=== PATIENT | female | born 1945 | race Caucasian/White ===

== ENCOUNTER 2016-11-19 08:27 | Observation (INO) | payer OTHER ==
[~2016-11-19] VITALS: Ht 160 cm; Wt 80.0 kg
[~2016-11-19 08:27] MED LIST: ASPI81TA28 PO; ATOR10TA88 PO; CEFAZOLIN 2000 MG/60 ML D5W 60 ML IV SCH; CHOL100010 PO; CLB200 PO; CLTP PO; CMD5 PO; CRD200 PO; FLUO20CA35 PO; FRRG PO; HYDR-5688 PO; LACTATED RINGER'S 1000ML 1,000 ML IV SCH; LCTX PO; LPR25 PO; MULT-506 PO; PRLSR20 PO
[2016-11-19] MEDS ORDERED: PATIENT'S HEIGHT AND/OR WEIGHT NEEDED SCH (09:45)
[2016-11-19] MEDS ORDERED: AMIO200T4 PO (09:46)
[2016-11-19] MEDS ORDERED: METO25TA56 PO (09:50)
[2016-11-19] MEDS ORDERED: LEVO50TA6 PO (09:51)
[2016-11-19 09:56] VITALS: BP 109/47; PULSE 57; TEMP 36.6; O2SAT 97; BMI 36.0
[2016-11-19] MEDS ORDERED: MIDAZOLAM HCL 5 MG/ML 1 ML VIAL ONE (10:01)
[2016-11-19] MEDS ORDERED: FENTANYL CITRATE INJ 50 MCG/1 ML 2 ML VIAL ONE ×2 (10:02→11:36)
[2016-11-19] MEDS ORDERED: LIDOCAINE HCL 1% 20 ML VIAL ONE (10:02)
[2016-11-19] MEDS ORDERED: BACITRACIN 50000 UNIT VIAL ONE (10:02)
[2016-11-19] MEDS ORDERED: BUPIVACAINE 0.5 % 5 MG/1 ML MPF 30ML VIAL ONE (10:03)
--- NOTE | 2016-11-19 10:08 | History & Physical Bridge Note ---
H&P Re-Evaluation Bridge Note: I have examined the patient, reviewed the History & Physical and in the interval since the performance of the History & Physical I have noted the following changes of clinical significance: No changes noted
--- NOTE | 2016-11-19 10:08 | Procedure Note ---
Pre-Mod Sedation Assessment General Date of Moderate Sedation: Nov 19, 2016. Review Cardiovascular: regular rate, rhythm Abdomen: soft Lungs: lungs clear Airway Class: II Pre-Sedation Airway Assessment Oral Cavity: Dentures Able to Visualize Vocal Cords: No Short Thick Neck: No Hx of Sleep Apnea: No Smoking Status: Former Smoker Mallampati Classification: Class II ASA Classification: Class II Procedure Planning Contraindications-for Mod Sed: None Yes Notes The planned sedation has been discussed with the patient and consent obtained. I have identified the patient, determined the appropriateness of sedation and have assessed the patient immediately prior to the procedure. All medicine(s) and interventions are by my order.
[2016-11-19] MEDS ORDERED: MIDAZOLAM HCL 1 MG/ML 2ML VIAL ONE (11:25)
--- NOTE | 2016-11-19 12:00 | Procedure Note ---
Post-Mod Sedation Assessment General Date of Moderate Sedation Nov 19, 2016. Vital Signs: Vital Signs Past 12 Hours Date Time Temp Pulse Resp B/P Pulse Ox O2 Delivery O2 Flow Rate FiO2 11/19/16 09:56 36.6 57 20 109/47 97 Room Air Review - Discharge Criteria Vital Signs Stable: Yes Alert/Oriented/Conversant: Yes Returned to Baseline Mental St: Yes Nausea Absent/Minimal: Yes Pain/Discomfort/Absent/Minimal: Yes Normal/Baseline Respirations: Yes Active Bleeding?: No Pt Received D/C Instructions: N/A Prescriptions Given: None Specific Proced. D/C Criteria Distal Pulses Present (Cardiac: N/A Groin site assessed-Card Cath: N/A Voided Prior To Discharge: N/A Discharged Patients Adult Escort/Transportation: N/A
--- NOTE | 2016-11-19 12:01 | [facility] Post Operative Brief Note ---
Immediate Operative Summary Operative Date Nov 19, 2016. Pre-Operative Diagnosis tbs Post-Operative Diagnosis tbs Procedure(s) Performed dual chamber rate responsive pacemaker with peripheral venogram Surgeon zita shepard Drupal Web Developer Surgeon(s) none Estimated Blood Loss 15cc Findings none Fluids (cc crystalloids) 150cc Specimens none Drains none Anesthesia 7mg versed and 125mcg fentanyl Complication(s) None Disposition PCU
[2016-11-19] MEDS ORDERED: ACETAMINOPHEN 325 MG TAB PO PRN (12:15)
[2016-11-19] MEDS ORDERED: CeleBREX 200 MG CAP PO PRN (12:15)
[2016-11-19 12:44] VITALS: BP 107/65; PULSE 61; TEMP 36.5; O2SAT 96; Ht 160 cm; Wt 80.0 kg
[2016-11-19] MEDS: OXYCODONE/ACETAMINOPHEN 5-325 TAB PO PRN ×2 (13:37→20:58)
[2016-11-19] MEDS ORDERED: IV FLUIDS COMPLETED PRN (14:30)
[2016-11-19 15:57] VITALS: BP 113/63; PULSE 60; TEMP 36.6; O2SAT 94
[2016-11-19 16:00] LABS: INR 1.3 (0.9-1.1)
[2016-11-19 16:09] LABS: PROTHROMBIN TIME (PATIENT) 14.4 SECONDS (9.0-12.0)
[2016-11-19] MEDS ORDERED: WARFARIN SOD 5 MG TAB PO SCH (16:30)
[2016-11-19 19:00] VITALS: BP 109/51; PULSE 60; TEMP 36.5; O2SAT 95
[2016-11-19 20:54] VITALS: BP 117/67; PULSE 61
[2016-11-19] MEDS: METOPROLOL TARTRATE 25 MG TAB PO SCH (20:57)
[2016-11-19] MEDS ORDERED: ATORVASTATIN 10 MG TAB PO SCH (21:00)
[2016-11-20 00:02] VITALS: BP 101/61; PULSE 61; TEMP 36.6; O2SAT 95
[2016-11-20 03:51] VITALS: BP 113/53; PULSE 60; TEMP 36.8; O2SAT 95
[2016-11-20] MEDS: OXYCODONE/ACETAMINOPHEN 5-325 TAB PO PRN (05:56)
[2016-11-20] MEDS ORDERED: LEVOTHYROXINE 50 MCG TAB PO SCH (06:00)
[2016-11-20 07:18] LABS: INR 1.3 (0.9-1.1); PROTHROMBIN TIME (PATIENT) 13.9 SECONDS (9.0-12.0)
--- NOTE | 2016-11-20 07:31 | DIAGNOSTIC IMAGING REPORT ---
CHEST 2 VIEWS ROUTINE HISTORY: EXACT TIME ORDERED Evaluate for pneumothorax and lead placement COMPARISON: Chest 05/21/2015. FINDINGS: There has been interval placement of a left-sided dual-chamber pacemaker. The leads appear intact. No pneumothorax. No pleural effusions. The heart is normal in size. No evidence for pulmonary edema. No focal lung consolidations to suggest pneumonia. Bilateral shoulder arthroplasties are again noted. IMPRESSION: Interval placement left-sided dual-chamber pacemaker. The leads appear intact. No pneumothorax. Electronically signed by: Ranulfo Hunter M.D. 11/20/2016 7:30 AM Dictated Date/Time: 11/20/2016 7:28 AM
[2016-11-20 08:01] VITALS: BP_SYST 97; PULSE 60; TEMP 36.8; O2SAT 90
[2016-11-20] MEDS: METOPROLOL TARTRATE 25 MG TAB PO SCH ×2 (08:21→09:00)
[2016-11-20 08:46] VITALS: BP 139/46
[2016-11-20] MEDS ORDERED: MULTIVITAMIN TAB PO SCH (09:00)
[2016-11-20] MEDS ORDERED: CALCIUM 600MG + VIT D 400 IU TAB PO SCH (09:00)
[2016-11-20] MEDS ORDERED: FERROUS GLUCONATE 324 MG TAB PO SCH (09:00)
[2016-11-20] MEDS ORDERED: FLUOXETINE HCL 20 MG CAP PO SCH (09:00)
[2016-11-20] MEDS ORDERED: CHOLECALCIFEROL 1000 INTER.UNIT TAB PO SCH (09:00)
[2016-11-20] MEDS ORDERED: AMIODARONE 200 MG TAB PO SCH (09:00)
[2016-11-20] MEDS ORDERED: ASPIRIN 81 MG ECTAB PO SCH (09:00)
[2016-11-20] MEDS ORDERED: PANTOprazole SOD 40 MG TAB PO SCH (09:00)
[2016-11-20 11:03] VITALS: BP 105/63; PULSE 63; TEMP 36.8; O2SAT 95
--- NOTE | 2016-11-20 11:38 | Discharge Instructions ---
Discharge Instructions Admission Reason for Admission: Sick Sinus Syndrome; Tachy-Napoleon Syndrome Discharge Discharge Diagnosis / Problem: sss Discharge Goals Goal(s): Improve function Activity Recommendations Activity Limitations: as noted below (do not lift the left elbow over the left shoulder for 1 month; do not lift more than 10 pounds with the left arm for 2 weeks) Shower/Bathe: tomorrow Driving or Machine Use: resume 1 day after discharge . Current Hospital Diet Patient's current hospital diet: AHA Diet (Heart Healthy) Discharge Diet Recommended Diet: AHA Diet (Heart Healthy) Procedures Procedures Performed: dual chamber rate responsive pacemaker with peripheral venogram Pending Studies Studies pending at discharge: no Medical Emergencies . Who to Call and When: Medical Emergencies: If at any time you feel your situation is an emergency, please call 911 immediately. . Non-Emergent Contact Non-Emergency issues call your: Tank Truck Loader . . "Provider Documentation" section prepared by Marium Burkett. VTE Core Measure Inpt VTE Proph given/why not?: Warfarin (Coumadin)
--- NOTE | 2016-11-20 11:40 | Discharge Summary ---
Discharge Summary Admission Date: Nov 19, 2016 at 12:05 Discharge Date: Nov 20, 2016 Discharge Disposition: Home Principal Diagnosis: sss Secondary Diagnoses/Problems: pAF on coumadin and amiodarone cad non-obstructive by cath in 2011 mary non-compliant with CPAP HLD Hypothyroidism Procedures: dual chamber permanent pacemaker rate responsive with peripheral venogram Medication Reconciliation Continued Medications: Amiodarone Hcl (Cordarone) 200 Mg Tab 100 MG PO DAILY, TAB Aspirin (Aspirin Ec) 81 Mg Tab 81 MG PO QAM Atorvastatin (Lipitor) 10 Mg Tab 10 MG PO HS, TAB Calcium/Vitamin D (Caltrate 600 Plus *) Tab 1 TAB PO DAILY, 0 Refills Celecoxib (Celebrex) 200 Mg Cap 200 MG PO BID PRN for Pain Cholecalciferol (Vitamin D) 1,000 Inter.unit Tab 1000 INTER.UNIT PO QAM, 0 Refills Ferrous Gluconate (Ferrous Gluconate) 324 Mg Tab 1 TAB PO QD, #30 Fluoxetine (Prozac) 20 Mg Cap 20 MG PO QAM Levothyroxine Sodium (Levothyroxine Sodium) 50 Mcg Tab 1 TAB PO DAILY for 30 Days, #30 TAB 5 Refills Multivitamin (Multivitamin) Tab 1 TAB PO QAM, TAB Omeprazole (Prilosec) 20 Mg Capcr 20 MG PO QAM Warfarin Sod (Coumadin) 5 Mg Tab 5 MG PO DAILY@16, #30 TAB Discontinued Medications: Metoprolol Tartrate (Lopressor) (Lopressor) 25 Mg Tab 12.5 MG PO BID, TAB Hospital Course pt admitted for elective permanent pacemaker due to SSS; pt underwent procedure no complications. Monitored overnight and discharged home in stable condition. Total time spent on discharge = This includes examination of the patient, discharge planning, medication reconciliation, and communication with other providers. Discharge Instructions ACTIVITY RECOMMENDATIONS: * Do not raise affected arm over head for 4 weeks. SPECIAL CARE INSTRUCTIONS: * If bleeding occurs, apply direct pressure to area for 5 minutes. * Call your doctor if you have severe pain, fever, drainage or bleeding at site. * Keep dry for 48 hours. * Keep any scheduled doctor's appointment. * Implant Card - hand held device with website information given. SKIN IRRITATION: * You may experience some redness and/or swelling in the area where radiation was administered. If any skin irritation occurs, please contact your family physician. FOLLOW UP VISIT: Keep any scheduled doctor appointments.
[2016-11-20 11:47] VITALS: BP 105/63; PULSE 63; TEMP 36.8; O2SAT 95
--- NOTE | 2016-11-20 11:52 | Cardiology Follow-Up ---
Subjective Subjective Date of Service: Nov 20, 2016. Pt evaluation today including: conversation w/ patient, conversation w/ family , physical exam, chart review, review of studies Pain: minimal discomfort at incision site Review of Systems Constitutional: No fatigue, No fever, No weakness Respiratory: No shortness of breath Cardiac: No chest pain, No edema, No palpitations Abdomen: No nausea, No vomiting Endo: No fatigue Objective Vital Signs Last Vital Signs Documentation Date Time Temp Pulse Resp B/P Pulse Ox O2 Delivery O2 Flow Rate FiO2 11/20/16 11:03 36.8 63 18 105/63 95 11/20/16 08:00 Room Air Physical Exam: General Appearance: WD/WN, no apparent distress, + obese Eyes: bilateral eyes EOMI, bilateral eyes PERRL Neck: supple, no JVD Respiratory/Chest: lungs clear, normal breath sounds Cardiovascular: regular rate, rhythm, no edema, no JVD, no murmur Abdomen: non tender, soft Extremities: no pedal edema Neurologic/Psychiatric: alert, normal mood/affect, oriented x 3 Skin: normal color (left pectoral incision intact; no hematoma; mild ecchymosis ), warm/dry, no rash Assessment and Plan Impression: 1. SSS s/p permanent pacemaker 11/19/2016 2. pAF on coumadin and amiodarone 3. CAD non-obstructive by cath in 2011 4. HLD 5. Hypotension 6. ROBERT, non-compliant with CPAP 7. Hypothyroidism Plan: -Ok to discharge home -Will hold metoprolol due to hypotension -pt not allowed to lift the left elbow over the left shoulder for 1 month; do not lift more than 10 pounds with the left arm for 2 weeks -F/u in [facility] device clinic in 7-10 days Medications: Medications Administered Medications (Trade) Dose Ordered Sig/Jalen Route Start Time Stop Time Status Last Admin Dose Admin Cefazolin Sodium (Ancef 2000mg/60 ml D5W) 60 ml @ 100 mls/hr PREOP IV 11/19/16 06:00 11/19/16 23:59 DC 11/19/16 10:00 100 MLS/HR Midazolam HCl (Versed Inj) 5 mg STK-MED ONCE .ROUTE 11/19/16 10:01 11/19/16 10:03 DC 11/19/16 10:01 5 MG Fentanyl Citrate 100 mcg 100 mcg STK-MED ONCE .ROUTE 11/19/16 10:02 11/19/16 10:03 DC 11/19/16 10:02 100 MCG Lactated Ringer's (Lr 1000ml) 1,000 ml @ 15 mls/hr Q24H IV 11/19/16 06:00 11/19/16 13:10 DC 11/19/16 10:14 15 MLS/HR Midazolam HCl (Versed Inj) 2 mg STK-MED ONCE .ROUTE 11/19/16 11:25 11/19/16 11:26 DC 11/19/16 11:25 2 MG Fentanyl Citrate (Fentanyl Inj) 100 mcg STK-MED ONCE .ROUTE 11/19/16 11:36 11/19/16 11:37 DC 11/19/16 11:36 25 MCG Oxycodone/ Acetaminophen (Percocet 5-325mg Tab) 1 tab for pain scale 4-6 2 t... Q6H PRN PO 11/19/16 12:15 12/03/16 12:14 11/20/16 05:56 1 TAB Amiodarone HCl (Cordarone Tab) 100 mg DAILY PO 11/20/16 09:00 12/20/16 08:59 11/20/16 08:19 100 MG Aspirin (Ecotrin Tab) 81 mg QAM PO 11/20/16 09:00 12/20/16 08:59 11/20/16 08:18 81 MG Atorvastatin Calcium (Lipitor Tab) 10 mg HS PO 11/19/16 21:00 12/19/16 20:59 11/19/16 20:56 10 MG Calcium/Vitamin D (Caltrate Plus Tab) 1 tab DAILY PO 11/20/16 09:00 12/20/16 08:59 11/20/16 08:20 1 TAB Cholecalciferol (Vitamin D Tab) 1,000 inter.unit QAM PO 11/20/16 09:00 12/20/16 08:59 11/20/16 08:19 1,000 INTER.UNIT Ferrous Gluconate (Ferrous Gluconate Tab) 324 mg DAILY PO 11/20/16 09:00 12/20/16 08:59 11/20/16 08:20 324 MG Fluoxetine HCl (Prozac Cap) 20 mg QAM PO 11/20/16 09:00 12/20/16 08:59 11/20/16 08:20 20 MG Levothyroxine Sodium (Synthroid Tab) 50 mcg DAILYBB PO 11/20/16 06:00 12/20/16 05:59 11/20/16 06:37 50 MCG Metoprolol Tartrate (Lopressor Tab) 12.5 mg BID PO 11/19/16 21:00 12/19/16 20:59 11/19/16 20:57 12.5 MG Multivitamins (Multivitamin Tab) 1 tab QAM PO 11/20/16 09:00 12/20/16 08:59 11/20/16 08:20 1 TAB Warfarin Sodium (Coumadin Tab) 5 mg DAILY@16 PO 11/19/16 16:30 12/19/16 16:29 11/19/16 16:45 5 MG Pantoprazole Sodium (Protonix Tab) 40 mg QAM PO 11/20/16 09:00 12/20/16 08:59 11/20/16 08:19 40 MG Lab Results: CXR: Less slack on the RV lead and the pacemaker generator has dropped slightly in the pocket No PTX ECG: SR 62bpm Pacemaker Interrogation Today: the R wave sensing is down implant but unipolar sensing is good-threshold stable since implant RA testing stable from implant Last 24 Hours Test 11/19/16 15:31 11/20/16 06:30 Prothrombin Time 14.4 SECONDS 13.9 SECONDS Prothromb Time International Ratio 1.3 1.3
--- NOTE | 2016-11-20 16:20 | OPERATIVE REPORT ---
DATE OF OPERATION: 11/19/2016 PREOPERATIVE DIAGNOSIS: Sick sinus syndrome. POSTOPERATIVE DIAGNOSIS: Same. PROCEDURE: Dual chamber responsive permanent pacemaker under fluoroscopic guidance along with peripheral venogram. SURGEON: Dr. Marium Burkett. CURRICULUM AND INSTRUCTION DIRECTOR: None. ANESTHESIA: Monitored conscious sedation, total of 7 mg of Versed, 125 mcg of fentanyl start time 10:36 with stop time 11:55. BLOOD LOSS: Less than 20 mL. COMPLICATIONS: None. CONDITION: Stable. URINE OUTPUT: Not applicable. SPECIMENS: None. SPECIMENS: None. DRAINS: None. INTRAVENOUS FLUIDS: 150 mL. INTRAVENOUS CONTRAST: 10 mL. INDICATIONS FOR PROCEDURE: This is a 71-year-old female who has a past medical history of paroxysmal atrial fibrillation diagnosed initially in April 2015 at the time of a CVA. She is on amiodarone and Coumadin, coronary artery disease, nonobstructive CAD based on the cath in 2011, obstructive sleep apnea and noncompliant with her CPAP, hypothyroidism, and hyperlipidemia. She has been having evidence of sick sinus syndrome and was recommended permanent pacemaker, so we can continue her medicines for her AFib. CONSENT: Consent was obtained prior to the patient going into the electrophysiology lab. The patient was explained risks, benefits and alternatives of the risks include but not limited to sudden cardiac ; cardiac arrhythmias; cerebrovascular accident; myocardial infarction; injury to blood vessels, chamber of the heart, lungs, bleeding and infection. The patient understood these risks and agreed to go to the procedure as planned. Informed consent was obtained. DESCRIPTION OF THE PROCEDURE: The patient was brought into the electrophysiology lab in a fasting state. She was connected to continuous cardiac monitoring. A time-out was performed to ensure patient's identity and procedure correctly. The patient was prepped and draped over the left infraclavicular space in a normal surgical standard fashion. The patient received prophylactic antibiotics prior to incision. Moderate conscious sedation was given throughout the procedure for patient's comfort level. Parlier precautions were maintained throughout the procedure. A 10 mL of 1% lidocaine, bupivacaine mixture were given in the left deltoid groove. Incision was made in the deltopectoral groove. Due to her having prior shoulder replacement, we did not even look for cephalic vein. We performed a peripheral venogram with 10 mL of IV contrast diluted in 10 mL of saline and followed by 20 mL flushed to identify the axillary vein. Venous access was obtained with an axillary vein puncture. A guidewire was inserted without any resistance. An 8-Burkinan sheath was then inserted over the guidewire without any resistance. The dilator was removed and a second 8-Burkinan sheath was inserted over the guidewire without any resistance and a second guidewire was inserted through the 8-Burkinan sheath to allow for retained venous access. The 8-Burkinan sheath was removed, flushed, dilator reinserted and then 8-Burkinan sheath was then inserted over one of the guidewires. The guidewire and dilator were removed. Right ventricular pacing lead was advanced through the sheath into the right ventricle and positioned into the ventricular apex under fluoroscopic guidance. There was adequate pacing and sensing thresholds and there was no diaphragmatic stimulation at high output pacing. The 8-Burkinan sheath was peeled away and lead was fixated to pectoralis muscle using 0 silk suture. A second 8-Burkinan sheath was inserted over the retained guidewire without any resistance. The guidewire and dilator were removed. The right atrial lead was positioned into the right atrial appendage under fluoroscopic guidance and adequate pacing and sensing thresholds were obtained. There was no diaphragmatic stimulation with high output pacing. The 8-Burkinan sheath was peeled away and the lead was fixated to the pectoralis muscle using 0 silk suture. Additional 10 mL of 1% lidocaine, bupivacaine mixture were given in the pectoralis fascia. Using blunt dissection over the pectoralis muscle within the fascia, a pacemaker pocket was created. The pocket was flushed with copious amounts of bacitracin saline wash and inspected for hemostasis. The pulse generator was then attached to the leads making sure that the pins were in appropriate position passed the set screws and the set screws were all tightened. The pulse generator was then placed in the pocket making sure that the leads were lying flat beneath the device. A stay stitch using 0 silk suture was used to secure the device to the pectoralis muscle. The incision was then closed in a 3-layer fashion using a 2-0 Vicryl suture, followed by 3-0 Vicryl suture, followed by a 4-0 Monocryl running stitch and Dermabond was applied. Of note, before we closed the incision, we did use Aristat the patient is on Coumadin to prevent any significant further oozing. EQUIPMENT: 1. Pulse generator is a Orthogemkrystle Gordon [id number], serial #[id number]. 2. Right atrial lead Medtronic 5076-52 cm, serial #[id number]. 3. Right ventricular lead, Medtronic 5076-58 cm, serial #[id number]. INTRAOPERATIVE TESTIN. Right atrial lead: P-wave 5.7 millivolts, impedance 683 ohms, threshold 1 volt at 1.7 milliamps. 2. Right ventricular lead: R-wave 21 millivolts, impedance 1158 ohms, threshold 0.8 volts at 0.8 milliamps. FINAL MEASUREMENTS THROUGH THE DEVICE: 1. Right atrial lead: P-wave 3.5 millivolts, impedance 475 ohms, threshold 1 volt at 0.4 milliseconds. 2. Right ventricular lead: R-wave waves 19 millivolts, impedance 627 ohms, threshold 1.25 volts at 0.4 milliseconds. FINAL PARAMETERS: MVP-R 60/130. The right atrial amplitude 3.5 volts, pulse width 0.4 milliseconds, sensitivity 0.3 millivolts. Right ventricular amplitude 3.5 volts, pulse width 0.4 milliseconds, sensitivity 0.9 millivolts. IMPRESSION: Successful implantation of a dual chamber rate responsive permanent pacemaker under fluoroscopic guidance along with peripheral venogram secondary to sick sinus syndrome. PLAN: Monitor patient overnight, 12-lead ECG, chest x-ray. She is not allowed to lift left elbow or left shoulder for 1 month. She cannot lift more than 10 pounds with the left arm for 2 weeks. She should follow up in our [facility] office in 7-10 days for device and wound check. She can continue her home medications and shower in 2 days. I attest to the content of the Intraoperative Record and any orders documented therein. Any exceptions are noted below. VAN
== END 2016-11-20 13:43 | disposition home or self-care (01) ==
LOC: C.ACU 08:27 → C.2E 12:05
PROVIDERS: ADMIT Internal Medicine; ATTEND Internal Medicine
DX: I49.5 Sick sinus syndrome (principal); I25.10 Atherosclerotic heart disease of native coronary artery without angina pectoris; G47.33 Obstructive sleep apnea (adult) (pediatric); E03.9 Hypothyroidism, unspecified; E78.5 Hyperlipidemia, unspecified; I48.0 Paroxysmal atrial fibrillation; Z95.0 Presence of cardiac pacemaker; Z79.01 Long term (current) use of anticoagulants; Z91.19 Patient's noncompliance with other medical treatment and regimen

== ENCOUNTER → 2018-05-27 | Day surgery (SDC) | payer OTHER ==
[2018-05-13 11:53] VITALS: BMI 36.0
[~2018-05-27] VITALS: Ht 160 cm; Wt 92.4 kg
[~2018-05-27] MED LIST changes: +AMIO200T4 PO; +ATOR10TA82 PO; -ATOR10TA88 PO; +ATROPINE SULFATE 0.1 MG/ML 5ML SYR IV PRN; -CEFAZOLIN 2000 MG/60 ML D5W 60 ML IV SCH; +CEFAZOLIN SOD 1 GM VIAL ONE; +CHOL1000 PO; -CHOL100010 PO; -CLB200 PO; -CLTP PO; -CMD5 PO; -CRD200 PO; +DEXAMETHASONE SOD INJ 4 MG/ML VIAL ONE; +EpHEDrine SULFATE INJ 50 MG/ML AMP IV PRN; +FENTANYL CITRATE INJ 50 MCG/1 ML 2 ML VIAL IV PRN; +FENTANYL CITRATE INJ 50 MCG/1 ML 2 ML VIAL ONE; -FRRG PO; +GLYCOPYRROLATE INJ 0.2 MG/ML VIAL ONE; -HYDR-5688 PO; +HYDROmorphone INJ 0.5 MG/0.5 ML SYR IV PRN; +LABETALOL HCL IV 5 MG/ML 20ML IV PRN; -LCTX PO; +LEVO75TA5 PO; +LIDOCAINE HCL 2% 2 ML VIAL (20MG/ML) ONE; -LPR25 PO; +MEPERIDINE HCL 25 MG/ML CARP IV PRN; +METO25TA3 PO; +MIDAZOLAM HCL 1 MG/ML 2ML VIAL ONE; +NEOSTIGMINE METHYLSULFATE 5 MG/5 ML SYR ONE; +ONDANSETRON INJ 2 MG/ML 2 ML VIAL IV PRN; +ONDANSETRON INJ 2 MG/ML 2 ML VIAL ONE; +PHENYLEPHRINE 100MCG/ML 5ML SYR ONE; +PHENYLEPHRINE HCL INJ 10 MG/ML VIAL ONE; +PROPOFOL IV EMULSION 10 MG/ML 20 ML VIAL ONE; +ROCURONIUM BROMIDE 10 MG/ML 5 ML VIAL ONE; +WARF2.5T8 PO; +WARF5TAB7 PO
[2018-05-27 09:55] LABS: PTT PATIENT 28.2 SECONDS (21.0-31.0)
[2018-05-27 10:00] VITALS: BP 123/62; PULSE 68; TEMP 36.8; O2SAT 94; Ht 160 cm; Wt 92.4 kg
== END | disposition home or self-care (01) ==
LOC: C.ACU 09:10
PROVIDERS: ATTEND Surgery
DX: R91.8 Other nonspecific abnormal finding of lung field (principal); Z53.9 Procedure and treatment not carried out, unspecified reason

== ENCOUNTER 2018-05-28 05:27 | Inpatient (IN) | payer OTHER ==
[2018-05-28] VITALS (10 sets, daily range): BP systolic 110–144; BP diastolic 58–84; PULSE 62–76; TEMP 36.4–36.7; O2SAT 92–100; Ht 160 cm; Wt 92.3 kg
[~2018-05-28] VITALS: Ht 160 cm; Wt 92.3 kg
[~2018-05-28 05:27] MED LIST changes: -ATROPINE SULFATE 0.1 MG/ML 5ML SYR IV PRN; -CEFAZOLIN SOD 1 GM VIAL ONE; -DEXAMETHASONE SOD INJ 4 MG/ML VIAL ONE; -EpHEDrine SULFATE INJ 50 MG/ML AMP IV PRN; -FENTANYL CITRATE INJ 50 MCG/1 ML 2 ML VIAL IV PRN; -FENTANYL CITRATE INJ 50 MCG/1 ML 2 ML VIAL ONE; -GLYCOPYRROLATE INJ 0.2 MG/ML VIAL ONE; -HYDROmorphone INJ 0.5 MG/0.5 ML SYR IV PRN; -LABETALOL HCL IV 5 MG/ML 20ML IV PRN; -LACTATED RINGER'S 1000ML 1,000 ML IV SCH; -LIDOCAINE HCL 2% 2 ML VIAL (20MG/ML) ONE; -MEPERIDINE HCL 25 MG/ML CARP IV PRN; -MIDAZOLAM HCL 1 MG/ML 2ML VIAL ONE; -NEOSTIGMINE METHYLSULFATE 5 MG/5 ML SYR ONE; -ONDANSETRON INJ 2 MG/ML 2 ML VIAL IV PRN; -ONDANSETRON INJ 2 MG/ML 2 ML VIAL ONE; -PHENYLEPHRINE 100MCG/ML 5ML SYR ONE; -PHENYLEPHRINE HCL INJ 10 MG/ML VIAL ONE; -PROPOFOL IV EMULSION 10 MG/ML 20 ML VIAL ONE; -ROCURONIUM BROMIDE 10 MG/ML 5 ML VIAL ONE
[2018-05-28] MEDS ORDERED: SODIUM CHLORIDE 0.9% PF 50 ML VIAL ONE (07:13)
[2018-05-28] MEDS ORDERED: BUPIVACAINE 0.5 % 5 MG/1 ML PF 10ML VIAL ONE (07:14)
[2018-05-28] MEDS ORDERED: BUPIVACAINE LIPOSOME 1/3% 266 MG/20 ML VIAL ONE (07:14)
[2018-05-28] MEDS ORDERED: EpHEDrine SULFATE INJ 50 MG/ML AMP IV PRN (08:45)
[2018-05-28] MEDS ORDERED: PHENYLEPHRINE 100MCG/ML 5ML SYR IV PRN (08:45)
[2018-05-28] MEDS ORDERED: ONDANSETRON INJ 2 MG/ML 2 ML VIAL IV PRN ×2 (08:45→12:15)
[2018-05-28] MEDS ORDERED: ATROPINE SULFATE 0.1 MG/ML 5ML SYR IV PRN (08:45)
[2018-05-28] MEDS ORDERED: HYDROmorphone INJ 1 MG/ML SYR IV PRN (08:45)
[2018-05-28] MEDS ORDERED: CEFAZOLIN SOD 1 GM VIAL IV ONE (09:18)
--- NOTE | 2018-05-28 11:52 | [facility] Post Operative Brief Note ---
Immediate Operative Summary Operative Date May 28, 2018. Pre-Operative Diagnosis 1. Left lower lobe mass. Post-Operative Diagnosis Same as Preop Procedure(s) Performed Left Video Assisted Thoracoscopy with Left Lower Lobectomy and Mediastinal Lymphadenectomy Robot Assist Surgeon Dr. Carlin Pang Screen Printing Inspector Surgeon(s) Ori Harris PA-C Estimated Blood Loss 150 ml Findings Consistent with Post-Op Diagnosis Specimens Permanent: A. L9 LYMPH NODE B. L12 LYMPH NODE X4 C. L10 LYMPH NODE D. L11 LYMPH NODE E. Level 5 F. Level 7 G. Level 8 Frozen 1. Left Lower Lobe for Bronchial Margins left room at 1136 Anesthesia Type General
[2018-05-28] MEDS ORDERED: METOCLOPRAMIDE HCL INJ 5 MG/ML 2 ML VIAL IV. STA (12:07)
[2018-05-28] MEDS ORDERED: MoRPHine SULFATE 2 MG/ML CARP IV PRN (12:15)
--- NOTE | 2018-05-28 12:43 | DIAGNOSTIC IMAGING REPORT ---
CHEST ONE VIEW PORTABLE CLINICAL HISTORY: Left lower lobectomy. COMPARISON STUDY: Chest radiograph April 24, 2018. FINDINGS: Incidental note is made of bilateral shoulder arthroplasties and a dual-lead left subclavian pacemaker as well as cholecystectomy clips. A left apical chest tube is in place. There is mild left hemithorax volume loss as expected. No pneumothorax is visualized. Diffuse interstitial thickening is noted. There are trace bilateral pleural effusions. IMPRESSION: 1. Left apical chest tube in place. No pneumothorax. 2. Reticulonodular interstitial thickening. Pulmonary edema is favored although an infectious process could appear similar. 3. Trace bilateral pleural effusions. Electronically signed by: Dirk Beaver M.D. 05/28/2018 12:41 PM Dictated Date/Time: 05/28/2018 12:39 PM
[2018-05-28] MEDS: FENTANYL CITRATE INJ 50 MCG/1 ML 2 ML VIAL IV PRN ×4 (12:46→13:03)
--- NOTE | 2018-05-28 13:29 | Anesthesiology Progress Note ---
Anesthesia Post Op Note Date & Time May 28, 2018 at 13:28 Vital Signs Pain Intensity: 4 Vital Signs Past 12 Hours Date Time Temp Pulse Resp B/P (MAP) Pulse Ox O2 Delivery O2 Flow Rate FiO2 05/28/18 13:20 36.0 75 16 105/71 94 Nasal Cannula 4 05/28/18 13:10 75 16 98/53 94 Nasal Cannula 4 05/28/18 13:00 75 16 86/52 95 Oxymask 10 05/28/18 12:50 75 16 90/61 95 Oxymask 10 05/28/18 12:40 75 16 111/60 98 Oxymask 10 05/28/18 12:30 75 16 111/64 98 Oxymask 10 05/28/18 12:23 36.2 75 16 104/82 98 Oxymask 10 05/28/18 05:50 36.7 76 22 144/70 (94) 93 Room Air Notes Mental Status: alert / awake / arousable, participated in evaluation Pt Amnestic to Procedure: Yes Nausea / Vomiting: adequately controlled Pain: adequately controlled Airway Patency, RR, SpO2: stable & adequate BP & HR: stable & adequate Hydration State: stable & adequate Anesthetic Complications: no major complications apparent Pt doing well without complaints. VSS. Medtronic rep for her PM has been notified to reprogram her PM.
[2018-05-28] MEDS: ACETAMINOPHEN IV 1,000 MG in EMPTY BAG 0 ML IV SCH ×2 (15:32→23:29)
[2018-05-28] MEDS: KETOROLAC TROMETHAMINE 15 MG/ML VIAL IV. SCH ×2 (16:10→23:29)
[2018-05-28] MEDS: METOCLOPRAMIDE HCL INJ 5 MG/ML 2 ML VIAL IV. SCH ×2 (16:10→23:29)
--- NOTE | 2018-05-28 16:36 | OPERATIVE REPORT ---
DATE OF OPERATION: 05/28/2018 PREOPERATIVE DIAGNOSIS: Enlarging hypermetabolic mass left lower lobe. POSTOPERATIVE DIAGNOSIS: Squamous cell carcinoma, left lower lobe. PROCEDURE: Robot-assisted thoracoscopic left lower lobectomy with mediastinal lymph node dissection. SURGEON: Carlin Pang MD GENERAL MANAGER: CHERIE Whiting. (Mr. Harris was present for the entire case and was at the patient's bedside while I was at the console. He also closed the skin incisions at the conclusion of the case). ANESTHESIA: General anesthesia, endotracheal intubation with a double lumen tube. SPECIFICS OF PROCEDURE AND FINDINGS: This is a 73-year-old female that has an enlarging mass in her left lower lobe. She also has what appears to be involvement of the airways. I did a bronchoscopy including endobronchial ultrasound and navigational bronchoscopy and we did not get any answer; however, given the fact that it has grown, I was concerned. I had a long talk with the patient and her family. I am concerned because she is elderly and her lung function is poor; however, we were not going to be able to do a wedge resection of this mass. My feeling is that we were dealing with a carcinoma. After multiple discussions, the family and the patient agreed that we would proceed with surgery. Today on 05/28/2018, the patient underwent an uncomplicated left lower lobectomy. This was done with a robot thoracoscopically. The mass was large. Frozen section showed it to be a squamous cell carcinoma. Our bronchial margins were negative. Grossly the cancer was fairly close. We biopsied several different mediastinal lymph nodes including 5, 7, 8, 9, 10, 11 and 12. She tolerated it well, was extubated in the room. DETAILS OF PROCEDURE: The patient was brought to operating room and laid in supine position. General anesthesia was induced and endotracheal intubation was performed with a double lumen tube. The patient was placed in the right lateral decubitus position and the left chest was prepped and draped in the usual sterile fashion. After appropriate timeout had been called and antibiotics given, an incision was made in the midaxillary line. A 5 mm port was placed and a 5 mm 30-degree scope was placed and we could see we were in the pleural cavity and carbon dioxide was insufflated. The lung collapsed very nicely. She had no adhesions in the lower lobe. The upper lobe was stuck to the apex and we noted that. We then put a 5 mm port in posteriorly and about the eighth interspace 3 cm from the spinous processes. We then put an 8 mm port in the eighth interspace between the camera port and the midaxillary line and the posterior port. We also put an 8 mm port anteriorly at about the seventh interspace. We had good visualization of the lower lung and with the use of an assistance port which was 15 mm port placed anteriorly and just above the diaphragm under thoracoscopic guidance we were able to get good retraction, I took down the inferior pulmonary ligament. There was a small level 9 node which was biopsied. Also, a small level 8 node. We then cleaned off the posterior aspect of the inferior pulmonary vein. Dissection was continued upward. There was a small level 7 node after we retracted the esophagus anteriorly and the aorta posteriorly. We then went up and biopsied a level 10 node as little as a large level 5 node. These all looked reactive. We then were able to develop the fissure posteriorly and the branch of the superior segment was noted. Endo-SOFÍA stapler was fired across this. This went very nicely and we were able to carry our dissection down. I identified the lingual artery. We then came up just distal to this and fired another Endo-SOFÍA stapler. Patient had some edema and had oozing from multiple sites. We had the edema within the tissues itself. We completed the fissure anteriorly by firing Endo-SOFÍA stapler. We then had the vein draining the lower lobe was encircled with a vessel loop, however, we did not divide it yet as we were not in a good position. We then freed up the bronchus all the way up to the takeoff of the lingual branch and we fired the Endo-SOFÍA just distal to this. We then were in good position to fire an Endo-SOFÍA stapler across the vein. We then biopsied from level 10 nodes anteriorly and really did not find a level 6 node. We used an Aquamantys to achieve hemostasis of our port sites and we noted bleeding from thoracoscopically. It should be noted that we used Exparel, 266 mg were mixed with 250 mL of normal saline and 30 mL of 0.25% Marcaine. With this mixture, we injected each of our port sites prior to opening the chest. We then used the solution to perform an intercostal block from the 2nd-11th rib. We then used a large Endobag and placed the specimen into this. After we had completely placed the left lower lobe into the bag, we then undocked the robot. We were able to slightly open the assistance port site and we were able to get the left lower lobe out. This was sent to the lab for frozen section. We then placed a 24-Estonian chest tube and directed towards the apex to a separate stab wound below the camera port. This was sutured in place with heavy silk suture. 0-Vicryl was used to close the muscle layers in the assistance port as well as the camera port. 4-0 Biosyn was then used in running subcuticular fashion to close all of the wounds. She really did not have an air leak at the conclusion of the case. She was extubated in the room. She really did not have air leak. She looked quite good upon her transfer back to the postanesthesia care unit. I attest to the content of the Intraoperative Record and any orders documented therein. Any exception s are noted below.
[2018-05-28] MEDS: D5W AND 1/2NSS 1,000 ML IV SCH (20:42)
[2018-05-28] MEDS: METOPROLOL SUCC 25MG EXT REL TAB PO SCH (20:57)
[2018-05-28] MEDS: ATORVASTATIN 10 MG TAB PO SCH (20:57)
[2018-05-28] MEDS: DOCUSATE SODIUM 100 MG CAP PO SCH (20:57)
[2018-05-29] VITALS (8 sets, daily range): BP systolic 91–126; BP diastolic 50–72; PULSE 62–72; TEMP 36.5–37; O2SAT 92–97
[2018-05-29] MEDS: LEVOTHYROXINE 75 MCG TAB PO SCH (05:47)
[2018-05-29] MEDS: D5W AND 1/2NSS 1,000 ML IV SCH (05:49)
[2018-05-29] MEDS: ACETAMINOPHEN IV 1,000 MG in EMPTY BAG 0 ML IV SCH (06:44)
[2018-05-29 07:08] LABS: HEMATOCRIT 34.7 % (37-47); HEMOGLOBIN 11.1 g/dL (12.0-16.0); IG# 0.04 K/uL (0.00-0.02); LYMPH % 4.9 %; LYMPH ABS # 0.64 K/uL (1.2-3.4); MEAN CELL VOLUME 86.8 fL (80-100); MEAN CORPUSCULAR HEMOGLOBIN 27.8 pg (25-34); MEAN PLATELET VOLUME 10.2 fL (7.4-10.4); MONO % 10.2 %; MONO ABS # 1.34 K/uL (0.11-0.59); NEUT % 84.6 %; NEUT ABS # 11.06 K/uL (1.4-6.5); PLATELET COUNT 226 K/uL (130-400); RED CELL DISTRIBUTION WIDTH CV 14.9 % (11.5-14.5); RED CELL DISTRIBUTION WIDTH SD 47.3 fL (36.4-46.3); WHITE BLOOD COUNT 13.08 K/uL (4.8-10.8)
--- NOTE | 2018-05-29 07:11 | DIAGNOSTIC IMAGING REPORT ---
CHEST ONE VIEW PORTABLE CLINICAL HISTORY: LLL pain COMPARISON STUDY: 05/28/2018 FINDINGS: Mild stable cardia megaly. Permanent bipolar cardiac pacemaker. Improved bronchovascular markings compared to the prior study. Left-sided chest tube in good position. No significant pneumothorax. IMPRESSION: No significant pneumothorax. Improving bronchovascular prominence The above report was generated using voice recognition software. It may contain grammatical, syntax or spelling errors. Electronically signed by: Logan Wagner M.D. 05/29/2018 7:10 AM Dictated Date/Time: 05/29/2018 7:09 AM
[2018-05-29 07:32] LABS: CALCIUM 7.7 mg/dl (8.5-10.1); CREATININE 0.62 mg/dl (0.60-1.20); POTASSIUM 3.8 mmol/L (3.5-5.1)
[2018-05-29] MEDS: KETOROLAC TROMETHAMINE 15 MG/ML VIAL IV. SCH ×2 (08:00→16:25)
[2018-05-29] MEDS: METOCLOPRAMIDE HCL INJ 5 MG/ML 2 ML VIAL IV. SCH ×2 (08:00→16:25)
--- NOTE | 2018-05-29 08:34 | Anesthesiology Progress Note ---
Anesthesia Post Op Note Date & Time May 29, 2018 at 08:33 Vital Signs Vital Signs Past 12 Hours Date Time Temp Pulse Resp B/P (MAP) Pulse Ox O2 Delivery O2 Flow Rate FiO2 05/29/18 07:43 36.8 72 18 112/68 (83) 96 Nasal Cannula 2.0 05/29/18 05:45 36.6 68 18 106/68 (81) 94 Nasal Cannula 2.0 05/29/18 01:45 36.9 71 20 126/57 (80) 95 Nasal Cannula 4.0 05/29/18 00:00 Nasal Cannula 3.0 05/28/18 23:45 36.7 70 18 126/84 (98) 96 Nasal Cannula 4.0 05/28/18 20:54 66 118/73 (88) Notes Mental Status: alert / awake / arousable, participated in evaluation Pt Amnestic to Procedure: Yes Nausea / Vomiting: adequately controlled Pain: adequately controlled Airway Patency, RR, SpO2: stable & adequate BP & HR: stable & adequate Hydration State: stable & adequate Anesthetic Complications: no major complications apparent
[2018-05-29] MEDS: FLUOXETINE HCL 20 MG CAP PO SCH (09:00)
[2018-05-29] MEDS: ASPIRIN 81 MG ECTAB PO SCH (09:00)
[2018-05-29] MEDS: DOCUSATE SODIUM 100 MG CAP PO SCH ×2 (09:00→21:54)
[2018-05-29] MEDS: METOPROLOL SUCC 25MG EXT REL TAB PO SCH ×2 (09:00→21:54)
[2018-05-29] MEDS: AMIODARONE 200 MG TAB PO SCH (09:00)
[2018-05-29] MEDS: MULTIVITAMIN TAB PO SCH (09:00)
[2018-05-29] MEDS: PANTOprazole SOD 40 MG TAB PO SCH (09:00)
[2018-05-29] MEDS: CHOLECALCIFEROL 1000 INTER.UNIT TAB PO SCH (09:00)
--- NOTE | 2018-05-29 09:09 | SURGERY PROGRESS NOTE ---
DATE: 05/29/2018 Ms. Allan is seen today on 05/29/18. She is 1 day status post a robot-assisted thoracoscopic left lower lobectomy with mediastinal lymph node dissection for squamous cell carcinoma. She has done remarkably well. She has been ambulating. She is on room air with saturations about 90-92% at rest; however, she does drop with exertion, which is not surprising. Her chest x-ray looks very good. She really does not have much of an air leak and has complete expansion of her lung with no evidence of effusion, infiltrate or pneumothorax. In reviewing her labs, her hemoglobin is stable at 11.1. Her BUN and creatinine are 9 and 0.62. Her sodium is 138. I am going to stop her IV and get her up ambulating more. My hope is that we get her chest tube out in the next day or two and get her home.
[2018-05-29] MEDS: ENOXAPARIN 40 MG/0.4 ML SYR SQ SCH (09:52)
[2018-05-29] MEDS: ATORVASTATIN 10 MG TAB PO SCH (21:54)
[2018-05-29] MEDS: OXYCODONE HCL IR 5 MG TAB (IMMEDIATE RELEASE) PO PRN (22:38)
[2018-05-30] MEDS: METOCLOPRAMIDE HCL INJ 5 MG/ML 2 ML VIAL IV. SCH ×2 (00:47→07:37)
[2018-05-30] MEDS: KETOROLAC TROMETHAMINE 15 MG/ML VIAL IV. SCH ×2 (00:47→07:37)
[2018-05-30 01:50] VITALS: BP 100/64; PULSE 68; TEMP 36.8; O2SAT 91
[2018-05-30] MEDS: LEVOTHYROXINE 75 MCG TAB PO SCH (06:00)
[2018-05-30] MEDS: OXYCODONE HCL IR 5 MG TAB (IMMEDIATE RELEASE) PO PRN ×3 (06:00→18:46)
--- NOTE | 2018-05-30 07:47 | SURGERY PROGRESS NOTE ---
DATE: 05/30/2018 Ms. Allan was seen today. I removed her chest tube. Her x-ray looked quite good after I removed it. The patient had some anxiety and is still requiring a bit of oxygen, which is not surprising. Her support system in home was fairly fragile. I am afraid to send this patient home today. Her oxygen status is tenuous. We are going to get her up and have her walk and give her MiraLax to see if we can get her move her bowels. Again, I am afraid this patient is going to return to the Emergency Room if we try to send her home with her support system in her current respiratory status. Hopefully, she will improve by tomorrow when we will be able to get her ready.
[2018-05-30 07:52] VITALS: BP 130/90; PULSE 65; TEMP 36.3; O2SAT 96
[2018-05-30] MEDS: DOCUSATE SODIUM 100 MG CAP PO SCH ×2 (08:35→20:33)
[2018-05-30] MEDS: CHOLECALCIFEROL 1000 INTER.UNIT TAB PO SCH (08:35)
[2018-05-30] MEDS: FLUOXETINE HCL 20 MG CAP PO SCH (08:35)
[2018-05-30] MEDS: ENOXAPARIN 40 MG/0.4 ML SYR SQ SCH (08:36)
[2018-05-30] MEDS: METOPROLOL SUCC 25MG EXT REL TAB PO SCH ×2 (08:37→20:33)
[2018-05-30] MEDS: MULTIVITAMIN TAB PO SCH (08:37)
[2018-05-30] MEDS: ASPIRIN 81 MG ECTAB PO SCH (08:38)
[2018-05-30] MEDS: AMIODARONE 200 MG TAB PO SCH (08:38)
--- NOTE | 2018-05-30 08:43 | DIAGNOSTIC IMAGING REPORT ---
SINGLE VIEW CHEST CLINICAL HISTORY: Chest tube removal. FINDINGS: An AP, portable, upright chest radiograph is compared to study dated 05/29/2018 and correlated with chest CT dated 04/23/2018. The examination is degraded by portable technique and patient rotation. A 2-lead cardiac pacemaker is unchanged in position. The heart is enlarged and there is atherosclerotic calcification of the thoracic aorta. Mild pulmonary vascular congestion persists. Calcified mediastinal nodes are noted. There are small pleural effusions with bibasilar consolidation. A left-sided chest tube has been removed. There is a trace left apical pneumothorax. The skeletal structures are osteopenic. The bony thorax is grossly intact. Bilateral shoulder arthroplasties are in place. Cholecystectomy clips are identified in the right upper quadrant. IMPRESSION: 1. A left-sided chest tube has been removed. There is a trace left apical pneumothorax. 2. Cardiomegaly and cardiac pacemaker. Mild pulmonary vascular congestion persists. 3. There are trace pleural effusions with bibasilar consolidation. This likely represents atelectasis. Clinical correlation will be required Electronically signed by: Gume Pond M.D. 05/30/2018 8:42 AM Dictated Date/Time: 05/30/2018 8:39 AM
[2018-05-30] MEDS: POLYETHYLENE (MIRALAX) 17 GM PACK PO SCH (09:34)
[2018-05-30] MEDS: PANTOprazole SOD 40 MG TAB PO SCH (09:34)
[2018-05-30 11:43] VITALS: BP 112/78; PULSE 64; TEMP 36.8; O2SAT 95
[2018-05-30 14:55] VITALS: BP 130/90; PULSE 68; TEMP 36.8; O2SAT 95
[2018-05-30] MEDS ORDERED: NURSING VERBAL MED ORDER ONE (15:45)
[2018-05-30 20:27] VITALS: BP 118/79; PULSE 79; O2SAT 93
[2018-05-30] MEDS: ATORVASTATIN 10 MG TAB PO SCH (20:33)
[2018-05-30 23:05] VITALS: BP 127/75; PULSE 85; TEMP 37.6; O2SAT 93
[2018-05-31] MEDS: OXYCODONE HCL IR 5 MG TAB (IMMEDIATE RELEASE) PO PRN ×2 (03:33→20:37)
[2018-05-31] MEDS: LEVOTHYROXINE 75 MCG TAB PO SCH (06:08)
[2018-05-31 07:02] LABS: BASO % 0.2 %; BASO ABS # 0.03 K/uL (0-0.2); EOS % 1.7 %; EOS ABS # 0.24 K/uL (0-0.5); HEMATOCRIT 34.2 % (37-47); IG# 0.13 K/uL (0.00-0.02); LYMPH % 9.4 %; MEAN CELL VOLUME 87.2 fL (80-100); MEAN CORPUSCULAR HEMOGLOBIN 28.1 pg (25-34); MEAN CORPUSCULAR HGB CONC 32.2 g/dl (32-36); MEAN PLATELET VOLUME 10.3 fL (7.4-10.4); MONO % 12.3 %; NEUT % 75.5 %; NEUT ABS # 10.46 K/uL (1.4-6.5); PLATELET COUNT 262 K/uL (130-400); RED CELL DISTRIBUTION WIDTH CV 15.4 % (11.5-14.5); RED CELL DISTRIBUTION WIDTH SD 49.5 fL (36.4-46.3); WHITE BLOOD COUNT 13.86 K/uL (4.8-10.8)
--- NOTE | 2018-05-31 07:02 | DIAGNOSTIC IMAGING REPORT ---
CHEST ONE VIEW PORTABLE CLINICAL HISTORY: Lobectomy. COMPARISON STUDY: Chest radiograph May 30, 2018. FINDINGS: Incidental note is made of bilateral shoulder arthroplasties and dual lead left subclavian pacemaker. A small left pneumothorax is similar to exam. Left basilar opacity is slightly increased. There is a small left pleural effusion. Mild interstitial thickening and patchy bilateral airspace opacities persist. Cardiomegaly is unchanged. IMPRESSION: 1. No significant change in a small left pneumothorax. 2. Slight increase in left basilar opacity which may reflect atelectasis or consolidation. 3. No change in mild interstitial thickening and patchy bilateral opacities. Electronically signed by: Dirk Beaver M.D. 05/31/2018 7:00 AM Dictated Date/Time: 05/31/2018 6:58 AM
[2018-05-31 07:47] VITALS: BP 117/60; PULSE 74; TEMP 36.7; O2SAT 95
[2018-05-31] MEDS: DOCUSATE SODIUM 100 MG CAP PO SCH ×2 (09:07→20:34)
[2018-05-31] MEDS: FLUOXETINE HCL 20 MG CAP PO SCH (09:07)
[2018-05-31] MEDS: ASPIRIN 81 MG ECTAB PO SCH (09:07)
[2018-05-31] MEDS: CHOLECALCIFEROL 1000 INTER.UNIT TAB PO SCH (09:07)
[2018-05-31] MEDS: MULTIVITAMIN TAB PO SCH (09:07)
[2018-05-31] MEDS: METOPROLOL SUCC 25MG EXT REL TAB PO SCH ×2 (09:07→20:35)
[2018-05-31] MEDS: POLYETHYLENE (MIRALAX) 17 GM PACK PO SCH (09:08)
[2018-05-31] MEDS: AMIODARONE 200 MG TAB PO SCH (09:08)
[2018-05-31] MEDS: ENOXAPARIN 40 MG/0.4 ML SYR SQ SCH (09:09)
[2018-05-31] MEDS ORDERED: FUROSEMIDE 20 MG TAB PO STA (10:16)
[2018-05-31] MEDS: PANTOprazole SOD 40 MG TAB PO SCH (10:23)
--- NOTE | 2018-05-31 11:14 | SURGERY PROGRESS NOTE ---
DATE: 05/31/2018 Ms. Allan was seen today. I was going to send her home, but she really has very tenuous oxygen status. On 3 L, she is 90%. Her 2-step showed she dropped her saturations markedly. She appears more tachypneic to me. I discussed this with respiratory therapy. I believe the patient may be somewhat fluid overloaded. Her white count this morning is 13,860. Hemoglobin is stable at 11. I am going to gently diurese her. I am going to also start her on some oral antibiotics. We will continue to ambulate her. I may send her home tomorrow, but I am worried about her in general. I am very worried about her hypoxemia. VAN
[2018-05-31] MEDS: AMOXICILLIN/CLAVULANATE TAB 875 MG TAB PO SCH ×2 (14:26→18:50)
[2018-05-31 15:04] VITALS: BP 138/81; PULSE 76; TEMP 37.4; O2SAT 95
[2018-05-31] MEDS: FUROSEMIDE 20 MG TAB PO SCH (16:55)
[2018-05-31] MEDS: ATORVASTATIN 10 MG TAB PO SCH (20:36)
[2018-05-31 22:55] VITALS: BP 136/76; PULSE 88; TEMP 37; O2SAT 95
[2018-06-01] VITALS (8 sets, daily range): BP systolic 105–113; BP diastolic 63–70; PULSE 69–80; TEMP 36.8–37.4; O2SAT 92–98
[2018-06-01] MEDS: LEVOTHYROXINE 75 MCG TAB PO SCH (04:52)
[2018-06-01] MEDS: OXYCODONE HCL IR 5 MG TAB (IMMEDIATE RELEASE) PO PRN ×2 (04:52→23:16)
--- NOTE | 2018-06-01 07:23 | DIAGNOSTIC IMAGING REPORT ---
CHEST ONE VIEW PORTABLE CLINICAL HISTORY: lobectomy postoperative evaluation COMPARISON STUDY: 05/31/2018 FINDINGS: No significant postprocedural pneumothorax. Unchanging left hilar prominence. Chronic interstitial change left base unaltered. Right lung is clear. IMPRESSION: 1. No significant pneumothorax considered improved from the prior study. 2. Unchanging interstitial pleural reactive changes left base. The above report was generated using voice recognition software. It may contain grammatical, syntax or spelling errors. Electronically signed by: Logan Wagner M.D. 06/01/2018 7:22 AM Dictated Date/Time: 06/01/2018 7:21 AM
[2018-06-01] MEDS: POLYETHYLENE (MIRALAX) 17 GM PACK PO SCH (08:32)
[2018-06-01] MEDS: AMOXICILLIN/CLAVULANATE TAB 875 MG TAB PO SCH ×2 (08:33→17:41)
[2018-06-01] MEDS: FLUOXETINE HCL 20 MG CAP PO SCH (08:34)
[2018-06-01] MEDS: ENOXAPARIN 40 MG/0.4 ML SYR SQ SCH (08:34)
[2018-06-01] MEDS: FUROSEMIDE 20 MG TAB PO SCH ×2 (08:34→17:26)
[2018-06-01] MEDS: PANTOprazole SOD 40 MG TAB PO SCH (08:34)
[2018-06-01] MEDS: METOPROLOL SUCC 25MG EXT REL TAB PO SCH ×2 (08:35→21:13)
[2018-06-01] MEDS: CHOLECALCIFEROL 1000 INTER.UNIT TAB PO SCH (08:35)
[2018-06-01] MEDS: MULTIVITAMIN TAB PO SCH (08:35)
[2018-06-01] MEDS: ASPIRIN 81 MG ECTAB PO SCH (08:36)
[2018-06-01] MEDS: AMIODARONE 200 MG TAB PO SCH (08:36)
[2018-06-01] MEDS: DOCUSATE SODIUM 100 MG CAP PO SCH ×2 (08:36→21:13)
--- NOTE | 2018-06-01 13:42 | SURGERY PROGRESS NOTE ---
DATE: 06/01/2018 Ms. Allan was seen today. I am still concerned about her. She is quite fragile and she is still hypoxic, although improved. She states she feels better. I will have PT and OT evaluate her and I think she would benefit fror a short-term rehabilitation stay. I think she would improve tremendously. She really does not have a support system at home and I am concerned about sending her there. VAN
[2018-06-01] MEDS: ATORVASTATIN 10 MG TAB PO SCH (21:13)
[2018-06-02] VITALS (9 sets, daily range): BP systolic 89–116; BP diastolic 46–68; PULSE 69–74; TEMP 36.6–37; O2SAT 93–96
[2018-06-02] MEDS: LEVOTHYROXINE 75 MCG TAB PO SCH (06:04)
[2018-06-02] MEDS: OXYCODONE HCL IR 5 MG TAB (IMMEDIATE RELEASE) PO PRN ×3 (07:53→23:20)
[2018-06-02] MEDS: CHOLECALCIFEROL 1000 INTER.UNIT TAB PO SCH (08:00)
[2018-06-02] MEDS: AMOXICILLIN/CLAVULANATE TAB 875 MG TAB PO SCH ×2 (08:00→17:43)
[2018-06-02] MEDS: PANTOprazole SOD 40 MG TAB PO SCH (08:01)
[2018-06-02] MEDS: ASPIRIN 81 MG ECTAB PO SCH (08:01)
[2018-06-02] MEDS: MULTIVITAMIN TAB PO SCH (08:01)
[2018-06-02] MEDS: FLUOXETINE HCL 20 MG CAP PO SCH (08:01)
[2018-06-02] MEDS: DOCUSATE SODIUM 100 MG CAP PO SCH ×2 (08:02→20:59)
[2018-06-02] MEDS: FUROSEMIDE 20 MG TAB PO SCH (08:02)
[2018-06-02] MEDS: AMIODARONE 200 MG TAB PO SCH (08:02)
[2018-06-02] MEDS: METOPROLOL SUCC 25MG EXT REL TAB PO SCH ×2 (08:06→20:59)
[2018-06-02] MEDS: ENOXAPARIN 40 MG/0.4 ML SYR SQ SCH (08:07)
[2018-06-02] MEDS: POLYETHYLENE (MIRALAX) 17 GM PACK PO SCH (08:11)
--- NOTE | 2018-06-02 11:36 | SURGERY PROGRESS NOTE ---
DATE: 06/02/2018 Latonia Allan was seen today. I am actually quite happy with her. Her O2 requirements are improving. We have been diuresing her in the last couple of days. Her blood pressure has been stable. She is down to 2 L of O2 now. Her endurance has improved. There has been some discussion about stay for a few days in an extended care facility in the or a rehab center, which I agree with. The patient is getting better, but she is not ready to go home yet and I do not think she needs to be in the acute hospital setting. She still desaturates and I think it is going to be a while before she get over this but quite frankly I think she looks good. The patient has a stage IB squamous cell carcinoma. We will have her see medical oncology after she leaves the hospital and recovers a bit more, but I do not think she would require any further therapy.
[2018-06-02] MEDS ORDERED: NURSING VERBAL MED ORDER ONE (12:15)
[2018-06-02] MEDS: ATORVASTATIN 10 MG TAB PO SCH (20:59)
[2018-06-03] VITALS (10 sets, daily range): BP systolic 101–119; BP diastolic 62–75; PULSE 69–77; TEMP 36.7–36.8; O2SAT 85–96
[2018-06-03] MEDS: LEVOTHYROXINE 75 MCG TAB PO SCH (05:52)
[2018-06-03] MEDS: AMOXICILLIN/CLAVULANATE TAB 875 MG TAB PO SCH ×2 (08:21→17:47)
[2018-06-03] MEDS: OXYCODONE HCL IR 5 MG TAB (IMMEDIATE RELEASE) PO PRN ×3 (08:21→23:56)
[2018-06-03] MEDS: DOCUSATE SODIUM 100 MG CAP PO SCH ×2 (08:22→20:48)
[2018-06-03] MEDS: ASPIRIN 81 MG ECTAB PO SCH (08:22)
[2018-06-03] MEDS: AMIODARONE 200 MG TAB PO SCH (08:23)
[2018-06-03] MEDS: MULTIVITAMIN TAB PO SCH (08:23)
[2018-06-03] MEDS: PANTOprazole SOD 40 MG TAB PO SCH (08:23)
[2018-06-03] MEDS: CHOLECALCIFEROL 1000 INTER.UNIT TAB PO SCH (08:24)
[2018-06-03] MEDS: FLUOXETINE HCL 20 MG CAP PO SCH (08:24)
[2018-06-03] MEDS: ENOXAPARIN 40 MG/0.4 ML SYR SQ SCH (08:24)
[2018-06-03] MEDS: POLYETHYLENE (MIRALAX) 17 GM PACK PO SCH (08:25)
[2018-06-03] MEDS: METOPROLOL SUCC 25MG EXT REL TAB PO SCH ×2 (08:27→20:47)
--- NOTE | 2018-06-03 08:43 | SURGERY PROGRESS NOTE ---
DATE: 06/03/2018 Ms. Allan is improving. She is still on 2 L of O2, although it appears we will be able to wean her down some. She desaturated greatly. Patient is markedly deconditioned. She has been evaluated by physical therapy and by occupational therapy. I would like to go ahead and have the patient discharged today. I do not believe this patient is ready to go home as she has no support system at home. She would be by herself, except for periodic visits by her daughters. I am afraid that she is going to end up back in the hospital. I think she would benefit greatly from a short rehab stay. Otherwise, I think she is improving. VAN
[2018-06-03] MEDS: ATORVASTATIN 10 MG TAB PO SCH (20:48)
[2018-06-04 00:03] VITALS: BP 117/70; PULSE 71; TEMP 36.8; O2SAT 90
[2018-06-04] MEDS: LEVOTHYROXINE 75 MCG TAB PO SCH (05:41)
[2018-06-04 05:58] VITALS: O2SAT 91
[2018-06-04 07:03] VITALS: BP 111/70; PULSE 68; TEMP 36.8; O2SAT 93
[2018-06-04] MEDS ORDERED: RXC5 PO (07:05)
--- NOTE | 2018-06-04 07:08 | Discharge Instructions ---
Discharge Instructions Date of Service Jun 04, 2018. Admission Reason for Admission: Lung Mass Discharge Discharge Diagnosis / Problem: lung cancer Discharge Goals Goal(s): Decrease discomfort (Use pain meds as needed. ), Improve function ( Work hard on breathing exercises.) Activity Recommendations Activity Limitations: as noted below Lifting Limitations: gradually increase as tolerated Exercise/Sports Limitations: as tolerated May Resume Sexual Activity: when tolerated Shower/Bathe: no limitations None. . Instructions / Follow-Up Instructions / Follow-Up We will set up an appointment to see you in two weeks with a chest x-ray. Current Hospital Diet Patient's current hospital diet: Regular Diet Discharge Diet Recommended Diet: Regular Diet Procedures Procedures Performed: Left Video Assisted Thoracoscopy with Left Lower Lobectomy and Mediastinal Lymphadenectomy Robot Assist Pending Studies Studies pending at discharge: no Medical Emergencies . Who to Call and When: Medical Emergencies: If at any time you feel your situation is an emergency, please call 911 immediately. . Non-Emergent Contact Non-Emergency issues call your: Primary Care Provider . "Provider Documentation" section prepared by Carlin Pang. .
[2018-06-04] MEDS: AMOXICILLIN/CLAVULANATE TAB 875 MG TAB PO SCH (08:30)
[2018-06-04] MEDS: DOCUSATE SODIUM 100 MG CAP PO SCH (08:30)
[2018-06-04] MEDS: ASPIRIN 81 MG ECTAB PO SCH (08:31)
[2018-06-04] MEDS: AMIODARONE 200 MG TAB PO SCH (08:31)
[2018-06-04] MEDS: PANTOprazole SOD 40 MG TAB PO SCH (08:32)
[2018-06-04] MEDS: MULTIVITAMIN TAB PO SCH (08:32)
[2018-06-04] MEDS: CHOLECALCIFEROL 1000 INTER.UNIT TAB PO SCH (08:32)
[2018-06-04] MEDS: FLUOXETINE HCL 20 MG CAP PO SCH (08:32)
[2018-06-04] MEDS: METOPROLOL SUCC 25MG EXT REL TAB PO SCH (08:32)
[2018-06-04] MEDS: ENOXAPARIN 40 MG/0.4 ML SYR SQ SCH (08:33)
[2018-06-04] MEDS: POLYETHYLENE (MIRALAX) 17 GM PACK PO SCH (08:34)
--- NOTE | 2018-06-04 09:40 | SURGERY PROGRESS NOTE ---
DATE: 06/04/2018 One week ago, the patient underwent a thoracoscopic left lower lobectomy for squamous cell carcinoma. She has a stage IB. Latonia Allan is fairly frail and lives by herself. She has been slow to ambulate even though we have pushed her consistently. Her x-rays looked good since we removed her chest tube. She is on 1-2 liters of oxygen. The family and the patient are adamant that she cannot go home alone and I would have to agree with that. She has been approved to go to [facility] and I am hopeful that she will be to just a few days before weaning off the oxygen and being able to go home. All of her incisions are clean. She has no dressings. Her x-ray looks good. Overall, she is quite stable. I did give her pain medications, when she goes to [facility] and she may go today. It is unclear whether they have a bed.
[2018-06-04 11:34] VITALS: BP 111/70; PULSE 68; TEMP 36.8; O2SAT 93
--- NOTE | 2018-06-05 18:10 | DISCHARGE SUMMARY ---
DISCHARGE DIAGNOSIS: Nonsmall cell lung carcinoma, left lower lobe. HOSPITAL COURSE: This is a 73-year-old female who is rather frail actually who was found to have a mass in her left lower lobe. On 05/28/2018 I brought the patient to the operating room and did a robot-assisted thoracoscopic left lower lobectomy with mediastinal lymph node dissection. It turns out the patient has a squamous cell carcinoma. Her lymph nodes and margins were negative. She is a stage IB due to a size at 4 cm. We were able to get the patient extubated and put her on the floor, but she was difficult to get off oxygen and she was quite feeble. Her A:A gradient improved. We could not get her off completely. Her disposition was problematic as the patient lives alone and really had very little in the way of a support system. As I stated, she was quite frail, but finally got to the point where we could move her to [facility]. On 06/04/2018 the patient was transferred to [facility]. We will see her back in about 10 days with a chest x-ray. I am quite pleased with her overall. She had fairly poor lung function, but improved. Her incisions were clean. She has no dressings. Was tolerating a regular diet, moving her bowels. She was ambulating in the hallway, although she did require supplemental oxygen.
== END 2018-06-04 13:15 | DRG 165 ==
LOC: C.OR 05:27 → C.MSW 12:11 → ENRESERV 12:48
PROVIDERS: ADMIT Surgery; ATTEND Surgery
PROC: 0BTJ4ZZ Resection of Left Lower Lung Lobe, Percutaneous Endoscopic Approach (ICD-10-PCS; principal; 2018-05-28 07:30)
PROC: 07B74ZX Excision of Thorax Lymphatic, Percutaneous Endoscopic Approach, Diagnostic (ICD-10-PCS; principal; 2018-05-28 07:30)
PROC: 8E0W4CZ Robotic Assisted Procedure of Trunk Region, Percutaneous Endoscopic Approach (ICD-10-PCS; principal; 2018-05-28 07:30)
DX: C34.32 Malignant neoplasm of lower lobe, left bronchus or lung (principal); I48.91 Unspecified atrial fibrillation; E78.5 Hyperlipidemia, unspecified; Z79.01 Long term (current) use of anticoagulants; Z79.82 Long term (current) use of aspirin; Z79.899 Other long term (current) drug therapy; Z87.891 Personal history of nicotine dependence

== ENCOUNTER 2019-02-19 09:32 | Inpatient (IN) ==
[2019-02-19] MEDS ORDERED: SODIUM CHLORIDE 0.9% 1000ML 1,000 ML IV ONE (10:06)
[2019-02-19 10:33] LABS: Hematocrit (blood only) 36.8 % (37-47); Hemoglobin 12.3 g/dL (12.0-16.0); Immature Granulocytes # (auto) 0.02 K/uL (0.00-0.02); Immature Granulocytes % (auto) 0.3 %; Lymphocytes # (auto) 0.15 K/uL (1.2-3.4); Lymphocytes % (auto) 2.5 %; Mean Corpuscular Hgb Conc 33.4 g/dL (32-36); Mean Corpuscular Volume 83.4 fL (80-100); Mean Platelet Volume 10.8 fL (7.4-10.4); Monocytes # (auto) 0.29 K/uL (0.11-0.59); Monocytes % (auto) 4.9 %; Neutrophils # (auto) 5.44 K/uL (1.4-6.5); Neutrophils % (auto) 92.3 %; Platelet Count 176 K/uL (130-400); RDW Coefficient of Variation 15.8 % (11.5-14.5); RDW Standard Deviation 47.7 fL (36.4-46.3); Red Blood Count 4.41 M/uL (4.2-5.4)
[2019-02-19 10:34] LABS: iSTAT Creatinine 0.6 mg/dl (0.6-1.3); iSTAT Hemoglobin 12.6 g/dl (12.0-16.0); iSTAT Ionized Calcium 1.1 mmol/l (1.12-1.32); iSTAT Potassium 3.5 mEq/L (3.3-5.0)
--- NOTE | 2019-02-19 10:39 | XRay Report ---
XR chest 1V portable HISTORY: Atypical Chest Pain COMPARISON: Chest 01/26/2019. FINDINGS: Bilateral total shoulder arthroplasties are again noted. Right subclavian Port-A-Cath termi nates in the SVC. Left-sided dual-chamber pacemaker. No pneumothorax. The heart remains mildly enlarg ed. No evidence for pulmonary edema. No new focal lung consolidations to suggest pneumonia. Stable bl unting of the left lateral costophrenic sulcus. IMPRESSION: No significant change compared to the prior study. No acute process. Electronically signed by: Ranulfo Hunter M.D. 02/19/2019 10:38 AM
[2019-02-19 10:44] LABS: Partial Thromboplastin Ratio 1.7; Partial Thromboplastin Time 44.9 Seconds (21.0-31.0); Prothrombin Time 28.4 Seconds (9.0-12.0)
[2019-02-19 10:50] LABS: Alanine Aminotransferase 50 U/L (12-78); Albumin Level 2.8 gm/dl (3.4-5.0); Aspartate Aminotransferase 36 U/L (15-37); BUN Creatinine Ratio 15.9 (10-20); Blood Urea Nitrogen 12 mg/dl (7-18); Calcium 8.2 mg/dl (8.5-10.1); Carbon Dioxide 25 mmol/L (21-32); Chloride 103 mmol/L (98-107); Creatinine Clr Calc Pharmacy 62.1 ml/min; Est GFR (African American) 90.4; Glucose 171 mg/dl (70-99); Magnesium 1.6 mg/dl (1.8-2.4); Potassium 3.5 mmol/L (3.5-5.1); Sodium 134 mmol/L (136-145)
[2019-02-19 10:55] LABS: Albumin Globulin Ratio 0.8 (0.9-2); Alkaline Phosphatase 93 U/L (45-117); Bilirubin,Total 0.6 mg/dl (0.2-1); Globulin 3.4 gm/dl (2.5-4.0); Total Protein 6.2 gm/dl (6.4-8.2); Troponin I < 0.015 ng/ml (0-0.045)
[2019-02-19] MEDS ORDERED: fentaNYL citrate 100 MCG/2 ML VIAL IV ONE (10:59)
[2019-02-19] MEDS ORDERED: OPTIRAY 320 125ml IV PRN (11:14)
[2019-02-19] MEDS: SODIUM CHLORIDE 0.9% 500 ML IV SCH (11:32)
--- NOTE | 2019-02-19 11:36 | CT Scan Report ---
CT angio chest dissec wo/w con HISTORY: 73 years-old Female chest pain, radiating to back, on coumadin acute mid chest pain with ra diation to the back. COMPARISON: Chest CT 12/15/2018, PET CT 12/21/2018 TECHNIQUE: CTA of the chest was obtained both with and without the use of 120 mL Optiray 320 IV contr ast. All measurements were obtained according to NASCET criteria. 3-D coronal and sagittal MIPS were obtained from the axial data set and were submitted for review. Additional 3-D pattern images were al so submitted from a separate workstation. A dose lowering technique was used consistent with the prin cipals of SAUL. FINDINGS: CTA CHEST: Mild cardiomegaly. Coronary arterial calcifications are noted. Left subclavian pacer is noted with le ads overlying the right atrium and right ventricle. Noncontrast scan demonstrates no intramural hemat jean. Coronary arterial calcifications are noted. No thoracic aortic aneurysm or dissection. Moderate to severe mixed plaque formation about the thoracic aorta and proximal great vessels. There is kinkin g about the mid aspect of the left subclavian artery resulting in approximately 50% luminal narrowing . Mild narrowing about the pulmonary arterial tree about the left hilum. No focal filling defects estella ntified to suggest pulmonary thromboembolic disease. CT CHEST: Thyroid appears normal. Heterogeneous adenopathy about the AP window distribution measures 3.9 x 2.5 cm, previously 3.4 x 2.6 cm. Prominent 9 mm pretracheal lymph node on image 66 series 7 has not signi ficantly changed. No definite new adenopathy. No pneumothorax or pleural effusion. Subsegmental bibas ilar dependent groundglass and consolidative opacities suggest atelectasis/scarring. Moderate emphyse ma. Left paratracheal groundglass densities are new from prior study. There are no pulmonary nodules or masses identified. Central airways appear patent. Small hiatal hernia. Cholecystectomy with moderate intrahepatic and extrahepatic biliary ductal dilat ion. No acute processes of the imaged upper abdomen. The soft tissues are unremarkable. Streak artifa ct from right shoulder arthroplasty. Multiple subacute to remote appearing nondisplaced bilateral rib fractures. IMPRESSION: 1. No thoracic aortic aneurysm or dissection. 2. Cardiomegaly without overt pulmonary edema. 3. Pathologic adenopathy about the AP window appears similar to mildly progressed from comparison. No additional new or progressive adenopathy identified. 4. New groundglass left paramediastinal opacities suggest post radiation changes. 5. Emphysema. The above report was generated using voice recognition software. It may contain grammatical, syntax o r spelling errors. Electronically signed by: Asael Curran M.D. 02/19/2019 11:35 AM
[2019-02-19] MEDS ORDERED: MoRPHine SULFATE 4 MG/ML 1 ML CARP\\VIAL IV STA (12:10)
[2019-02-19] MEDS ORDERED: MAGNESIUM OXIDE 400 MG TAB PO STA (12:10)
[2019-02-19] MEDS ORDERED: CALCIUM CARBONATE 500 MG CHEWABLE TAB PO STA (12:10)
[2019-02-19] MEDS ORDERED: SODIUM CHLORIDE 0.9% 1000ML 500 ML IV ONE (12:52)
--- NOTE | 2019-02-19 13:19 | Emergency Department Note ---
Entered by Leanne Guzman acting as a scribe for History of Present Illness General Chief complaint: Shortness of Breath/Dyspnea Stated complaint: PAIN BETWEEN SHOULDER BLADES,SOB Time Seen by Provider: 02/19/19 09:52 History of Present Illness Maximum Pain Intensity: 7 The patient is a 73 female w/ PMHx hyperlipidemia, lung cancer, atrial fibrillation, DVT, hypothyroidism, GERD, carotid stenosis, anxiety, depression, osteoarthritis, osteoporosis, Tachy-Napoleon syndrome, SSS, pyelonephritis, and diverticulosis who presents to the ED w/ CC of an episode of shortness of breath starting last night. The patient states that she is currently being treated for lung cancer. She state that she had a lobe resection done in December by Dr. Pang and a port placed 3 weeks ago. She states that she gets radiation 5 days a week and chemo once a week. She states that she has had a centralized chest pain with treatments, but last night it radiated into her right shoulder and in between her shoulder blades. She reports that it is an achy pain and kept her up all night. She states that she tried taking an Oxy with no relief. She notes that it usually helps. She reports that she called her doctor and they recommended she come to the ED rule out a PE. The patient complains of intermittent nausea, intermittent nose bleeds, and a cough. She notes that she had it before the lobectomy, but not after until these symptoms started. The patient notes that she is on Coumadin. The patient denies leg swelling, diaphoresis, hematochezia, melena, recent falls, and being worse with exertion. Home Medications Home Medications Medication Instructions Recorded Confirmed Type amiodarone 100 mg PO QAM 12/21/18 02/19/19 History aspirin [Aspir-Low] 81 mg PO QAM 12/21/18 02/19/19 History atorvastatin 10 mg PO HS 12/21/18 02/19/19 History cholecalciferol (vitamin D3) 1,000 unit PO QAM 12/21/18 02/19/19 History [Vitamin D3] fluoxetine 20 mg PO QAM 12/21/18 02/19/19 History levothyroxine 75 mcg PO QAM 12/21/18 02/19/19 History metoprolol succinate 0.5 tab PO BID 12/21/18 02/19/19 History multivitamin 1 tab PO QAM 12/21/18 02/19/19 History omeprazole 20 mg PO QAM 12/21/18 02/19/19 History warfarin 0 mg PO DIRECTED 12/21/18 02/19/19 History calcium carb-vit D3-minerals 600 1 tab PO DAILY tab 01/15/19 02/19/19 History mg calcium-400 unit tablet ondansetron HCl 8 mg tablet 8 mg PO TID PRN 01/15/19 02/19/19 History oxycodone 5 mg capsule 5 mg PO Q8H PRN cap 01/15/19 02/19/19 History prochlorperazine maleate 10 mg 10 mg PO Q6H PRN tab 01/15/19 02/19/19 History tablet dexamethasone 4 mg PO DIRECTED 02/19/19 02/19/19 History Allergies Allergy/AdvReac Type Severity Reaction Status Date / Time adhesive Allergy Mild skin rash Verified 02/19/19 11:05 phenazopyridine Allergy Mild Rash Verified 02/19/19 11:05 Past Med/Surg History Medical History DJD (degenerative joint disease) (Chronic 06/29/14) Atrial fibrillation (Acute) GERD (gastroesophageal reflux disease) (Chronic) Diverticulosis of colon (Chronic) History of colonic polyps (Chronic) Carotid stenosis (Chronic) Lung cancer Pyelonephritis (Acute) SSS (sick sinus syndrome) Tachy-napoleon syndrome Carotid stenosis (Chronic) Depression (Chronic) Osteoporosis (Chronic) Anxiety (Chronic) Atrial fibrillation (Chronic) Paroxysmal, on Coumadin Cancer (Chronic) LUNG CANCER 05/28/18 SKIN CANCER SCC left neck LYMPH NODE + (RECENT BIOPSY) TO START CHEMO AND RADIATION Degenerative disc disease (Chronic) GERD (gastroesophageal reflux disease) (Chronic) Hyperlipidemia (Chronic) Hypothyroidism (Chronic) Osteoarthritis (Chronic) Pacemaker (Chronic) Sinus node dysfunction. [employer]. Last checked 11/02/18 Sleep apnea (Chronic) NO DEVICE USED NOW Deep vein thrombosis (Resolved) MANY YEARS AGO DURING Surgical History Status post hysterectomy (Chronic) Status post appendectomy (Chronic) Status post cholecystectomy (Chronic) H/O cystoscopy (Resolved) H/O wrist surgery (Resolved) Right wrist surgery in past History of lymph node biopsy (Acute) by lung H/O carotid endarterectomy (Resolved) Per carotid US 11/27/18, 50-69% stenosis of JEAN, CEA appears patent, <50% stenosis of LICA. Surgery was on the right side H/O total hysterectomy with bilateral salpingo-oophorectomy (BSO) (Resolved) History of adenoidectomy (Resolved) History of appendectomy (Resolved) History of bronchoscopy (Resolved) History of cardiac cath (Resolved) NO STENTS History of cataract surgery (Resolved) RT/LEFT History of cholecystectomy (Resolved) History of colonoscopy (Resolved) H/O adenomatous polyp, Diverticulosis History of esophagogastroduodenoscopy (EGD) (Resolved) History of lobectomy of lung (Resolved) Robotic assisted thorascopic LOWER LEFT LOBECTOMY with mediastinal lymph node dissection (MAY 28, 2018) Dr. Pang;SCC of the lung History of open reduction and internal fixation (ORIF) procedure (Resolved) LEFT FEMUR REPAIR x 2- metal koby in place History of repair of rotator cuff (Resolved) RT/LEFT History of shoulder surgery (Resolved) LEFT SHOULDER REPLACEMENT History of tonsillectomy (Resolved) History of tooth extraction (Resolved) History of dilatation and curettage Family History Mother , in her 80s Heart disease Father , in his 80s Heart disease Diabetes Hypertension Sister Lung disease Cancer Sister No problems noted. Sister Diabetes Liver disease Brother Heart disease Prostate cancer Daughter No problems noted. Daughter No problems noted. Social History Preferred Language: Tongan Communication Ability: Effective Visual Impairment: No Limitations Hearing Ability: Normal Beliefs That Will Affect Care: None marital status: Current Living Situation: Alone Current Living Situation Comment: Lives a [facility] current occupational status: retired current occupation: [place] [place] [employer] Feels Safe at Home: Yes Smoking Status: Former smoker Tobacco Type: cigarettes Cigarettes Per Day: 20 Second Hand Exposure: No Hx Alcohol Use: Yes Alcohol type: beer, wine and hard liquor Hx Substance Use: No caffeine: Yes (4-5 cups/day) during the past year weight has: decreased > 10 lbs Review of Systems See HPI for pertinent positives & negatives. and A total of 10 systems reviewed and were otherwise negative Physical Exam Vital Signs Vital Signs - 24 hr 02/19/19 09:40 02/19/19 10:03 05/03/19 10:06 Temperature 36.9 C Temperature Source Oral Sepsis Recent Fever Within 48 Hours No Sepsis New/Unexplained Change in Mental Status No Sepsis Action Taken by Nursing No Action Required Pulse Rate 80 Pulse Rate [Apical] Pulse Rhythm [Apical] Respiratory Rate 18 Respiratory Effort / Characteristics Non-Labored Respiratory Depth Normal Respiratory Pattern Regular Blood Pressure 83/57 L Blood Pressure [Right Arm] Blood Pressure Mean 65 Blood Pressure Mean [Right Arm] Blood Pressure Position Sitting Blood Pressure Position [Right Arm] Pulse Oximetry 94 95 95 Oxygen Delivery Method Room Air Room Air Room Air Oxygen Flow Rate 95 02/19/19 10:30 02/19/19 11:23 02/19/19 11:40 Temperature Temperature Source Sepsis Recent Fever Within 48 Hours Sepsis New/Unexplained Change in Mental Status Sepsis Action Taken by Nursing Pulse Rate Pulse Rate [Apical] 70 74 72 Pulse Rhythm [Apical] Regular Respiratory Rate 17 20 18 Respiratory Effort / Characteristics Non-Labored Non-Labored Respiratory Depth Normal Normal Respiratory Pattern Regular Regular Blood Pressure Blood Pressure [Right Arm] 102/61 140/69 162/67 H Blood Pressure Mean Blood Pressure Mean [Right Arm] 74 92 98 Blood Pressure Position Blood Pressure Position [Right Arm] Lying Sitting Pulse Oximetry 95 88 L 100 Oxygen Delivery Method Room Air Room Air Nasal Cannula Oxygen Flow Rate 2 02/19/19 12:21 Temperature Temperature Source Sepsis Recent Fever Within 48 Hours Sepsis New/Unexplained Change in Mental Status Sepsis Action Taken by Nursing Pulse Rate Pulse Rate [Apical] 74 Pulse Rhythm [Apical] Respiratory Rate 18 Respiratory Effort / Characteristics Respiratory Depth Respiratory Pattern Blood Pressure Blood Pressure [Right Arm] 122/77 Blood Pressure Mean Blood Pressure Mean [Right Arm] 92 Blood Pressure Position Blood Pressure Position [Right Arm] Pulse Oximetry 100 Oxygen Delivery Method Nasal Cannula Oxygen Flow Rate GENERAL: Mildly uncomfortable 2/2 pain, well nourished, NAD, non-toxic. Wearing glasses. EYE EXAM: Normal conjunctiva. PERRL, no anisocoria and EOM's grossly intact w/o pain. OROPHARYNX: Moist mucus membranes. Grossly normal dentition. NECK: Supple, no nuchal rigidity, no adenopathy, non-tender. No signs of meningismus. Carotid endarterectomy scar. Well healed. LUNGS: Clear to auscultation. Normal chest wall mechanics. HEART: NSR, no MRG. CHEST: Port right chest. Device left chest. ABDOMEN: Abdomen soft, non-tender, normo-active bowel sounds, no masses, no rebound or guarding. BACK: No CVA TTP. SKIN: No rashes and no bruising. UPPER EXTREMITIES: Upper extremities are grossly normal. LOWER EXTREMITIES: No pitting edema. No calf pain. Negative Criselda's sign. NEURO EXAM: A&O x3, cranial nerves II-XII grossly intact, normal speech, moves all 4 extremities on command w/o issue. Course 0958: The patient was evaluated in room A4B. A complete history and physical exam was performed. 1143: I discussed the patient's case with SONIA Ivan. She will evaluate the patient for further management. 1204: I reevaluated the patient and updated her and her family on her test results. I discussed the treatment plan with them. They verbally agree and understand. Consultations Consultation #1: I discussed the patient's case with SONIA Ivan. She will evaluate the patient for further management. Time: 11:43 Administered Medications Sodium Chloride (Nss) 500 mls @ 30 mls/hr IV .[id number] GERRY Stop: 02/20/19 11:59 Last Infusion: 02/19/19 13:07 Dose: 0 mls/hr Documented by: [id number] Admin: 02/19/19 11:32 Dose: 30 mls/hr Documented by: [id number] Sodium Chloride (Nss 1000ml) 500 mls @ 999 mls/hr IV .Q31M ONE Stop: 02/19/19 13:22 Last Admin: 02/19/19 13:07 Dose: 999 mls/hr Documented by: [id number] Ioversol (Optiray 320 125ml) 120 ml IV ONCE PRN PRN Reason: Interaction Checking Stop: 02/23/19 11:13 Last Admin: 02/19/19 11:14 Dose: 120 ml Documented by: [id number] Discontinued Medications Calcium Carbonate (Tums) 1,500 mg PO NOW STA Stop: 02/19/19 12:11 Last Admin: 02/19/19 12:17 Dose: 1,500 mg Documented by: [id number] Fentanyl Citrate (Fentanyl Citrate) 25 mcg IV NOW ONE Stop: 02/19/19 11:00 Last Admin: 02/19/19 11:21 Dose: 25 mcg Documented by: [id number] Sodium Chloride (Nss 1000ml) 1,000 mls @ 999 mls/hr IV .Q1H1M ONE Stop: 02/19/19 11:06 Last Infusion: 02/19/19 11:31 Dose: 0 mls/hr Documented by: [id number] Admin: 02/19/19 10:30 Dose: 999 mls/hr Documented by: [id number] Magnesium Oxide (Mag-Ox) 800 mg PO NOW STA Stop: 02/19/19 12:11 Last Admin: 02/19/19 12:17 Dose: 800 mg Documented by: [id number] Morphine Sulfate (Morphine Sulfate) 4 mg IV NOW STA Stop: 02/19/19 12:11 Last Admin: 02/19/19 12:19 Dose: 4 mg Documented by: [id number] Medical Decision Making Differential Diagnosis Differential diagnosis: Etiologies such as shingles, musculoskeletal pain, pericarditis, myocarditis, cardiac ischemia, pericardial tamponade, pneumonia, pneumothorax, pleural effusion, hemothorax, pleurisy, aortic pathology, pulmonary embolism, intra- abdominal process, as well as others were considered. Medical Records Attestation: I reviewed the patient's medical records. Home Medications Current Medication List: was personally reviewed by me Laboratory Data Attestation: I reviewed the patient's lab results. Result diagrams: 02/19/19 10:25 02/19/19 10:25 Lab Results 02/19/19 02/19/19 02/19/19 Range/Units 10:21 10:25 10:25 WBC 5.90 (4.8-10.8) K/uL RBC 4.41 (4.2-5.4) M/uL Hgb 12.3 (12.0-16.0) g/dL POC Hgb 12.6 (12.0-16.0) g/dl Hct 36.8 L (37-47) % POC Hct 37 (37-47) % MCV 83.4 (80-100) fL MCH 27.9 (25-34) pg MCHC 33.4 (32-36) g/dL RDW Std Deviation 47.7 H (36.4-46.3) fL RDW Coeff of Elsy 15.8 H (11.5-14.5) % Plt Count 176 (130-400) K/uL MPV 10.8 H (7.4-10.4) fL Immature Gran % (Auto) 0.3 % Neut % (Auto) 92.3 % Lymph % (Auto) 2.5 % Emanuel % (Auto) 4.9 % Eos % (Auto) 0.0 % Baso % (Auto) 0.0 % Immature Gran # (Auto) 0.02 (0.00-0.02) K/uL Neut # (Auto) 5.44 (1.4-6.5) K/uL Lymph # (Auto) 0.15 L (1.2-3.4) K/uL Emanuel # (Auto) 0.29 (0.11-0.59) K/uL Eos # (Auto) 0.00 (0-0.5) K/uL Baso # (Auto) 0.00 (0-0.2) K/uL PT 28.4 H (9.0-12.0) Seconds INR 3.0 H (0.9-1.1) APTT 44.9 H (21.0-31.0) Seconds PTT Ratio 1.7 POC Sodium 135 (135-144) mEq/L Sodium (136-145) mmol/L POC Potassium 3.5 (3.3-5.0) mEq/L Potassium (3.5-5.1) mmol/L POC Chloride 98 L (101-112) mEq/L Chloride (98-107) mmol/L Carbon Dioxide (21-32) mmol/L POC Total CO2 23 L (24-31) mEq/l Anion Gap (3-11) POC Anion Gap 18.0 (16-25) mmol/L POC BUN 11 (7-18) mg/dl BUN (7-18) mg/dl Creatinine (0.6-1.2) mg/dl POC Creatinine 0.6 (0.6-1.3) mg/dl Est Cr Clr Drug Dosing ml/min Est GFR ( Amer) Est GFR (Non-Af Amer) BUN/Creatinine Ratio (10-20) Glucose (70-99) mg/dl POC Glucose (other) 179 H (70-99) mg/dl Calcium (8.5-10.1) mg/dl POC Ioniz Calcium Yvette 1.10 L (1.12-1.32) mmol/l Magnesium (1.8-2.4) mg/dl Total Bilirubin (0.2-1) mg/dl AST (15-37) U/L ALT (12-78) U/L Alkaline Phosphatase (45-117) U/L Troponin I (0-0.045) ng/ml Total Protein (6.4-8.2) gm/dl Albumin (3.4-5.0) gm/dl Globulin (2.5-4.0) gm/dl Albumin/Globulin Ratio (0.9-2) Lipase (73-393) U/L 02/19/19 Range/Units 10:25 WBC (4.8-10.8) K/uL RBC (4.2-5.4) M/uL Hgb (12.0-16.0) g/dL POC Hgb (12.0-16.0) g/dl Hct (37-47) % POC Hct (37-47) % MCV (80-100) fL MCH (25-34) pg MCHC (32-36) g/dL RDW Std Deviation (36.4-46.3) fL RDW Coeff of Elsy (11.5-14.5) % Plt Count (130-400) K/uL MPV (7.4-10.4) fL Immature Gran % (Auto) % Neut % (Auto) % Lymph % (Auto) % Emanuel % (Auto) % Eos % (Auto) % Baso % (Auto) % Immature Gran # (Auto) (0.00-0.02) K/uL Neut # (Auto) (1.4-6.5) K/uL Lymph # (Auto) (1.2-3.4) K/uL Emanuel # (Auto) (0.11-0.59) K/uL Eos # (Auto) (0-0.5) K/uL Baso # (Auto) (0-0.2) K/uL PT (9.0-12.0) Seconds INR (0.9-1.1) APTT (21.0-31.0) Seconds PTT Ratio POC Sodium (135-144) mEq/L Sodium 134 L (136-145) mmol/L POC Potassium (3.3-5.0) mEq/L Potassium 3.5 (3.5-5.1) mmol/L POC Chloride (101-112) mEq/L Chloride 103 (98-107) mmol/L Carbon Dioxide 25 (21-32) mmol/L POC Total CO2 (24-31) mEq/l Anion Gap 6.0 (3-11) POC Anion Gap (16-25) mmol/L POC BUN (7-18) mg/dl BUN 12 (7-18) mg/dl Creatinine 0.75 (0.6-1.2) mg/dl POC Creatinine (0.6-1.3) mg/dl Est Cr Clr Drug Dosing 62.1 ml/min Est GFR ( Amer) 90.4 Est GFR (Non-Af Amer) 78.0 BUN/Creatinine Ratio 15.9 (10-20) Glucose 171 H (70-99) mg/dl POC Glucose (other) (70-99) mg/dl Calcium 8.2 L (8.5-10.1) mg/dl POC Ioniz Calcium Yvette (1.12-1.32) mmol/l Magnesium 1.6 L (1.8-2.4) mg/dl Total Bilirubin 0.6 (0.2-1) mg/dl AST 36 (15-37) U/L ALT 50 (12-78) U/L Alkaline Phosphatase 93 (45-117) U/L Troponin I < 0.015 (0-0.045) ng/ml Total Protein 6.2 L (6.4-8.2) gm/dl Albumin 2.8 L (3.4-5.0) gm/dl Globulin 3.4 (2.5-4.0) gm/dl Albumin/Globulin Ratio 0.8 L (0.9-2) Lipase 121 (73-393) U/L Imaging Data Radiologist's Impression: Radiology results as stated below per my review and the radiologist's interpretation: XR chest 1V portable HISTORY: Atypical Chest Pain COMPARISON: Chest 01/26/2019. FINDINGS: Bilateral total shoulder arthroplasties are again noted. Right subclavian Port-A-Cath terminates in the SVC. Left-sided dual-chamber pacemaker. No pneumothorax. The heart remains mildly enlarged. No evidence for pulmonary edema. No new focal lung consolidations to suggest pneumonia. Stable blunting of the left lateral costophrenic sulcus. IMPRESSION: No significant change compared to the prior study. No acute process. Electronically signed by: Ranulfo Hunter M.D. 02/19/2019 10:[address] angio chest dissec wo/w con HISTORY: 73 years-old Female chest pain, radiating to back, on coumadin acute mid chest pain with radiation to the back. COMPARISON: Chest CT 12/15/2018, PET CT 12/21/2018 TECHNIQUE: CTA of the chest was obtained both with and without the use of 120 mL Optiray 320 IV contrast. All measurements were obtained according to NASCET criteria. 3-D coronal and sagittal MIPS were obtained from the axial data set and were submitted for review. Additional 3-D pattern images were also submitted from a separate workstation. A dose lowering technique was used consistent with the principals of SAUL. FINDINGS: CTA CHEST: Mild cardiomegaly. Coronary arterial calcifications are noted. Left subclavian pacer is noted with leads overlying the right atrium and right ventricle. Noncontrast scan demonstrates no intramural hematoma. Coronary arterial calcifications are noted. No thoracic aortic aneurysm or dissection. Moderate to severe mixed plaque formation about the thoracic aorta and proximal great vessels. There is kinking about the mid aspect of the left subclavian artery resulting in approximately 50% luminal narrowing. Mild narrowing about the pulmonary arterial tree about the left hilum. No focal filling defects identified to suggest pulmonary thromboembolic disease. CT CHEST: Thyroid appears normal. Heterogeneous adenopathy about the AP window distribution measures 3.9 x 2.5 cm, previously 3.4 x 2.6 cm. Prominent 9 mm pretracheal lymph node on image 66 series 7 has not significantly changed. No definite new adenopathy. No pneumothorax or pleural effusion. Subsegmental bibasilar dependent groundglass and consolidative opacities suggest atelectasis/scarring. Moderate emphysema. Left paratracheal groundglass densities are new from prior study. There are no pulmonary nodules or masses identified. Central airways appear patent. Small hiatal hernia. Cholecystectomy with moderate intrahepatic and extrahepatic biliary ductal dilation. No acute processes of the imaged upper abdomen. The soft tissues are unremarkable. Streak artifact from right shoulder arthroplasty. Multiple subacute to remote appearing nondisplaced bilateral rib fractures. IMPRESSION: 1. No thoracic aortic aneurysm or dissection. 2. Cardiomegaly without overt pulmonary edema. 3. Pathologic adenopathy about the AP window appears similar to mildly progressed from comparison. No additional new or progressive adenopathy identified. 4. New groundglass left paramediastinal opacities suggest post radiation changes. 5. Emphysema. The above report was generated using voice recognition software. It may contain grammatical, syntax or spelling errors. Electronically signed by: Asael Curran M.D. 02/19/2019 11:35 AM ECG Data Attestation: I personally reviewed and interpreted this ECG as follows: Indication: chest pain Rate (beats per minute): 75 Rhythm: normal sinus Findings: + other (normal intervals, normal axis) and + Q waves (lead 3 and aVF) Comparison ECG Date: from (04/10/2018) Change: the following changes noted (Q wave is old, slight depression in V2 that has progressed) Blood Pressure Blood Pressure Findings: Normal blood pressure Blood Pressure Disposition: did not require urgent referral MDM Narrative The patient is a 73 female w/ PMHx hyperlipidemia, lung cancer, atrial fibrillation, DVT, hypothyroidism, GERD, carotid stenosis, anxiety, depression, osteoarthritis, osteoporosis, Tachy-Napoleon syndrome, SSS, pyelonephritis, and diverticulosis who presents to the ED w/ CC of an episode of shortness of breath starting last night. Patient was seen and evaluated the bedside. The patient has complained of persistent central chest pain with radiation to the back and associated right shoulder pain. Patient does have a prior history of a recent left lower lobe lobectomy secondary to lung CA. The patient also did have a recent port that was placed. The patient denies infectious symptoms. Patient states she took an Oxyhood last evening which only slightly improved her discomfort. Patient did have a CT angios to rule out dissection the patient was given medications. Patient was feeling mildly improved. The patient did have mildly low blood pressure initially but responded well to fluids. Patient does have a known history of A. fib and is on amiodarone and Coumadin. Patient's INR is ther apeutic. CT angios does not show any evidence of dissection or aneurysm. Borderline enlarged heart without edema. Patient may have some changes secondary to radiation. Patient's EKG did show some very slight may be subtle changes troponin is not elevated. Given the patient's older nature cannot rule out atypical chest pain or ACS. This may be related to her malignancy. Patient's pain was improved. I did speak the hospitalist trend cardiac enzymes and further pain control. Patient was admitted to the medicine service. Impression & Plan Atypical chest pain, History of lung cancer, Hypocalcemia, Hypomagnesemia Discharge Plan Visit Data Chief Complaint: Shortness of Breath/Dyspnea Stated Complaint: PAIN BETWEEN SHOULDER BLADES,SOB ED Provider: Sonu Gorman Discharge Problem: Atypical chest pain, History of lung cancer, Hypocalcemia, Hypomagnesemia Patient Disposition: Being Evaluated by Hospitalist Forms Stand Alone Forms: My [facility] Prescriptions Prescriptions: No Action oxycodone 5 mg capsule 5 mg PO Q8H PRN (Reason: pain) RF: 0 ondansetron HCl [Zofran] 8 mg tablet 8 mg PO TID PRN (Reason: Nausea) RF: 0 prochlorperazine maleate [Compazine] 10 mg tablet 10 mg PO Q6H PRN (Reason: nausea and vomiting) RF: 0 calcium carbonate-vit D3-min 600 mg calcium- 400 unit tablet 1 tab PO DAILY RF: 0 multivitamin Tablet 1 tab PO QAM RF: 0 atorvastatin 10 mg Tablet 10 mg PO HS RF: 0 aspirin [Aspir-Low] 81 mg Tablet,Delayed Release (Dr/Ec) 81 mg PO QAM RF: 0 levothyroxine 75 mcg Tablet 75 mcg PO QAM RF: 0 fluoxetine 20 mg Tablet 20 mg PO QAM RF: 0 warfarin 5 mg Tablet PO DIRECTED RF: 0 omeprazole 20 mg Capsule,Delayed Release(Dr/Ec) 20 mg PO QAM RF: 0 metoprolol succinate 25 mg Tablet Extended Release 24 Hr 0.5 tab PO BID RF: 0 amiodarone 100 mg Tablet 100 mg PO QAM RF: 0 cholecalciferol (vitamin D3) [Vitamin D3] 1,000 unit Tablet 1,000 unit PO QAM RF: 0 dexamethasone 4 mg tablet 4 mg PO DIRECTED RF: 0 Referrals Referrals: Johnathon Foley, DO [Primary Care Provider] - The scribe's documentation has been prepared under my direction and personally reviewed by me in its entirety. I confirm that the note above accurately reflects all work, treatment, procedures, and medical decision making performed by me.
--- NOTE | 2019-02-19 13:44 | History & Physical Report ---
Date of Service February 19, 2019 Assessment & Plan (1) Atypical chest pain: Chest pain is unchanged but interscapular pain is more intense. No obvious ACS with neg EKG and trop. CT revealed no evidence of aortic dissection and no PE. Hypoxia is likely her baseline with more subjective shortness of breath because of the intensity of the pain. She feels these are related, also. She has prior rib fractures which are still visible on imaging but nondiscplaced. Etiology for pain includes but is not limited to side effect of chemo or radiation, rib fractures, lung cancer which is active, hypomagnesemia, ?cardiac chest pain. Will trend troponin and obtain echo to ensure no active cardiac issues. Will consult cardiology. May need input from radiation oncology or hematology is workup is negative and patient is still in pain. Cont morphine and scheduled tylenol/trmadol q8h for now. Re-evaluate pain until consistently controlled. (2) Hypomagnesemia: 1.6, may be related to diarrhea in setting of chemo, replace and repeat in am. (3) Atrial fibrillation: chronic, currently in sinus rhythm, INR therapeutic on coumadin, rate controlled with metoprolol, rhythm control with amio. Cont home meds and daily INR. (4) COPD (chronic obstructive pulmonary disease): no evidence of exacerbation. may have chronic hypoxemia related to this. Baseline O2 needs as above. (5) Hypoxia: as above. Cont oxygen supplementation. Increased SOB thought linked to severe pain, so working on aggressive pain control. (6) CAD (coronary artery disease): nonobstructive CAD per cath in 2011, plan as above. (7) Cardiac pacemaker: (8) Hypothyroidism: Cont Synthroid per home regimen. (9) DVT prophylaxis: therapeutic on warfarin Full Dispo-to home in am or when pain better controlled. Chelsea Parry DO [facility] Hospitalist History of Present Illness Chief Complaint: SOB/shoulder blade pain Primary Care Provider: Johnathon Foley DO 73 yo F presents with chronic but more intense interscapular pain beginning last night and causing insomnia despite oxycodone use in addition to shortness of breath. She has a h/o nonobstructive CAD on cardiac catheterization in 2011, a right CEA for carotid stenosis, tachy-christine syndrome s/p pacemaker placement, atrial fibrillation on coumadin-currently in sinus rhythm, and COPD not on albuterol until just recently. She also has active squamous cell carcinoma of the lung which was diagnosed May 2018. She underwent surgery and was found to have residual lymph nodes affected, so is on chemotherapy and radiation. She reports chronic interscapular pain on a daily basis for the past year. This is triggered by coughing which is intermittent and somewhat worse in the last couple of months. She reports chronic daily anterior chest pain for many months, also, and was recently seen in the Cardiology office for this in December. Her chest pain at that time was attributed to multiple anterior nondisplaced rib fractures after a fall in October. The patient feels she has never fully recovered from that fall and those fractures. Around 10pm last night she had a sudden onset of interscapular pain which typically lasts 1-2 minutes (same as her chest pain), however, this was persistent and was intense. She reports chronic hypoxia, using oxygen at night and with ambulation during the day, and states that she was feeling more short of breath than usual even though she is short of breath at her baseline. She has COPD but was just given albuterol as outpatient. Her granddaughter was at the bedside and takes her to and from appointments; she noticed her gram was having more difficulty breathing with ambulating to the restroom in the ER today as opposed to her effort when walking through the appointments. The patient states that her SOB, chest pain and interscapular pain are all related. She reports some wheezing last night and today after returning from walking to the bathroom. She denies any associated diaphoresis or other symptoms with her pain overnight and today. ROS reveals chronic nausea and diarrhea as well as lightheadedness related to her chemotherapy. She reports having a cough since summer last year which had cleared up until two months ago and is nonproductive. She has ROBERT but is noncompliant with CPAP. She has intermittent headaches, denies fevers or chills, denies any other pain. There is pain to palpation of her chest wall but this doesn't reproduce the pain she is describing. In the ER a CT angiogram ruled out aortic dissection or PE. EKG does not reveal acute ischemia and troponin is negative. Fentanyl didn't help her pain much but morphine 4mg IV did. She is asking for a diet. Allergies Allergy/AdvReac Type Severity Reaction Status Date / Time adhesive Allergy Mild skin rash Verified 02/19/19 11:05 phenazopyridine Allergy Mild Rash Verified 02/19/19 11:05 Home Medications Home Medications Medication Instructions Recorded Confirmed Type amiodarone 100 mg PO QAM 12/21/18 02/19/19 History aspirin [Aspir-Low] 81 mg PO QAM 12/21/18 02/19/19 History atorvastatin 10 mg PO HS 12/21/18 02/19/19 History cholecalciferol (vitamin D3) 1,000 unit PO QAM 12/21/18 02/19/19 History [Vitamin D3] fluoxetine 20 mg PO QAM 12/21/18 02/19/19 History levothyroxine 75 mcg PO QAM 12/21/18 02/19/19 History metoprolol succinate 0.5 tab PO BID 12/21/18 02/19/19 History multivitamin 1 tab PO QAM 12/21/18 02/19/19 History omeprazole 20 mg PO QAM 12/21/18 02/19/19 History warfarin 5 mg PO WOODRUFF@1600 12/21/18 02/19/19 History calcium carb-vit D3-minerals 600 1 tab PO DAILY tab 01/15/19 02/19/19 History mg calcium-400 unit tablet ondansetron HCl 8 mg tablet 8 mg PO TID PRN 01/15/19 02/19/19 History oxycodone 5 mg capsule 5 mg PO Q8H PRN cap 01/15/19 02/19/19 History prochlorperazine maleate 10 mg 10 mg PO Q6H PRN tab 01/15/19 02/19/19 History tablet albuterol sulfate 2 puff INHALATION Q6H PRN 02/19/19 02/19/19 History dexamethasone 4 mg PO DIRECTED 02/19/19 02/19/19 History warfarin 2.5 mg PO MOTUWETHFRSA@1600 02/19/19 02/19/19 History Past Med/Surg History Medical History DJD (degenerative joint disease) (Chronic 06/29/14) Atrial fibrillation (Acute) GERD (gastroesophageal reflux disease) (Chronic) Diverticulosis of colon (Chronic) History of colonic polyps (Chronic) Carotid stenosis (Chronic) Lung cancer Pyelonephritis (Acute) SSS (sick sinus syndrome) Tachy-christine syndrome Carotid stenosis (Chronic) Depression (Chronic) Osteoporosis (Chronic) Anxiety (Chronic) Atrial fibrillation (Chronic) Paroxysmal, on Coumadin Cancer (Chronic) LUNG CANCER 05/28/18 SKIN CANCER SCC left neck LYMPH NODE + (RECENT BIOPSY) TO START CHEMO AND RADIATION Degenerative disc disease (Chronic) GERD (gastroesophageal reflux disease) (Chronic) Hyperlipidemia (Chronic) Hypothyroidism (Chronic) Osteoarthritis (Chronic) Pacemaker (Chronic) Sinus node dysfunction. [employer]. Last checked 11/02/18 Sleep apnea (Chronic) NO DEVICE USED NOW Deep vein thrombosis (Resolved) MANY YEARS AGO DURING Surgical History Status post hysterectomy (Chronic) Status post appendectomy (Chronic) Status post cholecystectomy (Chronic) H/O cystoscopy (Resolved) H/O wrist surgery (Resolved) Right wrist surgery in past History of lymph node biopsy (Acute) by lung H/O carotid endarterectomy (Resolved) Per carotid US 11/27/18, 50-69% stenosis of JEAN, CEA appears patent, <50% stenosis of LICA. Surgery was on the right side H/O total hysterectomy with bilateral salpingo-oophorectomy (BSO) (Resolved) History of adenoidectomy (Resolved) History of appendectomy (Resolved) History of bronchoscopy (Resolved) History of cardiac cath (Resolved) NO STENTS History of cataract surgery (Resolved) RT/LEFT History of cholecystectomy (Resolved) History of colonoscopy (Resolved) H/O adenomatous polyp, Diverticulosis History of esophagogastroduodenoscopy (EGD) (Resolved) History of lobectomy of lung (Resolved) Robotic assisted thorascopic LOWER LEFT LOBECTOMY with mediastinal lymph node dissection (MAY 28, 2018) Dr. Pang;SCC of the lung History of open reduction and internal fixation (ORIF) procedure (Resolved) LEFT FEMUR REPAIR x 2- metal koby in place History of repair of rotator cuff (Resolved) RT/LEFT History of shoulder surgery (Resolved) LEFT SHOULDER REPLACEMENT History of tonsillectomy (Resolved) History of tooth extraction (Resolved) History of dilatation and curettage Family History Mother , in her 80s Heart disease Father , in his 80s Heart disease Diabetes Hypertension Sister Lung disease Cancer Sister No problems noted. Sister Diabetes Liver disease Brother Heart disease Prostate cancer Daughter No problems noted. Daughter No problems noted. 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 Beliefs That Will Affect Care: None marital status: Current Living Situation: Alone Current Living Situation Comment: Lives a [facility] current occupational status: retired current occupation: [place] Other Information That Helps Us Care for You: No Feels Safe at Home: Yes Safety Concerns: Feels Safe At This Time Smoking Status: Former smoker Tobacco Type: cigarettes Cigarettes Per Day: 20 Second Hand Exposure: No Hx Alcohol Use: Yes Alcohol type: beer, wine and hard liquor Hx Substance Use: No caffeine: Yes (4-5 cups/day) during the past year weight has: decreased > 10 lbs Review of Systems Review of Systems: At least ten systems were reviewed and negative except as indicated in HPI above. Physical Exam Physical Exam: CONSTITUTIONAL: WNWD, vitals as above, generally well- appearing, NAD EYES: PERRL, normal conjuctivae, no scleral icterus ENT: external ear and nose normal, oropharynx clear, mucous membranes are dry, no maxillary or ethmoid sinus tenderness RESPIRATORY: clear with good air movement bilaterally, but has some crackles at bases bilaterally. No wheezing. No respiratory distress. CARDIOVASCULAR: regular rate and rhythm, S1 and 2 heard without murmurs, gallops or rubs, no JVD, no peripheral edema CHEST: PM on L chest, Port accessed on R ant chest wall-no surrounding erythema, no skin changes. GASTROINTESTINAL: normal bowel sounds, soft, nontender, nondistended MUSCULOSKELETAL: strength 5/5 throughout, head is normocephalic and atraumatic, some TTP of anterior chest wall in L parasternal and lower anterior chest wall. SKIN: warm and dry, no rashes NEUROLOGIC: No facial palsy, no dysarthria. CN 2-12 grossly intact, no sensory deficit, normal cognition, normal speech PSYCHIATRIC: alert cooperative and oriented to person, place and time. Results & Data Vital Signs (Past 12 Hours) Vital Signs Temp Pulse Pulse Resp BP BP Pulse Ox 02/19/19 13:12 77 20 122/77 100 02/19/19 12:21 74 18 122/77 100 02/19/19 11:40 72 18 162/67 H 100 05/03/19 11:23 74 20 140/69 88 L 02/19/19 10:30 70 17 102/61 95 02/19/19 10:06 95 02/19/19 10:03 95 02/19/19 09:40 36.9 C 80 18 83/57 L 94 Laboratory Results Short CBC 02/19/19 Range/Units 10:25 WBC 5.90 (4.8-10.8) K/uL Hgb 12.3 (12.0-16.0) g/dL Hct 36.8 L (37-47) % Plt Count 176 (130-400) K/uL BMP 02/19/19 10:25 Sodium 134 L Potassium 3.5 Chloride 103 Carbon Dioxide 25 BUN 12 Creatinine 0.75 Glucose 171 H Calcium 8.2 L Cardiac Enzymes 02/19/19 Range/Units 10:25 Troponin I < 0.015 (0-0.045) ng/ml Liver Function 02/19/19 Range/Units 10:25 Total Bilirubin 0.6 (0.2-1) mg/dl AST 36 (15-37) U/L ALT 50 (12-78) U/L Alkaline Phosphatase 93 (45-117) U/L Albumin 2.8 L (3.4-5.0) gm/dl Diagnostic Findings CT angio chest dissec wo/w con HISTORY: 73 years-old Female chest pain, radiating to back, on coumadin acute mid chest pain with radiation to the back. COMPARISON: Chest CT 12/15/2018, PET CT 12/21/2018 TECHNIQUE: CTA of the chest was obtained both with and without the use of 120 mL Optiray 320 IV contrast. All measurements were obtained according to NASCET criteria. 3-D coronal and sagittal MIPS were obtained from the axial data set and were submitted for review. Additional 3-D pattern images were also submitted from a separate workstation. A dose lowering technique was used consistent with the principals of SAUL. FINDINGS: CTA CHEST: Mild cardiomegaly. Coronary arterial calcifications are noted. Left subclavian pacer is noted with leads overlying the right atrium and right ventricle. Noncontrast scan demonstrates no intramural hematoma. Coronary arterial calcifications are noted. No thoracic aortic aneurysm or dissection. Moderate to severe mixed plaque formation about the thoracic aorta and proximal great vessels. There is kinking about the mid aspect of the left subclavian artery resulting in approximately 50% luminal narrowing. Mild narrowing about the pulmonary arterial tree about the left hilum. No focal filling defects ident ified to suggest pulmonary thromboembolic disease. CT CHEST: Thyroid appears normal. Heterogeneous adenopathy about the AP window distribution measures 3.9 x 2.5 cm, previously 3.4 x 2.6 cm. Prominent 9 mm pretracheal lymph node on image 66 series 7 has not significantly changed. No definite new adenopathy. No pneumothorax or pleural effusion. Subsegmental bibasilar dependent groundglass and consolidative opacities suggest atelectasis/scarring. Moderate emphysema. Left paratracheal groundglass densities are new from prior study. There are no pulmonary nodules or masses identified. Central airways appear patent. Small hiatal hernia. Cholecystectomy with moderate intrahepatic and extrahepatic biliary ductal dilation. No acute processes of the imaged upper abdomen. The soft tissues are unremarkable. Streak artifact from right shoulder arthroplasty. Multiple subacute to remote appearing nondisplaced bilateral rib fractures. IMPRESSION: 1. No thoracic aortic aneurysm or dissection. 2. Cardiomegaly without overt pulmonary edema. 3. Pathologic adenopathy about the AP window appears similar to mildly progressed from comparison. No additional new or progressive adenopathy identified. 4. New groundglass left paramediastinal opacities suggest post radiation changes. 5. Emphysema. Medications Administered Ca 1500mg NSS 2L Fentanyl 25mg I Morphine 4mg IV MgOx 800mg PO ECG Additional Comments: SR 75 Code Status & VTE Plan Code Status Full VTE Prophylaxis Plan VTE Prophylaxis will be ordered: Yes Critical Care Time Critical Care Time: No
[2019-02-19] MEDS ORDERED: OXYCODONE HCL IR 5 MG TAB (IMMEDIATE RELEASE) PO PRN (14:15)
[2019-02-19] MEDS ORDERED: ALBUTEROL HFA 8 GM INHALER INH PRN (14:15)
[2019-02-19] MEDS ORDERED: MoRPHine SULFATE 2 MG/ML CARP IV PRN (14:41)
[2019-02-19] MEDS ORDERED: ONDANSETRON INJ 2 MG/ML 2 ML VIAL IV PRN (14:41)
[2019-02-19] MEDS ORDERED: ACETAMINOPHEN 325 MG TAB PO PRN (14:41)
[2019-02-19] MEDS ORDERED: NITROGLYCERIN SL 0.4 MG/TAB TAB SL PRN (14:41)
[2019-02-19] MEDS ORDERED: POLYETHYLENE (MIRALAX) 17 GM PACK PO PRN (14:41)
[2019-02-19] MEDS ORDERED: PERFLUTREN LIPID MICROSPHERE (DEFINITY) IV ONE (15:22)
[2019-02-19] MEDS: MAGNESIUM SULFATE / D5W 1 GM/100 ML BAG IV SCH ×3 (15:38→17:40)
[2019-02-19] MEDS: TRAMADOL HCL 50 MG TABLET PO SCH ×2 (15:51→20:57)
[2019-02-19] MEDS: CHOLECALCIFEROL 1,000 UNITS TAB PO SCH (15:52)
[2019-02-19] MEDS: LEVOTHYROXINE SODIUM 75 MCG TABLET PO SCH (15:53)
[2019-02-19] MEDS: ACETAMINOPHEN 500 MG TAB PO SCH ×2 (15:53→20:57)
[2019-02-19] MEDS: PANTOprazole 40 MG TAB PO SCH (15:54)
[2019-02-19] MEDS: FLUOXETINE HCL 20 MG CAP PO SCH (15:54)
[2019-02-19] MEDS: AMIODARONE 200 MG TAB PO SCH (15:54)
[2019-02-19] MEDS: MULTIVITAMIN TAB PO SCH (15:54)
[2019-02-19] MEDS: ASPIRIN 81 MG ECTAB PO SCH (15:55)
[2019-02-19] MEDS ORDERED: WARFARIN SOD 2.5 MG TAB PO SCH (16:00)
--- NOTE | 2019-02-19 17:17 | Cardiology Consultation ---
Date of Consultation February 19, 2019 Assessment & Plan (1) Atypical chest pain: Patient has a history of paroxysmal atrial fibrillation and pacemaker placement. She has been receiving chemotherapy and radiation therapy for recurrent lung carcinoma. She now presents with debilitating pain in her back between her shoulder blades that radiates to her chest. EKG reveals no ischemic changes, cardiac enzymes have been negative x2, and she had a resting transthoracic echocardiogram today that reveals normal wall motion and normal LVEF. CT angiogram excluded pulmonary embolism and thoracic aortic dissection. I reviewed the images of her CT angiogram with radiology and there are no findings to suggest new rib or vertebral compression fracture. At present I recommend continue observation on telemetry with serial cardiac isoenzymes. Her pain has been persistent for well over 24 hours and is currently improved with analgesics. I think this is angina, she would have declared herself as having a significant elevation in her cardiac enzymes by now. Will follow the patient clinically. History of Present Illness Attending Physician: Jassi Villanueva DO History of Present Illness Latonia Allan is a 73 year old female seen in cardiology consultation per the request of Dr. Parry for the evaluation of pain between her shoulder blades. The patient is well-known to the undersigned with most recent outpatient visit having been on 01/14/2019. Since that visit she has initiated treatment for recurrent left-sided lung carcinoma. She had a right-sided a port placed and has begun chemotherapy and radiation therapy. She presented to the emergency room today with pain between her shoulder blades and in the middle of her back. It is been persistent for over 24 hours. She could not get any sleep because of it last night and has difficulty finding a comfortable position. She also notes that for the last week and a half her blood pressure has been trending lower than her typical with readings of systolic blood pressure less than 100 mmHg. She has a history of nonobstructive CAD as diagnosed by cardiac catheterization in 2011. 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 She also has history of carotid disease with remote right carotid endarterectomy. Her most recent carotid duplex took place in November, with stable 50 to 69% stenosis of the right internal carotid artery. The right internal carotid endarterectomy was noted to be patent. A left internal carotid artery stenosis of less than 50% was noted. Allergies Allergy/AdvReac Type Severity Reaction Status Date / Time adhesive Allergy Mild skin rash Verified 02/19/19 11:05 phenazopyridine Allergy Mild Rash Verified 02/19/19 11:05 Home Medications Home Medications Medication Instructions Recorded Confirmed Type amiodarone 100 mg PO QAM 12/21/18 02/19/19 History aspirin [Aspir-Low] 81 mg PO QAM 12/21/18 02/19/19 History atorvastatin 10 mg PO HS 12/21/18 02/19/19 History cholecalciferol (vitamin D3) 1,000 unit PO QAM 12/21/18 02/19/19 History [Vitamin D3] fluoxetine 20 mg PO QAM 12/21/18 02/19/19 History levothyroxine 75 mcg PO QAM 12/21/18 02/19/19 History metoprolol succinate 0.5 tab PO BID 12/21/18 02/19/19 History multivitamin 1 tab PO QAM 12/21/18 02/19/19 History omeprazole 20 mg PO QAM 12/21/18 02/19/19 History warfarin 5 mg PO WOODRUFF@1600 12/21/18 02/19/19 History calcium carb-vit D3-minerals 600 1 tab PO DAILY tab 01/15/19 02/19/19 History mg calcium-400 unit tablet ondansetron HCl 8 mg tablet 8 mg PO TID PRN 01/15/19 02/19/19 History oxycodone 5 mg capsule 5 mg PO Q8H PRN cap 01/15/19 02/19/19 History prochlorperazine maleate 10 mg 10 mg PO Q6H PRN tab 01/15/19 02/19/19 History tablet albuterol sulfate 2 puff INHALATION Q6H PRN 02/19/19 02/19/19 History dexamethasone 4 mg PO DIRECTED 02/19/19 02/19/19 History warfarin 2.5 mg PO MOTUWETHFRSA@1600 02/19/19 02/19/19 History Patient History Medical History DJD (degenerative joint disease) (Chronic 06/29/14) Atrial fibrillation (Acute) GERD (gastroesophageal reflux disease) (Chronic) Diverticulosis of colon (Chronic) History of colonic polyps (Chronic) Carotid stenosis (Chronic) Lung cancer Pyelonephritis (Acute) SSS (sick sinus syndrome) Tachy-christine syndrome Carotid stenosis (Chronic) Depression (Chronic) Osteoporosis (Chronic) Anxiety (Chronic) Atrial fibrillation (Chronic) Paroxysmal, on Coumadin Cancer (Chronic) LUNG CANCER 05/28/18 SKIN CANCER SCC left neck LYMPH NODE + (RECENT BIOPSY) TO START CHEMO AND RADIATION Degenerative disc disease (Chronic) GERD (gastroesophageal reflux disease) (Chronic) Hyperlipidemia (Chronic) Hypothyroidism (Chronic) Osteoarthritis (Chronic) Pacemaker (Chronic) Sinus node dysfunction. YASSSU. Last checked 11/02/18 Sleep apnea (Chronic) NO DEVICE USED NOW Deep vein thrombosis (Resolved) MANY YEARS AGO DURING Surgical History Status post hysterectomy (Chronic) Status post appendectomy (Chronic) Status post cholecystectomy (Chronic) H/O cystoscopy (Resolved) H/O wrist surgery (Resolved) Right wrist surgery in past History of lymph node biopsy (Acute) by lung H/O carotid endarterectomy (Resolved) Per carotid US 11/27/18, 50-69% stenosis of JEAN, CEA appears patent, <50% stenosis of LICA. Surgery was on the right side H/O total hysterectomy with bilateral salpingo-oophorectomy (BSO) (Resolved) History of adenoidectomy (Resolved) History of appendectomy (Resolved) History of bronchoscopy (Resolved) History of cardiac cath (Resolved) NO STENTS History of cataract surgery (Resolved) RT/LEFT History of cholecystectomy (Resolved) History of colonoscopy (Resolved) H/O adenomatous polyp, Diverticulosis History of esophagogastroduodenoscopy (EGD) (Resolved) History of lobectomy of lung (Resolved) Robotic assisted thorascopic LOWER LEFT LOBECTOMY with mediastinal lymph node dissection (MAY 28, 2018) Dr. Pang;SCC of the lung History of open reduction and internal fixation (ORIF) procedure (Resolved) LEFT FEMUR REPAIR x 2- metal koby in place History of repair of rotator cuff (Resolved) RT/LEFT History of shoulder surgery (Resolved) LEFT SHOULDER REPLACEMENT History of tonsillectomy (Resolved) History of tooth extraction (Resolved) History of dilatation and curettage Family History Mother , in her 80s Heart disease Father , in his 80s Heart disease Diabetes Hypertension Sister Lung disease Cancer Sister No problems noted. Sister Diabetes Liver disease Brother Heart disease Prostate cancer Daughter No problems noted. Daughter No problems noted. 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 [employer] Other Information That Helps Us Care for You: No Feels Safe at Home: Yes Safety Concerns: Feels Safe At This Time Smoking Status: Former smoker Tobacco Type: cigarettes Cigarettes Per Day: 20 Second Hand Exposure: No Hx Alcohol Use: Yes Alcohol type: beer, wine and hard liquor Hx Substance Use: No caffeine: Yes (4-5 cups/day) during the past year weight has: decreased > 10 lbs Physical Exam Constitutional: + ill appearing Respiratory: no respiratory distress and no labored breathing Auscultation: no rales and no wheezes Cardiovascular: Rate/Rhythm: regular rate Heart Sounds: + murmur (I/6 systolic murmur) Vessels: no JVD Extremities: no edema Gastrointestinal (Abdomen): normal bowel sounds, soft, nontender, no hepatosplenomegaly Neurologic: moves all extremities; no focal motor deficits Conversant, no focal deficits Results & Data Vital Signs (Past 12 Hours) Vital Signs Temp Pulse Pulse Resp BP BP Pulse Ox 02/19/19 15:31 36.7 C 75 16 108/67 94 02/19/19 14:43 36.8 C 75 16 115/72 91 02/19/19 14:23 97 02/19/19 14:19 73 18 120/67 97 02/19/19 13:12 77 20 122/77 100 02/19/19 12:21 74 18 122/77 100 02/19/19 11:40 72 18 162/67 H 100 02/19/19 11:23 74 20 140/69 88 L 02/19/19 10:30 70 17 102/61 95 02/19/19 10:06 95 02/19/19 10:03 95 02/19/19 09:40 36.9 C 80 18 83/57 L 94 Laboratory Results Cardiac Enzymes 02/19/19 02/19/19 Range/Units 10:25 16:29 AST 36 (15-37) U/L Troponin I < 0.015 < 0.015 (0-0.045) ng/ml Coagulation 02/19/19 Range/Units 10:25 PT 28.4 H (9.0-12.0) Seconds APTT 44.9 H (21.0-31.0) Seconds CBC 02/19/19 Range/Units 10:25 WBC 5.90 (4.8-10.8) K/uL RBC 4.41 (4.2-5.4) M/uL Hgb 12.3 (12.0-16.0) g/dL Hct 36.8 L (37-47) % Plt Count 176 (130-400) K/uL Neut # (Auto) 5.44 (1.4-6.5) K/uL Lymph # (Auto) 0.15 L (1.2-3.4) K/uL [place] # (Auto) 0.29 (0.11-0.59) K/uL Eos # (Auto) 0.00 (0-0.5) K/uL Baso # (Auto) 0.00 (0-0.2) K/uL Comprehensive Metabolic Panel 02/19/19 Range/Units 10:25 Sodium 134 L (136-145) mmol/L Potassium 3.5 (3.5-5.1) mmol/L Chloride 103 (98-107) mmol/L Carbon Dioxide 25 (21-32) mmol/L BUN 12 (7-18) mg/dl Creatinine 0.75 (0.6-1.2) mg/dl Glucose 171 H (70-99) mg/dl Calcium 8.2 L (8.5-10.1) mg/dl AST 36 (15-37) U/L ALT 50 (12-78) U/L Alkaline Phosphatase 93 (45-117) U/L Total Protein 6.2 L (6.4-8.2) gm/dl Albumin 2.8 L (3.4-5.0) gm/dl Intake and Output 02/19/19 02/19/19 02/19/19 06:59 14:59 22:59 Intake Total 1547.5 / 1647.5 100 / 1647.5 Balance 1547.5 / 1647.5 100 / 1647.5 Intake: IV 1547.5 / 1647.5 100 / 1647.5 MAGNESIUM SULFATE / D5W 1 gm In 100 / 100 100 ml @ 100 mls/hr IV Q1H [facility] Rx#:[id number] Nss 1000ML 500 ml @ 999 mls/hr 1500 / 1500 IV .Q31M [facility] Rx#:[id number] Nss 500 ml @ 30 mls/hr IV . 47.5 / 47.5 [id number] [facility] Rx#:[id number] Other: Weight 80 kg Patient Weight 02/20/19 06:59 Weight 80 kg Diagnostic Findings EKG performed today 02/19/2019 reveals normal sinus rhythm at 75 bpm, age- indeterminate inferior infarct pattern noted, poor R wave progression noted in the precordial leads consistent with age-indeterminate infarction versus lead placement. Compared to the prior dated 04/11/2018, sinus rhythm has replaced atrial paced rhythm, otherwise no significant change.
[2019-02-19] MEDS: METOPROLOL SUCC 25MG EXT REL TAB PO SCH (20:56)
[2019-02-19] MEDS: ATORVASTATIN 10 MG TAB PO SCH (20:57)
[2019-02-20] MEDS ORDERED: HEPARIN 100 UNIT/ML 5ML FLUSH FLUSH PRN (01:08)
[2019-02-20] MEDS: SODIUM CHLORIDE 0.9% 500 ML IV SCH (03:25)
[2019-02-20] MEDS: TRAMADOL HCL 50 MG TABLET PO SCH ×3 (05:48→21:10)
[2019-02-20] MEDS: ACETAMINOPHEN 500 MG TAB PO SCH ×3 (05:48→21:05)
[2019-02-20] MEDS: LEVOTHYROXINE SODIUM 75 MCG TABLET PO SCH (05:49)
[2019-02-20 06:10] LABS: Hemoglobin 11.3 g/dL (12.0-16.0); Mean Corpuscular Hgb Conc 33.2 g/dL (32-36); Mean Corpuscular Volume 83.7 fL (80-100); Mean Platelet Volume 10.4 fL (7.4-10.4); Platelet Count 158 K/uL (130-400); RDW Coefficient of Variation 15.8 % (11.5-14.5); Red Blood Count 4.06 M/uL (4.2-5.4); White Blood Count 3.91 K/uL (4.8-10.8)
[2019-02-20 06:30] LABS: Prothrombin Time 33.3 Seconds (9.0-12.0)
[2019-02-20 06:32] LABS: INR 3.6 (0.9-1.1)
[2019-02-20 06:45] LABS: BUN Creatinine Ratio 14.7 (10-20); Calcium 8.2 mg/dl (8.5-10.1); Creatinine Clr Calc Pharmacy 96.3 ml/min; Est GFR (African American) 110.5; Est GFR (Non-African American) 95.3; Magnesium 2.4 mg/dl (1.8-2.4); Potassium 3.5 mmol/L (3.5-5.1)
[2019-02-20] MEDS: PANTOprazole 40 MG TAB PO SCH (08:07)
[2019-02-20] MEDS: CHOLECALCIFEROL 1,000 UNITS TAB PO SCH (08:08)
[2019-02-20] MEDS: ASPIRIN 81 MG ECTAB PO SCH (08:08)
[2019-02-20] MEDS: FLUOXETINE HCL 20 MG CAP PO SCH (08:08)
[2019-02-20] MEDS: MULTIVITAMIN TAB PO SCH (08:08)
[2019-02-20] MEDS: CALCIUM 600MG + VIT D 400 IU TAB PO SCH (08:08)
[2019-02-20] MEDS: AMIODARONE 200 MG TAB PO SCH (08:08)
[2019-02-20] MEDS: METOPROLOL SUCC 25MG EXT REL TAB PO SCH ×2 (08:08→21:05)
--- NOTE | 2019-02-20 10:29 | Hospitalist Progress Note ---
Date of Service February 20, 2019 Assessment & Plan (1) Atypical chest pain: Chest pain is unchanged but interscapular pain is more intense. No obvious ACS with neg EKG and trop. CT revealed no evidence of aortic dissection and no PE. Hypoxia is likely her baseline with more subjective shortness of breath because of the intensity of the pain. She has prior rib fractures which are still visible on imaging but nondiscplaced. Etiology for pain includes but is not limited to side effect of chemo or radiation, rib fractures, lung cancer which is active, hypomagnesemia, ?cardiac chest pain. Troponins are negative, obtain echo to ensure no active cardiac issues. Cardiology to see. May need input from radiation oncology or hematology is workup is negative and patient is still in pain. Cont morphine and scheduled tylenol/trmadol q8h for now. Re-evaluate pain until consistently controlled. (2) Hypomagnesemia: Monitor (3) Atrial fibrillation: chronic, currently in sinus rhythm, INR therapeutic on coumadin, rate controlled with metoprolol, rhythm control with amio. Cont home meds and daily INR. (4) COPD (chronic obstructive pulmonary disease): no evidence of exacerbation. may have chronic hypoxemia related to this. Baseline O2 needs as above. (5) Hypoxia: as above. Cont oxygen supplementation. (6) CAD (coronary artery disease): nonobstructive CAD per cath in 2011 (7) Cardiac pacemaker: monitor (8) Hypothyroidism: Cont Synthroid (9) DVT prophylaxis: therapeutic on warfarin Full Dispo-to home in am or when pain better controlled. ROS-No Headache, No Visual Changes, No Nausea, No Vomiting, No Fever, No Chills, No Neck Pain or Stiffness, +Back Pain across upper back more intense between shoulder blades, +Chest Pain, No Palpitations, No SOB, No VANEGAS, No Cough, No Sputum, No Wheezing, No Abdominal Pain, No Diarrhea, No Hematemesis, No Hemoptysis, No Unexpected Weight Loss, No Flank pain, No Melena, No Hematochezia, No Frequency, No Urgency, No Burning, No Hematuria, No Rashes, No Diaphoresis. Appetite is Normal Physical Exam Gen-AAO x 3, NAD, Afebrile, Obese Head-NCAT, EOMI, PERRLA, Anicteric Sclera, No Posterior Pharyngeal Erythema Neck-Supple, No JVD, No Thyromegaly, No Masses, No LAD, No Bruits Lungs-Clear to Auscultation Bilaterally, No Rales, No Rhonchi, No Wheezing, No Crepitus Chest-No S4, +S1, +S2, No S3, No Murmurs, No Rubs, No Gallops, No Ectopy Abdomen-Soft, Bowel Sounds Present, Non Tender, Non Distended, No Hepatomegaly, No Splenomegaly, No Palpable Masses, No Rebound, No Rigidity, No Guarding Musculoskeletal-Full Range of Motion Bilaterally, No CVAT Extremities-No Cyanosis, No Clubbing, No Edema Nuero-Cranial Nerves II-XII grossly intact, Motor WNL, DTRs WNL, Strength WNL, Non Focal Psych-Normal Mood Results & Data Vital Signs (Past 12 Hours) Vital Signs Temp Pulse Pulse Resp BP Pulse Ox 02/20/19 07:40 36.6 C 67 18 125/75 100 02/20/19 03:19 36.4 C L 68 20 108/69 98 02/19/19 22:49 36.5 C 67 18 96/65 L 91 Current Diagnoses Hypothyroidism, unspecified (02/19/19) Hypomagnesemia (02/19/19) Atherosclerotic heart disease of [place] coronary artery without angina pectoris (02/19/19) Unspecified atrial fibrillation (02/19/19) Chronic obstructive pulmonary disease, unspecified (02/19/19) Other chest pain (02/19/19) Hypoxemia (02/19/19) Presence of cardiac pacemaker (02/19/19) Allergies adhesive Allergy (Mild, Verified 02/19/19 11:05) skin rash phenazopyridine Allergy (Mild, Verified 02/19/19 11:05) Rash Height/Weight/Isolation Height 5 ft 1 in Weight 82 kg Chemistry 02/19/19 02/20/19 10:25 05:44 Sodium 134 L 138 Potassium 3.5 3.5 Chloride 103 107 Carbon Dioxide 25 28 Anion Gap 6.0 3.0 BUN 12 7 D Creatinine 0.75 0.49 L Glucose 171 H 88
[2019-02-20 11:17] LABS: Appearance Urine Clear (Clear); Bilirubin Urine Negative (Negative); Blood Urine Negative (Negative); Color Urine Yellow; Glucose Urine UA Negative (Negative); Ketones Urine Negative (Negative); Leukocyte Esterase Urine Negative (Negative); Nitrite Urine Negative (Negative); Protein Urine Negative (Negative); Specific Gravity Urine 1.018 (1.000-1.030); Urobilinogen Urine Negative (Negative)
--- NOTE | 2019-02-20 15:35 | Cardiology Progress Note ---
Date of Service February 20, 2019 Assessment & Plan (1) Atypical chest pain: seems to be due to back strain. No fractures on CT. Serial troponin negative. I do not think this is angina. No additional cardiac testing if felt to be indicated at present. Optimize pain control. Possible discharge 02/21/19. Subjective CC: follow up back pain, lightheadedness Subjective: patient feeling better. Back pain has not completely resolved but is better. Still a little lightheaded , however, better. BP better. Review of Systems Review of Systems: All systems reviewed & are unremarkable except as noted in HPI & below Physical Exam Constitutional: no acute distress Respiratory: normal respiratory effort, lungs clear to auscultation Cardiovascular: RRR, no murmur, no edema Extremities: no edema Neurologic: no focal deficits Results & Data Vital Signs (Past 12 Hours) Vital Signs Temp Pulse Resp BP Pulse Ox 02/20/19 10:41 36.6 C 63 18 125/75 96 02/20/19 07:40 36.6 C 67 18 125/75 100 Laboratory Results Cardiac Enzymes 02/19/19 02/20/19 Range/Units 16:29 11:13 Troponin I < 0.015 < 0.015 (0-0.045) ng/ml Coagulation 02/20/19 Range/Units 05:44 PT 33.3 H (9.0-12.0) Seconds CBC 02/20/19 Range/Units 05:44 WBC 3.91 L (4.8-10.8) K/uL RBC 4.06 L (4.2-5.4) M/uL Hgb 11.3 L (12.0-16.0) g/dL Hct 34.0 L (37-47) % Plt Count 158 (130-400) K/uL Comprehensive Metabolic Panel 02/20/19 Range/Units 05:44 Sodium 138 (136-145) mmol/L Potassium 3.5 (3.5-5.1) mmol/L Chloride 107 (98-107) mmol/L Carbon Dioxide 28 (21-32) mmol/L BUN 7 D (7-18) mg/dl Creatinine 0.49 L (0.6-1.2) mg/dl Glucose 88 (70-99) mg/dl Calcium 8.2 L (8.5-10.1) mg/dl Intake and Output 02/20/19 02/20/19 02/20/19 06:59 14:59 22:59 Intake Total 413 / 2492.167 Output Total 1050 / 1500 300 / 300 Balance -637 / 992.167 -300 / -300 Intake: IV 413 / 2257.167 Nss 500 ml @ 30 mls/hr IV . 413 / 460.5 [id number] [id number] Rx#:[id number] Output: Urine 1050 / 1500 300 / 300 Other: Other Intake Source npo Weight 82 kg
[2019-02-20] MEDS: ATORVASTATIN 10 MG TAB PO SCH (21:05)
[2019-02-21] MEDS: ACETAMINOPHEN 500 MG TAB PO SCH (05:45)
[2019-02-21] MEDS: LEVOTHYROXINE SODIUM 75 MCG TABLET PO SCH (05:45)
[2019-02-21] MEDS: TRAMADOL HCL 50 MG TABLET PO SCH (05:45)
[2019-02-21] MEDS: CALCIUM 600MG + VIT D 400 IU TAB PO SCH (08:00)
[2019-02-21] MEDS: AMIODARONE 200 MG TAB PO SCH (08:00)
[2019-02-21] MEDS: CHOLECALCIFEROL 1,000 UNITS TAB PO SCH (08:00)
[2019-02-21] MEDS: ASPIRIN 81 MG ECTAB PO SCH (08:01)
[2019-02-21] MEDS: FLUOXETINE HCL 20 MG CAP PO SCH (08:01)
[2019-02-21] MEDS: METOPROLOL SUCC 25MG EXT REL TAB PO SCH (08:01)
[2019-02-21] MEDS: PANTOprazole 40 MG TAB PO SCH (08:01)
[2019-02-21] MEDS: MULTIVITAMIN TAB PO SCH (08:01)
[2019-02-21 08:59] LABS: Hematocrit (blood only) 37.6 % (37-47); Hemoglobin 12.9 g/dL (12.0-16.0); Mean Corpuscular Hgb Conc 34.3 g/dL (32-36); Mean Corpuscular Volume 84.1 fL (80-100); Mean Platelet Volume 10.7 fL (7.4-10.4); Platelet Count 225 K/uL (130-400); RDW Coefficient of Variation 15.9 % (11.5-14.5); RDW Standard Deviation 48.7 fL (36.4-46.3); Red Blood Count 4.47 M/uL (4.2-5.4); White Blood Count 4.44 K/uL (4.8-10.8)
[2019-02-21 09:17] LABS: INR 2.8 (0.9-1.1); Prothrombin Time 26.7 Seconds (9.0-12.0)
[2019-02-21 09:29] LABS: BUN Creatinine Ratio 16.4 (10-20); Calcium 9.1 mg/dl (8.5-10.1); Creatinine Clr Calc Pharmacy 71.5 ml/min; Est GFR (African American) 100.2; Est GFR (Non-African American) 86.4
--- NOTE | 2019-02-21 10:15 | Discharge Summary ---
Date of Service February 21, 2019 Admission HPI Per Admitting Provider 73 yo F presents with chronic but more intense interscapular pain beginning last night and causing insomnia despite oxycodone use in addition to shortness of breath. She has a h/o nonobstructive CAD on cardiac catheterization in 2011, a right CEA for carotid stenosis, tachy-christine syndrome s/p pacemaker placement, atrial fibrillation on coumadin-currently in sinus rhythm, and COPD not on albuterol until just recently. She also has active squamous cell carcinoma of the lung which was diagnosed May 2018. She underwent surgery and was found to have residual lymph nodes affected, so is on chemotherapy and radiation. She reports chronic interscapular pain on a daily basis for the past year. This is triggered by coughing which is intermittent and somewhat worse in the last couple of months. She reports chronic daily anterior chest pain for many months, also, and was recently seen in the Cardiology office for this in December. Her chest pain at that time was attributed to multiple anterior nondisplaced rib fractures after a fall in October. The patient feels she has never fully recovered from that fall and those fractures. Around 10pm last night she had a sudden onset of interscapular pain which typically lasts 1-2 minutes (same as her chest pain), however, this was persistent and was intense. She reports chronic hypoxia, using oxygen at night and with ambulation during the day, and states that she was feeling more short of breath than usual even though she is short of breath at her baseline. She has COPD but was just given albuterol as outpatient. Her granddaughter was at the bedside and takes her to and from appointments; she noticed her gram was having more difficulty breathing with ambulating to the restroom in the ER today as opposed to her effort when walking through the appointments. The patient states that her SOB, chest pain and interscapular pain are all related. She reports some wheezing last night and today after returning from walking to the bathroom. She denies any associated diaphoresis or other symptoms with her pain overnight and today. ROS reveals chronic nausea and diarrhea as well as lightheadedness related to her chemotherapy. She reports having a cough since summer last year which had cleared up until two months ago and is nonproductive. She has ROBERT but is noncompliant with CPAP. She has intermittent headaches, denies fevers or chills, denies any other pain. There is pain to palpation of her chest wall but this doesn't reproduce the pain she is describing. In the ER a CT angiogram ruled out aortic dissection or PE. EKG does not reveal acute ischemia and troponin is negative. Fentanyl didn't help her pain much but morphine 4mg IV did. She is asking for a diet. Admission Exam Per Admitting Provider CONSTITUTIONAL: WNWD, vitals as above, generally well-appearing, NAD EYES: PERRL, normal conjuctivae, no scleral icterus ENT: external ear and nose normal, oropharynx clear, mucous membranes are dry, no maxillary or ethmoid sinus tenderness RESPIRATORY: clear with good air movement bilaterally, but has some crackles at bases bilaterally. No wheezing. No respiratory distress. CARDIOVASCULAR: regular rate and rhythm, S1 and 2 heard without murmurs, gallops or rubs, no JVD, no peripheral edema CHEST: PM on L chest, Port accessed on R ant chest wall-no surrounding erythema, no skin changes. GASTROINTESTINAL: normal bowel sounds, soft, nontender, nondistended MUSCULOSKELETAL: strength 5/5 throughout, head is normocephalic and atraumatic, some TTP of anterior chest wall in L parasternal and lower anterior chest wall. SKIN: warm and dry, no rashes NEUROLOGIC: No facial palsy, no dysarthria. CN 2-12 grossly intact, no sensory deficit, normal cognition, normal speech PSYCHIATRIC: alert cooperative and oriented to person, place and time. Principal Diagnosis Back Pain Hypothyroid Pacemaker CAD COPD DJD AFIB GERD Carotid Stenosis Discharge Exam ROS-No Headache, No Visual Changes, No Nausea, No Vomiting, No Fever, No Chills, No Neck Pain or Stiffness, No Chest Pain, No Palpitations, No SOB, No VANEGAS, No Cough, No Sputum, No Wheezing, No Abdominal Pain, No Diarrhea, No Hematemesis, No Hemoptysis, No Unexpected Weight Loss, No Flank pain, No Melena, No Hematochezia, No Frequency, No Urgency, No Burning, No Hematuria, No Rashes, No Diaphoresis. Appetite is Normal Physical Exam Gen-AAO x 3, NAD, Afebrile Head-NCAT, EOMI, PERRLA, Anicteric Sclera, No Posterior Pharyngeal Erythema Neck-Supple, No JVD, No Thyromegaly, No Masses, No LAD, No Bruits Lungs-Clear to Auscultation Bilaterally, No Rales, No Rhonchi, No Wheezing, No Crepitus Chest-No S4, +S1, +S2, No S3, No Murmurs, No Rubs, No Gallops, No Ectopy Abdomen-Soft, Bowel Sounds Present, Non Tender, Non Distended, No Hepatomegaly, No Splenomegaly, No Palpable Masses, No Rebound, No Rigidity, No Guarding Musculoskeletal-Full Range of Motion Bilaterally, No CVAT Extremities-No Cyanosis, No Clubbing, No Edema Nuero-Cranial Nerves II-XII grossly intact, Motor WNL, DTRs WNL, Strength WNL, Non Focal Psych-Normal Mood Discharge Data Allergies Allergy/AdvReac Type Severity Reaction Status Date / Time adhesive Allergy Mild skin rash Verified 02/19/19 11:05 phenazopyridine Allergy Mild Rash Verified 02/19/19 11:05 Consultations 02/19/19 11:47 ED Decision to Admit Stat 02/19/19 14:41 Consult Cardiology Routine Consult Case Management - Discharge Planning Routine Ordered Studies 02/19/19 10:06 CT angio chest dissec wo/w con Stat Current Diagnoses Hypothyroidism, unspecified (02/19/19) Hypomagnesemia (02/19/19) Atherosclerotic heart disease of [place] coronary artery without angina pectoris (02/19/19) Unspecified atrial fibrillation (02/19/19) Chronic obstructive pulmonary disease, unspecified (02/19/19) Other chest pain (02/19/19) Hypoxemia (02/19/19) Presence of cardiac pacemaker (02/19/19) Allergies adhesive Allergy (Mild, Verified 02/19/19 11:05) skin rash phenazopyridine Allergy (Mild, Verified 02/19/19 11:05) Rash Height/Weight/Isolation Height 5 ft 1 in Weight 82 kg Chemistry 02/19/19 02/20/19 02/21/19 10:25 05:44 08:25 Sodium 134 L 138 137 Potassium 3.5 3.5 4.0 Chloride 103 107 106 Carbon Dioxide 25 28 25 Anion Gap 6.0 3.0 6.0 BUN 12 7 D 11 D Creatinine 0.75 0.49 L 0.66 Glucose 171 H 88 108 H Urinalysis 02/20/19 11:10 Urine Color Yellow Urine Appearance Clear Urine pH 7.0 Ur Specific [place] 1.018 Urine Protein Negative Urine Glucose (UA) Negative Urine Ketones Negative Urine Blood Negative Urine Nitrite Negative Urine Bilirubin Negative Hospital Course (1) Atypical chest pain: Chest pain is non-cardiac. Negative trops. CT revealed no evidence of aortic dissection and no PE. Hypoxia is likely her baseline with more subjective shortness of breath because of the intensity of the pain. She has prior rib fractures which are still visible on imaging but nondiscplaced. Etiology for pain includes but is not limited to side effect of chemo or radiation, rib fractures, lung cancer which is active, hypomagnesemia (2) Hypomagnesemia: Monitor (3) Atrial fibrillation: chronic, currently in sinus rhythm, INR therapeutic on coumadin, rate controlled with metoprolol, rhythm control with amio. Cont home meds and daily INR. (4) COPD (chronic obstructive pulmonary disease): no evidence of exacerbation. may have chronic hypoxemia related to this. Baseline O2 needs as above. (5) Hypoxia: as above. Cont oxygen supplementation. (6) CAD (coronary artery disease): nonobstructive CAD per cath in 2011 (7) Cardiac pacemaker: monitor (8) Hypothyroidism: Cont Synthroid (9) DVT prophylaxis: therapeutic on warfarin Full Dispo-to home today ROS-No Headache, No Visual Changes, No Nausea, No Vomiting, No Fever, No Chills, No Neck Pain or Stiffness, +Back Pain across upper back more intense between shoulder blades, +Chest Pain, No Palpitations, No SOB, No VANEGAS, No Cough, No Sputum, No Wheezing, No Abdominal Pain, No Diarrhea, No Hematemesis, No Hemoptysis, No Unexpected Weight Loss, No Flank pain, No Melena, No Hematochezia, No Frequency, No Urgency, No Burning, No Hematuria, No Rashes, No Diaphoresis. Appetite is Normal Physical Exam Gen-AAO x 3, NAD, Afebrile, Obese Head-NCAT, EOMI, PERRLA, Anicteric Sclera, No Posterior Pharyngeal Erythema Neck-Supple, No JVD, No Thyromegaly, No Masses, No LAD, No Bruits Lungs-Clear to Auscultation Bilaterally, No Rales, No Rhonchi, No Wheezing, No Crepitus Chest-No S4, +S1, +S2, No S3, No Murmurs, No Rubs, No Gallops, No Ectopy Abdomen-Soft, Bowel Sounds Present, Non Tender, Non Distended, No Hepatomegaly, No Splenomegaly, No Palpable Masses, No Rebound, No Rigidity, No Guarding Musculoskeletal-Full Range of Motion Bilaterally, No CVAT Extremities-No Cyanosis, No Clubbing, No Edema Nuero-Cranial Nerves II-XII grossly intact, Motor WNL, DTRs WNL, Strength WNL, Non Focal Psych-Normal Mood Total Time Total Time Spent Total Time Spent (In Minutes): 45 mins Total Time Includes: Examination of the Patient, Discharge Planning, Medication Reconciliation and Communication With Other Providers Discharge Plan Discharge Items Patient Disposition: Home - Self-Care Reason For Visit: CHEST PAIN Discharge Diagnosis: Back Pain Hypothyroid Pacemaker CAD COPD DJD AFIB GERD Carotid Stenosis Condition: Good Discharge Goals: Improve function Activity: Resume your previous activity Lifting: Gradually increase as tolerated Bathing: No limitations Sexual Activity: When tolerated Driving/Machine Use: No limitations Weightbearing: Left weightbearing and Right weightbearing Non-emergency contact: Primary Care Provider Call non-emergency contact if: you have any medication questions and your symptoms worsen Follow-up/Referrals: Johnathon Foley DO [Primary Care Provider] - Diet: Carb Consistent or DM2 Addtl Provider Instructions: None, will d/w Dr Peralta Prescriptions: New acetaminophen [Tylenol Extra Strength] 500 mg tablet 500 mg PO Q4H Qty: 60 RF: 0 Continued oxycodone 5 mg capsule 5 mg PO Q8H PRN (Reason: pain) RF: 0 ondansetron HCl [Zofran] 8 mg tablet 8 mg PO TID PRN (Reason: Nausea) RF: 0 prochlorperazine maleate [Compazine] 10 mg tablet 10 mg PO Q6H PRN (Reason: nausea and vomiting) RF: 0 calcium carbonate-vit D3-min 600 mg calcium- 400 unit tablet 1 tab PO DAILY RF: 0 multivitamin Tablet 1 tab PO QAM RF: 0 atorvastatin 10 mg Tablet 10 mg PO HS RF: 0 aspirin [Aspir-Low] 81 mg Tablet,Delayed Release (Dr/Ec) 81 mg PO QAM RF: 0 levothyroxine 75 mcg Tablet 75 mcg PO QAM RF: 0 fluoxetine 20 mg Tablet 20 mg PO QAM RF: 0 warfarin 5 mg Tablet 5 mg PO WOODRUFF@1600 RF: 0 omeprazole 20 mg Capsule,Delayed Release(Dr/Ec) 20 mg PO QAM RF: 0 metoprolol succinate 25 mg Tablet Extended Release 24 Hr 0.5 tab PO BID RF: 0 amiodarone 100 mg Tablet 100 mg PO QAM RF: 0 cholecalciferol (vitamin D3) [Vitamin D3] 1,000 unit Tablet 1,000 unit PO QAM RF: 0 warfarin 5 mg tablet 2.5 mg PO MOTUWETHFRSA@1600 RF: 0 albuterol sulfate 90 mcg/actuation HFA aerosol inhaler 2 puff inhalation Q6H PRN (Reason: SOB or wheezing) RF: 0 Discontinued dexamethasone 4 mg tablet 4 mg PO DIRECTED RF: 0 Stand-Alone Forms: [facility]charge Orders: Discharge Order (Routine); Ordered 02/21/19 Ordered By: Jassi Villanueva Admission Data Admit Date/Time: 02/19/19 12:42 Attending Provider: Jassi Villanueva Admit Provider: Chelsea Parry Primary Care Provider: Johnathon Foley Other Providers: Chelsea Parry ; Gerald Appiah ; Jeremy Waldron ; Anderson Virk ; Segundo Thomas ; Og Greene ; Logan Cortez ; Tanya Chance ; Marium Burkett Service: Telemetry
[2019-02-21 10:54] VITALS: BP 123/77; PULSE 68; TEMP 98.4; O2SAT 94
[2019-02-21] MEDS ORDERED: WARFARIN SOD 5 MG TAB PO SCH (16:00)
== END 2019-02-21 11:55 | disposition home or self-care (01) | DRG 948 ==
LOC: ED 09:32 → 2S 12:42

== ENCOUNTER 2019-09-08 14:41 | Inpatient (IN) ==
[2019-09-08] MEDS ORDERED: ALBUT/IPRATROP 3MG/0.5MG NEB 3 ML VIAL NEB STA (14:57)
[2019-09-08] MEDS ORDERED: SODIUM CHLORIDE 0.9% 1000ML 500 ML IV ONE (14:58)
--- NOTE | 2019-09-08 15:14 | XRay Report ---
RIGHT HAND 3 VIEWS CLINICAL HISTORY: Right hand swelling. FINDINGS: 3 views of the right hand are obtained. No prior studies are available for comparison at th e time of dictation. The examination is degraded by the presence of a pulse oximeter on the third fin rubina. The skeletal structures are osteopenic. No fracture is seen. Osteoarthritic change is seen at th e first carpometacarpal and metacarpophalangeal joints. Mild osteoarthritic change is seen involving the interphalangeal joints, distal greater than proximal. There is degenerative narrowing at the radi ocarpal articulation with chondrocalcinosis of the triangular fibrocartilage. Soft tissue swelling is present along the dorsal aspect of the wrist. IMPRESSION: 1. Soft tissue swelling with no acute bony abnormality identified. 2. Osteopenia and degenerative change as above. Electronically signed by: Gume Pond M.D. 09/08/2019 3:13 PM
--- NOTE | 2019-09-08 15:18 | XRay Report ---
SINGLE VIEW CHEST CLINICAL HISTORY: Dyspnea. Weakness. FINDINGS: An AP, portable, upright chest radiograph is compared to study dated 02/19/2019 and correlate d with chest CT dated 04/20/2019. The examination is degraded by portable technique and patient rotatio n. A right subclavian central venous infusion port is unchanged in position, as is a 2-lead cardiac p acemaker. The heart is enlarged noting atherosclerotic calcification of the thoracic aorta. The pulmo nary vasculature is noncongested. There is airspace consolidation identified in the left upper lobe. There is a small left pleural effusion. The right lung appears clear. No pneumothorax is seen. The sk eletal structures are osteopenic. The bony thorax is grossly intact. Bilateral shoulder arthroplastie s are in place. Cholecystectomy clips are seen in the right upper quadrant. IMPRESSION: 1. Cardiomegaly and cardiac pacemaker. There is no radiographic evidence of congestive failure. 2. There is left upper lobe consolidation typical in appearance for pneumonia. Clinical correlation w ill be required and radiographic follow-up to resolution is recommended. 3. Small left pleural effusion. Electronically signed by: Gume Pond M.D. 09/08/2019 3:16 PM
[2019-09-08 15:52] LABS: Basophils # (auto) 0.01 K/uL (0-0.2); Basophils % (auto) 0.1 %; Eosinophils # (auto) 0.02 K/uL (0-0.5); Eosinophils % (auto) 0.2 %; Hematocrit (blood only) 36.8 % (37-47); Hemoglobin 12.2 g/dL (12.0-16.0); Immature Granulocytes # (auto) 0.03 K/uL (0.00-0.02); Immature Granulocytes % (auto) 0.2 %; Lymphocytes # (auto) 0.54 K/uL (1.2-3.4); Lymphocytes % (auto) 4.3 %; Mean Corpuscular Hemoglobin 30.3 pg (25-34); Mean Corpuscular Hgb Conc 33.2 g/dL (32-36); Mean Corpuscular Volume 91.5 fL (80-100); Mean Platelet Volume 10.5 fL (7.4-10.4); Monocytes # (auto) 0.69 K/uL (0.11-0.59); Monocytes % (auto) 5.5 %; Neutrophils # (auto) 11.24 K/uL (1.4-6.5); Neutrophils % (auto) 89.7 %; Platelet Count 227 K/uL (130-400); RDW Standard Deviation 47.1 fL (36.4-46.3); Red Blood Count 4.02 M/uL (4.2-5.4); White Blood Count 12.53 K/uL (4.8-10.8)
[2019-09-08 16:02] LABS: INR 3.5 (0.9-1.1); Prothrombin Time 32.4 Seconds (9.0-12.0)
[2019-09-08] MEDS ORDERED: VANCOMYCIN HCL 1,750 MG in SODIUM CHLORIDE 0.9% 500 ML IV ONE (16:05)
[2019-09-08] MEDS ORDERED: CEFEPIME 2,000 MG/20 ML VIAL IV STA (16:05)
[2019-09-08] MEDS ORDERED: VANCOMYCIN CONSULT ACTIVE PRN (16:05)
[2019-09-08 16:12] LABS: Alanine Aminotransferase 15 U/L (12-78); Albumin Level 2.6 gm/dl (3.4-5.0); Aspartate Aminotransferase 22 U/L (15-37); BUN Creatinine Ratio 24.7 (10-20); Bilirubin Direct 0.3 mg/dl (0-0.2); Blood Urea Nitrogen 15 mg/dl (7-18); Calcium 9.3 mg/dl (8.5-10.1); Carbon Dioxide 24 mmol/L (21-32); Chloride 103 mmol/L (98-107); Est GFR (African American) 103.2; Glucose 112 mg/dl (70-99); Magnesium 1.6 mg/dl (1.8-2.4); Potassium 3.4 mmol/L (3.5-5.1); Sodium 137 mmol/L (136-145)
[2019-09-08 16:17] LABS: Alkaline Phosphatase 129 U/L (45-117); Bilirubin,Total 0.7 mg/dl (0.2-1); Creatine Kinase 31 U/L (26-192); Total Protein 6.7 gm/dl (6.4-8.2); Troponin I < 0.015 ng/ml (0-0.045)
[2019-09-08 16:23] LABS: Base Excess VBG -0.3 mEq/L; Oxygen Saturation VBG 90.5 %; pH VBG 7.5 (7.36-7.41)
--- NOTE | 2019-09-08 17:32 | History & Physical Report ---
Date of Service September 08, 2019 Assessment & Plan (1) Pneumonia: Pt is 74 y/o F with PMH a-fib on Coumadin, sick sinus syndrome s/p pacemaker, nonobstructive CAD on cardiac cath 2011, carotid stenosis s/p right CEA, COPD, squamous cell lung carcinoma s/p right lower lobectomy in 05/2018 s/p radiation 02/2019 and s/p chemo 05/2019, chronic hypoxia on 2 L nasal cannula at bedtime and with activity, hypothyroidism, orthostatic hypotension, depression presented with c/o increased shortness of breath x 1.5 weeks. In ER pt afebrile, P: 64, R: 22, BP: 122/70, 98% on 3L O2 NC. WBC: 12.5, Lactate WNL. CXR: left upper lobe consolidation typical in appearance for pneumonia, Small left pleural effusion. -In ER given 500ml NSS, Cefepime, Vancomycin -Influenza pending -Blood cultures pending -MRSA swab -Zosyn -Gentle IVF -Aspiration precautions -Speech eval -Continue chronic oxygen supplementation -CBC, BMP in am -If no improvement or worsening may need to consider pulmonology consult (2) Acute on chronic respiratory failure with hypoxia: (3) COPD (chronic obstructive pulmonary disease): On chronic 2L oxygen via NC HS and with activity. Pt reports has not been using oxygen with activity. Reported home O2 sat in 70's after activity without oxygen use at home yesterday. Does not use albuterol prn per pt's daughter In ER O2 sats in 90's on 2L oxygen -Continue oxygen supplementation -Xopenex/Atrovent nebs (4) Squamous cell carcinoma of lung: Squamous cell lung carcinoma s/p right lower lobectomy in 05/2018 s/p radiation 02/2019 and chemo 05/2019. Current observation since 05/2019. Follows with Dr Terry. On chronic oxygen 2 L nasal cannula at bedtime and with activity for chronic hypoxia (5) Hand edema: Right hand edema today. Pt thinks slept with R hand malpositioned. Denies known trauma R Hand Xray: Soft tissue swelling with no acute bony abnormality identified. DDX: hematoma vs cellulitis, early abscess -On current antibiotics for pneumonia -Monitor (6) Hypomagnesemia: Magnesium: 1.6 -Replace and monitor -Resume oral supplement tomorrow (7) Hypokalemia: K: 3.4 -Replace and monitor -Resume oral supplement tomorrow (8) Atrial fibrillation: On Coumadin Current sinus rhythm -INR: 3.5 -Hold Coumadin -INR in AM (9) SSS (sick sinus syndrome): S/P pacemaker (10) Orthostatic hypotension: H/O orthostatic hypotension. Recently started on midodrine, Florinef -Continue midodrine, florinef (11) CAD (coronary artery disease): Nonobstructive CAD on cardiac cath 2011 No CP. Negative troponin in ER -Continue aspirin, statin (12) Hypothyroidism: TSH: 4.1 on 07/15/19 -Continue levothyroxine (13) Depression: Stable -Continue fluoxetine DVT Prophylaxis -On Coumadin Full Code as per discussion with pt Follows with Dr Foley for routine care Pt was seen and care coordinated with Dr Cuadra. See addendum History of Present Illness Chief Complaint: Increased SOB Primary Care Provider: Johnathon Foley, DO Pt is 74 y/o F with PMH a-fib on Coumadin, sick sinus syndrome s/p pacemaker, nonobstructive CAD on cardiac cath 2011, carotid stenosis s/p right CEA, COPD, squamous cell lung carcinoma s/p right lower lobectomy in 05/2018 s/p radiation 02/2019 and chemo 05/2019, chronic hypoxia on 2 L nasal cannula at bedtime and with activity, hypothyroidism, orthostatic hypotension, depression presented to ER with complaint of increased shortness of breath x1.5 weeks. Patient reports chronic shortness of breath at baseline however has worsened. She reports has been wearing her oxygen at night however has not been wearing her oxygen with activity. Patient states yesterday and today has been wearing her oxygen continuously secondary to shortness of breath with some relief. She reports she has aides coming in twice a week to help her shower and her oxygen saturations were reported at 70% off of oxygen after a shower which increased with placing oxygen on and resting yesterday. Complains of increased cough which has been nonproductive and denies hemoptysis. Reports been having chills for the past week without any noted fevers. Reports decreased appetite for the past 1-2 weeks. Did not eat or drink today. Reports she has lost 4 pounds in the past week. Patient reports history of 3 falls in July. Denies any falls since. Has been having bilateral leg weakness, and dizziness with standing and has been following with PCP. Is been having home PT twice a week. She also recently has been started on Midodrine and Florinef for orthostatic hypotension. This morning she noticed some swelling to dorsal aspect of right hand and tenderness. Patient states she thinks she slept with her hand in a odd position last night. Denies any known injury or trauma. Denies any open areas or discharge or red streaking. Pt reports has had intermittent sensation of fullness after eating and will have vomiting which relieves this sensation. States last occurred 1-2 weeks ago. Also reports sometimes feels like solid foods are not passing through esophagus easily. this has been occurring since radiation. Reports had flu vaccine this season. Denies ill contacts. Denies diaphoresis, diarrhea, constipation, BUNCH, syncope, vision changes, neck pain, CP, orthopnea, palpitations, sore throat, choking, otalgia, rhinorrhea, abdominal pain, extremity edema, rashes, urinary symptoms. Allergies Allergy/AdvReac Type Severity Reaction Status Date / Time adhesive Allergy Mild skin rash Verified 09/08/19 16:39 phenazopyridine Allergy Mild Rash Verified 09/08/19 16:39 Home Medications Home Medications Medication Instructions Recorded Confirmed Type amiodarone 100 mg PO QAM 12/21/18 09/08/19 History aspirin [Aspir-Low] 81 mg PO QAM 12/21/18 09/08/19 History atorvastatin 10 mg PO HS 12/21/18 09/08/19 History cholecalciferol (vitamin D3) 1,000 unit PO QAM 12/21/18 09/08/19 History [Vitamin D3] fluoxetine 20 mg PO QAM 12/21/18 09/08/19 History levothyroxine 75 mcg PO QAM 12/21/18 09/08/19 History multivitamin 1 tab PO QAM 12/21/18 09/08/19 History omeprazole 20 mg PO QAM 12/21/18 09/08/19 History acetaminophen 500 mg capsule 500 mg PO Q6H PRN 03/17/19 09/08/19 History warfarin 5 mg tablet 2.5 mg PO HS tab 03/17/19 09/08/19 History magnesium oxide 400 mg PO QAM 07/07/19 09/08/19 History potassium chloride 10 meq PO QAM 07/07/19 09/08/19 History albuterol sulfate 2 puff INHALATION Q6H PRN 09/08/19 09/08/19 History fludrocortisone 0.1 mg PO QAM 09/08/19 09/08/19 History midodrine 2.5 mg PO TID 09/08/19 09/08/19 History oxycodone 5 mg PO Q6H PRN 09/08/19 09/08/19 History Past Med/Surg History Medical History (Updated 09/08/19 @ 18:38 by Tiny Epps) Anxiety (Chronic) Atrial fibrillation (Acute) Atrial fibrillation (Chronic) Paroxysmal, on Coumadin CAD (coronary artery disease) Cancer (Chronic) LUNG CANCER 05/28/18 SKIN CANCER SCC left neck LYMPH NODE + (RECENT BIOPSY) TO START CHEMO AND RADIATION Cardiac pacemaker Carotid stenosis (Chronic) Carotid stenosis (Chronic) COPD (chronic obstructive pulmonary disease) Deep vein thrombosis (Resolved) MANY YEARS AGO DURING Degenerative disc disease (Chronic) Depression (Chronic) Depression Diverticulosis of colon (Chronic) DJD (degenerative joint disease) (Chronic 06/29/14) DVT prophylaxis GERD (gastroesophageal reflux disease) (Chronic) GERD (gastroesophageal reflux disease) (Chronic) History of colonic polyps (Chronic) History of lung cancer (Acute) Hyperlipidemia (Chronic) Hypocalcemia (Acute) Hypomagnesemia (Acute) Hypothyroidism (Chronic) Hypothyroidism Hypoxia Lung cancer (Chronic) Orthostatic hypotension Osteoarthritis (Chronic) Osteoporosis (Chronic) Pacemaker (Chronic) Sinus node dysfunction. GageIn. Last checked 11/02/18 Pyelonephritis (Acute) Sleep apnea (Chronic) NO DEVICE USED NOW Squamous cell carcinoma of lung (Acute) SSS (sick sinus syndrome) Tachy-christine syndrome UTI (urinary tract infection) (Acute) Surgical History H/O carotid endarterectomy (Resolved) Per carotid US 11/27/18, 50-69% stenosis of JEAN, CEA appears patent, <50% stenosis of LICA. Surgery was on the right side H/O cystoscopy (Resolved) H/O total hysterectomy with bilateral salpingo-oophorectomy (BSO) (Resolved) H/O wrist surgery (Resolved) Right wrist surgery in past History of adenoidectomy (Resolved) History of appendectomy (Resolved) History of bronchoscopy (Resolved) History of cardiac cath (Resolved) NO STENTS History of cataract surgery (Resolved) RT/LEFT History of cholecystectomy (Resolved) History of colonoscopy (Resolved) H/O adenomatous polyp, Diverticulosis History of dilatation and curettage History of esophagogastroduodenoscopy (EGD) (Resolved) History of lobectomy of lung (Resolved) Robotic assisted thorascopic LOWER LEFT LOBECTOMY with mediastinal lymph node dissection (MAY 28, 2018) Dr. Pang;SCC of the lung History of lymph node biopsy (Acute) by lung History of open reduction and internal fixation (ORIF) procedure (Resolved) LEFT FEMUR REPAIR x 2- metal koby in place History of repair of rotator cuff (Resolved) RT/LEFT History of shoulder surgery (Resolved) LEFT SHOULDER REPLACEMENT History of tonsillectomy (Resolved) History of tooth extraction (Resolved) Status post appendectomy (Chronic) Status post cholecystectomy (Chronic) Status post hysterectomy (Chronic) Family History Mother , in her 80s Heart disease Father , in his 80s Heart disease Diabetes Hypertension Sister Lung disease Cancer Sister No problems noted. Sister Diabetes Liver disease Brother Heart disease Prostate cancer Daughter No problems noted. Daughter No problems noted. 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 Beliefs That Will Affect Care: None marital status: Current Living Situation: Alone Current Living Situation Comment: Lives a [facility] current occupational status: retired current occupation: [place] for [email or web address] Feels Safe at Home: Yes Smoking Status: Former smoker Tobacco Type: cigarettes ; Cigarettes Per Day: 1- 2 PPD x 40 yrs when she smoked; ; Second Hand Exposure: No ; Hx Alcohol Use: Yes Alcohol type: beer, wine and hard liquor Hx Substance Use: No caffeine: Yes (4-5 cups/day) during the past year weight has: decreased > 10 lbs Review of Systems Review of Systems: All systems reviewed & are unremarkable except as noted in HPI & below Physical Exam Physical Exam: General: no acute distress, chronic ill appearing, thin elderly female Head: normocephalic, atraumatic Eyes: PERRL, EOM's intact, conjunctiva non-injected, anicteric ENT: normal inspection external ears, nose, mucous membranes dry Neck: supple, trachea midline Lungs: breath sounds diminished RLL, otherwise clear, no respiratory distress on 2L oxygen via NC with O2 sat 94%, R: 20 CV: RRR, no murmur, no pretibial edema Abd: normal BS, soft, non-tender Ext: no cyanosis, no calf tenderness; R hand: dorsal aspect with firm edema, slight erythema, mild warmth +tenderness to palpation, fingers with ROM intact and non-tender, brisk capillary refill Neuro: A&O x 3, no focal deficits noted, normal affect Skin: warm, dry Results & Data Vital Signs (Past 12 Hours) Vital Signs Temp Pulse Pulse Resp BP Pulse Ox 09/08/19 15:28 78 20 100 09/08/19 14:46 36.6 C 64 22 122/70 98 09/08/19 14:44 88 L Laboratory Results Short CBC 09/08/19 Range/Units 15:42 WBC 12.53 H (4.8-10.8) K/uL Hgb 12.2 (12.0-16.0) g/dL Hct 36.8 L (37-47) % Plt Count 227 (130-400) K/uL BMP 09/08/19 15:42 Sodium 137 Potassium 3.4 L Chloride 103 Carbon Dioxide 24 BUN 15 Creatinine 0.59 L Glucose 112 H Calcium 9.3 Cardiac Enzymes 09/08/19 Range/Units 15:42 Total Creatine Kinase 31 (26-192) U/L Troponin I < 0.015 (0-0.045) ng/ml Liver Function 09/08/19 Range/Units 15:42 Total Bilirubin 0.7 (0.2-1) mg/dl Direct Bilirubin 0.3 H (0-0.2) mg/dl AST 22 (15-37) U/L ALT 15 (12-78) U/L Alkaline Phosphatase 129 H (45-117) U/L Albumin 2.6 L (3.4-5.0) gm/dl Diagnostic Findings CXR: IMPRESSION: 1. Cardiomegaly and cardiac pacemaker. There is no radiographic evidence of congestive failure. 2. There is left upper lobe consolidation typical in appearance for pneumonia. Clinical correlation will be required and radiographic follow-up to resolution is recommended. 3. Small left pleural effusion. R HAND XRAY: IMPRESSION: 1. Soft tissue swelling with no acute bony abnormality identified. 2. Osteopenia and degenerative change as above. ECG Rate (beats per minute): 79 Rhythm: sinus rhythm Additional Comments: poor tracing Supervising Physician Co-Signing Physician Notes Attending addendum: The patient was seen and examined in the emergency room She is 74 years old with the multiple complicated past medical history notably squamous cell carcinoma of the lung status post right lower lobectomy with ongoing chemotherapy, atrial fibrillation on Coumadin and nonobstructive CAD apparently has been complaining of increasing weakness for the last 1 week, associated with cough and occasional chills. She remains weak and lethargy Denies any acute symptoms in the emergency room On examination No apparent distress at rest Afebrile and hemodynamically stable Chest-decreased breath sounds right lower lung Heart-S1-S2, irregular with 1/6 to 2/6 systolic murmur over precordium Abdomen-benign, nontender, bowel sounds present Extremities-trace edema bilateral LEATHER ETCHER-alert awake and oriented x3. generally very weak and lethargy Her admission labs and imaging studies and EKG reviewed Has left upper lobe pneumonia in the setting of CLL with ongoing chemo and atrial fibrillation on Coumadin Agree with assessment plan as outlined above by Beth Coon, KRISTINA Cuadra
[2019-09-08 18:03] LABS: Influenza A virus by PCR Neg for Influ A (Neg); Influenza B virus by PCR Neg for Influ B (Neg)
[2019-09-08] MEDS ORDERED: IPRATROPIUM BROMIDE NEB SOLN 0.02% 2.5 ML VIAL INH PRN (19:08)
[2019-09-08] MEDS ORDERED: SODIUM CHLORIDE 0.9% 1000ML 1,000 ML IV SCH (19:08)
[2019-09-08] MEDS ORDERED: XOPENEX/ATROVENT 0.63mg/0.5MG NEB COMBO NEB PRN (19:08)
[2019-09-08] MEDS ORDERED: LEVALBUTEROL HCL 0.63 MG/3 ML NEB NEB PRN (19:08)
[2019-09-08] MEDS ORDERED: PIPERACILL/TAZOBAC CONSULT ACTIVE PRN (19:14)
[2019-09-08] MEDS ORDERED: OXYCODONE HCL IR 5 MG TAB (IMMEDIATE RELEASE) PO PRN (19:17)
[2019-09-08] MEDS ORDERED: MAGNESIUM SULFATE / D5W 1 GM/100 ML BAG IV ONE (19:30)
[2019-09-08] MEDS ORDERED: POTASSIUM CHLORIDE 20 MEQ TABCR PO ONE (19:45)
[2019-09-08] MEDS ORDERED: PIPERACILLIN/TAZOBACTAM 3.375 GM in DEXTROSE 5% 100 ML IV ONE (20:00)
[2019-09-08] MEDS: ATORVASTATIN 10 MG TAB PO SCH (20:32)
[2019-09-08] MEDS: MIDODRINE HCL 2.5 MG TAB PO SCH (20:33)
[2019-09-08] MEDS: ACETAMINOPHEN 325 MG TAB PO PRN (21:58)
[2019-09-08 22:13] LABS: Appearance Urine Clear (Clear); Bacteria Urine Automated Negative (Negative); Bilirubin Urine Negative (Negative); Blood Urine Negative (Negative); Color Urine Dark Yellow; Epithelial Cell Urine Auto >30 /lpf (0-5); Glucose Urine UA Negative (Negative); Ketones Urine 1+ (Negative); Leukocyte Esterase Urine Negative (Negative); Nitrite Urine Negative (Negative); Protein Urine Trace (Negative); RBC Urine Automated 0-4 /hpf (0-4); Specific Gravity Urine 1.025 (1.000-1.030); Urobilinogen Urine Negative (Negative)
--- NOTE | 2019-09-08 22:22 | Emergency Department Note ---
Entered by Tiny Epps acting as a scribe for George Lees MD ED Provider Note Name: DEWAYNE BARRETT Age: 74 Arrives Via: Walk-In Informant: Patient, family CC: SOB/dyspnea HPI: 74F on Coumadin arrives for evaluation of SOB/dyspnea. The patient reports constant baseline SOB and wears O2 at home at night as well as when she goes out. She states that her O2 levels have been fluctuating lately and her lowest O2 sat this week was in the 70s. Her shortness of breath has been increasing in the past week associated with weakness and trouble ambulating. Additionally she complains of right hand pain and soreness during the night last night as well as erythema and inability to move her hand due to pain. The patient also states that she felt like she was going to pass out a few times this week. She denies fevers, chest pain, dysuria, leg swelling, abdominal pain, back pain, and rash. The patient offers no additional complaints at this time. ROS: See above HPI for pertinent positives & negatives. A total of 10 systems reviewed and were otherwise negative. Past Medical History:metastatic lung cancer on chemo, COPD, cardiac pacemaker, DVT prophylaxis, hypoxia, and other relevant medical problems indicated on [employer]. Past Surgical History:See Below Family History: See Below Social History: See Below Home Medications:See Below Allergies:adhesive, phenazopyridine Vitals:BP 122/70 Pulse 78 Resp 20 Temp 36.6 O2 Sat 100 Delivery Nasal Canula Flow Rate 2 L/min Physical Exam: GENERAL: Patient is chronically unwell appearing, dehydrated EYES: No scleral icterus, unremarkable pupils. ENT: Mucous membranes are dry, no nasal congestion. NECK: No masses appreciated, nomeningismus, trachea is midline. RESPIRATORY: No dyspnea. Clear to auscultation and decreased breath sounds in right lower lobe. No wheeze, no rhonchi. CARDIOVASCULAR: Regular rate and rhythm.No murmurs, rubs, gallops appreciated. GASTROINTESTINAL: Abdomen soft, non-tender, no peritonitis.Bowel sounds positive.No masses appreciated. BACK: No midline tenderness, no CVA tenderness EXTREMITIES: Normal motion all extremities, no cyanosis, no edema. NEUROLOGIC: Alert and oriented, no acute motor or sensory deficits, no focal weakness, cranial nerves grossly intact. SKIN: No rash, no jaundice, no diaphoresis. ED Course: Prior Medical Record, Triage/Nursing Notes, Medications, Allergies reviewed by Me Vital Signs: reviewed and remarkable for Hypoxia 87% on RA, resolved with NC Labs:Reviewed and remarkable for no significant abnormalities Interventions: Saline Lock, Duoneb neb, cefepime 2gm IV, Vanco IV Imaging: SINGLE VIEW CHEST CLINICAL HISTORY: Dyspnea. Weakness. FINDINGS: An AP, portable, upright chest radiograph is compared to study dated 02/19/2019 and correlated with chest CT dated 04/20/2019. The examination is degraded by portable technique and patient rotation. A right subclavian central venous infusion port is unchanged in position, as is a 2-lead cardiac pacemaker. The heart is enlarged noting atherosclerotic calcification of the thoracic a edita. The pulmonary vasculature is noncongested. There is airspace consolidation identified in the left upper lobe. There is a small left pleural effusion. The right lung appears clear. No pneumothorax is seen. The skeletal structures are osteopenic. The bony thorax is grossly intact. Bilateral shoulder arthroplasties are in place. Cholecystectomy clips are seen in the right upper quadrant. IMPRESSION: 1. Cardiomegaly and cardiac pacemaker. There is no radiographic evidence of congestive failure. 2. There is left upper lobe consolidation typical in appearance for pneumonia. Clinical correlation will be required and radiographic follow-up to resolution is recommended. 3. Small left pleural effusion. Electronically signed by: Gume Pond M.D. 09/08/2019 3:16 PM RIGHT HAND 3 VIEWS CLINICAL HISTORY: Right hand swelling. FINDINGS: 3 views of the right hand are obtained. No prior studies are available for comparison at the time of dictation. The examination is degraded by the presence of a pulse oximeter on the third finger. The skeletal structures are osteopenic. No fracture is seen. Osteoarthritic change is seen at the first carpometacarpal and metacarpophalangeal joints. Mild osteoarthritic change is seen involving the interphalangeal joints, distal greater than proximal. There is degenerative narrowing at the radiocarpal articulation with chondrocalcinosis of the triangular fibrocartilage. Soft tissue swelling is present along the dorsal aspect of the wrist. IMPRESSION: 1. Soft tissue swelling with no acute bony abnormality identified. 2. Osteopenia and degenerative change as above. Electronically signed by: Gume Pond M.D. 09/08/2019 3:13 PM Reassessments/Times: * 1608: I reevaluated the patient who notes mild improvement after DuoNeb and agrees to admission. [facility] hospitalist is paged. * 1730: Spoke to SON[facility] who will accept the patient under the care of Dr. Cuadra. Blood pressure:Normal.No Referral necessary Disposition: Hospitalization Differentials:Etiologies such as metabolic, infection, hypo/hyperglycemia, electrolyte abnormalities, cardiac sources, intracerebral event, toxicologic, n eurologic, amongst other pathologies. Medical Decision Makin yr old female on chemotherapy for metastatic lung CA arrives with worsening weakness and shortness of breath over last week. Requiring NC O2 on arrival though not overtly septic appearing nor in severe distress. Septic work-up ordered given history and complaints. NERIS PNA noted on CXR though lungs at this time not too bad. Given age, history and findings will need to come in. [facility] acquired abx ordered and hospitalist consulted for further management. Impression: * Left upper lobe pneumonia * Hypoxia * Immunocompromised state due to chemotherapy The scribe's documentation has been prepared under my direction and personally reviewed by me in its entirety. I confirm that the note above accurately reflects all work, treatment, procedures, and medical decision making performed by me. George Lees MD Impression & Plan Left upper lobe pneumonia, Hypoxia, Immunocompromised state due to drug therapy Past Med/Surg History Medical History (Updated 09/08/19 @ 18:38 by Tiny Epps) Anxiety (Chronic) Atrial fibrillation (Acute) Atrial fibrillation (Chronic) Paroxysmal, on Coumadin CAD (coronary artery disease) Cancer (Chronic) LUNG CANCER 05/28/18 SKIN CANCER SCC left neck LYMPH NODE + (RECENT BIOPSY) TO START CHEMO AND RADIATION Cardiac pacemaker Carotid stenosis (Chronic) Carotid stenosis (Chronic) COPD (chronic obstructive pulmonary disease) Deep vein thrombosis (Resolved) MANY YEARS AGO DURING Degenerative disc disease (Chronic) Depression (Chronic) Depression Diverticulosis of colon (Chronic) DJD (degenerative joint disease) (Chronic 06/29/14) DVT prophylaxis GERD (gastroesophageal reflux disease) (Chronic) GERD (gastroesophageal reflux disease) (Chronic) History of colonic polyps (Chronic) History of lung cancer (Acute) Hyperlipidemia (Chronic) Hypocalcemia (Acute) Hypomagnesemia (Acute) Hypothyroidism (Chronic) Hypothyroidism Hypoxia Lung cancer (Chronic) Orthostatic hypotension Osteoarthritis (Chronic) Osteoporosis (Chronic) Pacemaker (Chronic) Sinus node dysfunction. [employer]. Last checked 11/02/18 Pyelonephritis (Acute) Sleep apnea (Chronic) NO DEVICE USED NOW Squamous cell carcinoma of lung (Acute) SSS (sick sinus syndrome) Tachy-christine syndrome UTI (urinary tract infection) (Acute) Surgical History H/O carotid endarterectomy (Resolved) Per carotid US 11/27/18, 50-69% stenosis of JEAN, CEA appears patent, <50% stenosis of LICA. Surgery was on the right side H/O cystoscopy (Resolved) H/O total hysterectomy with bilateral salpingo-oophorectomy (BSO) (Resolved) H/O wrist surgery (Resolved) Right wrist surgery in past History of adenoidectomy (Resolved) History of appendectomy (Resolved) History of bronchoscopy (Resolved) History of cardiac cath (Resolved) NO STENTS History of cataract surgery (Resolved) RT/LEFT History of cholecystectomy (Resolved) History of colonoscopy (Resolved) H/O adenomatous polyp, Diverticulosis History of dilatation and curettage History of esophagogastroduodenoscopy (EGD) (Resolved) History of lobectomy of lung (Resolved) Robotic assisted thorascopic LOWER LEFT LOBECTOMY with mediastinal lymph node dissection (MAY 28, 2018) Dr. Pang;SCC of the lung History of lymph node biopsy (Acute) by lung History of open reduction and internal fixation (ORIF) procedure (Resolved) LEFT FEMUR REPAIR x 2- metal koby in place History of repair of rotator cuff (Resolved) RT/LEFT History of shoulder surgery (Resolved) LEFT SHOULDER REPLACEMENT History of tonsillectomy (Resolved) History of tooth extraction (Resolved) Status post appendectomy (Chronic) Status post cholecystectomy (Chronic) Status post hysterectomy (Chronic) Family History Mother , in her 80s Heart disease Father , in his 80s Heart disease Diabetes Hypertension Sister Lung disease Cancer Sister No problems noted. Sister Diabetes Liver disease Brother Heart disease Prostate cancer Daughter No problems noted. Daughter No problems noted. 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 [employer] Other Information That Helps Us Care for You: No Feels Safe at Home: Yes Safety Concerns: Feels Safe At This Time Smoking Status: Former smoker Tobacco Type: cigarettes ; Cigarettes Per Day: 1- 2 PPD x 40 yrs when she smoked; ; Second Hand Exposure: No ; Hx Alcohol Use: Yes Alcohol type: beer, wine and hard liquor Hx Substance Use: No caffeine: Yes (4-5 cups/day) during the past year weight has: decreased > 10 lbs Results & Data Vital Signs Vital Signs - 24 hr 09/08/19 14:44 09/08/19 14:46 09/08/19 15:28 Temperature 36.6 C Temperature Source Oral Pulse Rate 64 Pulse Rate [Right Finger] 78 Pulse Rhythm [Right Finger] Pulse Strength [Right Finger] Respiratory Rate 22 20 Respiratory Effort / Characteristics Spontaneous Respiratory Depth Blood Pressure 122/70 Blood Pressure [Left Arm] Blood Pressure Mean 87 Blood Pressure Mean [Left Arm] Blood Pressure Position [Left Arm] Pulse Oximetry 88 L 98 100 Oxygen Delivery Method Room Air Nasal Cannula Nasal Cannula Oxygen Flow Rate 3 2.5 Sepsis Recent Fever Within 48 Hours No Sepsis New/Unexplained Change in Mental Status No Sepsis Action Taken by Nursing No Action Required Oxygen Flow Rate - Titration 2 Pulse Oximetry Post Tiitration 99 09/08/19 15:40 09/08/19 16:44 Temperature Temperature Source Pulse Rate Pulse Rate [Right Finger] 82 Pulse Rhythm [Right Finger] Regular Pulse Strength [Right Finger] Normal Respiratory Rate 23 Respiratory Effort / Characteristics Non-Labored Spontaneous Respiratory Depth Normal Blood Pressure Blood Pressure [Left Arm] 142/80 H Blood Pressure Mean Blood Pressure Mean [Left Arm] 100 Blood Pressure Position [Left Arm] Sitting Pulse Oximetry 100 Oxygen Delivery Method Nasal Cannula Nasal Cannula Oxygen Flow Rate 2 2 Sepsis Recent Fever Within 48 Hours Sepsis New/Unexplained Change in Mental Status Sepsis Action Taken by Nursing Oxygen Flow Rate - Titration Pulse Oximetry Post Tiitration Laboratory Data Result diagrams: 09/08/19 15:42 09/08/19 15:42 Lab Results 09/08/19 09/08/1909/08/19 Range/Units 15:42 15:42 15:42 WBC 12.53 H (4.8-10.8) K/uL RBC 4.02 L (4.2-5.4) M/uL Hgb 12.2 (12.0-16.0) g/dL Hct 36.8 L (37-47) % MCV 91.5 (80-100) fL MCH 30.3 (25-34) pg MCHC 33.2 (32-36) g/dL RDW Std Deviation 47.1 H (36.4-46.3) fL RDW Coeff of Elsy 14.0 (11.5-14.5) % Plt Count 227 (130-400) K/uL MPV 10.5 H (7.4-10.4) fL Immature Gran % (Auto) 0.2 % Neut % (Auto) 89.7 % Lymph % (Auto) 4.3 % Clayton % (Auto) 5.5 % Eos % (Auto) 0.2 % Baso % (Auto) 0.1 % Immature Gran # (Auto) 0.03 H (0.00-0.02) K/uL Neut # (Auto) 11.24 H (1.4-6.5) K/uL Lymph # (Auto) 0.54 L (1.2-3.4) K/uL Clayton # (Auto) 0.69 H (0.11-0.59) K/uL Eos # (Auto) 0.02 (0-0.5) K/uL Baso # (Auto) 0.01 (0-0.2) K/uL PT 32.4 H (9.0-12.0) Seconds INR 3.5 H (0.9-1.1) VBG pH (7.36-7.41) VBG pCO2 (38-50) mmHg VBG pO2 mmHg VBG HCO3 mmol/L VBG O2 Saturation % VBG Base Excess mEq/L Barometric Pressure mm/Hg Sodium 137 (136-145) mmol/L Potassium 3.4 L (3.5-5.1) mmol/L Chloride 103 (98-107) mmol/L Carbon Dioxide 24 (21-32) mmol/L Anion Gap 10.0 (3-11) BUN 15 (7-18) mg/dl Creatinine 0.59 L (0.6-1.2) mg/dl Est Cr Clr Drug Dosing Not Reportable Est GFR ( Amer) 103.2 Est GFR (Non-Af Amer) 89.0 BUN/Creatinine Ratio 24.7 H (10-20) Glucose 112 H (70-99) mg/dl Lactate (0.4-2.0) mmol/L Calcium 9.3 (8.5-10.1) mg/dl Magnesium 1.6 L (1.8-2.4) mg/dl Total Bilirubin 0.7 (0.2-1) mg/dl Direct Bilirubin 0.3 H (0-0.2) mg/dl AST 22 (15-37) U/L ALT 15 (12-78) U/L Alkaline Phosphatase 129 H (45-117) U/L Total Creatine Kinase 31 (26-192) U/L Troponin I < 0.015 (0-0.045) ng/ml Total Protein 6.7 (6.4-8.2) gm/dl Albumin 2.6 L (3.4-5.0) gm/dl 09/08/19 09/08/19 Range/Units 15:42 16:03 WBC (4.8-10.8) K/uL RBC (4.2-5.4) M/uL Hgb (12.0-16.0) g/dL Hct (37-47) % MCV (80-100) fL MCH (25-34) pg MCHC (32-36) g/dL RDW Std Deviation (36.4-46.3) fL RDW Coeff of Elsy (11.5-14.5) % Plt Count (130-400) K/uL MPV (7.4-10.4) fL Immature Gran % (Auto) % Neut % (Auto) % Lymph % (Auto) % Clayton % (Auto) % Eos % (Auto) % Baso % (Auto) % Immature Gran # (Auto) (0.00-0.02) K/uL Neut # (Auto) (1.4-6.5) K/uL Lymph # (Auto) (1.2-3.4) K/uL Clayton # (Auto) (0.11-0.59) K/uL Eos # (Auto) (0-0.5) K/uL Baso # (Auto) (0-0.2) K/uL PT (9.0-12.0) Seconds INR (0.9-1.1) VBG pH 7.50 H (7.36-7.41) VBG pCO2 29 L (38-50) mmHg VBG pO2 71 mmHg VBG HCO3 22 mmol/L VBG O2 Saturation 90.5 % VBG Base Excess -0.3 mEq/L Barometric Pressure 734.9 mm/Hg Sodium (136-145) mmol/L Potassium (3.5-5.1) mmol/L Chloride (98-107) mmol/L Carbon Dioxide (21-32) mmol/L Anion Gap (3-11) BUN (7-18) mg/dl Creatinine (0.6-1.2) mg/dl Est Cr Clr Drug Dosing Est GFR ( Amer) Est GFR (Non-Af Amer) BUN/Creatinine Ratio (10-20) Glucose (70-99) mg/dl Lactate 1.1 (0.4-2.0) mmol/L Calcium (8.5-10.1) mg/dl Magnesium (1.8-2.4) mg/dl Total Bilirubin (0.2-1) mg/dl Direct Bilirubin (0-0.2) mg/dl AST (15-37) U/L ALT (12-78) U/L Alkaline Phosphatase (45-117) U/L Total Creatine Kinase (26-192) U/L Troponin I (0-0.045) ng/ml Total Protein (6.4-8.2) gm/dl Albumin (3.4-5.0) gm/dl Administered Medications Acetaminophen (Tylenol) 650 mg PO Q4H PRN PRN Reason: Pain or Fever Stop: 10/08/19 19:07 Last Admin: 09/08/19 21:58 Dose: 650 mg Documented by: [id number] Atorvastatin Calcium (Lipitor) 10 mg PO HS GERRY Stop: 10/08/19 20:59 Last Admin: 09/08/19 20:32 Dose: 10 mg Documented by: [id number] Sodium Chloride (Nss 1000ml) 1,000 mls @ 80 mls/hr IV .[id number] GERRY Stop: 09/09/19 20:07 Last Admin: 09/08/19 19:27 Dose: 80 mls/hr Documented by: [id number] Midodrine (Proamatine) 2.5 mg PO TID@0700,1200,1700 GERRY Stop: 10/08/19 19:59 Last Admin: 09/08/19 20:33 Dose: 2.5 mg Documented by: [id number] Discontinued Medications Albuterol (Duoneb) 3 ml NEB NOW STA Stop: 09/08/19 14:58 Last Admin: 09/08/19 15:26 Dose: 3 ml Documented by: [id number] Sodium Chloride (Nss 1000ml) 500 mls @ 999 mls/hr IV .[id number] ONE Stop: 09/08/19 15:28 Last Infusion: 09/08/19 16:49 Dose: 0 mls/hr Documented by: [id number] Admin: 09/08/19 16:18 Dose: 999 mls/hr Documented by: [id number] Cefepime HCl (Maxipime) 2,000 mg in 20 mls @ 5 mls/min IV NOW STA Stop: 09/08/19 16:08 Last Admin: 09/08/19 16:18 Dose: 5 mls/min Documented by: [id number] Vancomycin HCl 1,750 mg/ (Sodium Chloride) 535 mls @ 200 mls/hr IV NOW ONE Stop: 09/08/19 18:34 Last Infusion: 09/08/19 20:22 Dose: 0 mls/hr Documented by: [id number] Admin: 09/08/19 16:38 Dose: 200 mls/hr Documented by: [id number] Magnesium Sulfate/Dextrose (Magnesium Sulfate / D5w) 1 gm in 100 mls @ 100 mls/hr IV ONE ONE Stop: 09/08/19 20:29 Last Infusion: 09/08/19 21:34 Dose: 0 mls/hr Documented by: [id number] Admin: 09/08/19 20:32 Dose: 100 mls/hr Documented by: [id number] Piperacillin Sod/Tazobactam (Sod 3.375 gm/ Dextrose) 115 mls @ 230 mls/hr IV NOW ONE; Protocol Stop: 09/08/19 20:29 Last Infusion: 09/08/19 21:11 Dose: 0 mls/hr Documented by: [id number] Admin: 09/08/19 20:32 Dose: 230 mls/hr Documented by: [id number] Potassium Chloride (Klor-Con M20) 20 meq PO NOW ONE Stop: 09/08/19 19:46 Last Admin: 09/08/19 20:32 Dose: 20 meq Documented by: [id number] Discharge Plan Visit Data *Final* Discharge Date/Time: 09/08/19 18:35 Chief Complaint: Shortness of Breath/Dyspnea Stated Complaint: SHORT OF BREATH SENT BY ED Provider: George Lees Discharge Problem: Left upper lobe pneumonia, Hypoxia, Immunocompromised state due to drug therapy Patient Disposition: Admitted As Inpatient Discharge Instructions Interventions: ED Discharge Assessment Last Done: 09/08/19 18:35 Discharge Problem: Left upper lobe pneumonia Qualifiers: Pneumonia type: due to unspecified organism Qualified Code(s): J18.1 - Lobar pneumonia, unspecified organism The scribe's documentation has been prepared under my direction and personally reviewed by me in its entirety. I confirm that the note above accurately reflects all work, treatment, procedures, and medical decision making performed by me.
[2019-09-09] MEDS: PIPERACILLIN/TAZOBACTAM 3.375 GM in DEXTROSE 5% 100 ML IV SCH ×3 (02:17→17:36)
[2019-09-09 04:13] LABS: Basophils # (auto) 0.02 K/uL (0-0.2); Basophils % (auto) 0.2 %; Eosinophils # (auto) 0.14 K/uL (0-0.5); Eosinophils % (auto) 1.3 %; Hematocrit (blood only) 30.8 % (37-47); Hemoglobin 10.2 g/dL (12.0-16.0); Immature Granulocytes # (auto) 0.03 K/uL (0.00-0.02); Immature Granulocytes % (auto) 0.3 %; Lymphocytes # (auto) 0.41 K/uL (1.2-3.4); Lymphocytes % (auto) 3.7 %; Mean Corpuscular Hemoglobin 29.9 pg (25-34); Mean Corpuscular Hgb Conc 33.1 g/dL (32-36); Mean Corpuscular Volume 90.3 fL (80-100); Mean Platelet Volume 9.7 fL (7.4-10.4); Monocytes # (auto) 1.21 K/uL (0.11-0.59); Monocytes % (auto) 10.9 %; Neutrophils % (auto) 83.6 %; Platelet Count 202 K/uL (130-400); RDW Standard Deviation 47.2 fL (36.4-46.3); Red Blood Count 3.41 M/uL (4.2-5.4); White Blood Count 11.11 K/uL (4.8-10.8)
[2019-09-09 04:21] LABS: INR 3.3 (0.9-1.1); Prothrombin Time 31.3 Seconds (9.0-12.0)
[2019-09-09 04:31] LABS: BUN Creatinine Ratio 12.5 (10-20); Calcium 8.4 mg/dl (8.5-10.1); Creatinine Clr Calc Pharmacy 55.1 ml/min; Est GFR (African American) 89.7; Est GFR (Non-African American) 77.4; Magnesium 1.9 mg/dl (1.8-2.4)
[2019-09-09] MEDS: FLUDROCORTISONE ACETATE 0.1 MG TAB PO SCH (05:09)
[2019-09-09] MEDS: LEVOTHYROXINE SODIUM 75 MCG TABLET PO SCH (05:43)
[2019-09-09] MEDS: MIDODRINE HCL 2.5 MG TAB PO SCH ×3 (06:12→17:35)
[2019-09-09] MEDS ORDERED: POTASSIUM CHLORIDE 10 MEQ TABCR PO STA (06:16)
[2019-09-09] MEDS ORDERED: POTASSIUM CHLORIDE 40 MEQ in SODIUM CHLORIDE 0.9% 1000ML 1,000 ML IV STA (06:17)
[2019-09-09] MEDS: ASPIRIN 81 MG ECTAB PO SCH (08:30)
[2019-09-09] MEDS: MULTIVITAMIN TAB PO SCH (08:30)
[2019-09-09] MEDS: PANTOprazole 40 MG TAB PO SCH (08:31)
[2019-09-09] MEDS: POTASSIUM CHLORIDE 10 MEQ TABCR PO SCH (08:31)
[2019-09-09] MEDS: AMIODARONE 200 MG TAB PO SCH (08:31)
[2019-09-09] MEDS: FLUOXETINE HCL 20 MG CAP PO SCH (08:32)
[2019-09-09] MEDS: MAGNESIUM OXIDE 400 MG TAB PO SCH (08:32)
[2019-09-09] MEDS: CHOLECALCIFEROL 1,000 UNITS TAB PO SCH (08:32)
[2019-09-09] MEDS ORDERED: FLUDROCORTISONE ACETATE 0.1 MG TAB PO SCH (09:00)
[2019-09-09] MEDS: DOXYCYCLINE HYCLATE 100 MG CAP PO SCH ×2 (16:16→21:51)
--- NOTE | 2019-09-09 17:31 | Hospitalist Progress Note ---
Date of Service September 09, 2019 Assessment & Plan (1) Pneumonia: (2) Acute on chronic respiratory failure with hypoxia: (3) COPD (chronic obstructive pulmonary disease): Present on admission with worsening SOB and weakness CXR showed left upper lobe consolidation Received Cefepime, Vancomycin in the ER Nasal swab negative for Influenza Blood cultures no growth MRSA swab negative, will discontinue Vanco Will continue IV Zosyn for now Doxycycline oral starting Aspiration precautions On chronic 2L oxygen via NC HS and with activity, but has not been required oxygen with activity Continue Neb treatment Consider 2 step on discharge (4) Squamous cell carcinoma of lung: Squamous cell lung carcinoma s/p right lower lobectomy in 05/2018 s/p radiation 02/2019 and chemo 05/2019. Treatment has been put on hold due to decline in health since starting on chemo Follows with Dr Terry. (5) Hand edema: R Hand Xray showed soft tissue swelling with no acute bony abnormality identified. Possible infectious etiology vs R hand malpositioned during sleep Denies any trauma or fall Erythema and swelling improves Continue current abx (6) Hypomagnesemia: Magnesium 1.6 on admission Mg 1.9 today Stable (7) Hypokalemia: Potassium 3 today K replaced Monitor BMP (8) Atrial fibrillation: On Coumadin Current sinus rhythm with rate control on amiodarone Resume coumadin, INR 3.3 today Monitor PT/INR (9) SSS (sick sinus syndrome): S/P pacemaker Stable (10) Orthostatic hypotension: H/O orthostatic hypotension. Recently started on midodrine, Florinef Continue midodrine, florinef (11) CAD (coronary artery disease): Nonobstructive CAD on cardiac cath 2011 Denies any chest pain Continue aspirin, statin Stable (12) Hypothyroidism: Continue levothyroxine Stable (13) Depression: Stable Continue fluoxetine DVT Prophylaxis On Coumadin Full Code Subjective Pt was seen and examined Lying in bed with no distress Pt said that she feels very weak She said that she develops SOB with minimal exertion Denies any chest pain, palpitation, dizziness and fever Physical Exam Physical Exam: General- No acute distress Head- atraumatic Eyes- PERRL, EOMI, ENT- oropharynx clear Neck- supple, no JVD Lungs- decrease BS Heart- regular rhythm; no murmur Abdomen- normal bowel sounds, soft, nontender Extremities- no calf tenderness Neuro- alert, oriented x 3; PERRL, EOMI; no facial palsy; no dysarthria Skin- warm & dry Results & Data Vital Signs (Past 12 Hours) Vital Signs Temp Pulse Resp BP BP Pulse Ox 09/09/19 16:08 37.3 C 76 17 123/70 92 09/09/19 11:45 36.9 C 73 18 104/51 L 93 09/09/19 07:35 37.0 C 75 18 126/62 95
[2019-09-09] MEDS: WARFARIN SOD 2 MG TAB PO SCH (19:15)
[2019-09-09] MEDS: ATORVASTATIN 10 MG TAB PO SCH ×2 (20:21→21:51)
[2019-09-09] MEDS: ACETAMINOPHEN 325 MG TAB PO PRN (20:25)
[2019-09-10] MEDS: PIPERACILLIN/TAZOBACTAM 3.375 GM in DEXTROSE 5% 100 ML IV SCH ×3 (02:33→17:29)
[2019-09-10] MEDS: LEVOTHYROXINE SODIUM 75 MCG TABLET PO SCH (06:28)
[2019-09-10] MEDS: MIDODRINE HCL 2.5 MG TAB PO SCH ×3 (06:29→17:29)
[2019-09-10 07:30] LABS: INR 2.4 (0.9-1.1); Prothrombin Time 23.4 Seconds (9.0-12.0)
[2019-09-10] MEDS: MAGNESIUM OXIDE 400 MG TAB PO SCH (08:55)
[2019-09-10] MEDS: FLUDROCORTISONE ACETATE 0.1 MG TAB PO SCH (08:55)
[2019-09-10] MEDS: PANTOprazole 40 MG TAB PO SCH (08:55)
[2019-09-10] MEDS: MULTIVITAMIN TAB PO SCH (08:55)
[2019-09-10] MEDS: ONDANSETRON INJ 2 MG/ML 2 ML VIAL IV PRN (08:55)
[2019-09-10] MEDS: POTASSIUM CHLORIDE 10 MEQ TABCR PO SCH (08:56)
[2019-09-10] MEDS: CHOLECALCIFEROL 1,000 UNITS TAB PO SCH (08:56)
[2019-09-10] MEDS: AMIODARONE 200 MG TAB PO SCH (08:56)
[2019-09-10] MEDS: FLUOXETINE HCL 20 MG CAP PO SCH (08:56)
[2019-09-10] MEDS: ASPIRIN 81 MG ECTAB PO SCH (08:56)
[2019-09-10] MEDS: DOXYCYCLINE HYCLATE 100 MG CAP PO SCH ×2 (08:56→20:41)
[2019-09-10] MEDS ORDERED: POTASSIUM CHLORIDE 20 MEQ TABCR PO ONE (11:48)
[2019-09-10] MEDS ORDERED: LACTATED RINGER'S 1,000 ML IV SCH (12:00)
[2019-09-10] MEDS ORDERED: Nursing to Pharmacy Communication ONE (13:39)
[2019-09-10] MEDS: WARFARIN SOD 2 MG TAB PO SCH (15:46)
--- NOTE | 2019-09-10 20:30 | Hospitalist Progress Note ---
Date of Service September 10, 2019 Assessment & Plan (1) Left upper lobe pneumonia: Patient presented with cough and increasing dyspnea associated with worsening hypoxia. Chest x-ray showed left upper lobe infiltrate. Blood cultures obtained. Cough is nonproductive. Receiving antibiotic therapy with oral doxycycline and IV piperacillin/tazobactam. (2) Acute on chronic respiratory failure with hypoxia: Chronic hypoxic respiratory failure on home O2 3 L/min. Worsening respiratory status with dyspnea, tachypnea, and worsening oxygen saturations. Worsening respiratory failure most likely secondary to pneumonia superimposed on COPD. Pulmonary embolism unlikely with supratherapeutic INR. Consider progressive malignancy. Titrate supplemental O2. (3) COPD (chronic obstructive pulmonary disease): Exacerbation secondary to pneumonia. Titrate supplemental O2. Continue bronchodilators. Add parenteral steroids. (4) Orthostatic hypotension: Recent onset of orthostatic hypotension. Outpatient evaluation included Cortrosyn stimulation test which was reportedly normal. Started on midodrine and fludrocortisone without improvement. Seems to be euvolemic. 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 Check echocardiogram to rule out cardiomyopathy or pericardial effusion. (5) Hypokalemia: Serum potassium 3.4 at time of admission and fell to 3.0. Potassium today = 3.4. Replace. Follow. (6) CAD (coronary artery disease): No anginal symptoms. No beta-quita at this time due to orthostatic hypotension. Continue aspirin and statin. (7) Atrial fibrillation: Rate controlled. Continue amiodarone and warfarin. (8) GERD (gastroesophageal reflux disease): PPI. (9) Squamous cell carcinoma of lung: Status post lobectomy, has completed course of chemotherapy. Management per Dr. Solo Terry. (10) DVT prophylaxis: On warfarin for atrial fibrillation. Ambulate as able. (11) Discharge planning issues: Discharge disposition to be determined. Anticipate need for skilled care. Internal Medicine follow-up with Dr. Foley. Granddaughter Leonor given update by phone this evening. Subjective Recheck for multiple problems. Patient seen in their room around 1130. OT tried to work with patient this morning, but couldn't tolerate much because of orthostatic hypotension and hypoxia. No fever. Nonproductive cough. No chest wall or pleuritic chest pain. Weak. Concerned. Review of Systems: Constitutional- no fever. Cardiac- no chest pain. Pulmonary- as noted above. GI- no nausea, vomiting, diarrhea, melena, hematochezia. - no urinary symptoms. Otherwise, as noted above. Physical Exam Constitutional: + ill appearing; no acute distress Eyes: + anicteric sclerae Respiratory: no respiratory distress Auscultation: + rales (left base) Cardiovascular: Rate/Rhythm: regular rate and regular rhythm Heart Sounds: no gallop and no cardiac rub Vessels: no JVD Extremities: no calf tenderness and no edema Gastrointestinal (Abdomen): normal bowel sounds, soft, nontender, no hepatosplenomegaly Skin: no rashes, warm and dry Psychiatric: Orientation: alert and oriented x 3 Results & Data Vital Signs (Past 12 Hours) Vital Signs Temp Pulse Resp BP Pulse Ox Pulse Ox Pulse Ox 09/10/19 19:11 37.1 C 87 20 107/67 88 L 09/10/19 15:15 36.9 C 78 20 90/57 L 89 L 09/10/19 11:31 36.8 C 82 18 106/70 88 L 09/10/19 10:32 85 L 91 Pulse Ox 09/10/19 19:11 09/10/19 15:15 09/10/19 11:31 09/10/19 10:32 73 L Laboratory Results 09/09/19 04:02 09/10/19 06:59 Microbiology 09/08/19 16:03 Blood Aerobic Blood Culture - Preliminary No growth in Aerobic bottle after 48 hours. 09/08/19 16:03 Blood Anaerobic Blood Culture - Preliminary No growth in Anaerobic bottle after 48 hours. 09/08/19 15:42 Blood Aerobic Blood Culture - Preliminary No growth in Aerobic bottle after 48 hours. 09/08/19 15:42 Blood Anaerobic Blood Culture - Preliminary No growth in Anaerobic bottle after 48 hours. (1) Left upper lobe pneumonia Pneumonia type: due to unspecified organism Qualified Code(s): J18.1 - Lobar pneumonia, unspecified organism
[2019-09-10] MEDS: ATORVASTATIN 10 MG TAB PO SCH (20:42)
[2019-09-10] MEDS ORDERED: LEVALBUTEROL HCL 0.63 MG/3 ML NEB NEB SCH (21:00)
[2019-09-10] MEDS: methylPREDNISolone 20 MG in SYRINGE 0 ML IV SCH (22:04)
--- NOTE | 2019-09-11 00:01 | XRay Report ---
SINGLE VIEW CHEST CLINICAL HISTORY: Hypoxia. FINDINGS: An AP, portable, upright chest radiograph is compared to study dated 09/08/2019 and correla aram with chest CT dated 04/20/2019. The examination is degraded by portable technique and patient rotat ion. A right subclavian central venous infusion port is unchanged in position, as is a 2-lead cardiac pacemaker. The heart is enlarged noting atherosclerotic calcification of the thoracic aorta. There i s pulmonary vascular congestion and interstitial edema, new from 09/08/2019. Trace pleural effusions are suspected. No pneumothorax is seen. The skeletal structures are osteopenic. The bony thorax is gr ossly intact. Bilateral shoulder arthroplasties are in place. Cholecystectomy clips are seen in the r ight upper quadrant. IMPRESSION: 1. Cardiomegaly and cardiac pacemaker with evidence of congestive failure and interstitial edema. 2. Pulmonary edema likely obscures the left upper lobe consolidation seen previously. Superimposed pn eumonia is not excluded. 3. Small pleural effusions. Electronically signed by: Gume Pond M.D. 09/10/2019 11:58 PM
[2019-09-11] MEDS ORDERED: ACETAMINOPHEN 1,000 MG/100 ML VIAL IV ONE (00:30)
[2019-09-11] MEDS ORDERED: FUROSEMIDE 20 MG in SYRINGE 0 ML IV ONE (00:30)
[2019-09-11] MEDS ORDERED: POTASSIUM CHLORIDE 20 MEQ TABCR PO ONE (00:30)
[2019-09-11 00:38] LABS: Base Excess ABG 2.7 mEq/L (-9-1.8); HCO3 ABG 26 mmol/L (19-24); Oxygen Saturation ABG 81.1 % (90-95); PCO2 ABG 37 mmHg (35-46); PO2 ABG 44 mm/Hg (80-95); pH ABG 7.47 (7.35-7.45)
[2019-09-11 00:40] LABS: Allen Test Pos (Pos)
[2019-09-11 00:47] LABS: BUN Creatinine Ratio 9.6 (10-20); Calcium 7.6 mg/dl (8.5-10.1); Creatinine Clr Calc Pharmacy 76.1 ml/min; Est GFR (African American) 103.2; Magnesium 1.3 mg/dl (1.8-2.4); Potassium 3.7 mmol/L (3.5-5.1)
[2019-09-11] MEDS ORDERED: POTASSIUM CHLORIDE 20 MEQ TABCR PO STA (00:56)
[2019-09-11] MEDS: MAGNESIUM SULFATE / D5W 1 GM/100 ML BAG IV SCH ×2 (01:03→02:01)
[2019-09-11 01:04] LABS: Albumin Level 1.1 gm/dl (3.4-5.0)
[2019-09-11] MEDS ORDERED: MAGNESIUM SULFATE / D5W 1 GM/100 ML BAG IV ONE (01:30)
[2019-09-11] MEDS: PIPERACILLIN/TAZOBACTAM 3.375 GM in DEXTROSE 5% 100 ML IV SCH ×3 (02:36→17:05)
[2019-09-11] MEDS: LEVALBUTEROL HCL 0.63 MG/3 ML NEB NEB SCH ×5 (03:15→19:03)
[2019-09-11] MEDS: methylPREDNISolone 20 MG in SYRINGE 0 ML IV SCH ×3 (06:34→20:45)
[2019-09-11] MEDS: LEVOTHYROXINE SODIUM 75 MCG TABLET PO SCH (06:35)
[2019-09-11] MEDS: MIDODRINE HCL 2.5 MG TAB PO SCH ×3 (06:36→17:04)
[2019-09-11 07:17] LABS: INR 2.1 (0.9-1.1); Prothrombin Time 20.1 Seconds (9.0-12.0)
[2019-09-11 07:46] LABS: BUN Creatinine Ratio 11.4 (10-20); Calcium 9.4 mg/dl (8.5-10.1); Creatinine Clr Calc Pharmacy 62.9 ml/min; Est GFR (African American) 94.3; Est GFR (Non-African American) 81.3; Potassium 3.5 mmol/L (3.5-5.1)
[2019-09-11] MEDS: ASPIRIN 81 MG ECTAB PO SCH (07:46)
[2019-09-11] MEDS: POTASSIUM CHLORIDE 10 MEQ TABCR PO SCH (07:46)
[2019-09-11] MEDS: FLUOXETINE HCL 20 MG CAP PO SCH (07:46)
[2019-09-11] MEDS: AMIODARONE 200 MG TAB PO SCH (07:46)
[2019-09-11] MEDS: CHOLECALCIFEROL 1,000 UNITS TAB PO SCH (07:47)
[2019-09-11] MEDS: MAGNESIUM OXIDE 400 MG TAB PO SCH (07:47)
[2019-09-11] MEDS: PANTOprazole 40 MG TAB PO SCH (07:47)
[2019-09-11] MEDS: MULTIVITAMIN TAB PO SCH (07:47)
[2019-09-11] MEDS: DOXYCYCLINE HYCLATE 100 MG CAP PO SCH ×2 (07:47→20:46)
--- NOTE | 2019-09-11 08:52 | Hospitalist Progress Note ---
Date of Service September 11, 2019 Assessment & Plan (1) Left upper lobe pneumonia: Patient presented with cough and increasing dyspnea associated with worsening hypoxia. Chest x-ray showed left upper lobe infiltrate. Blood cultures obtained. Cough is nonproductive, so no sputum for gram stain, C&S. Receiving antibiotic therapy with oral doxycycline and IV piperacillin/tazobactam. (2) Acute on chronic respiratory failure with hypoxia: Chronic hypoxic respiratory failure on home O2 3 L/min. Worsening respiratory status with dyspnea, tachypnea, and worsening oxygen saturations. Worsening respiratory failure most likely secondary to pneumonia superimposed on COPD + pulmonary edema. Pulmonary embolism unlikely with supratherapeutic INR. Consider progressive malignancy. Titrate supplemental O2. (3) COPD (chronic obstructive pulmonary disease): Exacerbation secondary to pneumonia. Titrate supplemental O2. Continue bronchodilators. Added parenteral steroids. (4) Pulmonary edema: Developed pulmonary edema. Was receiving fludrocortisone and IV fluids for orthostatic hypotension. IV fluids and fludrocortisone stopped. Echocardiogram demonstrated normal LV wall motion and systolic function, moderate to severe TR, small anterior pericardial effusion without tamponade. Probably acute left ventricular diastolic heart failure secondary to IVFs and fludrocortisone. Check f/u chest x-ray tomorrow. (5) Orthostatic hypotension: Recent onset of orthostatic hypotension. Outpatient evaluation included Cortrosyn stimulation test which was reportedly normal. Started on midodrine and fludrocortisone without improvement. 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 Echocardiogram demonstrated normal LV wall motion and systolic function, moderate to severe TR, small anterior pericardial effusion without tamponade. Received IV fluids yesterday, but developed pulmonary edema. Hold fludrocortisone because of fluid overload. Thigh-high TEDS. Increase midodrine. (6) Hypokalemia: Serum potassium 3.4 at time of admission and fell to 3.0. Replaced. Potassium today = 3.5. Replace. Follow. (7) CAD (coronary artery disease): No anginal symptoms. No beta-quita at this time due to orthostatic hypotension. Continue aspirin and statin. (8) Atrial fibrillation: Currently in NSR. Controlled. Continue amiodarone and warfarin. (9) GERD (gastroesophageal reflux disease): PPI. (10) Squamous cell carcinoma of lung: Status post lobectomy, has completed course of chemotherapy. Management per Dr. Solo Terry. (11) Severe malnutrition: 15 kg weight loss over past 8 months. Serum albumin 1.1. Severe protein calorie malnutrition secondary to malignancy. Oral nutritional supplements. Consult Manual Arts Teacher. (12) DVT prophylaxis: On warfarin for atrial fibrillation. Ambulate as able. (13) Discharge planning issues: Discharge disposition to be determined. Anticipate need for skilled care. Internal Medicine follow-up with Dr. Foley. Esdras Galvez given update by phone last evening. Subjective Recheck for multiple problems. Patient seen in their room around 0645. Worsening dyspnea and hypoxia last night. Chest x-ray showed pulmonary edema. Received IV furosemide with improvement. No fever. Occasional nonproductive cough. No pleuritic chest pain or angina. Review of Systems: Constitutional- no fever. Cardiac- as noted above. Pulmonary- as noted above. GI- no nausea, vomiting, diarrhea, melena, hematochezia. - no urinary symptoms. Otherwise, as noted above. Physical Exam Constitutional: + ill appearing; no acute distress Eyes: + anicteric sclerae Respiratory: no respiratory distress Auscultation: + rales (few bibasilar) Cardiovascular: Rate/Rhythm: regular rate and regular rhythm Heart Sounds: no gallop and no cardiac rub Vessels: no JVD Extremities: no calf tenderness and no edema Gastrointestinal (Abdomen): normal bowel sounds, soft, nontender, no hepatosplenomegaly Skin: no rashes, warm and dry Psychiatric: Orientation: alert and oriented x 3 Results & Data Vital Signs (Past 12 Hours) Vital Signs Temp Pulse Pulse Resp BP BP Pulse Ox 09/11/19 07:09 74 18 97 09/11/19 07:00 36.5 C 72 20 107/67 96 09/11/19 03:15 74 16 96 09/11/19 03:10 36.8 C 82 20 108/73 95 09/11/19 01:57 37.1 C 83 18 121/75 100 09/11/19 01:48 91 H 09/10/19 23:13 37.6 C H 93 H 22 89/57 L 91/50 L 85 L 09/10/19 22:30 18 90 09/10/19 22:12 84 09/10/19 21:05 18 88 L 09/10/19 20:54 90 20 75 L Pulse Ox 09/11/19 07:09 96 09/11/19 07:00 09/11/19 03:15 09/11/19 03:10 09/11/19 01:57 09/11/19 01:48 09/10/19 23:13 09/10/19 22:30 09/10/19 22:12 09/10/19 21:05 09/10/19 20:54 Laboratory Results 09/09/19 04:02 09/11/19 06:48 Diagnostic Findings PORT CHEST X-RAY (last night) IMPRESSION: 1. Cardiomegaly and cardiac pacemaker with evidence of congestive failure and interstitial edema. 2. Pulmonary edema likely obscures the left upper lobe consolidation seen previously. Superimposed pneumonia is not excluded. 3. Small pleural effusions. Electronically signed by: Gume Pond M.D. 09/10/2019 11:58 PM (1) Left upper lobe pneumonia Pneumonia type: due to unspecified organism Qualified Code(s): J18.1 - Lobar pneumonia, unspecified organism
[2019-09-11] MEDS ORDERED: LEVALBUTEROL HCL 0.63 MG/3 ML NEB NEB PRN (09:06)
[2019-09-11] MEDS: POTASSIUM CHLORIDE 20 MEQ TABCR PO SCH ×2 (12:28→20:49)
[2019-09-11] MEDS: WARFARIN SOD 2 MG TAB PO SCH (17:03)
[2019-09-11] MEDS: ATORVASTATIN 10 MG TAB PO SCH (20:46)
[2019-09-12] MEDS: PIPERACILLIN/TAZOBACTAM 3.375 GM in DEXTROSE 5% 100 ML IV SCH ×3 (02:47→17:54)
[2019-09-12] MEDS: LEVOTHYROXINE SODIUM 75 MCG TABLET PO SCH (05:46)
[2019-09-12] MEDS: methylPREDNISolone 20 MG in SYRINGE 0 ML IV SCH ×3 (05:46→21:58)
[2019-09-12 07:25] LABS: Hematocrit (blood only) 32.3 % (37-47); Hemoglobin 10.6 g/dL (12.0-16.0); Mean Corpuscular Hemoglobin 30.1 pg (25-34); Mean Corpuscular Hgb Conc 32.8 g/dL (32-36); Mean Corpuscular Volume 91.8 fL (80-100); Mean Platelet Volume 10.4 fL (7.4-10.4); Platelet Count 255 K/uL (130-400); RDW Coefficient of Variation 14.3 % (11.5-14.5); RDW Standard Deviation 47.9 fL (36.4-46.3); Red Blood Count 3.52 M/uL (4.2-5.4); White Blood Count 14.66 K/uL (4.8-10.8)
[2019-09-12] MEDS: LEVALBUTEROL HCL 0.63 MG/3 ML NEB NEB SCH ×4 (07:25→19:36)
[2019-09-12 07:30] LABS: INR 3.1 (0.9-1.1); Prothrombin Time 29.4 Seconds (9.0-12.0)
--- NOTE | 2019-09-12 07:42 | XRay Report ---
XR chest 1V portable CLINICAL HISTORY: CHF, pneumonia dyspnea COMPARISON STUDY: 09/10/2019 FINDINGS: Mild stable cardiomegaly. Similar findings of pulmonary edema. Mild consolidative changes o f the left suprahilar region is unaltered. There is a permanent bipolar cardiac pacemaker in good position. IMPRESSION: Pulmonary edema unchanged from the prior study. The above report was generated using voice recognition software. It may contain grammatical, syntax or spelling errors. Electronically signed by: Logan Wagner M.D. 09/12/2019 7:41 AM
[2019-09-12 07:54] LABS: BUN Creatinine Ratio 25.1 (10-20); Calcium 9.4 mg/dl (8.5-10.1); Creatinine Clr Calc Pharmacy 86.2 ml/min; Est GFR (African American) 106.9; Est GFR (Non-African American) 92.2; Potassium 4.6 mmol/L (3.5-5.1)
[2019-09-12] MEDS ORDERED: FUROSEMIDE 20 MG in SYRINGE 0 ML IV ONE (08:25)
[2019-09-12] MEDS: PANTOprazole 40 MG TAB PO SCH (09:04)
[2019-09-12] MEDS: MULTIVITAMIN TAB PO SCH (09:04)
[2019-09-12] MEDS: DOXYCYCLINE HYCLATE 100 MG CAP PO SCH ×2 (09:05→20:36)
[2019-09-12] MEDS: POTASSIUM CHLORIDE 20 MEQ TABCR PO SCH (09:05)
[2019-09-12] MEDS: MIDODRINE HCL 2.5 MG TAB PO SCH ×3 (09:05→15:59)
[2019-09-12] MEDS: ASPIRIN 81 MG ECTAB PO SCH (09:05)
[2019-09-12] MEDS: AMIODARONE 200 MG TAB PO SCH (09:05)
[2019-09-12] MEDS: MAGNESIUM OXIDE 400 MG TAB PO SCH (09:06)
[2019-09-12] MEDS: FLUOXETINE HCL 20 MG CAP PO SCH (09:06)
[2019-09-12] MEDS: CHOLECALCIFEROL 1,000 UNITS TAB PO SCH (09:06)
--- NOTE | 2019-09-12 09:11 | Hospitalist Progress Note ---
Date of Service September 12, 2019 Assessment & Plan (1) Left upper lobe pneumonia: Patient presented with cough and increasing dyspnea associated with worsening hypoxia. Chest x-ray showed left upper lobe infiltrate. Blood cultures obtained- negative so far. Cough is nonproductive, so no sputum for gram stain, C&S. Receiving antibiotic therapy with oral doxycycline and IV piperacillin/onur obactam. (2) Acute on chronic respiratory failure with hypoxia: Chronic hypoxic respiratory failure on home O2 3 L/min. Worsening respiratory status with dyspnea, tachypnea, and worsening oxygen saturations. Worsening respiratory failure most likely secondary to pneumonia superimposed on COPD + pulmonary edema. Pulmonary embolism unlikely with supratherapeutic INR. Consider progressive malignancy. Titrate supplemental O2. Consult Pulmonary Medicine. (3) COPD (chronic obstructive pulmonary disease): Exacerbation secondary to pneumonia. Titrate supplemental O2. Continue bronchodilators. Added parenteral steroids. (4) Pulmonary edema: Developed pulmonary edema. Was receiving fludrocortisone and IV fluids for orthostatic hypotension. IV fluids and fludrocortisone stopped. Echocardiogram demonstrated normal LV wall motion and systolic function, moderate to severe TR, small anterior pericardial effusion without tamponade. Probably acute left ventricular diastolic heart failure secondary to IVFs and fludrocortisone. Persistent pulmonary edema on today's chest x-ray. Repeat IV furosemide this morning. Pt requesting Adam catheter, but explained that best to avoid if possible. (5) Orthostatic hypotension: Recent onset of orthostatic hypotension. Outpatient evaluation included Cortrosyn stimulation test which was reportedly normal. Started on midodrine and fludrocortisone without improvement. 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 Echocardiogram demonstrated normal LV wall motion and systolic function, moderate to severe TR, small anterior pericardial effusion without tamponade. Received IV fluids yesterday, but developed pulmonary edema. Hold fludrocortisone because of fluid overload. Thigh-high TEDS. Increased midodrine to 5 mg TID. (6) Hypokalemia: Serum potassium 3.4 at time of admission and fell to 3.0. Replaced. Potassium today = 4.6. Will probably require less K since fludrocortisone stopped. Stop KCl. Follow. (7) CAD (coronary artery disease): No anginal symptoms. No beta-quita at this time due to orthostatic hypotension. Continue aspirin and statin. (8) Atrial fibrillation: Currently in NSR. Controlled. Continue amiodarone and warfarin. (9) GERD (gastroesophageal reflux disease): PPI. (10) Squamous cell carcinoma of lung: Status post lobectomy, has completed course of chemotherapy. Management per Dr. Solo Terry. (11) Severe malnutrition: 15 kg weight loss over past 8 months. Serum albumin 1.1. Severe protein calorie malnutrition secondary to malignancy. Oral nutritional supplements. Consult Social Services Coordinator. (12) DVT prophylaxis: On warfarin for atrial fibrillation. Ambulate as able. (13) Discharge planning issues: Discharge disposition to be determined. Anticipate need for skilled care. Internal Medicine follow-up with Dr. Foley. Medical Oncology follow-up with Dr. Solo Terry. Subjective Recheck for multiple problems. Patient seen in their room around 0840. Requiring less supplemental O2, but still dyspneic with minimal exertion. Occasional nonproductive cough. No pleuritic chest pain or anginal symptoms. Review of Systems: Constitutional- no fever. Cardiac- as noted above. Pulmonary- as noted above. GI- last BM about 2 days ago; no nausea, vomiting, diarrhea, melena, hematochezia. - no urinary symptoms. Otherwise, as noted above. Physical Exam Constitutional: + ill appearing; no acute distress Eyes: + anicteric sclerae Respiratory: no respiratory distress Auscultation: + rales (few bibasilar) Cardiovascular: Rate/Rhythm: regular rate and regular rhythm Heart Sounds: no gallop and no cardiac rub Vessels: no JVD Extremities: no calf tenderness and no edema Gastrointestinal (Abdomen): normal bowel sounds, soft, nontender, no hepatosplenomegaly Skin: no rashes, warm and dry Psychiatric: Orientation: alert and oriented x 3 Results & Data Vital Signs (Past 12 Hours) Vital Signs Temp Pulse Pulse Resp BP Pulse Ox 09/12/19 07:25 66 18 90 09/12/19 06:41 93 09/12/19 05:19 73 09/12/19 00:00 36.6 C 75 20 123/78 91 Laboratory Results 09/12/19 06:53 09/12/19 06:53 Diagnostic Findings PORTABLE CHEST X-RAY (reviewed by undersigned and formally interpreted by Radiology) FINDINGS: Mild stable cardiomegaly. Similar findings of pulmonary edema. Mild consolidative changes of the left suprahilar region is unaltered. There is a permanent bipolar cardiac pacemaker in good position. IMPRESSION: Pulmonary edema unchanged from the prior study. The above report was generated using voice recognition software. It may contain grammatical, syntax or spelling errors. Electronically signed by: Logan Wagner M.D. 09/12/2019 7:41 AM (1) Left upper lobe pneumonia Pneumonia type: due to unspecified organism Qualified Code(s): J18.1 - Lobar pneumonia, unspecified organism
--- NOTE | 2019-09-12 11:37 | Pulmonary Consultation ---
Date of Consultation September 12, 2019 Assessment & Plan (1) Pulmonary edema: (2) Severe malnutrition: (3) Left upper lobe pneumonia: Patient appears stable. Clinically she has had a downhill course over the past month for sure w progressive dyspnea and eventual hypoxemia and severe orthostasis. She has difficulty getting her meals even with assistance from her aunt and granddaughter. The orthostasis could be from a paraneoplastic syndrome but there is clear evidence radiographically now of fluid overload with fluid administration since her admission. She was given Lasix 20 mg IV and appears to be diuresing. She has been started on IV Zosyn and doxycycline along with aerosolized bronchodilator and IV Solu-Medrol. A post radiation pneumonitis certainly can explain the radiographic findings. She remains on low-dose amiodarone though the appearance would not suggest amiodarone induced lung toxicity although a diagnosis of PROJECT MANAGEMENT PROFESSIONAL(cryptogenic organizing pneumonia) could be the result both of radiation and her amiodarone . Pulmonary thromboembolic disease given her anticoagulation status would be unlikely. Would obtain a CT scan of the chest once diuresis is complete to better visualize the anatomy and will need to review the recent PET scan done within the past month as well. We will follow along with you. Thank you very much this consultation. Pneumonia type: due to unspecified organism Qualified Code(s): J18.1 - Lobar pneumonia, unspecified organism (4) Hypoxia: (5) Immunocompromised state due to drug therapy: (6) Orthostatic hypotension: (7) Acute on chronic respiratory failure with hypoxia: (8) Obstructive sleep apnea: (9) Squamous cell carcinoma of lung: (10) COPD (chronic obstructive pulmonary disease): History of Present Illness Attending Physician: Matty Olivarez MD 74-year-old white female with a diagnosis of left lower lobe squamous cell carcinoma, status post left lower lobectomy and lymph node dissection on 05/28/2018 with final pathology showing a 4 cm well-differentiated squamous cell carcinoma with no obvious lymphovascular invasion and negative margins with all 9 lymph nodes negative for metastatic disease. She was staged as T2a NO MO, stage Ib. PET CT scanning at that time showed an additional 6 mm right upper lobe nodule which was not metabolically active. Adjuvant treatment was not prescribed. She has been followed by Dr. Solo Terry/division [facility] with recurrent disease. On 12/21/[address] scan showed positive activity and adenopathy in the left aortopulmonary window. 4 days later she underwent bronchoscopy with EBUS was positive for squamous cell carcinoma and she completed combined radiation and chemotherapy. Radiation was completed on 03/18/2019 receiving 6000 c Gy. Initial assessment at time of surgery was of L9, L 12, L 10, L 11 and levels 5 and 7,8 but EBUS on 12/25/2018 showed a level 4 node and a level 7 node biopsy as well as L 10/T4 L and the 10 L lymph nodes were positive for squamous cell carcinoma. Apparently within the past month repeat PET scan ordered by Dr. Terry showed no metabolically active disease but that report is not available to me currently. She has become progressively more dyspneic week with poor appetite. She is on home oxygen at 2 L and lives by herself with a aunt that lives nearby per she states she is too dyspneic and weak to make her self meals recently requested of her proof tester to be admitted to the hospital. Cough is dry and nonproductive and not associated with pleuritic pain per se or hemoptysis . Is demonstrated worsening hypoxemia and a left upper lobe infiltrate was reported on chest x-ray. Blood cultures have been negative. She has been placed on oral doxycycline and IV Zosyn . IV steroids along with aerosolized bronchodilator have been used. IV fluids and fludrocortisone have been utilized echo showed evidence for normal LVEF of moderate to severe TR no evidence for significant pericardial effusion causing tamponade. Dr. Olivarez felt the patient had developed CHF on the IV fluids and that was discontinued and patient is now being diuresed. Pitocin stimulation test as an outpatient was reportedly normal.Midodrine dosage had been increased. Chest x-ray on 09/08/2019 suggested left upper lobe consolidation and small left pleural effusion. This x-ray today suggested pulmonary edema as well . T scan of the chest on 04/20/2019 showed decreased size of the mediastinal lymph node with no new or progressive adenopathy and decreased left paramediastinal opacity suggestive of posttreatment related changes. 4 mm groundglass nodule left upper lobe. Emphysema noted. Allergies Allergy/AdvReac Type Severity Reaction Status Date / Time adhesive Allergy Mild skin rash Verified 09/08/19 16:39 phenazopyridine Allergy Mild Rash Verified 09/08/19 16:39 Home Medications Home Medications Medication Instructions Recorded Confirmed Type amiodarone 100 mg PO QAM 12/21/18 09/08/19 History aspirin [Aspir-Low] 81 mg PO QAM 12/21/18 09/08/19 History atorvastatin 10 mg PO HS 12/21/18 09/08/19 History cholecalciferol (vitamin D3) 1,000 unit PO QAM 12/21/18 09/08/19 History [Vitamin D3] fluoxetine 20 mg PO QAM 12/21/18 09/08/19 History levothyroxine 75 mcg PO QAM 12/21/18 09/08/19 History multivitamin 1 tab PO QAM 12/21/18 09/08/19 History omeprazole 20 mg PO QAM 12/21/18 09/08/19 History acetaminophen 500 mg capsule 500 mg PO Q6H PRN 03/17/19 09/08/19 History warfarin 5 mg tablet 2.5 mg PO HS tab 03/17/19 09/08/19 History magnesium oxide 400 mg PO QAM 07/07/19 09/08/19 History potassium chloride 10 meq PO QAM 07/07/19 09/08/19 History albuterol sulfate 2 puff INHALATION Q6H PRN 09/08/19 09/08/19 History fludrocortisone 0.1 mg PO QAM 09/08/19 09/08/19 History midodrine 2.5 mg PO TID 09/08/19 09/08/19 History oxycodone 5 mg PO Q6H PRN 09/08/19 09/08/19 History Patient History Medical History (Updated 09/11/19 @ 09:03 by Matty Olivarez MD) Anxiety (Chronic) Atrial fibrillation (Acute) Atrial fibrillation (Chronic) Paroxysmal, on Coumadin CAD (coronary artery disease) Cancer (Chronic) LUNG CANCER 05/28/18 SKIN CANCER SCC left neck LYMPH NODE + (RECENT BIOPSY) TO START CHEMO AND RADIATION Cardiac pacemaker Carotid stenosis (Chronic) Carotid stenosis (Chronic) COPD (chronic obstructive pulmonary disease) Deep vein thrombosis (Resolved) MANY YEARS AGO DURING Degenerative disc disease (Chronic) Depression (Chronic) Depression Diverticulosis of colon (Chronic) DJD (degenerative joint disease) (Chronic 06/29/14) DVT prophylaxis GERD (gastroesophageal reflux disease) (Chronic) GERD (gastroesophageal reflux disease) (Chronic) History of colonic polyps (Chronic) History of lung cancer (Acute) Hyperlipidemia (Chronic) Hypocalcemia (Acute) Hypomagnesemia (Acute) Hypothyroidism (Chronic) Hypothyroidism Hypoxia Lung cancer (Chronic) Orthostatic hypotension Osteoarthritis (Chronic) Osteoporosis (Chronic) Pacemaker (Chronic) Sinus node dysfunction. Critical Outcome Technologiestronic. Last checked 11/02/18 Pyelonephritis (Acute) Severe malnutrition Sleep apnea (Chronic) NO DEVICE USED NOW Squamous cell carcinoma of lung (Acute) SSS (sick sinus syndrome) Tachy-christine syndrome UTI (urinary tract infection) (Acute) Surgical History H/O carotid endarterectomy (Resolved) Per carotid US 11/27/18, 50-69% stenosis of JEAN, CEA appears patent, <50% stenosis of LICA. Surgery was on the right side H/O cystoscopy (Resolved) H/O total hysterectomy with bilateral salpingo-oophorectomy (BSO) (Resolved) H/O wrist surgery (Resolved) Right wrist surgery in past History of adenoidectomy (Resolved) History of appendectomy (Resolved) History of bronchoscopy (Resolved) History of cardiac cath (Resolved) NO STENTS History of cataract surgery (Resolved) RT/LEFT History of cholecystectomy (Resolved) History of colonoscopy (Resolved) H/O adenomatous polyp, Diverticulosis History of dilatation and curettage History of esophagogastroduodenoscopy (EGD) (Resolved) History of lobectomy of lung (Resolved) Robotic assisted thorascopic LOWER LEFT LOBECTOMY with mediastinal lymph node dissection (MAY 28, 2018) Dr. Pang;SCC of the lung History of lymph node biopsy (Acute) by lung History of open reduction and internal fixation (ORIF) procedure (Resolved) LEFT FEMUR REPAIR x 2- metal koby in place History of repair of rotator cuff (Resolved) RT/LEFT History of shoulder surgery (Resolved) LEFT SHOULDER REPLACEMENT History of tonsillectomy (Resolved) History of tooth extraction (Resolved) Status post appendectomy (Chronic) Status post cholecystectomy (Chronic) Status post hysterectomy (Chronic) Family History Mother , in her 80s Heart disease Father , in his 80s Heart disease Diabetes Hypertension Sister Lung disease Cancer Sister No problems noted. Sister Diabetes Liver disease Brother Heart disease Prostate cancer Daughter No problems noted. Daughter No problems noted. Social History Preferred Language: Welsh Communication Ability: Effective Visual Impairment: No Limitations Hearing Ability: Normal Oxygen Therapy Technician Required: No Beliefs That Will Affect Care: None marital status: Current Living Situation: Alone Current Living Situation Comment: Lives a [facility] current occupational status: retired current occupation: [place] for [employer] Other Information That Helps Us Care for You: No Feels Safe at Home: Yes Safety Concerns: Feels Safe At This Time Smoking Status: Former smoker Tobacco Type: cigarettes ; Cigarettes Per Day: 1- 2 PPD x 40 yrs when she smoked; ; Second Hand Exposure: No ; Hx Alcohol Use: Yes Alcohol type: beer, wine and hard liquor Hx Substance Use: No caffeine: Yes (4-5 cups/day) during the past year weight has: decreased > 10 lbs Review of Systems Constitutional: no problem reported Eyes: no problem reported Ear, Nose, Mouth, Throat: no problem reported Respiratory: no problem reported Cardiovascular: no problem reported Gastrointestinal: no problem reported Genitourinary: no problem reported Musculoskeletal: no problem reported Integumentary: no problem reported Neurologic: no problem reported Psychiatric: no problem reported Endocrine: no problem reported Hematologic / Lymphatic: no problem reported Allergy / Immunological: no problem reported Physical Exam Constitutional: well developed and well nourished; no acute distress Eyes: PERRL, conjunctivae normal, anicteric sclerae ENMT: external ear and nose normal, oropharynx normal Neck: trachea midline, no thyromegaly Respiratory: normal respiratory effort and + prolonged expiratory phase Auscultation: lungs clear to auscultation bilaterally and + diminished lung sounds (Rales left posterior subscapular region no true egophony ) Cardiovascular: RRR, no murmur, no edema Palpation: normal PMI; no thrill Gastrointestinal (Abdomen): normal bowel sounds, soft, nontender, no hepatosplenomegaly Musculoskeletal: no cyanosis or clubbing, extremities motor strength 5/5 Gait: normal gait Skin: no rashes, warm and dry Neurologic: PERRL, EOMI, accommodation nl, no face palsy, no dysarthria Psychiatric: A+Ox3, euthymic affect Lymphatic: no cervical or axillary lymphadenopathy Results & Data Vital Signs (Past 12 Hours) Vital Signs Temp Pulse Pulse Resp BP Pulse Ox 09/12/19 07:25 66 18 90 09/12/19 06:41 93 09/12/19 05:19 73 09/12/19 00:00 36.6 C 75 20 123/78 91 PG Care Time/CCT Total # of Minutes Spent Total Time Spent with Patient: Total time spent is greater than 50% in coordination of care (as documented) at patient's floor/unit and/or counseling patient:
[2019-09-12] MEDS: WARFARIN SOD 2 MG TAB PO SCH (15:58)
[2019-09-12] MEDS: ATORVASTATIN 10 MG TAB PO SCH (20:36)
[2019-09-13] MEDS: PIPERACILLIN/TAZOBACTAM 3.375 GM in DEXTROSE 5% 100 ML IV SCH ×3 (01:21→18:17)
--- NOTE | 2019-09-13 03:07 | Communication Note ---
Date of Service: September 13, 2019 Met with patient, daughter Chelsey, and granddaughter Leonor Friday afternoon. Family given update. They also offered some additional perspective. Functional status has been declining over past few months, spending most of her time in bed. They are concerned that she will not able to be at home where she lives by herself unless she gets stronger. Advanced directives discussed. Patient does not have a living will; she understands that her health has been declining. Hoping to get better, but understands that things may continue to worsen. Further discussion with Palliative Care suggested and patient would like to proceed. Family would like to meet with Palliative Care Friday at 1400 if possible.
[2019-09-13] MEDS: methylPREDNISolone 20 MG in SYRINGE 0 ML IV SCH ×2 (05:16→15:28)
[2019-09-13] MEDS: LEVOTHYROXINE SODIUM 75 MCG TABLET PO SCH (05:44)
[2019-09-13] MEDS: LEVALBUTEROL HCL 0.63 MG/3 ML NEB NEB SCH ×4 (07:21→19:09)
--- NOTE | 2019-09-13 07:24 | XRay Report ---
XR chest 1V portable CLINICAL HISTORY: 74 years-old Female presenting with CHF, pneumonia. TECHNIQUE: Portable upright AP view of the chest was obtained. COMPARISON: 09/12/2019. FINDINGS: Right subclavian Mediport terminates in superior cavoatrial junction. Atherosclerosis of the aortic a rch. Cardiac silhouette mildly enlarged. Prominence of the main pulmonary artery suggested. Persisten t perihilar groundglass opacity with mild diffuse added density of the lungs. Coarsened and underlyin g reticular lung markings. No large effusion or pneumothorax. Osteopenia. Bilateral shoulder arthropl asties. Cholecystectomy clips noted. IMPRESSION: 1. Cardiomegaly with pulmonary edema similar to prior exam. No findings to specifically raise concer n for infection. 2. Suspected underlying chronic lung disease. 3. Mild cardiomegaly. Electronically signed by: Mello Humphries M.D. 09/13/2019 7:23 AM
[2019-09-13] MEDS: PANTOprazole 40 MG TAB PO SCH (08:11)
[2019-09-13] MEDS: CHOLECALCIFEROL 1,000 UNITS TAB PO SCH (08:11)
[2019-09-13] MEDS: DOXYCYCLINE HYCLATE 100 MG CAP PO SCH ×2 (08:11→21:15)
[2019-09-13] MEDS: MIDODRINE HCL 2.5 MG TAB PO SCH ×3 (08:12→16:47)
[2019-09-13] MEDS: AMIODARONE 200 MG TAB PO SCH (08:12)
[2019-09-13] MEDS: ASPIRIN 81 MG ECTAB PO SCH (08:12)
[2019-09-13] MEDS: MULTIVITAMIN TAB PO SCH (08:14)
[2019-09-13] MEDS: MAGNESIUM OXIDE 400 MG TAB PO SCH (08:14)
[2019-09-13] MEDS: FLUOXETINE HCL 20 MG CAP PO SCH (08:14)
[2019-09-13 08:51] LABS: BUN Creatinine Ratio 30.8 (10-20); Calcium 10.1 mg/dl (8.5-10.1); Creatinine Clr Calc Pharmacy 65.7 ml/min; Est GFR (Non-African American) 84.6; Potassium 4.4 mmol/L (3.5-5.1)
[2019-09-13] MEDS ORDERED: FUROSEMIDE 20 MG in SYRINGE 0 ML IV ONE ×2 (10:01→18:00)
[2019-09-13] MEDS ORDERED: IOVERSOL 100ml IV PRN (16:21)
--- NOTE | 2019-09-13 16:34 | CT Scan Report ---
CT SCAN OF THE CHEST WITH IV CONTRAST CLINICAL HISTORY: Hypoxia. COMPARISON STUDY: Chest CT scans dated 04/20/2019 and 04/23/2018. Chest x-ray dated 09/13/2019. TECHNIQUE: Following the IV administration of 93 cc of Optiray 320, CT scan of the thorax was perform ed from the thoracic inlet to the upper abdomen. Images are reviewed in the axial, sagittal, and nicolasa nal planes. IV contrast was administered without complication. A dose lowering technique was utilize d adhering to the principles of ALARA. The examination is degraded by motion artifact. There is also streak artifact from bilateral shoulder arthroplasties. CT DOSE: 568.18 mGy.cm FINDINGS: Thyroid: Imaged portions of the thyroid gland are normal in size and attenuation. Thoracic aorta: There is atherosclerotic calcification of the thoracic aorta. There is ectasia of the ascending thoracic aorta which measures up to 3.7 cm in diameter. The remainder of the thoracic aort a is normal in caliber. The arch demonstrates bovine variant anatomy. No dissection is seen. Pulmonary vasculature: The pulmonary trunk is mildly dilated measuring up to 3.1 cm in diameter. This suggests pulmonary artery hypertension. There are no filling defects identified in the central pulmo nary vessels to indicate pulmonary embolus. Note that this examination was not protocoled for evaluat ion of the pulmonary arteries. Heart: A 2-lead cardiac pacemaker is present in the left chest wall. The heart is enlarged and withou t pericardial effusion. The coronary arteries are densely calcified. Lungs and pleural spaces: Moderate to advanced emphysematous change is noted. There is postoperative change and volume loss from left lower lobe resection with compensatory hyperinflation of the right l anthony. There is a trace left pleural effusion with dense airspace consolidation in the left midlung. Pa tchy groundglass consolidation is seen throughout both lungs with associated intralobular septal thic kening. No pneumothorax is seen. Mediastinum: Esophagus is patulous and filled with fluid to the level of the aortic arch. A mildly en larged pretracheal node on image #66 measures 10 mm in short axis. Kaylan: Clear. Axillae: There is no axillary lymphadenopathy. Upper abdomen: There is a small hiatal hernia. Cholecystectomy clips are noted. Mild central intrahep atic biliary ductal dilatation is noted. Skeletal structures: The skeletal structures are osteopenic. No lytic or blastic bony lesions are see n. There are bilateral shoulder arthroplasties in place. IMPRESSION: 1. Emphysema and postoperative change from left lower lobe resection. 2. Cardiomegaly and cardiac pacemaker. Intralobular septal thickening indicates a component of conges tive failure. 3. There is diffuse bilateral groundglass consolidation. This likely represents interstitial edema. A n infectious/inflammatory pneumonitis, pulmonary hemorrhage, or ARDS could also have this appearance. Clinical correlation will be essential. 4. More confluent airspace consolidation is noted in the left midlung. Differential considerations ar e the same, with confluent edema versus an infectious/inflammatory pneumonitis favored. 5. The esophagus is mildly distended and filled with fluid to the level of the aortic arch. Note that this may place the patient at risk for aspiration. 6. There is mild ectasia of the ascending thoracic aorta which measures up to 3.7 cm in diameter. 7. Trace pleural effusion. 8. Additional findings as above. Electronically signed by: Gume Pond M.D. 09/13/2019 4:32 PM
[2019-09-13] MEDS: WARFARIN SOD 2 MG TAB PO SCH (16:47)
--- NOTE | 2019-09-13 17:24 | Palliative Care Consultation ---
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 Patient was started on another course of chemo , she was only able to tolerate 2 out of 3 planned courses. Her last chemo was this past May. She also has a past medical history significant for nonobstructive CAD, carotid stenosis-status post CEA, tachybradycardia syndrome-status post pacemaker, A. fib-on Coumadin, COPD, hypothyroidism and orthostatic hypotension. Patient presented to the emergency room on 09/08 with a 2-week history of increased shortness of breath with marked increase over the past week. Patient reports no fever but did note chills. She has increased weakness with decreased p.o. intake. Patient reports her weakness progressed to the point where she was no longer able to care for herself or ambulate. Patient's chest x-ray is consistent with a left upper lobe pneumonia, white count elevated on admission at 12.53. Patient is hopeful that her increased shortness of breath is due to the pneumonia, but states she feels it is likely due to to increase in her cancer. Patient's last PET scan was in July at [facility]. - CODE STATUS-patient does not want any CPR, no shock, no chest compressions. She would only want intubation if her condition was reversible. - Patient's goal would be to improve, be able to receive rehab therapies in order to ambulate independently. Discussed multiple treatment options with different outcomes to allow patient to voice her wishes to her daughters. Patient would like both daughters to be involved in medical decision making. - POLST form completed, reviewed with patient and both daughters as well as her granddaughter-patient requested that her daughter Chelsey, signed the form as she felt she was too weak. Patient is to be followed by pulmonology-await their recommendations. -Hypoxemia, continue O2 at 5 L as well as PRN nebs -Left upper lobe pneumonia-continues Zosyn and Solu-Medrol -Orthostatic hypotension, continue midodrine, Florinef on hold -Squamous cell lung cancer-patient stated she would not want any further chemo, would reconsider if her performance status improved PPS 30% Will continue to follow and assist patient and family with medical decision making (2) Hypoxemia: (3) Left upper lobe pneumonia: Pneumonia type: due to unspecified organism Qualified Code(s): J18.1 - Lobar pneumonia, unspecified organism (4) Orthostatic hypotension: (5) Squamous cell carcinoma of lung: History of Present Illness Reason for Consultation: Address CODE STATUS and goals of care Requesting Physician: Dr Matty Olivarez Attending Physician: Matty Olivarez MD History of Present Illness Chart reviewed, patient seen and examined. Patient's 2 daughters, Chlesey and Daylin as well as her granddaughter Leonor were present. Attending physician Dr. Olivarez was also present for part of the visit. Patient is a 74-year-old female with a past medical history significant for squamous cell carcinoma of the right lower lobe-diagnosed in May 2018, status post right lower lobectomy, completed a course of chemo as well as XRT. Patient was started on another course of chemo , she was only able to tolerate 2 out of 3 planned courses. Her last chemo was this past May. She also has a past medical history significant for nonobstructive CAD, carotid stenosis-status post CEA, tachybradycardia syndrome-status post pacemaker, A. fib-on Coumadin, COPD, hypothyroidism and orthostatic hypotension. Patient presented to the emergency room on 09/08 with a 2-week history of increased shortness of breath with marked increase over the past week. Patient reports no fever but did note chills. She has increased weakness with decreased p.o. intake. Patient reports her weakness progressed to the point where she was no longer able to care for herself or ambulate. Patient's chest x-ray is consistent with a left upper lobe pneumonia, white count elevated on admission at 12.53. Patient is hopeful that her increased shortness of breath is due to the pneumonia, but states she feels it is likely due to to increase in her cancer. Patient's last PET scan was in July at [facility]. Discussed CODE STATUS-patient does not want any CPR, no shock, no chest compressions. She would only want intubation if her condition was reversible. Patient's goal would be to improve, be able to receive rehab therapies in order to ambulate independently. Discussed multiple treatment options with different outcomes to allow patient to voice her wishes to her daughters. Patient would like both daughters to be involved in medical decision making. POLST form completed, reviewed with patient and both daughters as well as her granddaughter-patient requested that her daughter Chelsey, signed the form as she felt she was too weak. Patient is to be followed by pulmonology-await their recommendations. Allergies Allergy/AdvReac Type Severity Reaction Status Date / Time adhesive Allergy Mild skin rash Verified 09/08/19 16:39 phenazopyridine Allergy Mild Rash Verified 09/08/19 16:39 Home Medications Home Medications Medication Instructions Recorded Confirmed Type amiodarone 100 mg PO QAM 12/21/18 09/08/19 History aspirin [Aspir-Low] 81 mg PO QAM 12/21/18 09/08/19 History atorvastatin 10 mg PO HS 12/21/18 09/08/19 History cholecalciferol (vitamin D3) 1,000 unit PO QAM 12/21/18 09/08/19 History [Vitamin D3] fluoxetine 20 mg PO QAM 12/21/18 09/08/19 History levothyroxine 75 mcg PO QAM 12/21/18 09/08/19 History multivitamin 1 tab PO QAM 12/21/18 09/08/19 History omeprazole 20 mg PO QAM 12/21/18 09/08/19 History acetaminophen 500 mg capsule 500 mg PO Q6H PRN 03/17/19 09/08/19 History warfarin 5 mg tablet 2.5 mg PO HS tab 03/17/19 09/08/19 History magnesium oxide 400 mg PO QAM 07/07/19 09/08/19 History potassium chloride 10 meq PO QAM 07/07/19 09/08/19 History albuterol sulfate 2 puff INHALATION Q6H PRN 09/08/19 09/08/19 History fludrocortisone 0.1 mg PO QAM 09/08/19 09/08/19 History midodrine 2.5 mg PO TID 09/08/19 09/08/19 History oxycodone 5 mg PO Q6H PRN 09/08/19 09/08/19 History Patient History Medical History Anxiety (Chronic) Atrial fibrillation (Acute) Atrial fibrillation (Chronic) Paroxysmal, on Coumadin CAD (coronary artery disease) Cancer (Chronic) LUNG CANCER 05/28/18 SKIN CANCER SCC left neck LYMPH NODE + (RECENT BIOPSY) TO START CHEMO AND RADIATION Cardiac pacemaker Carotid stenosis (Chronic) Carotid stenosis (Chronic) COPD (chronic obstructive pulmonary disease) Deep vein thrombosis (Resolved) MANY YEARS AGO DURING Degenerative disc disease (Chronic) Depression (Chronic) Depression Diverticulosis of colon (Chronic) DJD (degenerative joint disease) (Chronic 06/29/14) DVT prophylaxis GERD (gastroesophageal reflux disease) (Chronic) GERD (gastroesophageal reflux disease) (Chronic) History of colonic polyps (Chronic) History of lung cancer (Acute) Hyperlipidemia (Chronic) Hypocalcemia (Acute) Hypomagnesemia (Acute) Hypothyroidism (Chronic) Hypothyroidism Hypoxia Lung cancer (Chronic) Orthostatic hypotension Osteoarthritis (Chronic) Osteoporosis (Chronic) Pacemaker (Chronic) Sinus node dysfunction. [employer]. Last checked 11/02/18 Pyelonephritis (Acute) Severe malnutrition Sleep apnea (Chronic) NO DEVICE USED NOW Squamous cell carcinoma of lung (Acute) SSS (sick sinus syndrome) Tachy-christine syndrome UTI (urinary tract infection) (Acute) Surgical History H/O carotid endarterectomy (Resolved) Per carotid US 11/27/18, 50-69% stenosis of JEAN, CEA appears patent, <50% stenosis of LICA. Surgery was on the right side H/O cystoscopy (Resolved) H/O total hysterectomy with bilateral salpingo-oophorectomy (BSO) (Resolved) H/O wrist surgery (Resolved) Right wrist surgery in past History of adenoidectomy (Resolved) History of appendectomy (Resolved) History of bronchoscopy (Resolved) History of cardiac cath (Resolved) NO STENTS History of cataract surgery (Resolved) RT/LEFT History of cholecystectomy (Resolved) History of colonoscopy (Resolved) H/O adenomatous polyp, Diverticulosis History of dilatation and curettage History of esophagogastroduodenoscopy (EGD) (Resolved) History of lobectomy of lung (Resolved) Robotic assisted thorascopic LOWER LEFT LOBECTOMY with mediastinal lymph node dissection (MAY 28, 2018) Dr. Pang;SCC of the lung History of lymph node biopsy (Acute) by lung History of open reduction and internal fixation (ORIF) procedure (Resolved) LEFT FEMUR REPAIR x 2- metal koby in place History of repair of rotator cuff (Resolved) RT/LEFT History of shoulder surgery (Resolved) LEFT SHOULDER REPLACEMENT History of tonsillectomy (Resolved) History of tooth extraction (Resolved) Status post appendectomy (Chronic) Status post cholecystectomy (Chronic) Status post hysterectomy (Chronic) Family History Mother , in her 80s Heart disease Father , in his 80s Heart disease Diabetes Hypertension Sister Lung disease Cancer Sister No problems noted. Sister Diabetes Liver disease Brother Heart disease Prostate cancer Daughter No problems noted. Daughter No problems noted. 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 [employer] Other Information That Helps Us Care for You: No Feels Safe at Home: Yes Safety Concerns: Feels Safe At This Time Smoking Status: Former smoker Tobacco Type: cigarettes ; Cigarettes Per Day: 1- 2 PPD x 40 yrs when she smoked; ; Second Hand Exposure: No ; Hx Alcohol Use: Yes Alcohol type: beer, wine and hard liquor Hx Substance Use: No caffeine: Yes (4-5 cups/day) during the past year weight has: decreased > 10 lbs Review of Systems Constitutional: + weakness and + anorexia Eyes: no problem reported Ear, Nose, Mouth, Throat: + dysphagia Respiratory: + dyspnea Cardiovascular: no orthopnea Gastrointestinal: + dysphagia Genitourinary: no problem reported Musculoskeletal: + muscle weakness Integumentary: no rash Neurologic: + generalized weakness; no confusion Psychiatric: no problem reported Physical Exam Physical Exam: PE: Patient awake, alert and oriented, able to make her own medical decisions HEENT: EOMI, hearing within normal limits Respirations: Increased shortness of breath with conversation, requiring 5 L O2 via nasal cannula, good air movement bilaterally CV: regular rate and rhythm, no edema Abdomen: Soft, nontender Extremities: Generalized weakness Neuro: No focal deficits, alert and oriented x4 Psych: Appropriate mood and affect Results & Data Vital Signs (Past 12 Hours) Vital Signs Temp Pulse Pulse Resp BP BP Pulse Ox 09/13/19 15:55 80 09/13/19 15:32 97.7 F 77 20 103/67 90 09/13/19 11:45 97.9 F 83 22 119/78 92 09/13/19 10:59 71 18 92 09/13/19 08:30 61 09/13/19 07:21 68 18 91 09/13/19 06:52 97.9 F 65 19 125/78 91 PG Care Time/CCT Total # of Minutes Spent Total Time Spent with Patient: Total time spent is greater than 50% in coordination of care (as documented) at patient's floor/unit and/or counseling patient: Time Spent Attending Total time spent 80 minutes with greater than 50% of the time spent at bedside discussing patient's goals and wishes with both daughters and granddaughter present.
--- NOTE | 2019-09-13 17:35 | Pulmonology Progress Note ---
Date of Service September 13, 2019 Assessment & Plan (1) Abnormal CT scan of lung: Impression: 74-year-old female with history of recurrent squamous cell carcinoma having completed chemotherapy in the form of paclitaxel and carboplatin as well as radiation therapy now with diffuse pulmonary infiltrates of unclear etiology. Differential would include atypical infection, atypical pulmonary edema, pulmonary toxicity from chemotherapeutic agents, or unrelated diffuse parenchymal lung disease. Recommendation: 1. Abnormal CT scan: I had a long discussion with the patient and daughter at the bedside. Admitting physician was also present. I advised them that we have a broad differential at this point in time. Ideally I would consider bronchoscopy with bronchioloalveolar lavage and/or transbronchial biopsies however the patient's pulmonary status appears to be too unstable to consider that currently and she would like to avoid being intubated which I think is reasonable. Given the diagnostic uncertainty, I would recommend proceeding with treating all potentially reversible causes. We will increase her steroids and continue diuretics. Continue doxycycline and Zosyn. We will increase steroids to 125 mg IV every 6 to see if we have any significant benefit. If the patient fails to respond to these interventions, it is unlikely that additional procedures obtaining a diagnosis would provide therapeutic interventions which would likely to be beneficial to the patient. Continue diuresis. We will check procalcitonin and BNP level. 2. Dyspnea: In light of the patient's significant symptoms I offered palliative therapy with morphine as needed which the patient has agreed to. 3. Cough: Suspect related to the patient's underlying parenchymal lung disease. Morphine would also be helpful for this. 4. Agree with DNR status. We had a long discussion with the patient. She is quite frustrated with her current care and is contemplating transition to palliative care. I advised her that this certainly would be an option as any of the therapies that were discussing or not really going to be beneficial with regards to her cancer and she is not felt to be a candidate for additional chemotherapy at this point time. (2) Cough: (3) Hypoxemia: Subjective Patient continues to experience shortness of breath. She reports significant shortness of breath last evening. She is coughing but unable to expectorate any phlegm. She is not had any hemoptysis. No fevers chills or night sweats. She is tolerating a diet. She met with palliative today and changed her status to DO NOT INTUBATE DO NOT RESUSCITATE. Review of Systems Review of Systems: Unchanged from prior Physical Exam Constitutional: + ill appearing; no acute distress Eyes: + anicteric sclerae Respiratory: no respiratory distress Auscultation: + rales (few bibasilar) Cardiovascular: Rate/Rhythm: regular rate and regular rhythm Heart Sounds: no gallop and no cardiac rub Vessels: no JVD Extremities: no calf tenderness and no edema Gastrointestinal (Abdomen): normal bowel sounds, soft, nontender, no hepatosplenomegaly Skin: no rashes, warm and dry Psychiatric: Orientation: alert and oriented x 3 Results & Data Vital Signs (Past 12 Hours) Vital Signs Temp Pulse Pulse Resp BP BP Pulse Ox 09/13/19 15:55 80 09/13/19 15:32 36.5 C 77 20 103/67 90 09/13/19 11:45 36.6 C 83 22 119/78 92 09/13/19 10:59 71 18 92 09/13/19 08:30 61 09/13/19 07:21 68 18 91 09/13/19 06:52 36.6 C 65 19 125/78 91 Laboratory Results 09/12/19 06:53 09/13/19 08:[address] chest from today was independently reviewed and compared to prior films. There is diffuse groundglass opacities with thickening of the septa. And differential is broad to include atypical pulmonary edema, atypical infection, pulmonary hemorrhage, chemotherapeutic associated pulmonary toxicity or other potential diffuse parenchymal lung diseases. PG Care Time/CCT Total # of Minutes Spent Total Time Spent with Patient: Total time spent is greater than 50% in coordination of care (as documented) at patient's floor/unit and/or counseling patient:
[2019-09-13] MEDS ORDERED: POTASSIUM CHLORIDE 20 MEQ TABCR PO ONE (18:00)
[2019-09-13] MEDS: methylPREDNISolone 125 MG in SYRINGE 0 ML IV SCH (21:14)
[2019-09-13] MEDS: ATORVASTATIN 10 MG TAB PO SCH (21:15)
[2019-09-13] MEDS: ACETAMINOPHEN 325 MG TAB PO PRN (22:06)
--- NOTE | 2019-09-13 23:14 | Hospitalist Progress Note ---
Date of Service September 13, 2019 Assessment & Plan (1) Left upper lobe pneumonia: Patient presented with cough and increasing dyspnea associated with worsening hypoxia. Chest x-ray showed left upper lobe infiltrate. Blood cultures obtained- negative so far. Cough is nonproductive, so no sputum for gram stain, C&S. Receiving antibiotic therapy with oral doxycycline and IV piperacillin/onur obactam. (2) Acute on chronic respiratory failure with hypoxia: Chronic hypoxic respiratory failure on home O2 3 L/min. Worsening respiratory status with dyspnea, tachypnea, and worsening oxygen saturations. Worsening respiratory failure most likely secondary to pneumonia superimposed on COPD + pulmonary edema. Pulmonary embolism unlikely with supratherapeutic INR. Consider progressive malignancy. Titrate supplemental O2. Pulmonary Medicine consulted. (3) COPD (chronic obstructive pulmonary disease): Exacerbation secondary to pneumonia. Titrate supplemental O2. Continue bronchodilators. Added parenteral steroids. (4) Pulmonary edema: Developed pulmonary edema. Was receiving fludrocortisone and IV fluids for orthostatic hypotension. IV fluids and fludrocortisone stopped. Echocardiogram demonstrated normal LV wall motion and systolic function, moderate to severe TR, small anterior pericardial effusion without tamponade. Probably acute left ventricular diastolic heart failure secondary to IVFs and fludrocortisone. Persistent pulmonary edema on today's chest x-ray. Continue diuresis as tolerated. (5) Orthostatic hypotension: Recent onset of orthostatic hypotension. Outpatient evaluation included Cortrosyn stimulation test which was reportedly normal. Started on midodrine and fludrocortisone without improvement. 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 Echocardiogram demonstrated normal LV wall motion and systolic function, moderate to severe TR, small anterior pericardial effusion without tamponade. Received IV fluids yesterday, but developed pulmonary edema. Hold fludrocortisone because of fluid overload. Thigh-high TEDS. Increased midodrine to 5 mg TID. (6) Hypokalemia: Serum potassium 3.4 at time of admission and fell to 3.0. Replaced. Potassium today = 4.4. Will probably require less K since fludrocortisone stopped. Follow. (7) CAD (coronary artery disease): No anginal symptoms. No beta-quita at this time due to orthostatic hypotension. Continue aspirin and statin. (8) Atrial fibrillation: Currently in NSR. Controlled. Continue amiodarone and warfarin. (9) GERD (gastroesophageal reflux disease): PPI. (10) Squamous cell carcinoma of lung: Status post lobectomy, has completed course of chemotherapy. Management per Dr. Solo Terry. (11) Severe malnutrition: 15 kg weight loss over past 8 months. Serum albumin 1.1. Severe protein calorie malnutrition secondary to malignancy. Oral nutritional supplements. 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 (12) Do not resuscitate status: Resuscitation status discussed with patient and family yesterday. Patient has decided that she does not wish to have resuscitation attempted in the event of a cardiopulmonary arrest. Palliative Care physician discussed advanced directives further with the patient. Patient indicates that she would probably want short term ventilatory support if necessary, but not residential. POLST form completed with assistance of Palliative Care. (13) DVT prophylaxis: On warfarin for atrial fibrillation. Ambulate as able. (14) Discharge planning issues: Discharge disposition to be determined. Anticipate need for skilled care. Internal Medicine follow-up with Dr. Foley. Medical Oncology follow-up with Dr. Solo Terry. Subjective Recheck for multiple problems. Patient seen in their room around 1000 and rechecked in the afternoon.. Still dyspneic with minimal exertion. Occasional nonproductive cough. Has some chest wall discomfort with coughing. Concerned, discouraged. Review of Systems: Constitutional- no fever. Cardiac- as noted above. Pulmonary- as noted above. GI- no nausea, vomiting, diarrhea, melena, hematochezia. - no urinary symptoms. Otherwise, as noted above. Physical Exam Constitutional: + ill appearing; no acute distress Eyes: + anicteric sclerae Respiratory: no respiratory distress Auscultation: + rales (bibasilar) Cardiovascular: Rate/Rhythm: regular rate and regular rhythm Heart Sounds: no gallop and no cardiac rub Vessels: no JVD Extremities: no calf tenderness and no edema Gastrointestinal (Abdomen): normal bowel sounds, soft, nontender, no hepatosplenomegaly Skin: no rashes, warm and dry Psychiatric: Orientation: alert and oriented x 3 Results & Data Vital Signs (Past 12 Hours) Vital Signs Temp Pulse Pulse Resp BP BP Pulse Ox 09/13/19 19:17 36.6 C 82 17 106/72 87 L 09/13/19 19:09 82 20 88 L 09/13/19 15:55 80 09/13/19 15:32 36.5 C 77 20 103/67 90 09/13/19 11:45 36.6 C 83 22 119/78 92 Laboratory Results 09/12/19 06:53 09/13/19 08:09 Diagnostic Findings PORTABLE CHEST X-RAY (reviewed by the undersigned and formally interpreted by Radiology) FINDINGS: Right subclavian Mediport terminates in superior cavoatrial junction. Atherosclerosis of the aortic arch. Cardiac silhouette mildly enlarged. Prominence of the main pulmonary artery suggested. Persistent perihilar groundglass opacity with mild diffuse added density of the lungs. Coarsened and underlying reticular lung markings. No large effusion or pneumothorax. Osteopenia. Bilateral shoulder arthroplasties. Cholecystectomy clips noted. IMPRESSION: 1. Cardiomegaly with pulmonary edema similar to prior exam. No findings to specifically raise concern for infection. 2. Suspected underlying chronic lung disease. 3. Mild cardiomegaly. Electronically signed by: Mello Humphries M.D. 09/13/2019 7:23 AM (1) Left upper lobe pneumonia Pneumonia type: due to unspecified organism Qualified Code(s): J18.1 - Lobar pneumonia, unspecified organism
[2019-09-14] MEDS: PIPERACILLIN/TAZOBACTAM 3.375 GM in DEXTROSE 5% 100 ML IV SCH ×3 (01:39→17:57)
[2019-09-14] MEDS: LEVOTHYROXINE SODIUM 75 MCG TABLET PO SCH (05:45)
[2019-09-14] MEDS: methylPREDNISolone 125 MG in SYRINGE 0 ML IV SCH ×3 (05:45→22:06)
[2019-09-14] MEDS: HEPARIN 100 UNIT/ML 5ML FLUSH FLUSH PRN ×2 (05:54→14:33)
[2019-09-14] MEDS: MoRPHine SULFATE 2 MG/ML CARP IV PRN ×2 (06:01→20:20)
[2019-09-14 06:22] LABS: INR 3.5 (0.9-1.1); Prothrombin Time 32.4 Seconds (9.0-12.0)
[2019-09-14 06:42] LABS: BUN Creatinine Ratio 37.4 (10-20); Calcium 9.8 mg/dl (8.5-10.1); Creatinine Clr Calc Pharmacy 64.7 ml/min; Est GFR (African American) 97.5; Est GFR (Non-African American) 84.2
[2019-09-14] MEDS: LEVALBUTEROL HCL 0.63 MG/3 ML NEB NEB SCH ×4 (07:35→20:06)
--- NOTE | 2019-09-14 08:07 | XRay Report ---
XR chest 1V portable CLINICAL HISTORY: pneumonia, pulmonary edema pain. Infection. COMPARISON STUDY: 09/13/2019 FINDINGS: Mild stable cardiomegaly. Prominent pulmonary vasculature. Suggestion of a possible small left suprahilar superimposed infiltrate. IMPRESSION: 1. Findings of mild congestive failure slightly improved from the prior exam. 2. Possible small left suprahilar superimposed infiltrate. The above report was generated using voice recognition software. It may contain grammatical, syntax or spelling errors. Electronically signed by: Logan Wagner M.D. 09/14/2019 8:06 AM
[2019-09-14] MEDS: MIDODRINE HCL 2.5 MG TAB PO SCH ×3 (08:18→16:45)
[2019-09-14] MEDS ORDERED: POTASSIUM CHLORIDE 20 MEQ TABCR PO ONE ×2 (09:45→20:00)
[2019-09-14] MEDS ORDERED: FUROSEMIDE 20 MG in SYRINGE 0 ML IV ONE ×2 (09:45→20:00)
--- NOTE | 2019-09-14 09:57 | Cardiology Consultation ---
Date of Consultation September 14, 2019 Assessment & Plan (1) Hypoxemia: (2) Abnormal CT scan of lung: (3) Orthostatic hypotension: (4) Cardiac pacemaker: (5) Atrial fibrillation: Patient has a history of long-standing tachycardia-bradycardia syndrome for which she underwent dual-chamber permanent pacemaker, and has been maintained on low-dose amiodarone 100 mg daily. She remains in sinus rhythm with no recent a significant breakthrough atrial fibrillation episodes. She also carries a history of recent orthostatic hypotension has been on midodrine therapy. She was admitted with progressive respiratory insufficiency. I have followed her on both an inpatient and outpatient basis for years, and she is certainly had a significant decline in her functional status. CT of the chest performed this admission reveals emphysema postoperative change from left lower lobe resection, there is a diffuse bilateral groundglass consolidation described in the radiology report suggestive of possible infectious versus inflammatory pneumonitis. A trace pleural effusion is present. At this time, I agree with discontinuing her amiodarone. If she has recurrence of atrial fibrillation, could consider starting sotalol with caution as this could make her orthostatic hypotension worse. For now will remain off of AV taya blockers and allow the amiodarone to washout. Agree with treatment with IV corticosteroids, and antibiotics for now, keep her intake and output even. Palliative care had seen the patient yesterday. She is a DNR/DNI. History of Present Illness Attending Physician: Matty Olivarez MD History of Present Illness Latonia Allan is a 74 year old female seen in cardiology consultation per the request of Dr Olivarez for the evaluation of shortness of breath, with history of symptomatic atrial fibrillation, tachycardia bradycardia syndrome. The patient is well-known to the undersigned. 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 A PET scan performed in December 2018 showed activity and adenopathy in the left aortopulmonary window with subsequent biopsy performed by endobronchial ultrasound yielding results of squamous cell carcinoma for which he underwent combined radiation and chemotherapy. Radiation therapy was completed in February 2019. Her most recent PET scan apparently revealed interval improvement. She was admitted with progressive dyspnea. Treatment for pneumonia was initiated as well as concern for diastolic heart failure. Cardiac / Vascular History: She has a history of nonobstructive CAD as diagnosed by cardiac catheterization in 2011. 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 She also has history of carotid disease with remote right carotid endartere ctomy. Her most recent carotid duplex took place in November, with stable 50 to 69% stenosis of the right internal carotid artery. The right internal carotid endarterectomy was noted to be patent. A left internal carotid artery stenosis of less than 50% was noted. Allergies Allergy/AdvReac Type Severity Reaction Status Date / Time adhesive Allergy Mild skin rash Verified 09/08/19 16:39 phenazopyridine Allergy Mild Rash Verified 09/08/19 16:39 Home Medications Home Medications Medication Instructions Recorded Confirmed Type amiodarone 100 mg PO QAM 12/21/18 09/08/19 History aspirin [Aspir-Low] 81 mg PO QAM 12/21/18 09/08/19 History atorvastatin 10 mg PO HS 12/21/18 09/08/19 History cholecalciferol (vitamin D3) 1,000 unit PO QAM 12/21/18 09/08/19 History [Vitamin D3] fluoxetine 20 mg PO QAM 12/21/18 09/08/19 History levothyroxine 75 mcg PO QAM 12/21/18 09/08/19 History multivitamin 1 tab PO QAM 12/21/18 09/08/19 History omeprazole 20 mg PO QAM 12/21/18 09/08/19 History acetaminophen 500 mg capsule 500 mg PO Q6H PRN 03/17/19 09/08/19 History warfarin 5 mg tablet 2.5 mg PO HS tab 03/17/19 09/08/19 History magnesium oxide 400 mg PO QAM 07/07/19 09/08/19 History potassium chloride 10 meq PO QAM 07/07/19 09/08/19 History albuterol sulfate 2 puff INHALATION Q6H PRN 09/08/19 09/08/19 History fludrocortisone 0.1 mg PO QAM 09/08/19 09/08/19 History midodrine 2.5 mg PO TID 09/08/19 09/08/19 History oxycodone 5 mg PO Q6H PRN 09/08/19 09/08/19 History Patient History Medical History Anxiety (Chronic) Atrial fibrillation (Acute) Atrial fibrillation (Chronic) Paroxysmal, on Coumadin CAD (coronary artery disease) Cancer (Chronic) LUNG CANCER 05/28/18 SKIN CANCER SCC left neck LYMPH NODE + (RECENT BIOPSY) TO START CHEMO AND RADIATION Cardiac pacemaker Carotid stenosis (Chronic) Carotid stenosis (Chronic) COPD (chronic obstructive pulmonary disease) Deep vein thrombosis (Resolved) MANY YEARS AGO DURING Degenerative disc disease (Chronic) Depression (Chronic) Depression Diverticulosis of colon (Chronic) DJD (degenerative joint disease) (Chronic 06/29/14) DVT prophylaxis GERD (gastroesophageal reflux disease) (Chronic) GERD (gastroesophageal reflux disease) (Chronic) History of colonic polyps (Chronic) History of lung cancer (Acute) Hyperlipidemia (Chronic) Hypocalcemia (Acute) Hypomagnesemia (Acute) Hypothyroidism (Chronic) Hypothyroidism Hypoxia Lung cancer (Chronic) Orthostatic hypotension Osteoarthritis (Chronic) Osteoporosis (Chronic) Pacemaker (Chronic) Sinus node dysfunction. [facility]. Last checked 11/02/18 Pyelonephritis (Acute) Severe malnutrition Sleep apnea (Chronic) NO DEVICE USED NOW Squamous cell carcinoma of lung (Acute) SSS (sick sinus syndrome) Tachy-christine syndrome UTI (urinary tract infection) (Acute) Surgical History H/O carotid endarterectomy (Resolved) Per carotid US 11/27/18, 50-69% stenosis of JEAN, CEA appears patent, <50% stenosis of LICA. Surgery was on the right side H/O cystoscopy (Resolved) H/O total hysterectomy with bilateral salpingo-oophorectomy (BSO) (Resolved) H/O wrist surgery (Resolved) Right wrist surgery in past History of adenoidectomy (Resolved) History of appendectomy (Resolved) History of bronchoscopy (Resolved) History of cardiac cath (Resolved) NO STENTS History of cataract surgery (Resolved) RT/LEFT History of cholecystectomy (Resolved) History of colonoscopy (Resolved) H/O adenomatous polyp, Diverticulosis History of dilatation and curettage History of esophagogastroduodenoscopy (EGD) (Resolved) History of lobectomy of lung (Resolved) Robotic assisted thorascopic LOWER LEFT LOBECTOMY with mediastinal lymph node dissection (MAY 28, 2018) Dr. Pang;SCC of the lung History of lymph node biopsy (Acute) by lung History of open reduction and internal fixation (ORIF) procedure (Resolved) LEFT FEMUR REPAIR x 2- metal koby in place History of repair of rotator cuff (Resolved) RT/LEFT History of shoulder surgery (Resolved) LEFT SHOULDER REPLACEMENT History of tonsillectomy (Resolved) History of tooth extraction (Resolved) Status post appendectomy (Chronic) Status post cholecystectomy (Chronic) Status post hysterectomy (Chronic) Family History Mother , in her 80s Heart disease Father , in his 80s Heart disease Diabetes Hypertension Sister Lung disease Cancer Sister No problems noted. Sister Diabetes Liver disease Brother Heart disease Prostate cancer Daughter No problems noted. Daughter No problems noted. 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 [employer] Other Information That Helps Us Care for You: No Feels Safe at Home: Yes Safety Concerns: Feels Safe At This Time Smoking Status: Former smoker Tobacco Type: cigarettes ; Cigarettes Per Day: 1- 2 PPD x 40 yrs when she smoked; ; Second Hand Exposure: No ; Hx Alcohol Use: Yes Alcohol type: beer, wine and hard liquor Hx Substance Use: No caffeine: Yes (4-5 cups/day) during the past year weight has: decreased > 10 lbs Review of Systems Review of Systems: All systems reviewed & are unremarkable except as noted in HPI & below Physical Exam Physical Exam: Temp Pulse Resp BP Pulse Ox 36.7 C 73 18 109/68 93 09/14/19 07:00 09/14/19 07:38 09/14/19 07:38 09/14/19 08:17 09/14/19 07:38 Constitutional: + ill appearing and + cachectic Respiratory: Coarse/diminished breath sounds bilaterally Cardiovascular: RRR, no murmur, no edema Heart Sounds: no murmur Vessels: no JVD Extremities: no edema Gastrointestinal (Abdomen): normal bowel sounds, soft, nontender, no hepatosplenomegaly Neurologic: PERRL, EOMI, accommodation nl, no face palsy, no dysarthria Results & Data Vital Signs (Past 12 Hours) Vital Signs Temp Pulse Pulse Resp BP BP Pulse Ox 09/14/19 08:17 109/68 09/14/19 07:38 73 18 93 09/14/19 07:18 70 09/14/19 07:00 36.7 C 71 20 128/82 91 09/14/19 05:05 91 09/14/19 05:02 36.9 C 92 H 18 125/68 79 L 09/13/19 23:37 36.7 C 71 18 118/72 93 09/13/19 23:26 77 Diagnostic Findings EKG performed 09/08/2019 reviewed independently: Normal sinus rhythm at 79 bpm diffuse nonspecific T wave flattening. Echocardiogram performed 09/11/2019: Left ventricular systolic function was normal with ejection fraction of 55 to 60%. The right ventricular systolic function is normal. Mild mitral regurgitation is present. Moderate to severe tricuspid regurgitation was present. Small anterior pericardial effusion was noted without evidence of hemodynamic compromise or tamponade. Moderate pulmonary hypertension present point artery systolic pressure in the range of 50 mmHg.
[2019-09-14] MEDS: ASPIRIN 81 MG ECTAB PO SCH (10:11)
[2019-09-14] MEDS: DOXYCYCLINE HYCLATE 100 MG CAP PO SCH ×2 (10:11→20:22)
[2019-09-14] MEDS: PANTOprazole 40 MG TAB PO SCH (10:11)
[2019-09-14] MEDS: FLUOXETINE HCL 20 MG CAP PO SCH (10:11)
[2019-09-14] MEDS: CHOLECALCIFEROL 1,000 UNITS TAB PO SCH (10:11)
[2019-09-14] MEDS: MULTIVITAMIN TAB PO SCH (10:11)
[2019-09-14] MEDS: MAGNESIUM OXIDE 400 MG TAB PO SCH (10:12)
--- NOTE | 2019-09-14 11:24 | Pulmonology Progress Note ---
Date of Service September 14, 2019 Assessment & Plan (1) Abnormal CT scan of lung: Impression: 74-year-old female with history of recurrent squamous cell carcinoma having completed chemotherapy in the form of paclitaxel and carboplatin as well as radiation therapy now with diffuse pulmonary infiltrates of unclear etiology. Differential would include atypical infection, atypical pulmonary edema, pulmonary toxicity from chemotherapeutic agents, or unrelated diffuse parenchymal lung disease. Recommendation: 1. Abnormal CT scan: We will continue to try and treat reversible etiologies with high-dose steroids and diuretics. Agree with discontinuing the amiodarone. Can complete a course of antibiotics but the negative procalcitonin would argue against a bacterial etiology. The patient continues to demonstrate tenuous respiratory status which would make bronchoscopy difficult without intubating her. Would not recommend a surgical open lung biopsy given its morbidity in this patient 2. Dyspnea: Continue as needed palliative morphine 3. Cough: Suspect related to the patient's underlying parenchymal lung disease. Morphine will also be helpful for this. 4. Agree with DNR status. Advised the patient that it is too early to determine whether or not our current course of therapy is beneficial and it will take continued follow-up. She continues to be frustrated with her current level of care (2) Cough: (3) Hypoxemia: Subjective Patient feels about the same. She continues to have a dry nonproductive cough. No fevers chills or night sweats. Her BNP was elevated. Procalcitonin was negative. Review of Systems Review of Systems: Unchanged from prior Physical Exam Constitutional: + ill appearing; no acute distress Eyes: + anicteric sclerae Respiratory: no respiratory distress Auscultation: + rales (few bibasilar) Cardiovascular: Rate/Rhythm: regular rate and regular rhythm Heart Sounds: no gallop and no cardiac rub Vessels: no JVD Extremities: no calf tenderness and no edema Gastrointestinal (Abdomen): normal bowel sounds, soft, nontender, no hepatosplenomegaly Skin: no rashes, warm and dry Psychiatric: Orientation: alert and oriented x 3 Results & Data Vital Signs (Past 12 Hours) Vital Signs Temp Pulse Pulse Resp BP BP Pulse Ox 09/14/19 11:16 79 18 93 09/14/19 08:17 109/68 09/14/19 07:38 73 18 93 09/14/19 07:18 70 09/14/19 07:00 36.7 C 71 20 128/82 91 09/14/19 05:05 91 09/14/19 05:02 36.9 C 92 H 18 125/68 79 L 09/13/19 23:37 36.7 C 71 18 118/72 93 09/13/19 23:26 77 Laboratory Results 09/12/19 06:53 09/14/19 05:53 BNP 2165 Procalcitonin 0.12 PG Care Time/CCT Total # of Minutes Spent Total Time Spent with Patient: Total time spent is greater than 50% in coordination of care (as documented) at patient's floor/unit and/or counseling patient:
[2019-09-14] MEDS: WARFARIN SOD 2 MG TAB PO SCH (16:44)
--- NOTE | 2019-09-14 17:09 | Palliative Care Progress Note ---
Date of Service September 14, 2019 Assessment & Plan (1) Goals of care, counseling/discussion: Patient is a 74-year-old female with a past medical history significant for squamous cell carcinoma of the right lower lobe-diagnosed in May 2018, status post right lower lobectomy, completed a course of chemo as well as XRT. Patient was started on another course of chemo , she was only able to tolerate 2 out of 3 planned courses. Her last chemo was this past May. She also has a past medical history significant for nonobstructive CAD, carotid stenosis-status post CEA, tachybradycardia syndrome-status post pacemaker, A. fib-on Coumadin, COPD, hypothyroidism and orthostatic hypotension. Patient presented to the emergency room on 09/08 with a 2-week history of increased shortness of breath with marked increase over the past week. Patient reports no fever but did note chills. She has increased weakness with decreased p.o. intake. Patient reports her weakness progressed to the point where she was no longer able to care for herself or ambulate. Patient's chest x-ray is consistent with a left upper lobe pneumonia, white count elevated on admission at 12.53. Patient is hopeful that her increased shortness of breath is due to the pneumonia, but states she feels it is likely due to to increase in her cancer. Patient's last PET scan was in July at [facility]. - CODE STATUS-patient does not want any CPR, no shock, no chest compressions. She would only want intubation if her condition was reversible. - Patient's goal would be to improve, be able to receive rehab therapies in order to ambulate independently. - POLST form completed -Hypoxemia, continue O2 at 5 L as well as PRN nebs, receiving IV Lasix for signs of pulmonary edema on chest x-ray -Left upper lobe pneumonia-continues Zosyn and Solu-Medrol -Orthostatic hypotension, continue midodrine, Florinef on hold -Squamous cell lung cancer-patient stated she would not want any further chemo, would reconsider if her performance status improved PPS 30% Will continue to follow and assist patient and family with medical decision making (2) Hypoxemia: (3) Left upper lobe pneumonia: (4) Orthostatic hypotension: (5) Squamous cell carcinoma of lung: Subjective Patient awake and alert, no acute distress. Patient reports feeling slightly better today-she received a dose of IV Lasix yesterday as well as another one today. Patient's chest x-ray today shows slight improvement. Amiodarone has been discontinued. She did require 1 PRN IV morphine of 1 mg this a.m. Patient reports she had several family members visit today and is a little more fatigued this evening. No family at bedside at the time of my visit. Review of Systems Review of Systems: Patient denies fever, chills, increased shortness of breath, chest pain or abdominal pain Physical Exam Physical Exam: PE: Appears comfortable at rest HEENT: EOMI, hearing within normal limits Respirations-good air movement, decreased bilateral bases CV: Regular rate Abdomen: Soft, nontender Neuro: Alert and oriented x4 Results & Data Vital Signs (Past 12 Hours) Vital Signs Temp Pulse Pulse Resp BP Pulse Ox 09/14/19 15:28 77 18 90 09/14/19 15:13 97.7 F 81 21 113/64 88 L 09/14/19 14:14 109/67 09/14/19 11:33 97.7 F 81 28 H 97/66 L 94 09/14/19 11:16 79 18 80 L 09/14/19 08:17 109/68 09/14/19 07:38 73 18 93 09/14/19 07:18 70 09/14/19 07:00 98.1 F 71 20 128/82 91 09/14/19 05:05 91 PG Care Time/CCT Total # of Minutes Spent Total Time Spent with Patient: Total time spent is greater than 50% in coordination of care (as documented) at patient's floor/unit and/or counseling patient: Time Spent Attending Total time spent 35 minutes with greater than 50% of the time spent at bedside assessing patient's current condition and discussing her goals of care. (1) Left upper lobe pneumonia Pneumonia type: due to unspecified organism Qualified Code(s): J18.1 - Lobar pneumonia, unspecified organism
[2019-09-14] MEDS: ATORVASTATIN 10 MG TAB PO SCH (20:22)
--- NOTE | 2019-09-14 23:01 | Hospitalist Progress Note ---
Date of Service September 14, 2019 Assessment & Plan (1) Left upper lobe pneumonia: Patient presented with cough and increasing dyspnea associated with worsening hypoxia. Chest x-ray showed left upper lobe infiltrate. Blood cultures obtained- negative so far. Cough is nonproductive, so no sputum for gram stain, C&S. Receiving antibiotic therapy with oral doxycycline and IV piperacillin/onur obactam. (2) Acute on chronic respiratory failure with hypoxia: Chronic hypoxic respiratory failure on home O2 3 L/min. Worsening respiratory status with dyspnea, tachypnea, and worsening oxygen saturations. Worsening respiratory failure most likely secondary to pneumonia superimposed on COPD + pulmonary edema. Pulmonary embolism unlikely with supratherapeutic INR. Consider progressive malignancy. Titrate supplemental O2. Pulmonary Medicine consulted. (3) COPD (chronic obstructive pulmonary disease): Exacerbation secondary to pneumonia. Titrate supplemental O2. Continue bronchodilators. Added parenteral steroids. (4) Pulmonary edema: Developed pulmonary edema. Was receiving fludrocortisone and IV fluids for orthostatic hypotension. IV fluids and fludrocortisone stopped. Echocardiogram demonstrated normal LV wall motion and systolic function, moderate to severe TR, small anterior pericardial effusion without tamponade. Probably acute left ventricular diastolic heart failure secondary to IVFs and fludrocortisone. Persistent pulmonary edema on today's chest x-ray, but somewhat improved. Continue diuresis as tolerated- furosemide 20 mg IV x 2 today, then reassess CXR, VS, labs in a.m. (5) Orthostatic hypotension: Recent onset of orthostatic hypotension. Outpatient evaluation included Cortrosyn stimulation test which was reportedly normal. Started on midodrine and fludrocortisone without improvement. 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 Echocardiogram demonstrated normal LV wall motion and systolic function, moderate to severe TR, small anterior pericardial effusion without tamponade. Received IV fluids yesterday, but developed pulmonary edema. Stopped fludrocortisone because of fluid overload. Thigh-high TEDS. Increased midodrine to 5 mg TID. (6) Hypokalemia: Serum potassium 3.4 at time of admission and fell to 3.0. Replaced. Potassium today = 4.0. Will probably require less KCl since fludrocortisone stopped. Follow. (7) CAD (coronary artery disease): No anginal symptoms. No beta-quita at this time due to orthostatic hypotension. Continue aspirin and statin. (8) Atrial fibrillation: Currently in NSR. Controlled on amiodarone. Amiodarone stopped because of worsening pulmonary status. Cardiology consulted. Limited anti-arrhythmic options due to severe orthostatic hypotension. Continue cardiac montoring. Continue warfarin. (9) GERD (gastroesophageal reflux disease): PPI. (10) Squamous cell carcinoma of lung: Status post lobectomy, has completed course of chemotherapy. Management per Dr. Solo Terry. (11) Severe malnutrition: 15 kg weight loss over past 8 months. Serum albumin 1.1. Severe protein calorie malnutrition secondary to malignancy. Oral nutritional supplements. 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 (12) Do not resuscitate status: Resuscitation status discussed with patient and family. Patient has decided that she does not wish to have resuscitation attempted in the event of a cardiopulmonary arrest. Palliative Care physician discussed advanced directives further with the patient. Patient indicates that she would probably want short term ventilatory support if necessary, but not custodial. POLST form completed with assistance of Palliative Care. (13) DVT prophylaxis: On warfarin for atrial fibrillation. Ambulate as able. (14) Discharge planning issues: Discharge disposition to be determined. Anticipate need for skilled care. Case Management consulted. Internal Medicine follow-up with Dr. Foley. Medical Oncology follow-up with Dr. Solo Terry. Cardiology follow-up with Dr. Waldron. Subjective Recheck for multiple problems. Patient seen in their room around 1350. Feels about the same. Still dyspneic with minimal exertion. Occasional nonproductive cough. Has some chest wall discomfort with coughing- morphine helps. Tolerated 2 doses of IV furosemide yesterday Review of Systems: Constitutional- no fever. Cardiac- as noted above. Pulmonary- as noted above. GI- no nausea, vomiting, diarrhea, melena, hematochezia. - no urinary symptoms. Otherwise, as noted above. Physical Exam Constitutional: + ill appearing; no acute distress Eyes: + anicteric sclerae Respiratory: no respiratory distress Auscultation: + rales (bibasilar) Cardiovascular: Rate/Rhythm: regular rate and regular rhythm Heart Sounds: no gallop and no cardiac rub Vessels: no JVD Extremities: no calf tenderness and no edema Gastrointestinal (Abdomen): normal bowel sounds, soft, nontender, no hepatosplenomegaly Skin: no rashes, warm and dry Psychiatric: Orientation: alert and oriented x 3 Results & Data Vital Signs (Past 12 Hours) Vital Signs Temp Pulse Pulse Resp BP Pulse Ox 09/14/19 19:32 36.5 C 78 20 118/59 L 90 09/14/19 16:45 78 09/14/19 15:28 77 18 90 09/14/19 15:13 36.5 C 81 21 113/64 88 L 09/14/19 14:14 109/67 09/14/19 11:33 36.5 C 81 28 H 97/66 L 94 09/14/19 11:16 79 18 80 L Laboratory Results 09/12/19 06:53 09/14/19 05:53 Diagnostic Findings PORTABLE CHEST X-RAY (reviewed by the undersigned and formally interpreted by Radiology) FINDINGS: Mild stable cardiomegaly. Prominent pulmonary vasculature. Suggestion of a possible small left suprahilar superimposed infiltrate. IMPRESSION: 1. Findings of mild congestive failure slightly improved from the prior exam. 2. Possible small left suprahilar superimposed infiltrate. The above report was generated using voice recognition software. It may contain grammatical, syntax or spelling errors. Electronically signed by: Logan Wagner M.D. 09/14/2019 8:06 AM (1) Left upper lobe pneumonia Pneumonia type: due to unspecified organism Qualified Code(s): J18.1 - Lobar pneumonia, unspecified organism
[2019-09-15] MEDS: PIPERACILLIN/TAZOBACTAM 3.375 GM in DEXTROSE 5% 100 ML IV SCH ×2 (01:44→09:47)
[2019-09-15] MEDS: ACETAMINOPHEN 325 MG TAB PO PRN (01:47)
[2019-09-15] MEDS: HEPARIN 100 UNIT/ML 5ML FLUSH FLUSH PRN ×3 (05:28→21:35)
[2019-09-15] MEDS: methylPREDNISolone 125 MG in SYRINGE 0 ML IV SCH ×3 (05:28→21:34)
[2019-09-15] MEDS: LEVOTHYROXINE SODIUM 75 MCG TABLET PO SCH (05:28)
[2019-09-15 07:09] LABS: BUN Creatinine Ratio 39.9 (10-20); Calcium 9.5 mg/dl (8.5-10.1); Creatinine Clr Calc Pharmacy 55.1 ml/min; Est GFR (African American) 89.7; Est GFR (Non-African American) 77.4; Magnesium 1.9 mg/dl (1.8-2.4); Potassium 3.8 mmol/L (3.5-5.1)
--- NOTE | 2019-09-15 07:17 | XRay Report ---
XR chest 1V portable CLINICAL HISTORY: 74 years-old Female presenting with CHF. TECHNIQUE: Portable upright AP view of the chest was obtained. COMPARISON: 09/14/[address] from 09/13/2019. FINDINGS: Left subclavian pacer with leads in the right atrium and right ventricular apex. Atherosclerosis of t he aortic arch. Cardiac silhouette borderline enlarged. Diffuse added density of the lungs with retic ular opacities throughout the right lung and more focally in the left midlung and left lung base. The re is slight left lung volume loss in comparison to the right, unchanged. No large effusion or pneumo thorax. Degenerative changes of the thoracic spine. Osteopenia. Bilateral shoulder arthroplasties. Ch olecystectomy clips noted. IMPRESSION: 1. Diffuse reticular infiltrates affecting the right lung to a more extensive degree than the left. This may relate to mild edema or an atypical infectious or inflammatory etiology superimposed on emph ysema. 2. Left lung volume loss from prior left lower lobectomy. Electronically signed by: Mello Humphries M.D. 09/15/2019 7:16 AM
[2019-09-15] MEDS: LEVALBUTEROL HCL 0.63 MG/3 ML NEB NEB SCH ×4 (07:21→19:14)
[2019-09-15 07:31] LABS: INR 3.1 (0.9-1.1); Prothrombin Time 28.9 Seconds (9.0-12.0)
[2019-09-15] MEDS: ASPIRIN 81 MG ECTAB PO SCH (08:42)
[2019-09-15] MEDS: MAGNESIUM OXIDE 400 MG TAB PO SCH (08:42)
[2019-09-15] MEDS: PANTOprazole 40 MG TAB PO SCH (08:42)
[2019-09-15] MEDS: MULTIVITAMIN TAB PO SCH (08:42)
[2019-09-15] MEDS: MIDODRINE HCL 2.5 MG TAB PO SCH ×3 (08:42→16:20)
[2019-09-15] MEDS: DOXYCYCLINE HYCLATE 100 MG CAP PO SCH ×2 (08:43→21:34)
[2019-09-15] MEDS: FLUOXETINE HCL 20 MG CAP PO SCH (08:43)
[2019-09-15] MEDS: CHOLECALCIFEROL 1,000 UNITS TAB PO SCH (08:44)
--- NOTE | 2019-09-15 10:10 | Cardiology Progress Note ---
Date of Service September 15, 2019 Assessment & Plan (1) Hypoxemia: (2) Abnormal CT scan of lung: (3) Orthostatic hypotension: (4) Cardiac pacemaker: (5) Atrial fibrillation: Patient has a history of long-standing tachycardia-bradycardia syndrome for which she underwent dual-chamber permanent pacemaker, and has been maintained on low-dose amiodarone 100 mg daily. She remains in sinus rhythm with no recent a significant breakthrough atrial fibrillation episodes. She also carries a h istory of recent orthostatic hypotension has been on midodrine therapy. Agree with having discontinued fludrocortisoneConcerns of potential volume overload. Her abnormal CT is difficult to interpret, atypical infectious process, ARDS, interstitial lung disease, or pulmonary edema are all possibilities. Recent BNP was elevated at 2165 PG per mL on 09/13/2019. INR today is 3.1. She is now off of amiodarone. She received a dose of furosemide 20 mg last evening. We will proceed with a trial of daily IV furosemide to see if this helps with her subjective shortness of breath. I have ordered a chemistry panel for tomorrow. DVT prophylaxis, patient is anticoagulated. Palliative care had seen the patient yesterday. She is a DNR/DNI. Subjective Chief complaint: Follow-up shortness of breath Subjective: Patient lying completely supine. Still notes shortness of breath. Telemetry reveals stable sinus rhythm. Review of Systems Review of Systems: All systems reviewed & are unremarkable except as noted in HPI & below Physical Exam Physical Exam: Temp Pulse Resp BP Pulse Ox 36.5 C 66 16 132/80 94 09/15/19 07:18 09/15/19 08:00 09/15/19 07:21 09/15/19 07:18 09/15/19 07:21 Constitutional: + ill appearing and + cachectic Respiratory: Coarse breath sounds bilaterally at the bases Cardiovascular: Rate/Rhythm: regular rate and regular rhythm Heart Sounds: no murmur Vessels: no JVD Extremities: no edema Gastrointestinal (Abdomen): normal bowel sounds, soft, nontender, no hepatosplenomegaly Neurologic: PERRL, EOMI, accommodation nl, no face palsy, no dysarthria Results & Data Vital Signs (Past 12 Hours) Vital Signs Temp Pulse Pulse Resp BP Pulse Ox 09/15/19 08:00 66 09/15/19 07:21 86 16 94 09/15/19 07:18 36.5 C 77 20 132/80 93 09/15/19 04:17 36.6 C 82 20 119/68 92 09/15/19 01:00 80 09/14/19 23:51 36.8 C 73 18 118/60 94
[2019-09-15] MEDS: FUROSEMIDE 20 MG in SYRINGE 0 ML IV SCH (11:32)
--- NOTE | 2019-09-15 12:48 | Pulmonology Progress Note ---
Date of Service September 15, 2019 Assessment & Plan (1) Abnormal CT scan of lung: Impression: 74-year-old female with history of recurrent squamous cell carcinoma having completed chemotherapy in the form of paclitaxel and carboplatin as well as radiation therapy now with diffuse pulmonary infiltrates of unclear etiology. Differential would include atypical infection, atypical pulmonary edema, pulmonary toxicity from chemotherapeutic agents, or unrelated diffuse parenchymal lung disease. Recommendation: 1. Abnormal CT scan: Continuing to treat any potential reversible causes. Agree with diuretics. Given the salt load and fluid associated with Zosyn, will discontinue Zosyn and switch her over to oral doxycycline for atypical coverage and Augmentin. The patient continues to demonstrate tenuous respiratory status which would make bronchoscopy difficult without intubating her. Would not recommend a surgical open lung biopsy given its morbidity in this patient 2. Dyspnea: Continue as needed palliative morphine 3. Cough: Suspect related to the patient's underlying parenchymal lung disease. Morphine will also be helpful for this. 4. Agree with DNR status. Advised the patient that it is too early to determine whether or not our current course of therapy is beneficial and it will take continued follow-up. She continues to be frustrated with her current level of care (2) Cough: (3) Hypoxemia: Subjective Patient feels about the same. She is not expectorating any phlegm. No hemoptysis. No chest pain or palpitations. She continues to become extremely dyspneic with any significant activity Review of Systems Review of Systems: Unchanged from prior Physical Exam Constitutional: + ill appearing; no acute distress Eyes: + anicteric sclerae Respiratory: no respiratory distress Auscultation: + rales (few bibasilar) Cardiovascular: Rate/Rhythm: regular rate and regular rhythm Heart Sounds: no gallop and no cardiac rub Vessels: no JVD Extremities: no calf tenderness and no edema Gastrointestinal (Abdomen): normal bowel sounds, soft, nontender, no hepatosplenomegaly Skin: no rashes, warm and dry Psychiatric: Orientation: alert and oriented x 3 Results & Data Vital Signs (Past 12 Hours) Vital Signs Temp Pulse Pulse Resp BP Pulse Ox 09/15/19 11:31 101/66 09/15/19 11:22 72 18 98 09/15/19 10:51 36.6 C 75 20 111/72 97 09/15/19 08:00 66 09/15/19 07:21 86 16 94 09/15/19 07:18 36.5 C 77 20 132/80 93 09/15/19 04:17 36.6 C 82 20 119/68 92 09/15/19 01:00 80 Laboratory Results 09/12/19 06:53 09/15/19 06:00 Diagnostic Findings No new films PG Care Time/CCT Total # of Minutes Spent Total Time Spent with Patient: Total time spent is greater than 50% in coordination of care (as documented) at patient's floor/unit and/or counseling patient:
[2019-09-15] MEDS: AMOXICILLIN/CLAVULANATE 500 MG TAB PO SCH (16:20)
[2019-09-15] MEDS: WARFARIN SOD 2 MG TAB PO SCH (16:20)
--- NOTE | 2019-09-15 17:41 | Hospitalist Progress Note ---
Date of Service September 15, 2019 Assessment & Plan (1) Left upper lobe pneumonia: Patient presented with cough and increasing dyspnea associated with worsening hypoxia. Chest x-ray showed left upper lobe infiltrate. Blood cultures obtained- negative so far. Cough is nonproductive on oral doxycycline and IV piperacillin/tazobactam. (2) Acute on chronic respiratory failure with hypoxia: Chronic hypoxic respiratory failure on home O2 3 L/min. Worsening respiratory status with dyspnea, tachypnea, and worsening oxygen saturations. Worsening respiratory failure most likely secondary to pneumonia superimposed on COPD + pulmonary edema. Pulmonary embolism unlikely with supratherapeutic INR. . Pulmonary Medicine consulted-appreciate input (3) COPD (chronic obstructive pulmonary disease): Exacerbation secondary to pneumonia. Titrate supplemental O2. Continue bronchodilators. on Iv steroids (4) Pulmonary edema: acute on chronic CHF /diastolic heart failure ( preserved LV function ) leading to SOB and progressive hypoxia Echocardiogram demonstrated normal LV wall motion and systolic function, moderate to severe TR, small anterior pericardial effusion without tamponade. Probably acute left ventricular diastolic heart failure secondary to IVFs and fludrocortisone. given IV lasix monitor closely for hypotension (5) Orthostatic hypotension: symptomatic orthostatic hypotension. Outpatient evaluation included Cortrosyn stimulation test which was reportedly normal. Started on midodrine and fludrocortisone without improvement. 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 Echocardiogram demonstrated normal LV wall motion and systolic function, moderate to severe TR, small anterior pericardial effusion without tamponade. Stopped fludrocortisone because of fluid overload/pulm edema Thigh-high TEDS. Increased midodrine to 5 mg TID. (6) Hypokalemia: Replaced. (7) CAD (coronary artery disease): No anginal symptoms. No beta-quita at this time due to orthostatic hypotension. Continue aspirin and statin. (8) Atrial fibrillation: Currently in NSR. was on amiodarone.(Limited anti-arrhythmic options due to severe orthostatic hypotension.) Amiodarone stopped because of worsening pulmonary status. Cardiology consulted. Continue cardiac montoring. Continue warfarin. (9) GERD (gastroesophageal reflux disease): PPI. (10) Squamous cell carcinoma of lung: Status post lobectomy, has completed course of chemotherapy. Management per Dr. Solo Terry. (11) Severe malnutrition: 15 kg weight loss over past 8 months. Serum albumin 1.1. Severe protein calorie malnutrition secondary to malignancy. Oral nutritional supplements. Data Specialist following. (12) Do not resuscitate status: DNR/DNI (13) DVT prophylaxis: On warfarin for atrial fibrillation. (14) Discharge planning issues: Will need for skilled care./transfer to SNF when medically stable Case Management consulted. Internal Medicine follow-up with Dr. Foley. Medical Oncology follow-up with Dr. Solo Terry. Cardiology follow-up with Dr. Waldron. Subjective still significantly SOB with minimum extertion on 6 l 02 via nasal canula ( at home on 2-3 L ) non productive cough very weak, feels lightheaded with sitting up afebrile Physical Exam Constitutional: + ill appearing; no acute distress Eyes: + anicteric sclerae Respiratory: no respiratory distress Auscultation: + rales (bibasilar) Cardiovascular: Rate/Rhythm: regular rate and regular rhythm Heart Sounds: no gallop and no cardiac rub Vessels: no JVD Extremities: no calf tenderness and no edema Gastrointestinal (Abdomen): normal bowel sounds, soft, nontender, no hepatosplenomegaly Skin: no rashes, warm and dry Psychiatric: Orientation: alert and oriented x 3 Results & Data Vital Signs (Past 12 Hours) Vital Signs Temp Pulse Pulse Resp BP Pulse Ox 09/15/19 16:00 72 09/15/19 15:30 75 20 91 09/15/19 14:41 36.5 C 75 20 115/74 93 09/15/19 11:31 101/66 09/15/19 11:22 72 18 98 09/15/19 10:51 36.6 C 75 20 111/72 97 09/15/19 08:00 66 09/15/19 07:21 86 16 94 09/15/19 07:18 36.5 C 77 20 132/80 93 (1) Left upper lobe pneumonia Pneumonia type: due to unspecified organism Qualified Code(s): J18.1 - Lobar pneumonia, unspecified organism
[2019-09-15] MEDS: ATORVASTATIN 10 MG TAB PO SCH (21:35)
[2019-09-15] MEDS: MoRPHine SULFATE 2 MG/ML CARP IV PRN (21:36)
[2019-09-16] MEDS: LEVOTHYROXINE SODIUM 75 MCG TABLET PO SCH (06:05)
[2019-09-16] MEDS: methylPREDNISolone 125 MG in SYRINGE 0 ML IV SCH ×3 (06:05→21:13)
[2019-09-16] MEDS: LEVALBUTEROL HCL 0.63 MG/3 ML NEB NEB SCH ×4 (07:17→19:07)
[2019-09-16 07:29] LABS: BUN Creatinine Ratio 44.3 (10-20); Calcium 9.2 mg/dl (8.5-10.1); Creatinine Clr Calc Pharmacy 62.6 ml/min; Est GFR (African American) 99.5; Est GFR (Non-African American) 85.8; Potassium 3.8 mmol/L (3.5-5.1)
[2019-09-16] MEDS: MULTIVITAMIN TAB PO SCH (07:48)
[2019-09-16] MEDS: ASPIRIN 81 MG ECTAB PO SCH (07:48)
[2019-09-16] MEDS: CHOLECALCIFEROL 1,000 UNITS TAB PO SCH (07:48)
[2019-09-16] MEDS: PANTOprazole 40 MG TAB PO SCH (07:48)
[2019-09-16] MEDS: FUROSEMIDE 20 MG in SYRINGE 0 ML IV SCH (07:48)
[2019-09-16] MEDS: MAGNESIUM OXIDE 400 MG TAB PO SCH (07:49)
[2019-09-16] MEDS: AMOXICILLIN/CLAVULANATE 500 MG TAB PO SCH ×2 (07:50→16:24)
[2019-09-16] MEDS: FLUOXETINE HCL 20 MG CAP PO SCH (07:50)
[2019-09-16] MEDS: MIDODRINE HCL 2.5 MG TAB PO SCH ×3 (07:50→16:27)
--- NOTE | 2019-09-16 09:39 | Pulmonology Progress Note ---
Date of Service September 16, 2019 Assessment & Plan (1) Abnormal CT scan of lung: Impression: 74-year-old female with history of recurrent squamous cell carcinoma having completed chemotherapy in the form of paclitaxel and carboplatin as well as radiation therapy now with diffuse pulmonary infiltrates of unclear etiology. Differential would include atypical infection, atypical pulmonary edema, pulmonary toxicity from chemotherapeutic agents, or unrelated diffuse parenchymal lung disease. Recommendation: 1. Abnormal CT scan: Continuing to treat any potential reversible causes. Continue high-dose steroids. Working on diuresis. She has a mild alkalosis today and will give 1 dose of Diamox. Continue doxycycline and Augmentin to complete 10-day course. The patient continues to demonstrate tenuous respiratory status which would make bronchoscopy difficult without intubating her. Would not recommend a surgical open lung biopsy given its morbidity in this patient the patient is contemplating her current situation and what interventions she would be willing to participate in in the future. She believes she would not want chemotherapy. DNR status was confirmed. 2. Dyspnea: Continue as needed palliative morphine 3. Cough: Suspect related to the patient's underlying parenchymal lung disease. Morphine will also be helpful for this. 4. Agree with DNR status. Advised the patient that it is too early to determine whether or not our current course of therapy is beneficial and it will take continued follow-up. She continues to be frustrated with her current level of care. She is aware that she can transition to complete palliative care at any time (2) Cough: (3) Hypoxemia: Subjective Feels about the same as yesterday. Have not been able to wean oxygen to any significant degree. She continues to experience shortness of breath with any significant physical activity. Review of Systems Review of Systems: Unchanged from prior Physical Exam Constitutional: + ill appearing; no acute distress Eyes: + anicteric sclerae Respiratory: no respiratory distress Auscultation: + rales (few bibasilar) Cardiovascular: Rate/Rhythm: regular rate and regular rhythm Heart Sounds: no gallop and no cardiac rub Vessels: no JVD Extremities: no calf tenderness and no edema Gastrointestinal (Abdomen): normal bowel sounds, soft, nontender, no hepatosplenomegaly Skin: no rashes, warm and dry Psychiatric: Orientation: alert and oriented x 3 Results & Data Vital Signs (Past 12 Hours) Vital Signs Temp Pulse Pulse Resp BP Pulse Ox 09/16/19 08:07 36.7 C 73 20 140/80 96 09/16/19 07:20 73 16 97 09/16/19 07:00 36.7 C 73 20 140/80 96 09/16/19 00:20 72 09/15/19 23:00 36.6 C 68 18 128/73 97 Laboratory Results 09/12/19 06:53 09/16/19 06:16 Diagnostic Findings No new films PG Care Time/CCT Total # of Minutes Spent Total Time Spent with Patient: Total time spent is greater than 50% in coordination of care (as documented) at patient's floor/unit and/or counseling patient:
--- NOTE | 2019-09-16 10:47 | Hospitalist Progress Note ---
Date of Service September 16, 2019 Assessment & Plan (1) Left upper lobe pneumonia: hx of recurrent Sq cell CA s/p chemo with paciltaxel/carboplatin and radition tx admitted with cough and increasing dyspnea associated with worsening hypoxia. Chest x-ray showed diffuse left sided pulmonary infitrate appreciate input from Pulmonology -given prior hx of lung ca /increased risk for recurrence not a candidate for bronchocopic bipopsy as remains profoundly hypoxic pt also does not want aggressive procedure , and does not feel she will be able to tolerate chemo tx with her current health status over all prognsosis remains very poor -pt aware Blood cultures obtained- negative so far. Cough is nonproductive on PO Doxycycline and Augmentin for total 10 days (2) Acute on chronic respiratory failure with hypoxia: due to above Chronic hypoxic respiratory failure on home O2 3 L/min. Worsening respiratory status with dyspnea, tachypnea, and worsening oxygen saturations. . Pulmonary Medicine consulted-appreciate input -cont supportive care with nebx /iv steroids/Abx (3) COPD (chronic obstructive pulmonary disease): Exacerbation secondary to pneumonia. Titrate supplemental O2. Continue bronchodilators. on Iv steroids (4) Pulmonary edema: acute on chronic CHF /diastolic heart failure ( preserved LV function ) leading to SOB and progressive hypoxia Echocardiogram demonstrated normal LV wall motion and systolic function, moderate to severe TR, small anterior pericardial effusion without tamponade. Probably acute left ventricular diastolic heart failure secondary to IVFs and fludrocortisone. on lasix 20 mg daily renal function been stable to far monitor vitals (5) Orthostatic hypotension: symptomatic orthostatic hypotension. Outpatient evaluation included Cortrosyn stimulation test which was reportedly normal. Started on midodrine and fludrocortisone without improvement. 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 Echocardiogram demonstrated normal LV wall motion and systolic function, moderate to severe TR, small anterior pericardial effusion without tamponade. Stopped fludrocortisone because of fluid overload/pulm edema Thigh-high TEDS. Increased midodrine to 5 mg TID. (6) Hypokalemia: Replaced. (7) CAD (coronary artery disease): No anginal symptoms. No beta-quita at this time due to orthostatic hypotension. Continue aspirin and statin. (8) Atrial fibrillation: Currently in NSR. was on amiodarone.(Limited anti-arrhythmic options due to severe orthostatic hypotension.) Amiodarone stopped because of worsening pulmonary status. Cardiology consulted. Continue cardiac montoring. Continue warfarin. (9) GERD (gastroesophageal reflux disease): PPI. (10) Squamous cell carcinoma of lung: Status post lobectomy, has completed course of chemotherapy. Management per Dr. Solo Terry. (11) Severe malnutrition: 15 kg weight loss over past 8 months. Serum albumin 1.1. Severe protein calorie malnutrition secondary to malignancy. Oral nutritional supplements. Colon And Rectal Surgeon following. (12) Do not resuscitate status: DNR/DNI (13) DVT prophylaxis: On warfarin for atrial fibrillation. goal INR 2-3 (14) Discharge planning issues: Will need for skilled care./transfer to SNF when medically stable Case Management consulted. Internal Medicine follow-up with Dr. Foley. Medical Oncology follow-up with Dr. Solo Terry. Cardiology follow-up with Dr. Waldron. Subjective Feels about the same as yesterday. Have not been able to wean oxygen to any significant degree. She continues to experience shortness of breath with any significant physical activity. Physical Exam Constitutional: + ill appearing; no acute distress Eyes: + anicteric sclerae Respiratory: no respiratory distress Auscultation: + rales (bibasilar) Cardiovascular: Rate/Rhythm: regular rate and regular rhythm Heart Sounds: no gallop and no cardiac rub Vessels: no JVD Extremities: no calf tenderness and no edema Gastrointestinal (Abdomen): normal bowel sounds, soft, nontender, no hep atosplenomegaly Skin: no rashes, warm and dry Psychiatric: Orientation: alert and oriented x 3 Results & Data Vital Signs (Past 12 Hours) Vital Signs Temp Pulse Pulse Resp BP Pulse Ox 09/16/19 08:07 36.7 C 73 20 140/80 96 09/16/19 07:20 73 16 97 09/16/19 07:00 36.7 C 73 20 140/80 96 09/16/19 00:20 72 09/15/19 23:00 36.6 C 68 18 128/73 97 (1) Left upper lobe pneumonia Pneumonia type: due to unspecified organism Qualified Code(s): J18.1 - Lobar pneumonia, unspecified organism
[2019-09-16] MEDS: POLYETHYLENE (MIRALAX) 17 GM PACK PO SCH (11:53)
[2019-09-16] MEDS: MoRPHine SULFATE 2 MG/ML CARP IV PRN (14:27)
[2019-09-16] MEDS: DOXYCYCLINE HYCLATE 100 MG CAP PO SCH ×2 (14:27→20:54)
[2019-09-16] MEDS: HEPARIN 100 UNIT/ML 5ML FLUSH FLUSH PRN ×2 (14:32→21:21)
[2019-09-16 18:16] LABS: INR 2.6 (0.9-1.1); Prothrombin Time 24.5 Seconds (9.0-12.0)
[2019-09-16] MEDS: WARFARIN SOD 2 MG TAB PO SCH (18:21)
[2019-09-16] MEDS: ATORVASTATIN 10 MG TAB PO SCH (20:54)
[2019-09-17] MEDS: HEPARIN 100 UNIT/ML 5ML FLUSH FLUSH PRN ×4 (05:33→21:36)
[2019-09-17 06:12] LABS: INR 2.1 (0.9-1.1); Prothrombin Time 20.3 Seconds (9.0-12.0)
[2019-09-17] MEDS: methylPREDNISolone 125 MG in SYRINGE 0 ML IV SCH ×3 (06:30→21:36)
[2019-09-17] MEDS: LEVOTHYROXINE SODIUM 75 MCG TABLET PO SCH (06:30)
[2019-09-17 06:39] LABS: BUN Creatinine Ratio 42.7 (10-20); Calcium 9.1 mg/dl (8.5-10.1); Creatinine Clr Calc Pharmacy 62.8 ml/min; Est GFR (African American) 94.3; Est GFR (Non-African American) 81.3; Potassium 3.8 mmol/L (3.5-5.1)
[2019-09-17] MEDS: LEVALBUTEROL HCL 0.63 MG/3 ML NEB NEB SCH ×4 (07:01→19:23)
[2019-09-17] MEDS: ASPIRIN 81 MG ECTAB PO SCH (07:53)
[2019-09-17] MEDS: AMOXICILLIN/CLAVULANATE 500 MG TAB PO SCH ×2 (07:53→17:49)
[2019-09-17] MEDS: acetaZOLAMIDE 250 MG TAB PO SCH (07:53)
[2019-09-17] MEDS: MIDODRINE HCL 2.5 MG TAB PO SCH ×3 (07:53→17:49)
[2019-09-17] MEDS: CHOLECALCIFEROL 1,000 UNITS TAB PO SCH (07:54)
[2019-09-17] MEDS: MULTIVITAMIN TAB PO SCH (07:54)
[2019-09-17] MEDS: POLYETHYLENE (MIRALAX) 17 GM PACK PO SCH (07:54)
[2019-09-17] MEDS: FLUOXETINE HCL 20 MG CAP PO SCH (07:54)
[2019-09-17] MEDS: PANTOprazole 40 MG TAB PO SCH (07:54)
[2019-09-17] MEDS: MAGNESIUM OXIDE 400 MG TAB PO SCH (07:54)
[2019-09-17] MEDS: DOXYCYCLINE HYCLATE 100 MG CAP PO SCH ×2 (07:54→21:37)
--- NOTE | 2019-09-17 09:40 | Pulmonology Progress Note ---
Date of Service September 17, 2019 Assessment & Plan (1) Abnormal CT scan of lung: Impression: 74-year-old female with history of recurrent squamous cell carcinoma having completed chemotherapy in the form of paclitaxel and carboplatin as well as radiation therapy now with diffuse pulmonary infiltrates of unclear etiology. Differential would include atypical infection, atypical pulmonary edema, pulmonary toxicity from chemotherapeutic agents, or unrelated diffuse parenchymal lung disease. Recommendation: 1. Abnormal CT scan: Continuing to treat any potential reversible causes. Continue high-dose steroids. Continue diuresis until increase in BUN/creatinine. She is almost completed a full course of extended spectrum antibiotics. The patient continues to demonstrate tenuous respiratory status which would make bronchoscopy difficult without intubating her. Would not recommend a surgical open lung biopsy given its morbidity in this patient the patient is contemplating her current situation and what interventions she would be willing to participate in in the future. She believes she would not want chemotherapy. DNR status was confirmed. 2. Dyspnea: Continue as needed palliative morphine 3. Cough: Better today. Continue to follow 4. I advised the patient that this may not be a reversible process. Given her functional decline over the last several months, I am concerned that we may not be able to get her back to a quality of life that she would find acceptable. Certainly going home does not appear like a achievable option. The patient states she is not ready to give up. I advised her that we would continue to try and treat reversible causes. 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 (2) Cough: (3) Hypoxemia: Subjective Unfortunately the patient is clinically stagnant. She feels about the same and continues to feel short of breath with any significant physical activity. She is frustrated by her functional decline. She is starting to wonder if she will even be able to leave the hospital. After discussion with her other providers, her decline has been progressive and slow over the last several months. Review of Systems Review of Systems: Unchanged from prior Physical Exam Constitutional: + ill appearing; no acute distress Eyes: + anicteric sclerae Respiratory: no respiratory distress Auscultation: + rales (few bibasilar) Cardiovascular: Rate/Rhythm: regular rate and regular rhythm Heart Sounds: no gallop and no cardiac rub Vessels: no JVD Extremities: no calf tenderness and no edema Gastrointestinal (Abdomen): normal bowel sounds, soft, nontender, no hepatosplenomegaly Skin: no rashes, warm and dry Psychiatric: Orientation: alert and oriented x 3 Results & Data Vital Signs (Past 12 Hours) Vital Signs Temp Pulse Pulse Resp BP Pulse Ox 09/17/19 07:42 37.0 C 87 17 125/81 94 09/17/19 07:02 96 H 20 94 09/17/19 02:25 36.7 C 87 22 127/62 92 09/17/19 01:30 76 09/16/19 22:23 36.7 C 81 18 121/75 93 Laboratory Results 09/12/19 06:53 09/17/19 05:25 PG Care Time/CCT Total # of Minutes Spent Total Time Spent with Patient: Total time spent is greater than 50% in coordinat ion of care (as documented) at patient's floor/unit and/or counseling patient:
[2019-09-17] MEDS ORDERED: acetaZOLAMIDE 250 MG TAB PO SCH (09:45)
[2019-09-17] MEDS: FUROSEMIDE 20 MG in SYRINGE 0 ML IV SCH (09:59)
--- NOTE | 2019-09-17 13:49 | Palliative Care Progress Note ---
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 Patient was started on another course of chemo , she was only able to tolerate 2 out of 3 planned courses. Her last chemo was this past May. She also has a past medical history significant for nonobstructive CAD, carotid stenosis-status post CEA, tachybradycardia syndrome-status post pacemaker, A. fib-on Coumadin, COPD, hypothyroidism and orthostatic hypotension. Patient reports her weakness progressed to the point where she was no longer able to care for herself or ambulate. Patient's chest x-ray is consistent with a left upper lobe pneumonia, white co unt elevated on admission at 12.53. Patient is hopeful that her increased shortness of breath is due to the pneumonia, but states she feels it is likely due to to increase in her cancer. Patient's last PET scan was in July at [facility]. -Patient's respiratory status and to x-rays have not shown any improvement despite aggressive diuresis, Solu-Medrol and broad-spectrum antibiotics. - CODE STATUS-patient does not want any CPR, no shock, no chest compressions. She would only want intubation if her condition was reversible. - Patient's goal would be to improve, be able to receive rehab therapies in order to ambulate independently. - POLST form completed -Hypoxemia, continue O2 at 4-5 L as well as PRN nebs, receiving IV Lasix for signs of pulmonary edema on chest x-ray -Left upper lobe pneumonia-on Solu-Medrol, antibiotics transition to p.o.-on Augmentin and doxycycline -Orthostatic hypotension, continue midodrine, Florinef on hold -Squamous cell lung cancer-patient stated she would not want any further chemo, would reconsider if her performance status improved PPS 30% Will continue to follow and assist patient and family with medical decision making (2) Hypoxemia: (3) Left upper lobe pneumonia: (4) Orthostatic hypotension: (5) Squamous cell carcinoma of lung: Subjective Patient awake and alert, continues to have moderate respiratory distress. Patient reports her respiratory is unchanged since admission despite aggressive diuresis and broad-spectrum antibiotics. Patient reports she was told by pulmonology that her pulmonary status may not be reversible-patient stated she is not ready to give up yet. Discussed with patient that going to a hospice level of care is not "giving up"- it is just a change in goals and that we fight for increased quality of life Review of Systems Review of Systems: Shortness of breath unchanged, patient denies pain, worsening shortness of breath, fever or chills, or abdominal pain Physical Exam Physical Exam: PE: Patient awake and alert, no increased distress HEENT: EOMI, hearing within normal limits Respiratory: Diminished breath sounds bilaterally CV: Regular rate Abdomen: Soft, nontender Extremities: Generalized weakness Neuro: Alert and oriented x4 Results & Data Vital Signs (Past 12 Hours) Vital Signs Temp Pulse Pulse Resp BP Pulse Ox 09/17/19 11:50 98.1 F 84 18 121/75 96 09/17/19 11:06 71 18 97 09/17/19 10:12 81 09/17/19 07:42 98.6 F 87 17 125/81 94 09/17/19 07:02 96 H 20 94 09/17/19 02:25 98.1 F 87 22 127/62 92 PG Care Time/CCT Total # of Minutes Spent Total Time Spent with Patient: Total time spent is greater than 50% in coordination of care (as documented) at patient's floor/unit and/or counseling patient: Time Spent Attending Total time spent 35 minutes with greater than 50% of the time spent at bedside assessing patient's current status and addressing current goals of care. (1) Left upper lobe pneumonia Pneumonia type: due to unspecified organism Qualified Code(s): J18.1 - Lobar pneumonia, unspecified organism
--- NOTE | 2019-09-17 15:40 | Hospitalist Progress Note ---
Date of Service September 17, 2019 Assessment & Plan (1) Left upper lobe pneumonia: hx of recurrent Sq cell CA s/p chemo with paciltaxel/carboplatin and radition tx admitted with cough and increasing dyspnea associated with worsening hypoxia. Chest x-ray showed diffuse left sided pulmonary infitrate appreciate input from Pulmonology -given prior hx of lung ca /increased risk for recurrence not a candidate for bronchocopic bipopsy as remains profoundly hypoxic pt also does not want aggressive procedure , and does not feel she will be able to tolerate chemo tx with her current health status over all prognsosis remains very poor -pt aware Blood cultures obtained- negative so far. on PO Doxycycline and Augmentin for total 10 days (2) Acute on chronic respiratory failure with hypoxia: due to above Chronic hypoxic respiratory failure on home O2 3 L/min. presented with worsening SOB /cough /hypoxia Pulmonary Medicine consulted-appreciate input -cont supportive care with nebx /iv steroids/Abx (3) COPD (chronic obstructive pulmonary disease): Exacerbation secondary to pneumonia. Titrate supplemental O2. Continue bronchodilators. on Iv steroids (4) Pulmonary edema: acute on chronic CHF /diastolic heart failure ( preserved LV function ) leading to SOB and progressive hypoxia Echocardiogram demonstrated normal LV wall motion and systolic function, moderate to severe TR, small anterior pericardial effusion without tamponade. Probably acute left ventricular diastolic heart failure secondary to IVFs and fludrocortisone. on lasix 20 mg iv daily renal function been stable to far (5) Orthostatic hypotension: symptomatic orthostatic hypotension. Outpatient evaluation included Cortrosyn stimulation test which was reportedly normal. Started on midodrine and fludrocortisone without improvement. 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 Echocardiogram demonstrated normal LV wall motion and systolic function, moderate to severe TR, small anterior pericardial effusion without tamponade. Stopped fludrocortisone because of fluid overload/pulm edema Thigh-high TEDS. Increased midodrine to 5 mg TID. (6) Hypokalemia: Replaced. (7) CAD (coronary artery disease): No anginal symptoms. No beta-quita at this time due to orthostatic hypotension. Continue aspirin and statin. (8) Atrial fibrillation: Currently in NSR. was on amiodarone.(Limited anti-arrhythmic options due to severe orthostatic hypotension.) Amiodarone stopped because of worsening pulmonary status. Cardiology consulted. Continue cardiac montoring. Continue warfarin. (9) GERD (gastroesophageal reflux disease): PPI. (10) Squamous cell carcinoma of lung: Status post lobectomy, has completed course of chemotherapy. Management per Dr. Solo Terry. (11) Severe malnutrition: 15 kg weight loss over past 8 months. Serum albumin 1.1. Severe protein calorie malnutrition secondary to malignancy. Oral nutritional supplements. Rehabilitation Assistant following. (12) Do not resuscitate status: DNR/DNI (13) DVT prophylaxis: On warfarin for atrial fibrillation. goal INR 2-3 (14) Discharge planning issues: Will need for skilled care./transfer to SNF when medically stable Case Management consulted. Internal Medicine follow-up with Dr. Foley. Medical Oncology follow-up with Dr. Solo Terry. Cardiology follow-up with Dr. Waldron. Subjective breathing a bit better today less hypoxic 02 now on 3 L via nasal canula no cough Physical Exam Constitutional: + ill appearing; no acute distress Eyes: + anicteric sclerae ENMT: external ear and nose normal, oropharynx normal Neck: trachea midline, no thyromegaly Respiratory: no respiratory distress Auscultation: + rales (bibasilar) Cardiovascular: Rate/Rhythm: regular rate and regular rhythm Heart Sounds: no gallop and no cardiac rub Vessels: no JVD Extremities: no calf tenderness and no edema Gastrointestinal (Abdomen): normal bowel sounds, soft, nontender, no hepatosplenomegaly Skin: no rashes, warm and dry Neurologic: PERRL, EOMI, accommodation nl, no face palsy, no dysarthria Psychiatric: Orientation: alert and oriented x 3 Results & Data Vital Signs (Past 12 Hours) Vital Signs Temp Pulse Pulse Resp BP Pulse Ox 09/17/19 15:21 77 16 98 09/17/19 11:50 36.7 C 84 18 121/75 96 09/17/19 11:06 71 18 97 09/17/19 10:12 81 09/17/19 07:42 37.0 C 87 17 125/81 94 09/17/19 07:02 96 H 20 94 (1) Left upper lobe pneumonia Pneumonia type: due to unspecified organism Qualified Code(s): J18.1 - Lobar pneumonia, unspecified organism
[2019-09-17] MEDS ORDERED: bisacodyL 5 MG TABEC PO ONE (17:28)
[2019-09-17] MEDS: ATORVASTATIN 10 MG TAB PO SCH (21:37)
[2019-09-18] MEDS: methylPREDNISolone 125 MG in SYRINGE 0 ML IV SCH ×3 (06:05→21:28)
[2019-09-18] MEDS: LEVOTHYROXINE SODIUM 75 MCG TABLET PO SCH (06:06)
[2019-09-18] MEDS: LEVALBUTEROL HCL 0.63 MG/3 ML NEB NEB SCH ×4 (07:18→19:44)
[2019-09-18] MEDS: MULTIVITAMIN TAB PO SCH (08:07)
[2019-09-18] MEDS: CHOLECALCIFEROL 1,000 UNITS TAB PO SCH (08:07)
[2019-09-18] MEDS: DOXYCYCLINE HYCLATE 100 MG CAP PO SCH ×2 (08:07→21:28)
[2019-09-18] MEDS: MIDODRINE HCL 2.5 MG TAB PO SCH ×3 (08:07→17:12)
[2019-09-18] MEDS: ASPIRIN 81 MG ECTAB PO SCH (08:08)
[2019-09-18] MEDS: MAGNESIUM OXIDE 400 MG TAB PO SCH (08:08)
[2019-09-18] MEDS: FUROSEMIDE 20 MG in SYRINGE 0 ML IV SCH (08:08)
[2019-09-18] MEDS: DOCUSATE SODIUM/SENNA 50/8.6MG TAB PO SCH (08:08)
[2019-09-18] MEDS: PANTOprazole 40 MG TAB PO SCH (08:09)
[2019-09-18] MEDS: POLYETHYLENE (MIRALAX) 17 GM PACK PO SCH (08:09)
[2019-09-18] MEDS: acetaZOLAMIDE 250 MG TAB PO SCH (08:09)
[2019-09-18] MEDS: FLUOXETINE HCL 20 MG CAP PO SCH (08:09)
[2019-09-18] MEDS: HEPARIN 100 UNIT/ML 5ML FLUSH FLUSH PRN ×2 (08:15→14:20)
[2019-09-18] MEDS: MoRPHine SULFATE 2 MG/ML CARP IV PRN (08:15)
--- NOTE | 2019-09-18 09:12 | Cardiology Progress Note ---
Date of Service September 18, 2019 Assessment & Plan (1) Hypoxemia: (2) Orthostatic hypotension: (3) Atrial fibrillation: Patient with noted multifactorial shortness of breath including diastolic dysfunction, underlying lung cancer, possible interstitial lung disease or ARDS type features. Continue corticosteroids, oral antibiotics. Transition IV furosemide to oral furosemide 20 mg daily tomorrow. Proceed with cautious use of acetazolamide, last dose due 09/19/2019. Regarding her history of orthostatic hypotension, fludrocortisone discontinued in order to aid with fluid retention. Continue midodrine. Amiodarone has been discontinued due to concerns that it was affecting her juan manuel ngs. She did have a brief episode of atrial fibrillation today, cautiously at metoprolol succinate. Blood pressure stable. Has pacemaker for heart rate support if needed. Stroke prophylaxis and DVT prophylaxis: Coumadin have been on hold, INR trended down to 2.1 yesterday. Check INR and chemistry panel today. Pt agreeable to palliative care approach. Subjective Chief complaint: Follow-up shortness of breath Subjective: Patient has less oxygen requirement down to 3 L at present, but still dyspneic. Telemetry reveals predominant rhythm was sinus rhythm with a very brief episode of paroxysmal atrial fibrillation this morning 09/17/2019 at 754 for which the patient reported no symptoms. Review of Systems Review of Systems: All systems reviewed & are unremarkable except as noted in HPI & below Physical Exam Physical Exam: Temp Pulse Resp BP Pulse Ox 36.6 C 72 16 131/80 98 09/18/19 07:13 09/18/19 07:19 09/18/19 07:19 09/18/19 07:13 09/18/19 07:19 Constitutional: WD/WN, vitals as above Respiratory: Decreased breath sounds at the bases Cardiovascular: RRR, no murmur, no edema Neurologic: PERRL, EOMI, accommodation nl, no face palsy, no dysarthria Results & Data Vital Signs (Past 12 Hours) Vital Signs Temp Pulse Pulse Resp BP BP Pulse Ox 09/18/19 07:19 72 16 98 09/18/19 07:13 36.6 C 73 20 131/80 95 09/18/19 04:44 76 09/18/19 03:36 36.4 C L 74 18 129/78 95 09/17/19 23:06 36.6 C 75 20 127/80 95 09/17/19 23:02 84 Diagnostic Findings INR on 09/17/2019 was 2.1. Medications Administered Current Inpatient Medications Acetaminophen (Tylenol) 650 mg PO Q4H PRN PRN Reason: Pain or Fever Stop: 10/08/19 19:07 Last Admin: 09/15/19 01:47 Dose: 650 mg Documented by: Acetazolamide (Diamox) 250 mg PO DAILY [facility] Stop: 09/19/19 08:59 Last Admin: 09/18/19 08:09 Dose: 250 mg Documented by: Aspirin (Ecotrin Ectab) 81 mg PO QAM [facility] Stop: 10/09/19 08:59 Last Admin: 09/18/19 08:08 Dose: 81 mg Documented by: Atorvastatin Calcium (Lipitor) 10 mg PO HS [facility] Stop: 10/08/19 20:59 Last Admin: 09/17/19 21:37 Dose: 10 mg Documented by: Doxycycline Hyclate (Vibramycin) 100 mg PO BID [facility]; Protocol Stop: 09/18/19 21:01 Last Admin: 09/18/19 08:07 Dose: 100 mg Documented by: Fludrocortisone Acetate (Florinef) 0.1 mg PO QAM [facility] Stop: 10/09/19 03:44 Last Admin: 09/10/19 08:55 Dose: 0.1 mg Documented by: Fluoxetine HCl (Prozac) 20 mg PO QAM [facility] Stop: 10/09/19 08:59 Last Admin: 09/18/19 08:09 Dose: 20 mg Documented by: Heparin Sodium (Porcine) (Heparin Sod 100 Unit/Ml Flush) 5 ml FLUSH PRN PRN PRN Reason: Flush Stop: 10/13/19 20:07 Last Admin: 09/18/19 08:15 Dose: 5 ml Documented by: Methylprednisolone 125 mg/ (Syringe) 2 mls @ 1.5 mls/min IV Q8H [facility] Stop: 10/10/19 21:59 Last Admin: 09/18/19 06:05 Dose: 1.5 mls/min Documented by: Furosemide 20 mg/ Syringe 2 mls @ 4 mls/min IV DAILY [facility] Stop: 10/15/19 10:14 Last Admin: 09/18/19 08:08 Dose: 4 mls/min Documented by: Levalbuterol HCl (Xopenex 0.63 Mg/3 Ml Neb) 0.63 mg NEB QIDR [facility] Stop: 10/11/19 10:59 Last Admin: 09/18/19 07:18 Dose: 0.63 mg Documented by: Levalbuterol HCl (Xopenex 0.63 Mg/3 Ml Neb) 0.63 mg NEB Q3H PRN PRN Reason: Wheezing Stop: 10/11/19 09:05 Levothyroxine Sodium (Synthroid) 75 mcg PO DAILYBB [facility] Stop: 10/09/19 06:29 Last Admin: 09/18/19 06:06 Dose: 75 mcg Documented by: Magnesium Oxide (Mag-Ox) 400 [facility] [place] Stop: 10/09/19 08:59 Last Admin: 09/18/19 08:08 Dose: 400 mg Documented by: Metoprolol Succinate (Toprol Xl) 25 mg PO QAM [facility] Stop: 10/18/19 09:14 Midodrine (Proamatine) 5 mg PO TID@0800,1200,1700 [facility] Stop: 10/11/19 11:59 Last Admin: 09/18/19 08:07 Dose: 5 mg Documented by: Morphine Sulfate (Morphine Sulfate) 1 mg IV Q2H PRN PRN Reason: pain or dyspnea Stop: 09/27/19 23:26 Last Admin: 09/18/19 08:15 Dose: 1 mg Documented by: Multivitamins (Multivitamin Tab) 1 tab [facility] [place] Stop: 10/09/19 08:59 Last Admin: 09/18/19 08:07 Dose: 1 tab Documented by: Ondansetron HCl (Zofran) 4 mg IV Q6H PRN PRN Reason: Nausea Stop: 10/08/19 19:07 Last Admin: 09/10/19 08:55 Dose: 4 mg Documented by: Oxycodone HCl (Roxicodone Immediate Rel) 5 mg PO Q6H PRN PRN Reason: Pain Stop: 09/22/19 19:16 Pantoprazole Sodium (Protonix) 40 mg PO QAM [facility] Stop: 10/09/19 08:59 Last Admin: 09/18/19 08:09 Dose: 40 mg Documented by: Polyethylene Glycol (Miralax Powder Packet) 17 gm PO DAILY [facility] Stop: 10/16/19 11:14 Last Admin: 11/30/19 08:09 Dose: 17 gm Documented by: Senna/Docusate Sodium (Senokot S) 1 tab PO [facility] Stop: 10/18/19 08:59 Last Admin: 09/18/19 08:08 Dose: 1 tab Documented by: Vitamin D (Vitamin D3) 1,000 units PO [facility] Stop: 10/09/19 08:59 Last Admin: 09/18/19 08:07 Dose: 1,000 units Documented by: Warfarin Sodium (Coumadin) 2 mg PO DAILY@1600 [facility] Stop: 10/09/19 17:49 Last Admin: 09/16/19 18:21 Dose: Not Given Documented by:
--- NOTE | 2019-09-18 09:45 | Pulmonology Progress Note ---
Date of Service September 18, 2019 Assessment & Plan (1) Abnormal CT scan of lung: Impression: 74-year-old female with history of recurrent squamous cell carcinoma having completed chemotherapy in the form of paclitaxel and carboplatin as well as radiation therapy now with diffuse pulmonary infiltrates of unclear etiology. Differential would include atypical infection, atypical pulmonary edema, pulmonary toxicity from chemotherapeutic agents, or unrelated diffuse parenchymal lung disease. Recommendation: 1. Abnormal CT scan: Treating all reversible causes with high-dose steroids for possible chemotherapy associated pulmonary toxicity. Diuresis. Amiodarone held. Has completed or will shortly complete a full course of broad-spectrum antibiotics. She is slightly better today. Recommend continuing steroids. I advised the patient that she needs to try and sit up and get out of bed to the chair. She is essentially been bedridden for the majority of her hospitalization. If she remains in bed, she will continue to decondition and functional recovery is unlikely. 2. Dyspnea: Continue as needed palliative morphine 3. Cough: Better today. Continue to follow We will continue to follow (2) Cough: (3) Hypoxemia: Subjective Patient states she feels about the same. She still has not been out of bed and is reluctant to consider even sitting up. Her oxygen requirement has decreased overnight and she is down to 2 L nasal cannula. She is not coughing or expectorating phlegm. Review of Systems Review of Systems: Unchanged from prior Physical Exam Constitutional: + ill appearing; no acute distress Eyes: + anicteric sclerae Respiratory: no respiratory distress Auscultation: + rales (few bibasilar) Cardiovascular: Rate/Rhythm: regular rate and regular rhythm Heart Sounds: no gallop and no cardiac rub Vessels: no JVD Extremities: no calf tenderness and no edema Gastrointestinal (Abdomen): normal bowel sounds, soft, nontender, no hepatosplenomegaly Skin: no rashes, warm and dry Psychiatric: Orientation: alert and oriented x 3 Results & Data Vital Signs (Past 12 Hours) Vital Signs Temp Pulse Pulse Resp BP BP Pulse Ox 09/18/19 07:19 72 16 98 09/18/19 07:13 36.6 C 73 20 131/80 95 09/18/19 04:44 76 09/18/19 03:36 36.4 C L 74 18 129/78 95 09/17/19 23:06 36.6 C 75 20 127/80 95 09/17/19 23:02 84 Laboratory Results 09/12/19 06:53 09/17/19 05:25 Diagnostic Findings No new films PG Care Time/CCT Total # of Minutes Spent Total Time Spent with Patient: Total time spent is greater than 50% in medical referral coordinator rdination of care (as documented) at patient's floor/unit and/or counseling patient:
[2019-09-18 10:15] LABS: INR 1.4 (0.9-1.1); Prothrombin Time 13.8 Seconds (9.0-12.0)
[2019-09-18 10:40] LABS: BUN Creatinine Ratio 39.8 (10-20); Calcium 9.4 mg/dl (8.5-10.1); Creatinine Clr Calc Pharmacy 59.8 ml/min; Est GFR (African American) 89.7; Est GFR (Non-African American) 77.4; Potassium 3.2 mmol/L (3.5-5.1)
--- NOTE | 2019-09-18 10:58 | Hospitalist Progress Note ---
Date of Service September 18, 2019 Assessment & Plan (1) Left upper lobe pneumonia: hx of recurrent Sq cell CA s/p chemo with paciltaxel/carboplatin and radition tx admitted with cough and increasing dyspnea associated with worsening hypoxia. Chest x-ray showed diffuse left sided pulmonary infitrate appreciate input from Pulmonology -given prior hx of lung ca /increased risk for recurrence not a candidate for bronchocopic bipopsy as remains profoundly hypoxic pt also does not want aggressive procedure , and does not feel she will be able to tolerate chemo tx with her current health status over all prognsosis remains very poor -pt aware Blood cultures obtained- negative so far. on PO Doxycycline and Augmentin for total 10 days (2) Acute on chronic respiratory failure with hypoxia: due to above Chronic hypoxic respiratory failure on home O2 3 L/min. presented with worsening SOB /cough /hypoxia Pulmonary Medicine consulted-appreciate input -cont supportive care with nebx /iv steroids/Abx (3) COPD (chronic obstructive pulmonary disease): Exacerbation secondary to pneumonia. Titrate supplemental O2. Continue bronchodilators. on Iv steroids (4) Pulmonary edema: acute on chronic CHF /diastolic heart failure ( preserved LV function ) leading to SOB and progressive hypoxia Echocardiogram demonstrated normal LV wall motion and systolic function, moderate to severe TR, small anterior pericardial effusion without tamponade. Probably acute left ventricular diastolic heart failure secondary to IVFs and fludrocortisone. appreciate input from Cardiology good response with IV lasix 20 mg daily -adequate diuresis with improvement of hypoxia /SOB Lasix changed to PO 20 mg daily (5) Orthostatic hypotension: symptomatic orthostatic hypotension. Outpatient evaluation included Cortrosyn stimulation test which was reportedly normal. Started on midodrine and fludrocortisone without improvement. 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 Echocardiogram demonstrated normal LV wall motion and systolic function, moderate to severe TR, small anterior pericardial effusion without tamponade. Stopped fludrocortisone because of fluid overload/pulm edema Thigh-high TEDS. Increased midodrine to 5 mg TID. (6) Hypokalemia: Replaced. (7) CAD (coronary artery disease): No anginal symptoms. No beta-quita at this time due to orthostatic hypotension. Continue aspirin and statin. (8) Atrial fibrillation: Currently in NSR. was on amiodarone.(Limited anti-arrhythmic options due to severe orthostatic hypotension.) Amiodarone stopped because of worsening pulmonary status. Cardiology consulted. Continue cardiac montoring. Continue warfarin. (9) GERD (gastroesophageal reflux disease): PPI. (10) Squamous cell carcinoma of lung: Status post lobectomy, has completed course of chemotherapy. Management per Dr. Solo Terry. (11) Severe malnutrition: 15 kg weight loss over past 8 months. Serum albumin 1.1. Severe protein calorie malnutrition secondary to malignancy. Oral nutritional supplements. Seo Associate following. (12) Do not resuscitate status: DNR/DNI (13) DVT prophylaxis: On warfarin for atrial fibrillation. goal INR 2-3 (14) Discharge planning issues: Will need for skilled care./transfer to SNF when medically stable Case Management consulted. Internal Medicine follow-up with Dr. Foley. Medical Oncology follow-up with Dr. Solo Terry. Cardiology follow-up with Dr. Waldron. Subjective no complain of SOB at rest /no orthopnea no cough on 2 L 02 via nasal canula ( at home was 2-3 L ) still very weak and fatigued has not been able to be OOB due to weakness Physical Exam Constitutional: + ill appearing; no acute distress Eyes: + anicteric sclerae ENMT: external ear and nose normal, oropharynx normal Neck: trachea midline, no thyromegaly Respiratory: no respiratory distress Auscultation: + rales (bibasilar) Cardiovascular: Rate/Rhythm: regular rate and regular rhythm Heart Sounds: no gallop and no cardiac rub Vessels: no JVD Extremities: no calf tenderness and no edema Gastrointestinal (Abdomen): normal bowel sounds, soft, nontender, no hepatosplenomegaly Skin: no rashes, warm and dry Neurologic: PERRL, EOMI, accommodation nl, no face palsy, no dysarthria Psychiatric: Orientation: alert and oriented x 3 Results & Data Vital Signs (Past 12 Hours) Vital Signs Temp Pulse Pulse Resp BP BP Pulse Ox 09/18/19 08:10 88 09/18/19 07:19 72 16 98 09/18/19 07:13 36.6 C 73 20 131/80 95 09/18/19 04:44 76 09/18/19 03:36 36.4 C L 74 18 129/78 95 09/17/19 23:06 36.6 C 75 20 127/80 95 09/17/19 23:02 84 (1) Left upper lobe pneumonia Pneumonia type: due to unspecified organism Qualified Code(s): J18.1 - Lobar pneumonia, unspecified organism
[2019-09-18] MEDS: METOPROLOL SUCC 25MG EXT REL TAB PO SCH (11:09)
[2019-09-18] MEDS ORDERED: POTASSIUM CHLORIDE 20 MEQ TABCR PO STA (14:30)
[2019-09-18] MEDS ORDERED: LACTULOSE SYRUP 30 GM/45 ML UDP PO PRN (14:31)
[2019-09-18] MEDS: WARFARIN SOD 2.5 MG TAB PO SCH (17:12)
[2019-09-18] MEDS: ATORVASTATIN 10 MG TAB PO SCH (21:28)
[2019-09-19] MEDS: LEVOTHYROXINE SODIUM 75 MCG TABLET PO SCH (06:23)
[2019-09-19] MEDS: methylPREDNISolone 125 MG in SYRINGE 0 ML IV SCH ×3 (06:23→21:25)
[2019-09-19] MEDS: LEVALBUTEROL HCL 0.63 MG/3 ML NEB NEB SCH ×4 (07:15→18:54)
--- NOTE | 2019-09-19 07:25 | XRay Report ---
XR chest 1V portable CLINICAL HISTORY: Hypoxemia COMPARISON STUDY: 09/15/2019 FINDINGS: The cardiac and mediastinal contours remain stable. There is a left subclavian dual-chamber central venous pacemaker. There is a right-sided A-Port catheter. There is left lung volume loss. Th ere is an area of more focal pulmonary consolidation within the left perihilar region. There is diffu se interstitial thickening.[ IMPRESSION: 1. Postsurgical changes on the left with left-sided volume loss 2. Diffuse interstitial thickening, slightly improved when compared the prior study. Diagnostic consi derations include mild congestive failure versus interstitial inflammatory process. 3. Persistent focus of increased density within the left perihilar region. Electronically signed by: Feliz Son M.D. 09/19/2019 7:24 AM
[2019-09-19] MEDS: PANTOprazole 40 MG TAB PO SCH (08:52)
[2019-09-19] MEDS: CHOLECALCIFEROL 1,000 UNITS TAB PO SCH (08:52)
[2019-09-19] MEDS: FUROSEMIDE 20 MG TAB PO SCH (08:53)
[2019-09-19] MEDS: FLUOXETINE HCL 20 MG CAP PO SCH (08:53)
[2019-09-19] MEDS: METOPROLOL SUCC 25MG EXT REL TAB PO SCH (08:53)
[2019-09-19] MEDS: MAGNESIUM OXIDE 400 MG TAB PO SCH (08:53)
[2019-09-19] MEDS: ASPIRIN 81 MG ECTAB PO SCH (08:54)
[2019-09-19] MEDS: MULTIVITAMIN TAB PO SCH (08:54)
[2019-09-19] MEDS: MIDODRINE HCL 2.5 MG TAB PO SCH ×3 (08:54→16:14)
[2019-09-19] MEDS: DOCUSATE SODIUM/SENNA 50/8.6MG TAB PO SCH (08:54)
[2019-09-19] MEDS: POLYETHYLENE (MIRALAX) 17 GM PACK PO SCH (08:55)
--- NOTE | 2019-09-19 10:48 | Pulmonology Progress Note ---
Date of Service September 19, 2019 Assessment & Plan (1) Abnormal CT scan of lung: Impression: 74-year-old female with history of recurrent squamous cell carcinoma having completed chemotherapy in the form of paclitaxel and carboplatin as well as radiation therapy now with diffuse pulmonary infiltrates of unclear etiology. She is being treated with empiric antibiotics, steroids, and diuresis for any potential reversible etiology Recommendation: 1. Abnormal CT scan: Treating all reversible causes with high-dose steroids for possible chemotherapy associated pulmonary toxicity. Diuresis. Amiodarone held. Has completed or will shortly complete a full course of broad-spectrum antibiotics. She is slightly better today. She will complete her Diamox today and will reassess on her chemistry panel whether or not additional doses should be continued. Recommend continuing steroids. Much of her dyspnea is now related to severe deconditioning and will not likely improve with the continued bedbound state. I again advised the patient that if she wants to get better she needs to get up out of bed and at least sit in the chair. She states she is not sure she wants to do this. 2. Dyspnea: Continue as needed palliative morphine 3. Cough: Resolving This is an unfortunate situation. The patient states that she is not ready to however she does not appear motivated to do what is necessary to improve her pulmonary status. Continued input from palliative care is necessary and if the patient just wants to lie in bed and be comfortable, palliative care would certainly be a reasonable alternative. (2) Cough: (3) Hypoxemia: Subjective Patient feels that her breathing is about the same. She is not coughing or expectorating phlegm. She remains essentially bedbound and is reluctant to sit up at the bedside or get out of bed and move around. Her oxygenation has improved and she is down to about 2 to 3 L nasal cannula. Review of Systems Review of Systems: Unchanged from prior Physical Exam Constitutional: + ill appearing; no acute distress Eyes: + anicteric sclerae Respiratory: no respiratory distress Auscultation: + rales (few bibasilar) Cardiovascular: Rate/Rhythm: regular rate and regular rhythm Heart Sounds: no gallop and no cardiac rub Vessels: no JVD Extremities: no calf tenderness and no edema Gastrointestinal (Abdomen): normal bowel sounds, soft, nontender, no hepatosplenomegaly Skin: no rashes, warm and dry Psychiatric: Orientation: alert and oriented x 3 Results & Data Vital Signs (Past 12 Hours) Vital Signs Temp Pulse Pulse Resp BP Pulse Ox 09/19/19 07:26 36.5 C 83 16 137/75 97 09/19/19 07:18 70 16 97 09/19/19 06:28 36.8 C 54 L 16 176/74 H 91 09/19/19 03:30 36.6 C 66 134/67 96 09/19/19 01:12 66 09/18/19 23:23 36.7 C 62 20 125/75 97 PG Care Time/CCT Total # of Minutes Spent Total Time Spent with Patient: Total time spent is greater than 50% in coordination of care (as documented) at patient's floor/unit and/or counseling patient:
[2019-09-19] MEDS: HEPARIN 100 UNIT/ML 5ML FLUSH FLUSH PRN (13:12)
--- NOTE | 2019-09-19 14:22 | Hospitalist Progress Note ---
Date of Service September 19, 2019 Assessment & Plan (1) Left upper lobe pneumonia: hx of recurrent Sq cell CA s/p chemo with paciltaxel/carboplatin and radition tx admitted with cough and increasing dyspnea associated with worsening hypoxia. Chest x-ray showed diffuse left sided pulmonary infitrate appreciate input from Pulmonology -given prior hx of lung ca /increased risk for recurrence not a candidate for bronchocopic bipopsy as remains profoundly hypoxic pt also does not want aggressive procedure , and does not feel she will be able to tolerate chemo tx with her current health status over all prognsosis remains very poor -pt aware Blood cultures obtained- negative so far. on PO Doxycycline and Augmentin for total 10 days (2) Acute on chronic respiratory failure with hypoxia: due to above Chronic hypoxic respiratory failure on home O2 3 L/min. presented with worsening SOB /cough /hypoxia Pulmonary Medicine consulted-appreciate input -cont supportive care with nebx /iv steroids/Abx (3) COPD (chronic obstructive pulmonary disease): Exacerbation secondary to pneumonia. Titrate supplemental O2. Continue bronchodilators. on Iv steroids (4) Pulmonary edema: acute on chronic CHF /diastolic heart failure ( preserved LV function ) leading to SOB and progressive hypoxia Echocardiogram demonstrated normal LV wall motion and systolic function, moderate to severe TR, small anterior pericardial effusion without tamponade. Probably acute left ventricular diastolic heart failure secondary to IVFs and fludrocortisone. appreciate input from Cardiology good response with IV lasix 20 mg daily -adequate diuresis with improvement of hypoxia /SOB Lasix changed to PO 20 mg daily (5) Orthostatic hypotension: symptomatic orthostatic hypotension. Outpatient evaluation included Cortrosyn stimulation test which was reportedly normal. Started on midodrine and fludrocortisone without improvement. 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 Echocardiogram demonstrated normal LV wall motion and systolic function, moderate to severe TR, small anterior pericardial effusion without tamponade. Stopped fludrocortisone because of fluid overload/pulm edema Thigh-high TEDS. Increased midodrine to 5 mg TID. (6) Hypokalemia: Replaced. (7) CAD (coronary artery disease): No anginal symptoms. No beta-quita at this time due to orthostatic hypotension. Continue aspirin and statin. (8) Atrial fibrillation: Currently in NSR. was on amiodarone.(Limited anti-arrhythmic options due to severe orthostatic hypotension.) Amiodarone stopped because of worsening pulmonary status. Cardiology consulted. Continue cardiac montoring. Continue warfarin. (9) GERD (gastroesophageal reflux disease): PPI. (10) Squamous cell carcinoma of lung: Status post lobectomy, has completed course of chemotherapy. Management per Dr. Solo Terry. (11) Severe malnutrition: 15 kg weight loss over past 8 months. Serum albumin 1.1. Severe protein calorie malnutrition secondary to malignancy. Oral nutritional supplements. Benefits Specialist Recruiter following. (12) Do not resuscitate status: DNR/DNI (13) DVT prophylaxis: On warfarin for atrial fibrillation. goal INR 2-3 (14) Discharge planning issues: Will need for skilled care./transfer to SNF when medically stable Case Management consulted. Internal Medicine follow-up with Dr. Foley. Medical Oncology follow-up with Dr. Solo Terry. Cardiology follow-up with Dr. Waldron. Subjective more tired today Patient feels that her breathing is about the same. on 2 to 3 L nasal cannula.( improved from prior ) no nausea /vomiting appetite remains poor Physical Exam Constitutional: + ill appearing; no acute distress Eyes: + anicteric sclerae ENMT: external ear and nose normal, oropharynx normal Neck: trachea midline, no thyromegaly Respiratory: no respiratory distress Auscultation: + rales (bibasilar) Cardiovascular: Rate/Rhythm: regular rate and regular rhythm Heart Sounds: no gallop and no cardiac rub Vessels: no JVD Extremities: no calf tenderness and no edema Gastrointestinal (Abdomen): normal bowel sounds, soft, nontender, no hepatosplenomegaly Skin: no rashes, warm and dry Neurologic: PERRL, EOMI, accommodation nl, no face palsy, no dysarthria Psychiatric: Orientation: alert and oriented x 3 Results & Data Vital Signs (Past 12 Hours) Vital Signs Temp Pulse Pulse Resp BP BP Pulse Ox 09/19/19 11:17 36.8 C 65 18 129/78 98 09/19/19 11:16 36.9 C 65 20 121/62 92 09/19/19 10:00 65 09/19/19 07:26 36.5 C 83 16 137/75 97 09/19/19 07:18 70 16 97 09/19/19 06:28 36.8 C 54 L 16 176/74 H 91 09/19/19 03:30 36.6 C 66 134/67 96 (1) Left upper lobe pneumonia Pneumonia type: due to unspecified organism Qualified Code(s): J18.1 - Lobar pneumonia, unspecified organism
--- NOTE | 2019-09-19 14:25 | Cardiology Progress Note ---
Date of Service September 19, 2019 Assessment & Plan (1) Acute on chronic respiratory failure with hypoxia: (2) Lung cancer: (3) Hypokalemia: Noted with rate 60 bpm range. Continue metoprolol. Blood pressure stable. Recheck INR and chemistry panel tomorrow given Coumadin therapy recent hypo kalemia. Subjective Chief complaint: Follow-up shortness of breath Subjective: Patient with ongoing dyspnea. Physical Exam Physical Exam: Temp Pulse Resp BP Pulse Ox 36.8 C 65 18 129/78 98 09/19/19 11:17 09/19/19 11:17 09/19/19 11:17 09/19/19 11:17 09/19/19 11:17 Constitutional: + ill appearing Respiratory: Decreased breath sounds the bases bilaterally Cardiovascular: RRR, no murmur, no edema Neurologic: PERRL, EOMI, accommodation nl, no face palsy, no dysarthria Results & Data Vital Signs (Past 12 Hours) Vital Signs Temp Pulse Pulse Resp BP BP Pulse Ox 09/19/19 11:17 36.8 C 65 18 129/78 98 09/19/19 11:16 36.9 C 65 20 121/62 92 09/19/19 10:00 65 09/19/19 07:26 36.5 C 83 16 137/75 97 09/19/19 07:18 70 16 97 09/19/19 06:28 36.8 C 54 L 16 176/74 H 91 09/19/19 03:30 36.6 C 66 134/67 96 (1) Lung cancer Laterality: left Lung location: lower lobe of lung Qualified Code(s): C34.32 - Malignant neoplasm of lower lobe, left bronchus or lung
[2019-09-19] MEDS: NYSTATIN SUSP 500,000 U/5 ML UDC PO SCH ×3 (14:40→21:25)
[2019-09-19] MEDS: WARFARIN SOD 2.5 MG TAB PO SCH (16:13)
[2019-09-19] MEDS: ATORVASTATIN 10 MG TAB PO SCH (21:25)
[2019-09-19] MEDS: MoRPHine SULFATE 2 MG/ML CARP IV PRN (21:50)
[2019-09-20] MEDS: HEPARIN 100 UNIT/ML 5ML FLUSH FLUSH PRN ×2 (05:43→05:52)
[2019-09-20] MEDS: LEVOTHYROXINE SODIUM 75 MCG TABLET PO SCH (05:49)
[2019-09-20] MEDS: methylPREDNISolone 125 MG in SYRINGE 0 ML IV SCH ×3 (05:49→21:41)
[2019-09-20 06:08] LABS: INR 1.4 (0.9-1.1)
[2019-09-20 06:30] LABS: BUN Creatinine Ratio 44.5 (10-20); Est GFR (African American) 102.6; Est GFR (Non-African American) 88.5; Potassium 3.6 mmol/L (3.5-5.1)
[2019-09-20] MEDS: LEVALBUTEROL HCL 0.63 MG/3 ML NEB NEB SCH ×4 (07:01→19:43)
--- NOTE | 2019-09-20 08:46 | Pulmonology Progress Note ---
Date of Service September 20, 2019 Assessment & Plan (1) Abnormal CT scan of lung: Impression: 74-year-old female with history of recurrent squamous cell carcinoma of the lung having completed chemotherapy in the form of paclitaxel and carboplatin as well as radiation therapy now with diffuse pulmonary infiltrates of unclear etiology. She is being treated with empiric antibiotics, steroids, and diuresis for any potential reversible etiology Recommendation: 1. Abnormal CT scan: Her oxygen requirement has improved with diuresis, antibiotics, and empiric steroids. She remains significantly dyspneic at this point time which is likely multifactorial with etiologies to include significant deconditioning given her debilitated and bedbound state. This point time I would favor transitioning her to oral steroids with plans for taper over 4 to [address] her on prednisone 40 mg a day. Bactrim prophylaxis should be initiated and continued until the prednisone dose is below 20 mg a day. We will repeat her CBC in the a.m. 2. Dyspnea: Continue as needed palliative morphine 3. Cough: Resolving This is an unfortunate situation. The patient states that she is not ready to however she does not appear motivated to do what is necessary to improve her pulmonary status. Continued input from palliative care is necessary and if the patient just wants to lie in bed and be comfortable, palliative care would certainly be a reasonable alternative. (2) Cough: (3) Hypoxemia: Subjective Patient relates that she feels about the same. She states she has good and bad episodes with regards to her breathing. She continues to remain bedbound and sedentary. She is tolerating a diet. We have been able to wean her oxygen down to 2 L nasal cannula. Review of Systems Review of Systems: Unchanged from prior Physical Exam Constitutional: + ill appearing; no acute distress Eyes: + anicteric sclerae Respiratory: no respiratory distress Auscultation: + rales (few bibasilar) Cardiovascular: Rate/Rhythm: regular rate and regular rhythm Heart Sounds: no gallop and no cardiac rub Vessels: no JVD Extremities: no calf tenderness and no edema Gastrointestinal (Abdomen): normal bowel sounds, soft, nontender, no hepatosplenomegaly Skin: no rashes, warm and dry Psychiatric: Orientation: alert and oriented x 3 Results & Data Vital Signs (Past 12 Hours) Vital Signs Temp Pulse Pulse Resp BP Pulse Ox 09/20/19 07:35 37.1 C 69 16 126/89 96 09/20/19 07:28 36.8 C 63 16 127/81 96 09/20/19 07:03 74 18 98 09/20/19 04:18 36.3 C L 63 20 134/82 97 09/20/19 01:35 63 09/19/19 23:50 36.6 C 63 18 117/55 L 95 09/19/19 22:28 66 Laboratory Results 09/12/19 06:53 09/20/19 05:39 Diagnostic Findings No new films PG Care Time/CCT Total # of Minutes Spent Total Time Spent with Patient: Total time spent is greater than 50% in coordination of care (as documented) at patient's floor/unit and/or counseling patient:
[2019-09-20] MEDS: MIDODRINE HCL 2.5 MG TAB PO SCH ×3 (10:13→16:44)
[2019-09-20] MEDS: FUROSEMIDE 20 MG TAB PO SCH (10:14)
[2019-09-20] MEDS: ASPIRIN 81 MG ECTAB PO SCH (10:14)
[2019-09-20] MEDS: POLYETHYLENE (MIRALAX) 17 GM PACK PO SCH (10:15)
[2019-09-20] MEDS: MAGNESIUM OXIDE 400 MG TAB PO SCH (10:15)
[2019-09-20] MEDS: PANTOprazole 40 MG TAB PO SCH (10:16)
[2019-09-20] MEDS: MULTIVITAMIN TAB PO SCH (10:16)
[2019-09-20] MEDS: NYSTATIN SUSP 500,000 U/5 ML UDC PO SCH ×4 (10:16→21:41)
[2019-09-20] MEDS: FLUOXETINE HCL 20 MG CAP PO SCH (10:17)
[2019-09-20] MEDS: DOCUSATE SODIUM/SENNA 50/8.6MG TAB PO SCH (10:17)
[2019-09-20] MEDS: METOPROLOL SUCC 25MG EXT REL TAB PO SCH (10:17)
[2019-09-20] MEDS: CHOLECALCIFEROL 1,000 UNITS TAB PO SCH (10:18)
[2019-09-20] MEDS: ONDANSETRON INJ 2 MG/ML 2 ML VIAL IV PRN ×2 (13:24→21:41)
--- NOTE | 2019-09-20 15:16 | Hospitalist Progress Note ---
Date of Service September 20, 2019 Assessment & Plan (1) Left upper lobe pneumonia: hx of recurrent Sq cell CA s/p chemo with paciltaxel/carboplatin and radition tx admitted with cough and increasing dyspnea associated with worsening hypoxia. Chest x-ray showed diffuse left sided pulmonary infitrate appreciate input from Pulmonology -given prior hx of lung ca /increased risk for recurrence not a candidate for bronchocopic bipopsy as remains profoundly hypoxic pt also does not want aggressive procedure , and does not feel she will be able to tolerate chemo tx with her current health status over all prognsosis remains very poor -pt aware Blood cultures obtained- negative so far. on PO Doxycycline and Augmentin for total 10 days (2) Acute on chronic respiratory failure with hypoxia: due to above Chronic hypoxic respiratory failure on home O2 3 L/min. presented with worsening SOB /cough /hypoxia Pulmonary Medicine consulted-appreciate input -cont supportive care with nebx /iv steroids/Abx (3) COPD (chronic obstructive pulmonary disease): Exacerbation secondary to pneumonia. Titrate supplemental O2. Continue bronchodilators.on I v steroid will start on taper dose (4) Pulmonary edema: acute on chronic CHF /diastolic heart failure ( preserved LV function ) leading to SOB and progressive hypoxia Echocardiogram demonstrated normal LV wall motion and systolic function, moderate to severe TR, small anterior pericardial effusion without tamponade. Probably acute left ventricular diastolic heart failure secondary to IVFs and f ludrocortisone. appreciate input from Cardiology good response with IV lasix 20 mg daily -adequate diuresis with improvement of hypoxia /SOB IV lasix d/sharonda on po Lasix 20 mg daily (5) Orthostatic hypotension: symptomatic orthostatic hypotension. Outpatient evaluation included Cortrosyn stimulation test which was reportedly normal. Started on midodrine and fludrocortisone without improvement. 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 Echocardiogram demonstrated normal LV wall motion and systolic function, moderate to severe TR, small anterior pericardial effusion without tamponade. Stopped fludrocortisone because of fluid overload/pulm edema Thigh-high TEDS. Increased midodrine to 5 mg TID. (6) Hypokalemia: Replaced. (7) CAD (coronary artery disease): No anginal symptoms. No beta-quita at this time due to orthostatic hypotension. Continue aspirin and statin. (8) Atrial fibrillation: Currently in NSR. was on amiodarone.(Limited anti-arrhythmic options due to severe orthostatic hypotension.) Amiodarone stopped because of worsening pulmonary status. Cardiology consulted. Continue cardiac montoring. Continue warfarin. (9) GERD (gastroesophageal reflux disease): PPI. (10) Squamous cell carcinoma of lung: Status post lobectomy, has completed course of chemotherapy. Management per Dr. Solo Terry. (11) Severe malnutrition: 15 kg weight loss over past 8 months. Serum albumin 1.1. Severe protein calorie malnutrition secondary to malignancy. Oral nutritional supplements. Legal Referee following. (12) Do not resuscitate status: DNR/DNI (13) DVT prophylaxis: On warfarin for atrial fibrillation. goal INR 2-3 (14) Discharge planning issues: pt will need rehab for significant deconditioning willing to participate in PT/OT in am Case Management following for d/c planning . Internal Medicine follow-up with Dr. Foley. Medical Oncology follow-up with Dr. Solo Terry. Cardiology follow-up with Dr. Waldron. Subjective breathing is the same no having a good day today , more tired and weak had nausea , no vomiting too tired to participate in physical therapy counselling provided multiple times that we need at least 1 session of PT to get insurance auth for SNF pt is agreeable to participate in PT tomorrow Physical Exam Constitutional: + ill appearing; no acute distress Eyes: + anicteric sclerae ENMT: external ear and nose normal, oropharynx normal Neck: trachea midline, no thyromegaly Respiratory: no respiratory distress Auscultation: + rales (bibasilar) Cardiovascular: Rate/Rhythm: regular rate and regular rhythm Heart Sounds: no gallop and no cardiac rub Vessels: no JVD Extremities: no calf tenderness and no edema Gastrointestinal (Abdomen): normal bowel sounds, soft, nontender, no hepatosplenomegaly Skin: no rashes, warm and dry Neurologic: PERRL, EOMI, accommodation nl, no face palsy, no dysarthria Psychiatric: Orientation: alert and oriented x 3 Results & Data Vital Signs (Past 12 Hours) Vital Signs Temp Pulse Resp BP Pulse Ox 09/20/19 11:13 36.7 C 69 18 133/79 96 09/20/19 07:35 37.1 C 69 16 126/89 96 09/20/19 07:28 36.8 C 63 16 127/81 96 09/20/19 07:03 74 18 98 09/20/19 04:18 36.3 C L 63 20 134/82 97 (1) Left upper lobe pneumonia Pneumonia type: due to unspecified organism Qualified Code(s): J18.1 - Lobar pneumonia, unspecified organism
[2019-09-20] MEDS: WARFARIN SOD 2.5 MG TAB PO SCH (15:31)
--- NOTE | 2019-09-20 17:24 | Palliative Care Progress Note ---
Date of Service September 20, 2019 Assessment & Plan (1) Goals of care, counseling/discussion: Patient is a 74-year-old female with a past medical history significant for squamous cell carcinoma of the right lower lobe-diagnosed in May 2018, status post right lower lobectomy, completed a course of chemo as well as XRT. Patient was started on another course of chemo , she was only able to tolerate 2 out of 3 planned courses. Her last chemo was this past May. She also has a past medical history significant for nonobstructive CAD, carotid stenosis-status post CEA, tachybradycardia syndrome-status post pacemaker, A. fib-on Coumadin, COPD, hypothyroidism and orthostatic hypotension. Patient reports her weakness progressed to the point where she was no longer able to care for herself or ambulate. -Patient's respiratory status has shown minimal improvement despite aggressive diuresis, Solu-Medrol and broad-spectrum antibiotics. - CODE STATUS-patient does not want any CPR, no shock, no chest compressions. She would only want intubation if her condition was reversible. - Patient's goal would be to improve, be able to receive rehab therapies in order to ambulate independently. - POLST form completed -Hypoxemia, continue O2 at 4-5 L as well as PRN nebs, receiving IV Lasix for signs of pulmonary edema on chest x-ray -Left upper lobe pneumonia-on Solu-Medrol, antibiotics transition to p.o.-on Augmentin and doxycycline -Orthostatic hypotension, continue midodrine, Florinef on hold -Squamous cell lung cancer-patient stated she would not want any further chemo, would reconsider if her performance status improved -We will transition to p.o. meds-patient will need to make a decision here shortly regarding discharge planning. PPS 30% Will continue to follow and assist patient with medical decision making (2) Hypoxemia: (3) Left upper lobe pneumonia: (4) Orthostatic hypotension: (5) Squamous cell carcinoma of lung: Subjective Patient seen and examined in her room-no family at bedside. Patient states her breathing is approximately the same as it was on admission-however has been able to be weaned down on her O2. Patient required 1 PRN IV morphine in the past 24 hours for shortness of breath. When discussing patient's goals she states that she is talked to her sister earlier this morning-still has not made any decisions. Review of Systems Review of Systems: Patient denies fever, chills, chest pain, increased shortness of breath, or abdominal pain positive for nausea/vomiting earlier today Physical Exam Physical Exam: PE: Patient awake, alert and oriented. Slightly less short of breath with conversation HEENT: EOMI, hearing within normal limits Respirations: Good air movement bilaterally, unlabored CV: Regular rate Abdomen: Soft, nontender, positive bowel sounds Extremities: No edema, generalized weakness Neuro: Alert and oriented x4 Results & Data Vital Signs (Past 12 Hours) Vital Signs Temp Pulse Pulse Resp BP Pulse Ox 09/20/19 15:50 75 09/20/19 11:13 98.1 F 69 18 133/79 96 09/20/19 07:35 98.8 F 69 16 126/89 96 09/20/19 07:28 98.2 F 63 16 127/81 96 09/20/19 07:03 74 18 98 PG Care Time/CCT Total # of Minutes Spent Total Time Spent with Patient: Total time spent is greater than 50% in coordination of care (as documented) at patient's floor/unit and/or counseling patient: Time Spent Attending Total time spent 35 minutes with greater than 50% of the time spent at bedside discussing patient's current condition, prognosis as well as goals of care. (1) Left upper lobe pneumonia Pneumonia type: due to unspecified organism Qualified Code(s): J18.1 - Lobar pneumonia, unspecified organism
[2019-09-20] MEDS: ATORVASTATIN 10 MG TAB PO SCH (21:42)
[2019-09-21] MEDS: HEPARIN 100 UNIT/ML 5ML FLUSH FLUSH PRN ×3 (06:06→12:13)
[2019-09-21] MEDS: methylPREDNISolone 125 MG in SYRINGE 0 ML IV SCH (06:13)
[2019-09-21] MEDS: LEVOTHYROXINE SODIUM 75 MCG TABLET PO SCH (06:13)
[2019-09-21 06:20] LABS: Basophils # (auto) 0.01 K/uL (0-0.2); Basophils % (auto) 0.1 %; Hematocrit (blood only) 34.6 % (37-47); Hemoglobin 11.6 g/dL (12.0-16.0); Immature Granulocytes # (auto) 0.26 K/uL (0.00-0.02); Immature Granulocytes % (auto) 1.6 %; Lymphocytes # (auto) 0.48 K/uL (1.2-3.4); Mean Corpuscular Hemoglobin 29.6 pg (25-34); Mean Corpuscular Hgb Conc 33.5 g/dL (32-36); Mean Corpuscular Volume 88.3 fL (80-100); Mean Platelet Volume 10.7 fL (7.4-10.4); Monocytes % (auto) 1.9 %; Neutrophils # (auto) 15.01 K/uL (1.4-6.5); Neutrophils % (auto) 93.4 %; Nucleated RBC # (auto) 0.05 K/uL (0-0); Nucleated RBC % (auto) 0.3 %; Platelet Count 274 K/uL (130-400); RDW Coefficient of Variation 14.9 % (11.5-14.5); Red Blood Count 3.92 M/uL (4.2-5.4); White Blood Count 16.06 K/uL (4.8-10.8)
[2019-09-21] MEDS: LEVALBUTEROL HCL 0.63 MG/3 ML NEB NEB SCH ×2 (07:15→11:07)
[2019-09-21] MEDS: METOPROLOL SUCC 25MG EXT REL TAB PO SCH (08:22)
[2019-09-21] MEDS: CHOLECALCIFEROL 1,000 UNITS TAB PO SCH (08:22)
[2019-09-21] MEDS: MIDODRINE HCL 2.5 MG TAB PO SCH ×3 (08:22→16:44)
[2019-09-21] MEDS: MULTIVITAMIN TAB PO SCH (08:22)
[2019-09-21] MEDS: ASPIRIN 81 MG ECTAB PO SCH (08:23)
[2019-09-21] MEDS: FLUOXETINE HCL 20 MG CAP PO SCH (08:23)
[2019-09-21] MEDS: MAGNESIUM OXIDE 400 MG TAB PO SCH (08:23)
[2019-09-21] MEDS: DOCUSATE SODIUM/SENNA 50/8.6MG TAB PO SCH (08:23)
[2019-09-21] MEDS: FUROSEMIDE 20 MG TAB PO SCH (08:23)
[2019-09-21] MEDS: POLYETHYLENE (MIRALAX) 17 GM PACK PO SCH (08:24)
[2019-09-21] MEDS: NYSTATIN SUSP 500,000 U/5 ML UDC PO SCH ×4 (08:25→21:25)
--- NOTE | 2019-09-21 09:09 | Pulmonology Progress Note ---
Date of Service September 21, 2019 Assessment & Plan (1) Abnormal CT scan of lung: Impression: 74-year-old female with history of recurrent squamous cell carcinoma of the lung having completed chemotherapy in the form of paclitaxel and carboplatin as well as radiation therapy now with diffuse pulmonary infiltrates of unclear etiology. She is being treated with empiric antibiotics, steroids, and diuresis for any potential reversible etiology Recommendation: 1. Abnormal CT scan: Her oxygen requirement has improved with diuresis, antibiotics, and empiric steroids. She remains significantly dyspneic at this point time which is likely multifactorial with etiologies to include significant deconditioning given her debilitated and bedbound state. Would continue prednisone 40 mg a day with plans for taper over 6 to 8 weeks. Bactrim prophylaxis should be initiated and continued until the prednisone dose is below 20 mg a day. 2. Dyspnea: Continue as needed palliative morphine 3. Cough: Resolving This is an unfortunate situation. The patient states that she is not ready to however she does not appear motivated to do what is necessary to improve her pulmonary status. Continued input from palliative care is necessary and if the patient just wants to lie in bed and be comfortable, palliative care would certainly be a reasonable alternative. I advised the patient that if she continues to refuse therapy and remains bedbound there is little else I have to offer her at this point time for a functional recovery. Please contact us if we can be of additional assistance. Unfortunately at this point time I think I have little else to offer this patient. (2) Cough: (3) Hypoxemia: Subjective Patient states she feels the same. Her oxygen is down to 2 L. She remains bedbound and apparently has been refusing to get out of bed when approached by therapy. She did meet with palliative care. She is not coughing or expectorating phlegm. She does not report chest pain or palpitations. Review of Systems Review of Systems: Unchanged from prior Physical Exam Constitutional: + ill appearing; no acute distress Eyes: + anicteric sclerae Respiratory: no respiratory distress Auscultation: + rales (few bibasilar) Cardiovascular: Rate/Rhythm: regular rate and regular rhythm Heart Sounds: no gallop and no cardiac rub Vessels: no JVD Extremities: no calf tenderness and no edema Gastrointestinal (Abdomen): normal bowel sounds, soft, nontender, no hepatosplenomegaly Skin: no rashes, warm and dry Psychiatric: Orientation: alert and oriented x 3 Results & Data Vital Signs (Past 12 Hours) Vital Signs Temp Pulse Resp BP Pulse Ox 09/21/19 07:15 60 16 97 09/21/19 07:10 36.5 C 61 18 129/75 97 09/21/19 03:54 36.4 C L 66 18 139/75 96 09/20/19 23:16 36.3 C L 65 18 137/81 98 Laboratory Results 09/21/19 06:03 09/20/19 05:39 Diagnostic Findings No new imaging PG Care Time/CCT Total # of Minutes Spent Total Time Spent with Patient: Total time spent is greater than 50% in coordination of care (as documented) at patient's floor/unit and/or counseling patient:
[2019-09-21] MEDS: PANTOprazole 40 MG TAB PO SCH (11:00)
[2019-09-21] MEDS: predniSONE 20 MG TAB PO SCH ×2 (12:10→21:25)
--- NOTE | 2019-09-21 15:14 | Cardiology Progress Note ---
Date of Service September 21, 2019 Assessment & Plan (1) Acute on chronic respiratory failure with hypoxia: (2) Atrial fibrillation: INR performed yesterday 09/20/2019 was 1.4. It may be that her Coumadin requirement has increased now that she is off amiodarone. She is on TMP-SMX which would make her prone to having a higher INR. I asked her if she would like for me to check her INR tomorrow and she said yes. Will increase Coumadin dose to 3 mg daily from her prior to hospital dose of 2. 5 mg daily. Continue current dose of metoprolol succinate, 25 mg daily. Subjective Patient seen in follow-up of shortness of breath with history of paroxysmal atrial fibrillation, tachycardia-bradycardia syndrome. She remains dyspneic. Sinus rhythm present. Had a lengthy session of physical therapy today and she was pleased with the amount of activity she achieved. Physical Exam Physical Exam: Temp Pulse Resp BP Pulse Ox 36.7 C 66 18 118/74 98 09/21/19 11:30 09/21/19 11:30 09/21/19 11:30 09/21/19 11:30 09/21/19 11:08 Constitutional: + ill appearing Respiratory: Auscultation: + diminished lung sounds (Decreased breath sounds the bases); no crackles, no rales and no rhonchi Cardiovascular: RRR, no murmur, no edema Gastrointestinal (Abdomen): normal bowel sounds, soft, nontender, no hepatosplenomegaly Neurologic: PERRL, EOMI, accommodation nl, no face palsy, no dysarthria Results & Data Vital Signs (Past 12 Hours) Vital Signs Temp Pulse Resp BP BP Pulse Ox 09/21/19 11:30 36.7 C 66 18 118/74 09/21/19 11:08 68 16 98 09/21/19 07:15 60 16 97 09/21/19 07:10 36.5 C 61 18 129/75 97 09/21/19 03:54 36.4 C L 66 18 139/75 96
[2019-09-21] MEDS: WARFARIN SOD 3 MG TAB PO SCH (16:44)
--- NOTE | 2019-09-21 17:14 | Palliative Care Progress Note ---
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 Patient was started on another course of chemo , she was only able to tolerate 2 out of 3 planned courses. Her last chemo was this past May. She also has a past medical history significant for nonobstructive CAD, carotid stenosis-status post CEA, tachybradycardia syndrome-status post pacemaker, A. fib-on Coumadin, COPD, hypothyroidism and orthostatic hypotension. Patient reported her weakness progressed to the point where she was no longer able to care for herself or ambulate. -Patient's respiratory status has shown minimal improvement despite aggressive diuresis, Solu-Medrol and broad-spectrum antibiotics. - CODE STATUS-patient does not want any CPR, no shock, no chest compressions. She would only want intubation if her condition was reversible. - Patient's goal would be to improve, be able to receive rehab therapies in order to ambulate independently. - POLST form completed -Hypoxemia, continue O2 - weaned from 4-5 L to 2 L via nasal cannula, continue PRN nebs, receiving IV Lasix for signs of pulmonary edema on chest x-ray -Left upper lobe pneumonia-transition to p.o. meds. Would recommend discontinuing IV morphine and start Roxanol at 5 mg p.o./sublingual every 4 hours as needed shortness of breath -Orthostatic hypotension, continue midodrine, Florinef discontinued -Squamous cell lung cancer-patient stated she would not want any further chemo, would reconsider if her performance status improved -Patient transitioned to p.o. meds-awaiting PT/OT evaluations for long term placement at [facility] PPS 30% Will continue to follow and assist patient with medical decision making (2) Hypoxemia: (3) Left upper lobe pneumonia: (4) Orthostatic hypotension: (5) Squamous cell carcinoma of lung: Subjective Patient awake alert, no acute distress. No family or friends at bedside. Patient continues to report she does not see any significant improvement in her condition, however is not ready to accept hospice care. Her goal continues to be to try and fight-patient wishes to go to [facility] for rehab. Patient did cooperate with therapy today-she reports that she was able to sit on the side of the bed, however was not able to stand and bear weight. Patient reports therapist is to return tomorrow for further evaluation. Review of Systems Review of Systems: Positive for nausea Patient denies fever, chills, chest pain, increased shortness of breath or abdominal pain Physical Exam Physical Exam: PE: Awake and alert, comfortable at rest. HEENT: EOMI, hearing within normal limits Respiratory: Unlabored at rest, increased shortness of breath with conversation. CV: Regular rate, no edema Abdomen: Soft, nontender, positive bowel sounds Neuro: Alert and oriented x4 Results & Data Vital Signs (Past 12 Hours) Vital Signs Temp Pulse Resp BP BP Pulse Ox 09/21/19 15:38 97.7 F 63 18 122/75 97 09/21/19 11:30 98.1 F 66 18 118/74 09/21/19 11:08 68 16 98 09/21/19 07:15 60 16 97 09/21/19 07:10 97.7 F 61 18 129/75 97 PG Care Time/CCT Total # of Minutes Spent Total Time Spent with Patient: Total time spent is greater than 50% in coordination of care (as documented) at patient's floor/unit and/or counseling patient: Time Spent Attending Total time spent 35 minutes with greater than 50% of the time spent at bedside evaluating patient's current status as well as discussing goals of care. (1) Left upper lobe pneumonia Pneumonia type: due to unspecified organism Qualified Code(s): J18.1 - Lobar pneumonia, unspecified organism
--- NOTE | 2019-09-21 17:56 | Hospitalist Progress Note ---
Date of Service September 21, 2019 Assessment & Plan (1) Left upper lobe pneumonia: hx of recurrent Sq cell CA s/p chemo with paciltaxel/carboplatin and radition tx admitted with cough and increasing dyspnea associated with worsening hypoxia. Chest x-ray showed diffuse left sided pulmonary infitrate appreciate input from Pulmonology -given prior hx of lung ca /increased risk for recurrence not a candidate for bronchocopic bipopsy as remains profoundly hypoxic pt also does not want aggressive procedure , and does not feel she will be able to tolerate chemo tx with her current health status over all prognsosis remains very poor -pt aware Blood cultures obtained- negative so far. on PO Doxycycline and Augmentin for total 10 days (2) Acute on chronic respiratory failure with hypoxia: due to above Chronic hypoxic respiratory failure on home O2 3 L/min. presented with worsening SOB /cough /hypoxia Pulmonary Medicine consulted-appreciate input -cont supportive care with nebx /iv steroids/Abx (3) COPD (chronic obstructive pulmonary disease): Exacerbation secondary to pneumonia. resp status improved to approx baseline on 2 L 02 ( home setting ) cont Neb tx will D/c IV solu medrol PO prednisone slow taper (4) Pulmonary edema: acute on chronic CHF /diastolic heart failure ( preserved LV function ) leading to SOB and progressive hypoxia Echocardiogram demonstrated normal LV wall motion and systolic function, moderate to severe TR, small anterior pericardial effusion without tamponade. Probably acute left ventricular diastolic heart failure secondary to IVFs and fludrocortisone. appreciate input from Cardiology good response with IV lasix 20 mg daily -adequate diuresis with improvement of hypoxia /SOB IV lasix d/sharonda on po Lasix 20 mg daily (5) Orthostatic hypotension: symptomatic orthostatic hypotension. Outpatient evaluation included Cortrosyn stimulation test which was reportedly normal. Started on midodrine and fludrocortisone without improvement. 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 Echocardiogram demonstrated normal LV wall motion and systolic function, moderate to severe TR, small anterior pericardial effusion without tamponade. Stopped fludrocortisone because of fluid overload/pulm edema Thigh-high TEDS. Increased midodrine to 5 mg TID. (6) Hypokalemia: Replaced. (7) CAD (coronary artery disease): No anginal symptoms. No beta-quita at this time due to orthostatic hypotension. Continue aspirin and statin. (8) Atrial fibrillation: Currently in NSR. was on amiodarone.(Limited anti-arrhythmic options due to severe orthostatic hypotension.) Amiodarone stopped because of worsening pulmonary status. Cardiology consulted. Continue cardiac montoring. Continue warfarin. (9) GERD (gastroesophageal reflux disease): PPI. (10) Squamous cell carcinoma of lung: Status post lobectomy, has completed course of chemotherapy. Management per Dr. Solo Terry. (11) Severe malnutrition: 15 kg weight loss over past 8 months. Serum albumin 1.1. Severe protein calorie malnutrition secondary to malignancy. Oral nutritional supplements. Endoscopy Tech following. (12) Do not resuscitate status: DNR/DNI (13) DVT prophylaxis: On warfarin for atrial fibrillation. goal INR 2-3 (14) Discharge planning issues: appreciate PT eval recommends SNF referral [facility] Case Management following for d/c planning . Internal Medicine follow-up with Dr. Foley. Medical Oncology follow-up with Dr. Solo Terry. Cardiology follow-up with Dr. Waldron. Subjective says more tired today able to work with PT -recommends SNF breathing is still the same /on 2 L 02 NC /her baseline no complain of abdominal pain or nausea Physical Exam Constitutional: + ill appearing; no acute distress Eyes: + anicteric sclerae ENMT: external ear and nose normal, oropharynx normal Neck: trachea midline, no thyromegaly Respiratory: no respiratory distress Auscultation: + rales (bibasilar) Cardiovascular: Rate/Rhythm: regular rate and regular rhythm Heart Sounds: no gallop and no cardiac rub Vessels: no JVD Extremities: no calf tenderness and no edema Gastrointestinal (Abdomen): normal bowel sounds, soft, nontender, no hepatosplenomegaly Skin: no rashes, warm and dry Neurologic: PERRL, EOMI, accommodation nl, no face palsy, no dysarthria Psychiatric: Orientation: alert and oriented x 3 Results & Data Vital Signs (Past 12 Hours) Vital Signs Temp Pulse Resp BP BP Pulse Ox 09/21/19 15:38 36.5 C 63 18 122/75 97 09/21/19 11:30 36.7 C 66 18 118/74 09/21/19 11:08 68 16 98 09/21/19 07:15 60 16 97 09/21/19 07:10 36.5 C 61 18 129/75 97 (1) Left upper lobe pneumonia Pneumonia type: due to unspecified organism Qualified Code(s): J18.1 - Lobar pneumonia, unspecified organism
[2019-09-21] MEDS: ATORVASTATIN 10 MG TAB PO SCH (21:25)
[2019-09-22] MEDS: LEVOTHYROXINE SODIUM 75 MCG TABLET PO SCH (05:44)
[2019-09-22 07:53] LABS: INR 1.8 (0.9-1.1); Prothrombin Time 17.6 Seconds (9.0-12.0)
[2019-09-22] MEDS ORDERED: SULFA/TRIMETH 400/80MG TAB PO SCH (08:00)
[2019-09-22] MEDS: CHOLECALCIFEROL 1,000 UNITS TAB PO SCH (09:03)
[2019-09-22] MEDS: predniSONE 20 MG TAB PO SCH ×2 (09:03→20:33)
[2019-09-22] MEDS: MULTIVITAMIN TAB PO SCH (09:03)
[2019-09-22] MEDS: PANTOprazole 40 MG TAB PO SCH (09:04)
[2019-09-22] MEDS: FUROSEMIDE 20 MG TAB PO SCH (09:04)
[2019-09-22] MEDS: DOCUSATE SODIUM/SENNA 50/8.6MG TAB PO SCH (09:04)
[2019-09-22] MEDS: FLUOXETINE HCL 20 MG CAP PO SCH (09:04)
[2019-09-22] MEDS: METOPROLOL SUCC 25MG EXT REL TAB PO SCH (09:05)
[2019-09-22] MEDS: POLYETHYLENE (MIRALAX) 17 GM PACK PO SCH (09:05)
[2019-09-22] MEDS: MAGNESIUM OXIDE 400 MG TAB PO SCH (09:05)
[2019-09-22] MEDS: MIDODRINE HCL 2.5 MG TAB PO SCH ×3 (09:06→16:59)
[2019-09-22] MEDS: NYSTATIN SUSP 500,000 U/5 ML UDC PO SCH ×4 (09:06→20:33)
[2019-09-22] MEDS: ASPIRIN 81 MG ECTAB PO SCH (09:06)
[2019-09-22] MEDS: HEPARIN 100 UNIT/ML 5ML FLUSH FLUSH PRN (09:14)
[2019-09-22] MEDS: MoRPHine SULFATE 2 MG/ML CARP IV PRN (09:14)
--- NOTE | 2019-09-22 13:20 | Hospitalist Progress Note ---
Date of Service September 22, 2019 Assessment & Plan (1) Left upper lobe pneumonia: hx of recurrent Sq cell CA s/p chemo with paciltaxel/carboplatin and radition tx admitted with cough and increasing dyspnea associated with worsening hypoxia. Chest x-ray showed diffuse left sided pulmonary infitrate appreciate input from Pulmonology -given prior hx of lung ca /increased risk for recurrence not a candidate for bronchocopic bipopsy as remains profoundly hypoxic pt also does not want aggressive procedure , and does not feel she will be able to tolerate chemo tx with her current health status over all prognsosis remains very poor -pt aware Blood cultures obtained- negative so far. on PO Doxycycline and Augmentin for total 10 days (2) Acute on chronic respiratory failure with hypoxia: due to above Chronic hypoxic respiratory failure on home O2 3 L/min. presented with worsening SOB /cough /hypoxia Pulmonary Medicine consulted-appreciate input -cont supportive care with nebx / steroid changed to PO Prednisone , will need to be on chronic 20 mg PO daily on discharge till seen by Pulm (3) COPD (chronic obstructive pulmonary disease): Exacerbation secondary to pneumonia. resp status improved to approx baseline on 2 L 02 ( home setting ) cont Neb tx was treated with IV Solu medrol PO prednisone slow taper pt will need to be on continued low dose Prednisone ( 20 mg daily ) till office eval by Pulm given advanced Lung CA and respiratory failure -palliative care would be appropriate Discussed with pt ,wants to persue treatment as long as she can tolerate aware that she can reach out for Hospice care when clinical status declines (4) Pulmonary edema: acute on chronic CHF /diastolic heart failure ( preserved LV function ) leading to SOB and progressive hypoxia Echocardiogram demonstrated normal LV wall motion and systolic function, moderate to severe TR, small anterior pericardial effusion without tamponade. Probably acute left ventricular diastolic heart failure secondary to IVFs and fludrocortisone. appreciate input from Cardiology good response with IV lasix 20 mg daily -adequate diuresis with improvement of hypoxia /SOB IV lasix d/sharonda on po Lasix 20 mg daily (5) Orthostatic hypotension: symptomatic orthostatic hypotension. Outpatient evaluation included Cortrosyn stimulation test which was reportedly normal. Started on midodrine and fludrocortisone without improvement. 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 Echocardiogram demonstrated normal LV wall motion and systolic function, moderate to severe TR, small anterior pericardial effusion without tamponade. Stopped fludrocortisone because of fluid overload/pulm edema Thigh-high TEDS. Increased midodrine to 5 mg TID. (6) Hypokalemia: Replaced. (7) CAD (coronary artery disease): No anginal symptoms. No beta-quita at this time due to orthostatic hypotension. Continue aspirin and statin. (8) Atrial fibrillation: Currently in NSR. was on amiodarone.(Limited anti-arrhythmic options due to severe orthostatic hypotension.) Amiodarone stopped because of worsening pulmonary status. Cardiology consulted. Continue cardiac montoring. Continue warfarin. (9) GERD (gastroesophageal reflux disease): PPI. (10) Squamous cell carcinoma of lung: Status post lobectomy, has completed course of chemotherapy. Management per Dr. Solo Terry. (11) Severe malnutrition: 15 kg weight loss over past 8 months. Serum albumin 1.1. Severe protein calorie malnutrition secondary to malignancy. Oral nutritional supplements. Elementary Art Teacher following. (12) Do not resuscitate status: DNR/DNI (13) DVT prophylaxis: On warfarin for atrial fibrillation. goal INR 2-3 (14) Discharge planning issues: appreciate PT eval recommends SNF referral [facility] plan to DC to SNF when bed available Case Management following for d/c planning . Internal Medicine follow-up with Dr. Foley. Medical Oncology follow-up with Dr. Solo Terry. Cardiology follow-up with Dr. Waldron. Subjective pt reports of feeling the same , no improvement of tiredness or SOB willing to participate in OT today afternoon Physical Exam Constitutional: + ill appearing; no acute distress Eyes: + anicteric sclerae ENMT: external ear and nose normal, oropharynx normal Neck: trachea midline, no thyromegaly Respiratory: no respiratory distress Auscultation: + rales (bibasilar) Cardiovascular: Rate/Rhythm: regular rate and regular rhythm Heart Sounds: no gallop and no cardiac rub Vessels: no JVD Extremities: no calf tenderness and no edema Gastrointestinal (Abdomen): normal bowel sounds, soft, nontender, no hepatosplenomegaly Skin: no rashes, warm and dry Neurologic: PERRL, EOMI, accommodation nl, no face palsy, no dysarthria Psychiatric: Orientation: alert and oriented x 3 Results & Data Vital Signs (Past 12 Hours) Vital Signs Temp Pulse Resp BP Pulse Ox 09/22/19 11:20 36.5 C 66 16 122/74 99 09/22/19 03:05 36.5 C 64 18 150/84 H 99 (1) Left upper lobe pneumonia Pneumonia type: due to unspecified organism Qualified Code(s): J18.1 - Lobar pneumonia, unspecified organism
[2019-09-22] MEDS: WARFARIN SOD 3 MG TAB PO SCH (16:58)
[2019-09-22] MEDS: ACETAMINOPHEN 325 MG TAB PO PRN (19:26)
[2019-09-22] MEDS: ATORVASTATIN 10 MG TAB PO SCH (20:33)
[2019-09-23] MEDS: LEVOTHYROXINE SODIUM 75 MCG TABLET PO SCH (06:05)
[2019-09-23] MEDS: POLYETHYLENE (MIRALAX) 17 GM PACK PO SCH (08:21)
[2019-09-23] MEDS: METOPROLOL SUCC 25MG EXT REL TAB PO SCH (08:22)
[2019-09-23] MEDS: ASPIRIN 81 MG ECTAB PO SCH (08:22)
[2019-09-23] MEDS: MAGNESIUM OXIDE 400 MG TAB PO SCH (08:22)
[2019-09-23] MEDS: predniSONE 20 MG TAB PO SCH (08:22)
[2019-09-23] MEDS: FUROSEMIDE 20 MG TAB PO SCH (08:22)
[2019-09-23] MEDS: PANTOprazole 40 MG TAB PO SCH (08:22)
[2019-09-23] MEDS: CHOLECALCIFEROL 1,000 UNITS TAB PO SCH (08:22)
[2019-09-23] MEDS: FLUOXETINE HCL 20 MG CAP PO SCH (08:22)
[2019-09-23] MEDS: MIDODRINE HCL 2.5 MG TAB PO SCH ×2 (08:22→11:56)
[2019-09-23] MEDS: DOCUSATE SODIUM/SENNA 50/8.6MG TAB PO SCH (08:22)
[2019-09-23] MEDS: MULTIVITAMIN TAB PO SCH (08:22)
[2019-09-23] MEDS: NYSTATIN SUSP 500,000 U/5 ML UDC PO SCH ×2 (08:23→11:56)
[2019-09-23] MEDS: ACETAMINOPHEN 325 MG TAB PO PRN (08:30)
[2019-09-23] MEDS: HEPARIN 100 UNIT/ML 5ML FLUSH FLUSH PRN (10:15)
--- NOTE | 2019-09-23 14:02 | Discharge Summary ---
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 Patient reports chronic shortness of breath at baseline however has worsened. She reports has been wearing her oxygen at night however has not been wearing her oxygen with activity. Patient states yesterday and today has been wearing her oxygen continuously secondary to shortness of breath with some relief. She reports she has aides coming in twice a week to help her shower and her oxygen saturations were reported at 70% off of oxygen after a shower which increased with placing oxygen on and resting yesterday. Complains of increased cough which has been nonproductive and denies hemoptysis. Reports been having chills for the past week without any noted fevers. Reports decreased appetite for the past 1-2 weeks. Did not eat or drink today. Reports she has lost 4 pounds in the past week. Patient reports history of 3 falls in July. Denies any falls since. Has been having bilateral leg weakness, and dizziness with standing and has been following with PCP. Is been having home PT twice a week. She also recently has been started on Midodrine and Florinef for orthostatic hypotension. This morning she noticed some swelling to dorsal aspect of right hand and tenderness. Patient states she thinks she slept with her hand in a odd position last night. Denies any known injury or trauma. Denies any open areas or discharge or red streaking. Pt reports has had intermittent sensation of fullness after eating and will have vomiting which relieves this sensation. States last occurred 1-2 weeks ago. Also reports sometimes feels like solid foods are not passing through esophagus easily. this has been occurring since radiation. Reports had flu vaccine this season. Denies ill contacts. Denies diaphoresis, diarrhea, constipation, BUNCH, syncope, vision changes, neck pain, CP, orthopnea, palpitations, sore throat, choking, otalgia, rhinorrhea, abdominal pain, extremity edema, rashes, urinary symptoms. Principal Diagnosis Metastatic lung cancer, acute on chronic respiratory failure Discharge Exam Constitutional + ill appearing; no acute distress Eyes + anicteric sclerae ENMT external ear and nose normal, oropharynx normal Neck trachea midline, no thyromegaly Respiratory no respiratory distress Auscultation: + rales (bibasilar) Cardiovascular Rate/Rhythm: regular rate and regular rhythm Heart Sounds: no gallop and no cardiac rub Vessels: no JVD Extremities: no calf tenderness and no edema Gastrointestinal (Abdomen) normal bowel sounds, soft, nontender, no hepatosplenomegaly Skin no rashes, warm and dry Neurologic PERRL, EOMI, accommodation nl, no face palsy, no dysarthria Psychiatric Orientation: alert and oriented x 3 Discharge Data Allergies Allergy/AdvReac Type Severity Reaction Status Date / Time adhesive Allergy Mild skin rash Verified 09/08/19 16:39 phenazopyridine Allergy Mild Rash Verified 09/08/19 16:39 Consultations 09/08/19 16:38 ED Decision to Admit Stat 09/08/19 19:08 Consult Case Management - Discharge Planning Routine 09/12/19 08:22 Consult Pulmonology Routine 09/13/19 03:07 Consult Palliative Care Routine 09/14/19 09:21 Consult Cardiology Routine Ordered Studies 09/13/19 15:07 CT chest w con Urgent Hospital Course (1) Left upper lobe pneumonia: hx of recurrent Sq cell CA s/p chemo with paciltaxel/carboplatin and radition tx admitted with cough and increasing dyspnea associated with worsening hypoxia. Chest x-ray showed diffuse left sided pulmonary infitrate appreciate input from Pulmonology -given prior hx of lung ca /increased risk for recurrence not a candidate for bronchocopic bipopsy as remains profoundly hypoxic pt also does not want aggressive procedure , and does not feel she will be able to tolerate chemo tx with her current health status over all prognsosis remains very poor -pt aware Blood cultures obtained- negative so far. completed PO Doxycycline and Augmentin for total 10 days (2) Acute on chronic respiratory failure with hypoxia: due to above Chronic hypoxic respiratory failure on home O2 3 L/min. presented with worsening SOB /cough /hypoxia Pulmonary Medicine consulted-appreciate input -cont supportive care with nebx / steroid changed to PO Prednisone , will need to be on chronic 20 mg PO daily on discharge respiratory status at baseline stable to be discharged to rehab today (3) COPD (chronic obstructive pulmonary disease): Exacerbation secondary to pneumonia. resp status improved to approx baseline on 2 L 02 ( home setting ) cont Neb tx was treated with IV Solu medrol on PO prednisone 20mg daily -continue given advanced Lung CA and respiratory failure -palliative care would be appropriate Discussed with pt ,wants to persue treatment as long as she can tolerate aware that she can reach out for Hospice care when clinical status declines (4) Pulmonary edema: acute on chronic CHF /diastolic heart failure ( preserved LV function ) leading to SOB and progressive hypoxia Echocardiogram demonstrated normal LV wall motion and systolic function, moderate to severe TR, small anterior pericardial effusion without tamponade. Probably acute left ventricular diastolic heart failure secondary to IVFs and fludrocortisone. appreciate input from Cardiology good response with IV lasix 20 mg daily -adequate diuresis with improvement of hypoxia /SOB IV lasix d/sharonda on po Lasix 20 mg daily on discharge (5) Orthostatic hypotension: symptomatic orthostatic hypotension. Outpatient evaluation included Cortrosyn stimulation test which was reportedly normal. Started on midodrine and fludrocortisone without improvement. 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 Echocardiogram demonstrated normal LV wall motion and systolic function, moderate to severe TR, small anterior pericardial effusion without tamponade. Stopped fludrocortisone because of fluid overload/pulm edema Thigh-high TEDS. Increased midodrine to 5 mg TID. BP has been stable (6) Hypokalemia: Replaced. (7) CAD (coronary artery disease): No anginal symptoms. No beta-quita at this time due to orthostatic hypotension. Continue aspirin and statin. (8) Atrial fibrillation: Currently in NSR. was on amiodarone.(Limited anti-arrhythmic options due to severe orthostatic hypotension.) Amiodarone stopped because of worsening pulmonary status. Cardiology consulted. Continue cardiac montoring. Continue warfarin. (9) GERD (gastroesophageal reflux disease): PPI. (10) Squamous cell carcinoma of lung: Status post lobectomy, has completed course of chemotherapy. Management per Dr. Solo Terry. (11) Severe malnutrition: 15 kg weight loss over past 8 months. Serum albumin 1.1. Severe protein calorie malnutrition secondary to malignancy. Oral nutritional supplements. [employer] following. (12) Do not resuscitate status: DNR/DNI (13) DVT prophylaxis: On warfarin for atrial fibrillation. goal INR 2-3 (14) Discharge planning issues: appreciate PT nailaal recommends SNF referral made to [facility] medially stable to be transferred to [facility] today daughter given update at bedside Total Time Total Time Spent Total Time Spent (In Minutes): approx 35 mins Total Time Includes: Examination of the Patient, Discharge Planning and Medication Reconciliation Discharge Plan Discharge Items Patient Disposition: Transfer Retirement Fac Reason For Visit: PNEUMONIA Discharge Diagnosis: Metastatic lung cancer, acute on chronic respiratory failure Activity: As commented below Activity Comment: As tolerated Non-emergency contact: Primary Care Provider Call non-emergency contact if: you have any medication questions Follow-up/Referrals: Johnathon Foley DO [Primary Care Provider] - Diet: Heart Healthy Addtl Attending Provider Instructions: FOLLOW UP WITH FAMILY PHYSICIAN AFTER DISCHARGE FROM HOSPITAL Pending Studies at Discharge: No Stand-Alone Forms: My [employer] Skilled Items Patient informed of condition?: Yes DNR: Yes Discharge Level of Care: Skilled Communicable Disease: No Discharge Prognosis: Stable Lines: None Urinary Catheter: No Medications and DC Order Prescriptions: New nystatin 100,000 unit/mL Suspension 5 ml PO QID 30 Days Qty: 600 RF: 0 polyethylene glycol 3350 [Miralax] 17 gram Powder In Packet 17 g PO DAILY 30 Days Qty: 30 RF: 0 levalbuterol HCl 0.63 mg/3 mL Solution For Nebulization 0.63 mg NEB Q4 PRN (Reason: wheeze) 30 Days Qty: 120 RF: 0 sulfamethoxazole-trimethoprim 400-80 mg Tablet 1 tab PO MoWeFr@0800 30 Days Qty: 12 RF: 0 prednisone 20 mg Tablet 20 mg PO DAILY 30 Days Qty: 30 RF: 0 sennosides-docusate sodium [Senokot-S] 8.6-50 mg Tablet 1 tab PO QAM 30 Days Qty: 30 RF: 0 midodrine 2.5 mg Tablet 5 mg PO TID 30 Days Qty: 180 RF: 0 furosemide 20 mg Tablet 20 mg PO QAM 30 Days Qty: 30 RF: 0 metoprolol succinate 25 mg Tablet Extended Release 24 Hr 25 mg PO QAM 30 Days Qty: 30 RF: 0 lactulose 20 gram/30 mL Solution 30 ml PO TID PRN (Reason: Constipation) 30 Days Qty: 300 RF: 0 Continued acetaminophen 500 mg capsule 500 mg PO Q6H PRN (Reason: pain/fever) RF: 0 magnesium oxide 400 mg magnesium Tablet 400 mg PO QAM RF: 0 potassium chloride 10 mEq Tablet Extended Release 10 meq PO QAM RF: 0 midodrine 2.5 mg tablet 2.5 mg PO TID RF: 0 albuterol sulfate 90 mcg/actuation HFA aerosol inhaler 2 puff INHALATION Q6H PRN (Reason: Shortness Of Breath Or Wheezing) RF: 0 oxycodone 5 mg tablet 5 mg PO Q6H PRN (Reason: Pain) Qty: 12 RF: 0 multivitamin Tablet 1 tab PO QAM RF: 0 atorvastatin 10 mg Tablet 10 mg PO HS RF: 0 aspirin [Aspir-Low] 81 mg Tablet,Delayed Release (Dr/Ec) 81 mg PO QAM RF: 0 levothyroxine 75 mcg Tablet 75 mcg PO QAM RF: 0 fluoxetine 20 mg Tablet 20 mg PO QAM RF: 0 omeprazole 20 mg Capsule,Delayed Release(Dr/Ec) 20 mg PO QAM RF: 0 cholecalciferol (vitamin D3) [Vitamin D3] 1,000 unit Tablet 1,000 unit PO QAM RF: 0 warfarin 5 mg tablet 2.5 mg PO HS RF: 0 Discontinued fludrocortisone 0.1 mg tablet 0.1 mg PO QAM RF: 0 amiodarone 100 mg Tablet 100 mg PO QAM RF: 0 Discharge Orders: Discharge Order (Routine); Ordered 09/23/19 Ordered By: Ivone Olson Admission Data Admit Date/Time: 09/08/19 17:19 Attending Provider: Cricket Ann Admit Provider: Salomon Cuadra Primary Care Provider: Johnathon Foley Other Providers: Salomon Cuadra ; [facility] ; Sameer Jon ; Heart[place], ; [place] ; Garrett Sánchez ; Jeremy Waldron ; Aubrey Olson Other Interventions: Discharge Summary Assessment (RN) Last Done: 09/23/19 15:34
[2019-09-23 15:35] VITALS: PULSE 71; TEMP 98.2; O2SAT 97
[2019-09-23 15:36] VITALS: BP 118/74
== END 2019-09-23 17:21 | DRG 193 ==
LOC: ED 14:41 → 2W 17:19 → SUATTDRO 17:19 → 2W 18:35